=== PATIENT | male | born 1955 | race Caucasian/White ===

== ENCOUNTER 2019-11-29 12:52 | Emergency (ER) | payer OTHER ==
[2019-11-29 13:18] VITALS: TEMP 98.2
[2019-11-29] MEDS ORDERED: HYDROmorphone 0.5 MG/0.5 ML SYRINGE IVP STA (13:22)
[2019-11-29 13:58] LABS: Basophils # (A) 0.1 k/uL (0-0.2); Basophils % (A) 1 %; Eosinophils # (A) 0.1 k/uL (0-0.7); Eosinophils % (A) 1 %; HCT 52.3 % (39.0-53.0); HGB 17.3 gm/dL (13.0-17.5); Lymphocytes % (A) 9 %; MCV 99.9 fL (80.0-100.0); Mean Platelet Volume 6.5; Monocytes # (A) 0.8 k/uL (0-1.0); Monocytes % (A) 7 %; Neutrophils # (A) 9.4 k/uL (1.3-7.7); Neutrophils % (A) 82 %; Platelet Count 354 k/uL (150-450); RBC 5.23 m/uL (4.30-5.90); RDW 11.5 % (11.5-15.5); WBC 11.5 k/uL (3.8-10.6)
[2019-11-29 14:06] LABS: ALT 65 U/L (4-49); AST 103 U/L (17-59); African American GFR (CKD) >90 (>60 ml/min/1.73 sqM); Albumin 4.7 g/dL (3.5-5.0); Alkaline Phosphatase 64 U/L (38-126); Anion Gap 10 mmol/L; Blood Urea Nitrogen 16 mg/dL (9-20); Calcium 9.5 mg/dL (8.4-10.2); Carbon Dioxide 29 mmol/L (22-30); Chloride 98 mmol/L (98-107); Glucose 127 mg/dL (74-99); Non-African American GFR(CKD) 86 (>60 ml/min/1.73 sqM); Sodium 137 mmol/L (137-145); Total Bilirubin 1.7 mg/dL (0.2-1.3); Total Protein 8.1 g/dL (6.3-8.2)
[2019-11-29 14:09] LABS: Partial Thromboplastin Time 25.2 sec (22.0-30.0); Prothrombin Time 10.2 sec (9.0-12.0)
[2019-11-29 14:35] LABS: Appearance,Urine Clear (Clear); Bilirubin,Urine Negative (Negative); Blood,Urine Negative (Negative); Color,Urine Dark Yellow; Glucose,Urine (UA) Negative (Negative); Ketones,Urine Trace (Negative); Leukocyte Esterase,Urine Small (Negative); Mucus,Urine Moderate /hpf; Nitrite,Urine Negative (Negative); PH, Urine 5.5 (5.0-8.0); Protein,Urine Trace (Negative); RBC,Urine 1 /hpf (0-5); Specific Gravity,Urine 1.027 (1.001-1.035); Squamous Epithelial Cell,Urine <1 /hpf (0-4); WBC,Urine 2 /hpf (0-5)
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
[2019-11-29 15:15] VITALS: BP 165/101; PULSE 67; RESP 18
[2019-11-29] MEDS ORDERED: ACET/COD 300 MG/30 MG STARTER PACK 6 TAB BTL PO STA (15:37)
== END 2019-11-29 16:07 | disposition home or self-care (01) ==
LOC: EC 12:52
DX: S30.1XXA Contusion of abdominal wall, initial encounter (principal); H73.899 Other specified disorders of tympanic membrane, unspecified ear; D72.829 Elevated white blood cell count, unspecified; R74.8 Abnormal levels of other serum enzymes; R79.89 Other specified abnormal findings of blood chemistry; K82.8 Other specified diseases of gallbladder; I10 Essential (primary) hypertension; E78.5 Hyperlipidemia, unspecified; F41.9 Anxiety disorder, unspecified; Z79.899 Other long term (current) drug therapy; V49.50XA Passenger injured in collision with unspecified motor vehicles in traffic accident, initial encounter; Y92.410 Unspecified street and highway as the place of occurrence of the external cause
CPT/HCPCS: 36415; 80053; 84484; 85025; 85610; 85730; 81001; 71260; 74177; 99284; 96374; J1170; Q9967

== ENCOUNTER → 2019-12-16 | Outpatient (CLI) | payer BC ==
--- NOTE | 2019-12-16 12:38 | XR ---
EXAMINATION TYPE: PA chest and left rib series, 5 views DATE OF EXAM: 12/16/2019 Comparison: 11/10/2015 Clinical History: 64-year-old male r07.81 L sided rib pain Findings: Heart borderline in size. Mild elongation sectioned ectasia of the thoracic aorta. Mild hyperinflatio n. No consolidation or pleural effusion. Minimally offset and minimally angulated fractures of the left lateral fifth through 10th ribs. The e ighth and ninth rib fractures may be segmental. Impression: Minimally offset and minimally angulated fractures of the left lateral fifth through 10th ribs. The 8 th and ninth rib fractures may be segmental fractures.
== END | disposition home or self-care (01) ==
LOC: RADXRMAIN 12:01
PROVIDERS: ATTEND Family Medicine
DX: S22.42XA Multiple fractures of ribs, left side, initial encounter for closed fracture (principal)

== ENCOUNTER 2020-04-06 11:06 | Day surgery (SDC) | payer OTHER ==
[2020-04-01 14:29] VITALS: BMI 35.3
[~2020-04-06 11:06] MED LIST: LACTATED RINGERS 1,000 ML IV SCH; LIDOCAINE 1% (10MG/ML) FOR IV START INTRADERMA PRN
[2020-04-06 11:29] VITALS: TEMP 97.9
--- NOTE | 2020-04-06 12:12 | P.GSHP ---
History of Present Illness H&P Date: 04/06/20 Chief Complaint: GI bleed Patient here today for upper and lower endoscopy. Recently found to have stool with blood present. Denies active bleeding. No melena. No GERD. No dysphagia. No family history of colon cancer. No prior upper and lower endoscopy. Past Medical History Past Medical History: Hyperlipidemia, Hypertension Additional Past Medical History / Comment(s): Asthma as child, "8 years ago had episode of tachycardia." History of Any Multi-Drug Resistant Organisms: None Reported Past Surgical History: Adenoidectomy, Tonsillectomy Past Anesthesia/Blood Transfusion Reactions: No Reported Reaction Past Psychological History: Anxiety Smoking Status: Never smoker Past Alcohol Use History: Daily, Occasional Additional Past Alcohol Use History / Comment(s): has 1 cocktail per day and on weekends 2-3. Past Drug Use History: None Reported - Past Family History Father Family Medical History: No Reported History Additional Family Medical History / Comment(s): Dad is 82 and healthy. Mother Family Medical History: No Reported History Additional Family Medical History / Comment(s): Mom is 82 and healthy. Medications and Allergies Home Medications Medication Instructions Recorded Confirmed Type Pravastatin Sodium 40 mg PO DAILY 11/10/15 04/01/20 History Sertraline HCl 100 mg PO QAM 11/10/15 04/01/20 History amLODIPine BESYLATE [Amlodipine 5 mg PO QAM 11/10/15 04/01/20 History Besylate] clonazePAM [Clonazepam] 1 mg PO BID 11/10/15 04/01/20 History lisinopriL 40 mg PO QAM 11/10/15 04/01/20 History Metoprolol Tartrate [Lopressor] 50 mg PO TID #90 tab 11/11/15 04/01/20 Rx hydrALAZINE HCL [Apresoline] 1 tab PO BID 04/06/20 04/06/20 History Allergies Allergy/AdvReac Type Severity Reaction Status Date / Time No Known Allergies Allergy Verified 04/06/20 11:23 Surgical - Exam Vital Signs Temp Pulse Resp BP Pulse Ox 97.9 F 71 16 167/80 96 04/06/20 11:27 04/06/20 11:27 04/06/20 11:27 04/06/20 11:27 04/06/20 11:27 Physical exam: General: Well-developed, well-nourished HEENT: Normocephalic, sclerae nonicteric Abdomen: Nontender, nondistended Extremities: No edema Neuro: Alert and oriented Assessment and Plan (1) Blood in the stool Narrative/Plan: Will proceed with upper and lower endoscopy Current Visit: Yes Status: Acute Code(s): K92.1 - MELENA SNOMED Code(s): 081408763
--- NOTE | 2020-04-06 12:34 | P.PCN ---
Date of Procedure: 04/06/20 Procedure(s) Performed: PREOPERATIVE DIAGNOSIS: Blood in stool POSTOPERATIVE DIAGNOSIS: Gastritis, duodenitis, distal esophagitis, hiatal hernia, diverticulosis, rectal polyp PROCEDURE: 1. EGD with biopsy 2. Colonoscopy with biopsy [place] [facility] [place] [facility] [place] Carlos Walden M.D. SPECIMENS: Duodenum, antrum, distal esophagus, rectal polyp ENDOSCOPIC PROCEDURE: The patient was on the endoscopy table in the left decubitus position. The Olympus gastroscope was inserted into the oropharynx and passed under direct visualization to the region of the third portion of the duodenum. From that point the scope was slowly withdrawn inspecting all surfaces carefully. There was duodenitis present with ulcers. Biopsies of the duodenum took place. The pylorus was widely patent per the stomach was carefully inspected. The patient had evidence of diffuse gastritis with superficial erosions. Biopsies were taken. Retroflexion revealed a small to moderate sized hiatal hernia. At the distal esophagus there were noted to be 2 or 3 linear erosions present. These were non-circumferential. This measured 1.57 m in length. The remainder the esophagus appear normal. The patient was kept on the endoscopy table in the left decubitus position. The Olympus colonoscope was inserted into the anus and passed under direct visualization to the base of the cecum. The appendiceal orifice was visualized. From that point the scope was slowly withdrawn inspecting all surfaces carefully. There were no neoplastic inflammatory or polypoid lesions throughout the cecum, ascending, transverse, descending, and sigmoid colon. The rectum a small polyp was seen and removed using the biopsy forceps. The patient had mild left-sided diverticulosis. Digital rectal examination was normal. The patient was taken to the recovery room in stable condition per anesthesia guidelines. RECOMMENDATIONS: Source of bleeding likely related to EGD source. Begin antiacid therapy. Await biopsy results.
[2020-04-06 12:49] VITALS: BP 146/78
[2020-04-06 13:02] VITALS: PULSE 62; RESP 16
== END 2020-04-06 13:30 | disposition home or self-care (01) ==
LOC: ORWHC2ENDO 11:06
PROVIDERS: ATTEND Surgery
DX: K62.1 Rectal polyp (principal); K31.89 Other diseases of stomach and duodenum; K29.50 Unspecified chronic gastritis without bleeding; K31.9 Disease of stomach and duodenum, unspecified; K20.90 Esophagitis, unspecified without bleeding; K29.80 Duodenitis without bleeding; K26.9 Duodenal ulcer, unspecified as acute or chronic, without hemorrhage or perforation; K29.70 Gastritis, unspecified, without bleeding; K25.9 Gastric ulcer, unspecified as acute or chronic, without hemorrhage or perforation; K44.9 Diaphragmatic hernia without obstruction or gangrene; K57.30 Diverticulosis of large intestine without perforation or abscess without bleeding; E78.5 Hyperlipidemia, unspecified; I10 Essential (primary) hypertension; Z90.89 Acquired absence of other organs; F41.9 Anxiety disorder, unspecified; Z79.899 Other long term (current) drug therapy; I48.91 Unspecified atrial fibrillation; Z79.82 Long term (current) use of aspirin
CPT/HCPCS: 43239; 45380; 88305; 88312; 88342

== ENCOUNTER 2020-09-30 15:57 | Inpatient (IN) | payer OTHER ==
[2020-09-30] MEDS ORDERED: KETOROLAC 15 MG/ML 1 ML VIAL IM STA (18:10)
--- NOTE | 2020-09-30 18:19 | ED ---
General Adult HPI - General Chief complaint: Back Pain/Injury Stated complaint: Fall backwards, dog attack Time Seen by Provider: 09/30/20 16:25 Source: patient, RN notes reviewed, old records reviewed Mode of arrival: wheelchair Limitations: no limitations - History of Present Illness Initial comments: This is a 65-year-old male who presents to the emergency department complaining of back pain. Patient states he fell 5 days ago while mowing the lawn and he slipped. Patient states the pain is on both sides of his spine in the lower back he denies any radiation of pain he denies any numbness or weakness. Patient denies any difficulty urinating or urinary incontinence. Patient denies any other injury. Patient states his doctor gave him some Flexeril and it helped a little. Flexeril makes it feel much better and movement deftly increase the pain - Related Data Home Medications Medication Instructions Recorded Confirmed Pravastatin Sodium 40 mg PO DAILY 11/10/15 09/30/20 amLODIPine BESYLATE [Amlodipine 5 mg PO QAM 11/10/15 09/30/20 Besylate] lisinopriL 40 mg PO QAM 11/10/15 09/30/20 hydrALAZINE HCL [Apresoline] 1 tab PO DAILY 04/06/20 09/30/20 Aspirin [[place] Aspirin EC] 81 mg PO DAILY 09/30/20 09/30/20 Cyclobenzaprine [Flexeril] 10 mg PO HS PRN 09/30/20 09/30/20 DULoxetine HCL [Cymbalta] 30 mg PO HS 09/30/20 09/30/20 Metoprolol Tartrate [Lopressor] 50 mg PO DAILY 09/30/20 09/30/20 Allergies Allergy/AdvReac Type Severity Reaction Status Date / Time No Known Allergies Allergy Verified 09/30/20 20:08 Review of Systems ROS Statement: Those systems with pertinent positive or pertinent negative responses have been documented in the HPI. ROS Other: All systems not noted in ROS Statement are negative. Past Medical History Past Medical History: Hyperlipidemia, Hypertension Additional Past Medical History / Comment(s): Asthma as child, "8 years ago had episode of tachycardia." History of Any Multi-Drug Resistant Organisms: None Reported Past Surgical History: Adenoidectomy, Tonsillectomy Past Anesthesia/Blood Transfusion Reactions: No Reported Reaction Past Psychological History: Anxiety Smoking Status: Never smoker Past Alcohol Use History: Daily, Occasional Past Drug Use History: None Reported - Past Family History Father Family Medical History: No Reported History Additional Family Medical History / Comment(s): Dad is 82 and healthy. Mother Family Medical History: No Reported History Additional Family Medical History / Comment(s): Mom is 82 and healthy. General Exam - General Exam Comments Initial Comments: GENERAL Patient is well-developed and well-nourished. Patient is in mild distress. EYES Patient's pupils are equal and round. Extraocular motion is intact SKIN Unremarkable NEURO The patient is alert and oriented 3 PYSCH Patient has normal interpersonal interactions. MUSCULOSKELETAL Patient is full range of motion of all 4 extremities. Patient has tenderness in the paraspinous muscles bilaterally at about L2 3 L4 region. There is no spinous process tenderness Limitations: no limitations Course Vital Signs 09/30/20 16:23 Temperature 98.1 F Pulse Rate 63 Respiratory 18 Rate Blood Pressure 166/93 O2 Sat by Pulse 95 Oximetry Medical Decision Making - Medical Decision Making X-ray lumbosacral spine shows L1 compression fracture approximate 40%. Computed tomography scan of the lumbosacral and thoracic spine show an L1 compression fracture approximately 40% no retropulsion is noted. I spoke with Dr. Anderson he agreed to admit the patient and they will be ordering a brace to the patient tomorrow. I wrote admitting orders. Disposition Clinical Impression: Compression fracture of L1 lumbar vertebra Disposition: ADMITTED IP TO THIS HOSP Referrals: Vandana Gallardo MD [Primary Care Provider] - 1-2 days Time of Disposition: 21:05
--- NOTE | 2020-09-30 20:01 | XR ---
PROCEDURE: XR LUMBOSACRAL SPINE 5 VIEWS DATE AND TIME: 09/30/2020 6:42 PM CLINICAL INDICATION: pain, fall TECHNIQUE: Department protocol COMPARISON: None FINDINGS: There is a L1 vertebral body compression fracture, most conspicuous on the lateral view. There are multilevel degenerative facet and disc changes, [id number] degree. These degenerative changes are most advanced at the lumbosacral junction with air moderate marked in degree. IMPRESSION: L1 vertebral body compression fracture.
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
[2020-09-30] MEDS ORDERED: HYDROmorphone 0.5 MG/0.5 ML SYRINGE IVP STA (21:03)
[2020-09-30] MEDS ORDERED: SODIUM CHLORIDE 0.9% 1,000 ML IV ONE (21:05)
[2020-10-01] MEDS: KETOROLAC 15 MG/ML 1 ML VIAL IVP SCH ×3 (01:00→11:19)
[2020-10-01] MEDS: HYDROmorphone 0.5 MG/0.5 ML SYRINGE IVP PRN ×2 (01:51→07:52)
--- NOTE | 2020-10-01 08:47 | P.HPOR ---
History of Present Illness H&P Date: 10/01/20 Chief Complaint: Low back pain status post fall Patient is a very pleasant 65-year-old male who is seen and examined bedside for further evaluation of his lumbar spine. He states he sustained a fall outside his home approximate 5 days ago when the neighbor's dog jumped up on him and he fell backwards to the ground. He has been experiencing back pain since that time. He states this is pain had worsened and was not improving he came to the hospital for further evaluation. X-ray and CT imaging was performed. He was found to have an L1 compression fracture deformity. He denies any lower extremity weakness or radiculopathy bilaterally. He is voiding without difficulty. He does feel his pain has been better controlled since his admittance to the hospital. He does feel he would be ready for discharge home today. Patient's other medical diagnoses include hypertension hyperlipidemia. He denies LOC at the time of the fall. Past Medical History Past Medical History: Hyperlipidemia, Hypertension Additional Past Medical History / Comment(s): Asthma as child, "8 years ago had episode of tachycardia." History of Any Multi-Drug Resistant Organisms: None Reported Past Surgical History: Adenoidectomy, Tonsillectomy Past Anesthesia/Blood Transfusion Reactions: No Reported Reaction Past Psychological History: Anxiety Smoking Status: Never smoker Past Alcohol Use History: Daily, Occasional Past Drug Use History: None Reported - Past Family History Father Family Medical History: No Reported History Additional Family Medical History / Comment(s): Dad is 82 and healthy. Mother Family Medical History: No Reported History Additional Family Medical History / Comment(s): Mom is 82 and healthy. Medications and Allergies Home Medications Medication Instructions Recorded Confirmed Type Pravastatin Sodium 40 mg PO DAILY 11/10/15 09/30/20 History amLODIPine BESYLATE [Amlodipine 5 mg PO QAM 11/10/15 09/30/20 History Besylate] lisinopriL 40 mg PO QAM 11/10/15 09/30/20 History hydrALAZINE HCL [Apresoline] 1 tab PO DAILY 04/06/20 09/30/20 History Aspirin [[place] Aspirin EC] 81 mg PO DAILY 09/30/20 09/30/20 History Cyclobenzaprine [Flexeril] 10 mg PO HS PRN 09/30/20 09/30/20 History DULoxetine HCL [Cymbalta] 30 mg PO HS 09/30/20 09/30/20 History Metoprolol Tartrate [Lopressor] 50 mg PO DAILY 09/30/20 09/30/20 History Allergies Allergy/AdvReac Type Severity Reaction Status Date / Time No Known Allergies Allergy Verified 09/30/20 20:08 Physical Examination Physical exam: Patient is awake, alert, and oriented 3 Vital signs stable Good chest excursion with deep inspiration and expiration Abdomen soft nontender Examination of lumbar spine reveals skin is intact with no abrasions, lacerations, or bruises; no erythema, purulence or signs of infection Dorsiflexion, plantarflexion, and extensor hallucis longus positive sustained bilaterally Lower extremity strength 5/5 bilaterally Straight leg test negative bilateral lower extremities No signs or symptoms of DVT; no calf pain No pain with internal and external rotation of the hips bilaterally Neurovascularly intact Results Pertinent studies: CT of the thoracic and lumbar spines taken on 09/30/2020: Evidence of L1 burst fracture with approximately 40% height loss without evidence of retropulsion; L5-S1 degenerative disc disease X-rays of the lumbar spine taken on 09/30/2020: Evidence of L1 compression fracture deformity; L5-S1 degenerative disc disease; multilevel facet degenerative changes Assessment and Plan Assessment: Assessment: Acute traumatic L1 burst fracture Acute lumbar pain Status post fall L5-S1 degenerative disc disease Lumbar facet spondylosis Hypertension Hyperlipidemia Plan: Plan: 1. After reviewing of imaging, physical examination the patient, and further discussion with the patient, will currently planned to proceed forward with conservative treatment at this time. After reviewing of imaging, patient does have evidence of L1 burst fracture which remains in good alignment and good position without evidence of retropulsion or canal stenosis. He has good adequate range of motion of bilateral lower extremities. He denies any lower extremity weakness or radiculopathy bilaterally. He is voiding independently without difficulty. At this time we'll plan for bracing. A prescription has be en written and provided to case management for a Spinomed TLSO brace. Once this brace is delivered and fitted appropriately, patient should wear this brace while sitting upright at greater than 45, during increase activities, during ambulation. Brace does not have to or while lying in bed or while bathing. Following fitting of this brace, patient is clear for discharge from an orthopedic spine standpoint. Following discharge, patient may follow-up with Joe Wilson PA-C or Dr. Gonzalo Asencio at [facility]. Time with Patient: Greater than 30 (Including obtaining history, physical examination, reviewing of imaging, and dictation.)
--- NOTE | 2020-10-01 09:00 | P.DS ---
Providers Date of admission: 09/30/20 21:05 Expected date of discharge: 10/01/20 Attending physician: Xiang Anderson Primary care physician: Vandana Gallardo - Discharge Diagnosis(es) (1) Status post fall Current Visit: Yes Status: Acute (2) Acute low back pain Current Visit: Yes Status: Acute (3) DDD (degenerative disc disease), lumbosacral Current Visit: Yes Status: Acute (4) Lumbar facet arthropathy Current Visit: Yes Status: Acute (5) Hypertension Current Visit: Yes Status: Acute (6) Hyperlipidemia Current Visit: Yes Status: Acute (7) Burst fracture of lumbar vertebra Current Visit: Yes Status: Acute (8) Compression fracture of L1 lumbar vertebra Current Visit: Yes Status: Acute Hospital Course: This is a pleasant 65-year-old male who presented with an acute traumatic L1 compression fracture deformity status post fall. He was admitted for pain control and further evaluation. His pain has been well-controlled since his admittance to the hospital. He continues to deny any lower extremity weakness or radiculopathy bilaterally. He is voiding without difficulty. He does feel his pain is well controlled and he could be discharged home today. He states he would like to be discharged today. She is currently waiting for a brace to be delivered and fitted appropriately. A prescription has been written and provided to case management for a Spinomed TLSO brace. Once this brace is delivered and fitted appropriately, patient should wear this brace while sitting upright at greater than 45, during increase activities, during ambulation. Brace does not have to or while lying in bed or while bathing. Following fitting of this brace, patient is clear for discharge from an orthopedic spine standpoint. Following discharge, patient may follow-up with Joe Wilson PA-C or Dr. Gonzalo Asencio at [facility]. MAPS has been reviewed today, 10/01/2020, with an Overall Overdose Risk Score of 210. An "Opiod Start Talking" Form has been discussed with the patient. A prescription has been written for [place] 5 mg/325 mg 1 tab every 8 hours as needed for pain, dispensed #21. He is also given a prescription for cyclobenzaprine 10 mg 1 tablet 3 times a day as needed for muscle spasm, dispensed #60. Patient's other medical diagnoses include hyperlipidemia and hypertension Physical exam: Patient is awake, alert, and oriented 3 Vital signs stable Good chest excursion with deep inspiration and expiration Abdomen soft nontender Examination of lumbar spine reveals skin is intact with no abrasions, lacerations, or bruises; no erythema, purulence or signs of infection Dorsiflexion, plantarflexion, and extensor hallucis longus positive sustained bilaterally Lower extremity strength 5/5 bilaterally Straight leg test negative bilateral lower extremities No signs or symptoms of DVT; no calf pain No pain with internal and external rotation of the hips bilaterally Neurovascularly intact Patient Condition at Discharge: Stable Plan - Discharge Summary New Discharge Prescriptions: New HYDROcodone/APAP 5-325MG [[place] 5] 1 each PO Q8HR PRN #21 tab PRN Reason: Pain Cyclobenzaprine [Flexeril] 10 mg PO TID PRN #60 tab PRN Reason: Muscle Spasm No Action Pravastatin Sodium 40 mg PO DAILY lisinopriL 40 mg PO QAM amLODIPine BESYLATE [Amlodipine Besylate] 5 mg PO QAM hydrALAZINE HCL [Apresoline] 1 tab PO DAILY Metoprolol Tartrate [Lopressor] 50 mg PO DAILY DULoxetine HCL [Cymbalta] 30 mg PO HS Aspirin [[place] Aspirin EC] 81 mg PO DAILY Cyclobenzaprine [Flexeril] 10 mg PO HS PRN PRN Reason: Pain Discharge Medication List Pravastatin Sodium 40 mg PO DAILY 11/10/15 [History] amLODIPine BESYLATE [Amlodipine Besylate] 5 mg PO QAM 11/10/15 [History] lisinopriL 40 mg PO QAM 11/10/15 [History] hydrALAZINE HCL [Apresoline] 1 tab PO DAILY 04/06/20 [History] Aspirin [[place] Aspirin EC] 81 mg PO DAILY 09/30/20 [History] Cyclobenzaprine [Flexeril] 10 mg PO HS PRN 09/30/20 [History] DULoxetine HCL [Cymbalta] 30 mg PO HS 09/30/20 [History] Metoprolol Tartrate [Lopressor] 50 mg PO DAILY 09/30/20 [History] Cyclobenzaprine [Flexeril] 10 mg PO TID PRN #60 tab 10/01/20 [Rx] HYDROcodone/APAP 5-325MG [[place] 5] 1 each PO Q8HR PRN #21 tab 10/01/20 [Rx] Follow up Appointment(s)/Referral(s): Vandana Gallardo MD [Primary Care Provider] - 1-2 days Joe Wilson PAC [PHYSICIAN SALVATIONIST] - 2 Weeks (Patient may follow-up with Joe Wilson PA-C or Dr. Gonzalo Asencio at [facility] in 2-3 weeks following discharge. ) Activity/Diet/Wound Care/Special Instructions: 1. Patient may wear Spinomed TLSO brace for comfort and support while sitting upright at greater than 45, while working with therapy, and while ambulating; patient does not have to wear the brace while lying in bed or bathing 2. Patient should avoid excessive bending, twisting, and lifting; no lifting greater than 10 pounds 3. Take medications as prescribed Discharge Disposition: HOME SELF-CARE
[2020-10-01 10:51] VITALS: RESP 18
[2020-10-01 13:39] VITALS: BP 198/99; PULSE 99; TEMP 98
== END 2020-10-01 13:40 | disposition home or self-care (01) | DRG 552 ==
LOC: EC 15:57 → 4SSUR 21:05
PROVIDERS: ADMIT Orthopaedic Surgery; ATTEND Orthopaedic Surgery
DX: S32.011A Stable burst fracture of first lumbar vertebra, initial encounter for closed fracture (principal); W01.0XXA Fall on same level from slipping, tripping and stumbling without subsequent striking against object, initial encounter; Y93.H2 Activity, gardening and landscaping; Y92.007 Garden or yard of unspecified non-institutional (private) residence as the place of occurrence of the external cause; M51.37 Other intervertebral disc degeneration, lumbosacral region; W54.0XXA Bitten by dog, initial encounter; E78.5 Hyperlipidemia, unspecified; F41.9 Anxiety disorder, unspecified; I10 Essential (primary) hypertension; J45.909 Unspecified asthma, uncomplicated; M47.816 Spondylosis without myelopathy or radiculopathy, lumbar region; Z79.82 Long term (current) use of aspirin; Z79.899 Other long term (current) drug therapy; Z90.89 Acquired absence of other organs
CPT/HCPCS: 72110; 72128; 72131; 96372; 99285

== ENCOUNTER 2023-08-09 16:17 | Emergency (ER) | payer OTHER ==
[2023-08-09 16:33] VITALS: TEMP 98.2
[2023-08-09 17:05] LABS: Basophils % (A) 0 %; Eosinophils # (A) 0.1 k/uL (0-0.7); Eosinophils % (A) 1 %; HGB 16.7 gm/dL (13.0-17.5); Lymphocytes # (A) 1.3 k/uL (1.0-4.8); Lymphocytes % (A) 12 %; MCHC 32.2 g/dL (31.0-37.0); MCV 93.3 fL (80.0-100.0); Mean Platelet Volume 7.9; Monocytes # (A) 0.9 k/uL (0-1.0); Monocytes % (A) 8 %; Neutrophils # (A) 8.1 k/uL (1.3-7.7); Neutrophils % (A) 77 %; Platelet Count 339 k/uL (150-450); RBC 5.57 m/uL (4.30-5.90); RDW 12.8 % (11.5-15.5); WBC 10.6 k/uL (3.8-10.6)
[2023-08-09 17:21] LABS: ALT 23 U/L (4-49); AST 32 U/L (17-59); African American GFR (CKD) >90 (>60 ml/min/1.73 sqM); Albumin 4.6 g/dL (3.5-5.0); Alkaline Phosphatase 58 U/L (38-126); Anion Gap 7 mmol/L; Blood Urea Nitrogen 22 mg/dL (9-20); Calcium 9.6 mg/dL (8.4-10.2); Carbon Dioxide 29 mmol/L (22-30); Chloride 102 mmol/L (98-107); Glucose 94 mg/dL (74-99); Non-African American GFR(CKD) 87 (>60 ml/min/1.73 sqM); Potassium 4.6 mmol/L (3.5-5.1); Sodium 138 mmol/L (137-145); Total Bilirubin 1.1 mg/dL (0.2-1.3); Total Protein 7.7 g/dL (6.3-8.2)
[2023-08-09 17:23] LABS: Partial Thromboplastin Time 27.4 sec (22.0-30.0); Prothrombin Time 11.2 sec (10.0-12.5)
--- NOTE | 2023-08-09 18:16 | ED ---
General Adult HPI - General Chief complaint: Neuro Symptoms/Deficit Stated complaint: L arm weakness Time Seen by Provider: 08/09/23 17:46 Source: patient, RN notes reviewed, old records reviewed Mode of arrival: ambulatory Limitations: no limitations - History of Present Illness Initial comments: 68 yoPatient was sent in by primary care for evaluation of left arm weakness. This has been present for the past 3 weeks. Patient has previous history of atrial fibrillation and was on Eliquis but had to discontinue this medication secondary to cost. He denies any headache. Denies neck pain. Denies speech abnormalities or weakness to the left leg. Patient was sent in by primary care for CAT scan of the brain. Patient is in sinus rhythm and states that he has been in sinus rhythm as far as he knows since a single episode of atrial fibrillation years ago. - Related Data Home Medications Medication Instructions Recorded Confirmed Pravastatin Sodium 40 mg PO DAILY 11/10/15 09/30/20 amLODIPine BESYLATE [Amlodipine 5 mg PO QAM 11/10/15 09/30/20 Besylate] lisinopriL 40 mg PO QAM 11/10/15 09/30/20 hydrALAZINE HCL [Apresoline] 1 tab PO DAILY 04/06/20 09/30/20 Aspirin [[place] Aspirin EC] 81 mg PO DAILY 09/30/20 09/30/20 Cyclobenzaprine [Flexeril] 10 mg PO HS PRN 09/30/20 09/30/20 DULoxetine HCL [Cymbalta] 30 mg PO HS 09/30/20 09/30/20 Metoprolol Tartrate [Lopressor] 50 mg PO DAILY 09/30/20 09/30/20 Previous Rx's Medication Instructions Recorded Cyclobenzaprine [Flexeril] 10 mg PO TID PRN #60 tab 10/01/20 HYDROcodone/APAP 5-325MG [[place] 5] 1 each PO Q8HR PRN #21 tab 10/01/20 Allergies Allergy/AdvReac Type Severity Reaction Status Date / Time No Known Allergies Allergy Verified 09/30/20 20:08 Review of Systems ROS Statement: Those systems with pertinent positive or pertinent negative responses have been documented in the HPI. ROS Other: All systems not noted in ROS Statement are negative. Past Medical History Past Medical History: Hyperlipidemia, Hypertension Additional Past Medical History / Comment(s): Asthma as child, "8 years ago had episode of tachycardia." History of Any Multi-Drug Resistant Organisms: None Reported Past Surgical History: Adenoidectomy, Tonsillectomy Past Anesthesia/Blood Transfusion Reactions: No Reported Reaction Past Psychological History: Anxiety Smoking Status: Never smoker Past Alcohol Use History: Daily, Occasional Past Drug Use History: None Reported - Past Family History Father Family Medical History: No Reported History Additional Family Medical History / Comment(s): Dad is 82 and healthy. Mother Family Medical History: No Reported History Additional Family Medical History / Comment(s): Mom is 82 and healthy. General Exam Limitations: no limitations General appearance: alert, in no apparent distress Head exam: Present: atraumatic, normocephalic Eye exam: Present: normal appearance, PERRL ENT exam: Present: normal exam Neck exam: Present: normal inspection. Absent: tenderness, meningismus Respiratory exam: Present: normal lung sounds bilaterally. Absent: respiratory distress, wheezes Cardiovascular Exam: Present: regular rate, normal rhythm GI/Abdominal exam: Present: soft. Absent: distended, tenderness, guarding Extremities exam: Present: normal inspection, normal capillary refill. Absent: calf tenderness Neurological exam: Present: alert, oriented X3, CN II-XII intact, motor sensory deficit (NIH of 1 for limb ataxia in the left upper extremity this is very subtle) Psychiatric exam: Present: normal affect, normal mood Skin exam: Present: warm, dry, intact. Absent: cyanosis, diaphoretic Course Vital Signs 08/09/23 16:29 Temperature 98.2 F Pulse Rate 82 Respiratory 16 Rate Blood Pressure 158/88 O2 Sat by Pulse 93 L Oximetry Medical Decision Making - Medical Decision Making Was pt. sent in by a medical professional or institution (, PA, [facility], urgent care, hospital, or penitentiary...) When possible be specific @ -[No] Did you speak to anyone other than the patient for history (EMS, parent, family, police, friend...)? What history was obtained from this source @ -[No] Did you review nursing and triage notes (agree or disagree)? Why? @ -[I reviewed and agree with nursing and triage notes] Were old charts reviewed (outside hosp., previous admission, EMS record, old EKG, old radiological studies, urgent care reports/EKG's, penitentiary records)? Report findings @ -[No old charts were reviewed] Differential CVA Ischemic stroke, hemorrhagic stroke, brain tumor, atypical migraine, Wernicke's encephalopathy, seizure, multiple sclerosis, meningitis, encephalitis, hypoglycemia, Guillain-Green, electrolytes disturbance, myasthenia gravis.... This is not meant to be an all-inclusive list EKG interpreted by me (3pts min.). @ -EKG: Sinus rhythm rate of 75, OK interval 186, QRS duration 98, QTc [address] segment elevation X-rays interpreted by me (1pt min.). @ -[None done] CT interpreted by me (1pt min.). @ -[CT brain without contrast, negative for intracranial hemorrhage or mass effect. CT angiography negative for acute occlusion or stenosis. U/S interpreted by me (1pt. min.). @ -[None done] What testing was considered but not performed or refused? (CT, X-rays, U/S, labs)? Why? @ -[None] What meds were considered but not given or refused? Why? @ -[None] Did you discuss the management of the patient with other professionals (professionals i.e. , PA, [facility], lab, RT, psych nurse, rn social services, grinder outside diameter, teacher, soil science technical officer, counter caser)? Give summary @ -[No] Was smoking cessation discussed for >3mins.? @ -[No] Was critical care preformed (if so, how long)? @ -[No] Were there social determinants of health that impacted care today? How? (Homelessness, low income, unemployed, alcoholism, drug addiction, transportation, low edu. Level, literacy, decrease access to med. care, custodial, r ehab)? @ -[No] Was there de-escalation of care discussed even if they declined (Discuss DNR or withdrawal of care, Hospice)? DNR status @ -[No] What co-morbidities impacted this encounter? (DM, HTN, Smoking, COPD, CAD, Cancer, CVA, ARF, Chemo, Hep., AIDS, mental health diagnosis, sleep apnea, morb id obesity)? @ -History of atrial fibrillation Was patient admitted / discharged? Hospital course, mention meds given and route, prescriptions, significant lab abnormalities, going to OR and other pe rtinent info. @ -68-year-old male presenting from primary care office with 3 weeks of weakness in the left arm. There is no drift. There is a very mild ataxia. No other neurological complaints, no other neurological findings on exam. Patient was sent by the primary for CT imaging. Laboratory testing, EKG, CT imaging is obtained. CT brain without contrast is negative for acute findings. CT angiography is also negative. I do recommend this patient should take aspirin. I stated that he could be admitted for MRI and neurology consultation but the patient declines he prefers discharge.. He states that he will follow-up with his primary care provider. I did inform the patient that he if he should develop any new or worsening symptoms or anything suggestive of stroke he should return to the emergency department immediately. Patient was given an outpatient order for MRI by primary care provider. He will contact his primary care provider regarding results from today. Undiagnosed new problem with uncertain prognosis? @ -[No] Drug Therapy requiring intensive monitoring for toxicity (Heparin, Nitro, Insulin, Cardizem)? @ -[No] Were any procedures done? @ -[No] Diagnosis/symptom? @ -[Left arm weakness for 3 weeks. Acute, or Chronic, or Acute on Chronic? @ -Acute Uncomplicated (without systemic symptoms) or Complicated (systemic symptoms)? @ -[default] Side effects of treatment? @ -[No] Exacerbation, Progression, or Severe Exacerbation? @ -[No] Poses a threat to life or bodily function? How? (Chest pain, [place], [place], pneumonia, PE, COPD, DKA, ARF, appy, cholecystitis, CVA, Diverticulitis, Homicidal, Suicidal, threat to staff... and all critical care pts) @ -Yes, risk of progressive CVA. - Lab Data Result diagrams: 08/09/23 16:33 08/09/23 16:33 Lab Results 08/09/23 08/09/23 08/09/23 Range/Units 16:33 16:33 16:33 WBC 10.6 (3.8-10.6) k/uL RBC 5.57 (4.30-5.90) m/uL Hgb 16.7 (13.0-17.5) gm/dL Hct 52.0 (39.0-53.0) % MCV 93.3 (80.0-100.0) fL MCH 30.0 (25.0-35.0) pg MCHC 32.2 (31.0-37.0) g/dL RDW 12.8 (11.5-15.5) % Plt Count 339 (150-450) k/uL MPV 7.9 Neutrophils % 77 % Lymphocytes % 12 % Monocytes % 8 % Eosinophils % 1 % Basophils % 0 % Neutrophils # 8.1 H (1.3-7.7) k/uL Lymphocytes # 1.3 (1.0-4.8) k/uL Monocytes # 0.9 (0-1.0) k/uL Eosinophils # 0.1 (0-0.7) k/uL Basophils # 0.0 (0-0.2) k/uL PT 11.2 (10.0-12.5) sec INR 1.0 (<1.2) APTT 27.4 (22.0-30.0) sec Sodium 138 (137-145) mmol/L Potassium 4.6 (3.5-5.1) mmol/L Chloride 102 (98-107) mmol/L Carbon Dioxide 29 (22-30) mmol/L Anion Gap 7 mmol/L BUN 22 H (9-20) mg/dL Creatinine 0.92 (0.66-1.25) mg/dL Est GFR (CKD-EPI)AfAm >90 (>60 ml/min/1.73 sqM) Est GFR (CKD-EPI)NonAf 87 (>60 ml/min/1.73 sqM) Glucose 94 (74-99) mg/dL Calcium 9.6 (8.4-10.2) mg/dL Total Bilirubin 1.1 (0.2-1.3) mg/dL AST 32 (17-59) U/L ALT 23 (4-49) U/L Alkaline Phosphatase 58 (38-126) U/L Creatine Kinase (55-170) U/L Troponin I (0.000-0.034) ng/mL Total Protein 7.7 (6.3-8.2) g/dL Albumin 4.6 (3.5-5.0) g/dL 08/09/23 08/09/23 Range/Units 16:33 16:33 WBC (3.8-10.6) k/uL RBC (4.30-5.90) m/uL Hgb (13.0-17.5) gm/dL Hct (39.0-53.0) % MCV (80.0-100.0) fL MCH (25.0-35.0) pg MCHC (31.0-37.0) g/dL RDW (11.5-15.5) % Plt Count (150-450) k/uL MPV Neutrophils % % Lymphocytes % % Monocytes % % Eosinophils % % Basophils % % Neutrophils # (1.3-7.7) k/uL Lymphocytes # (1.0-4.8) k/uL Monocytes # (0-1.0) k/uL Eosinophils # (0-0.7) k/uL Basophils # (0-0.2) k/uL PT (10.0-12.5) sec INR (<1.2) APTT (22.0-30.0) sec Sodium (137-145) mmol/L Potassium (3.5-5.1) mmol/L Chloride (98-107) mmol/L Carbon Dioxide (22-30) mmol/L Anion Gap mmol/L BUN (9-20) mg/dL Creatinine (0.66-1.25) mg/dL Est GFR (CKD-EPI)AfAm (>60 ml/min/1.73 sqM) Est GFR (CKD-EPI)NonAf (>60 ml/min/1.73 sqM) Glucose (74-99) mg/dL Calcium (8.4-10.2) mg/dL Total Bilirubin (0.2-1.3) mg/dL AST (17-59) U/L ALT (4-49) U/L Alkaline Phosphatase (38-126) U/L Creatine Kinase 145 (55-170) U/L Troponin I <0.012 (0.000-0.034) ng/mL Total Protein (6.3-8.2) g/dL Albumin (3.5-5.0) g/dL Disposition Clinical Impression: Left arm weakness Disposition: HOME SELF-CARE Condition: Fair Instructions (If sedation given, give patient instructions): Weakness (ED) Additional Instructions: Please follow closely with your primary care provider for further evaluation and treatment possible CVA. Is patient prescribed a controlled substance at d/c from ED?: No Referrals: Vandana Gallardo MD [Primary Care Provider] - 1-2 days Time of Disposition: 20:20
--- NOTE | 2023-08-09 19:36 | CT ---
EXAMINATION TYPE: CT brain wo con CT DLP: 1021 combined total mGycm, Automated exposure control for dose reduction was used. DATE OF EXAM: 08/09/2023 7:07 PM COMPARISON: None.. CLINICAL INDICATION:Male, 68 years old with history of Neuro deficit, acute, stroke suspected, Weakne ss and tremors in left arm x 3 weeks TECHNIQUE: Brain: Axial CT images of the brain were obtained with coronal and sagittal reformats created and rev iewed. Contrast used: None. Oral contrast used: None. FINDINGS: Extra-axial spaces: No abnormal extra-axial fluid collections. Basilar cisterns are patent. Coarse c alcifications noted along the falx. Ventricular system: Ventricles appear dilated in proportion to the degree of cerebral atrophy. Cerebral parenchyma: No increased attenuation to suggest acute intraparenchymal hemorrhage. The gra y-white matter interface appears maintained. Moderate generalized brain atrophy. Scattered hypoatte nuating areas are seen within the cerebral white matter, nonspecific but most often seen with chronic microvascular ischemic changes; moderate in degree. Cerebellum: No acute abnormality. Mass effect: No evidence of mass effect or midline shift. Intracranial vasculature: Unremarkable Soft tissues: No acute or concerning abnormality. Visualized orbits: Orbital contents appear grossly intact. Calvarium/osseous structures: No evidence of calvarial fracture. Paranasal sinuses and mastoid air cells: Clear. MRI is more sensitive for detecting acute processes such as infarct, and may be considered if clinica lly warranted. IMPRESSION: 1. No CT evidence of an acute intracranial abnormality. 2. Atrophy and chronic microvascular ischemic white matter changes.
--- NOTE | 2023-08-09 20:33 | CT ---
EXAMINATION TYPE: CT angio head neck DATE OF EXAM: 08/09/2023 7:18 PM COMPARISON: Same day CT head. CLINICAL INDICATION:Male, 68 years old with history of Neuro deficit, acute, stroke suspected; PHH, W eakness and tremors in left arm x 3 weeks TECHNIQUE: Axially acquired helical CT angiogram of the head and neck was obtained with contrast. Axi al images are supplemented with 3D reconstructions which [facility] NASCET criteria used. Contrast used: 65 cc mL of Isovue 370 with IV Contrast, Oral contrast used: None. CT DLP: 1021 combined total mGycm, Automated exposure control for dose reduction was used. FINDINGS: CTA Neck: A 3 vessel aortic arch is shown. Mild atherosclerotic calcific plaque is present in the aortic arch and at the origin of the left common carotid and left subclavian arteries without significant stenosi s seen. Right carotid system: The common carotid is patent. There is no hemodynamically significant diameter stenosis, dissection, nor pseudoaneurysm present. Left carotid system: The common carotid is patent. Minimal plaque near the bifurcation. There is no h emodynamically significant diameter stenosis, dissection, nor pseudoaneurysm present. Common carotids are noted to be tortuous taking a retropharyngeal course with a near "kissing carotid s" appearance; this should be remembered in case pharyngeal biopsies are ever performed. Vertebral arteries: There is no significant atherosclerotic plaque at the origins of the vertebral ar teries. The vertebrals are then otherwise patent to the skull base. The vertebral arteries are codominant. Other: Visualized neck soft tissues show no concerning abnormality. Possible tiny hypodense right thy roid nodularity. Cervical spine shows mild/moderate degenerative changes with mild reversal of the no rmal cervical lordosis probably on a degenerative basis. An acute bony abnormality is not identified. Moderate left-sided neural foraminal stenoses are suggested at C3-C4, C5-C6, C6-C7. Mild spinal viktoria l stenoses. Included lung apices show no acute infiltrate or pneumothorax. CTA Head: ICAs are patent at the skull base. Supraclinoid ICAs, bifurcations, ACAs, MCAs appear normally patent. Anterior communicating artery is definitely seen and is unremarkable. The intracranial vertebral arteries enhance normally. Basilar artery is patent and unremarkable. Norm al basilar bifurcation without evidence of aneurysm. 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 A right posterior communicating artery is not definitely seen. A left posterior communicating artery is seen and appears to provide significant supply to the left P CA, with smaller contribution from the basilar. No intracranial large vessel occlusion, hemodynamically significant stenosis, aneurysm, dissection, o r arteriovenous malformation is shown. The dural venous sinuses appear grossly patent without evidence of thrombosis. Some arachnoid granula tions are shown. Other: Please refer to same-day CT head report for further description of findings. IMPRESSION: CTA neck: 1. Patent CTA neck. 2. No dissection, hemodynamically significant stenosis, or pseudoaneurysm detected in the carotid or vertebral arteries in the neck. 3. Cervical spondylosis. CTA head: 1. Patent CTA head. 2. No intracranial large vessel occlusion, significant stenosis, or sizable aneurysm detected in the limits of CTA.
[2023-08-09 20:58] VITALS: BP 165/97; PULSE 79; RESP 17
== END 2023-08-09 21:00 | disposition home or self-care (01) ==
LOC: EC 16:17
DX: R53.1 Weakness (principal); I48.91 Unspecified atrial fibrillation; Z79.899 Other long term (current) drug therapy
CPT/HCPCS: 99284 ×2; 36415; 93005; 80053; 82550; 84484; 85025; 85610; 85730; 70496; 70450; 70498; Q9967

== ENCOUNTER → 2023-08-30 | Outpatient (CLI) | payer MEDICARE ==
--- NOTE | 2023-08-30 19:07 | MR ---
EXAMINATION TYPE: MR brain/cspine wo DATE OF EXAM: 08/30/2023 COMPARISON: CT brain 08/09/2023 HISTORY: 68-year-old male Lt arm weakness, M62.838 OTHER MUSCLE SPASM R29.898 left arm weakness TECHNIQUE: Multiplanar, multisequence images of the brain and brainstem were acquired without IV con trast. Diffusion weighted imaging is performed. Multiplanar, multisequence images of the cervical spi ne also obtained. FINDINGS: BRAIN: No evidence for acute infarction, hemorrhage, mass, mass effect, midline shift, herniation, effacemen t of basal cisterns, or extra-axial fluid collection. There is moderate volume loss overlying the bilateral cerebral convexities. Ventricular caliber is no rmal. Major intracranial flow voids are intact. Persistent origin left posterior cerebral artery. T2 such FLAIR weighted sequences show mild to moderate scattered bright signal foci throughout the menard bcortical and periventricular regions of both cerebral hemispheres. Midline structures demonstrates a partially empty sella but otherwise normal morphology. The cranioce rvical junction is normal. Scattered mild to moderate mucosal thickening ethmoid air cells and floors of the maxillary sinuses. Globes are intact. CERVICAL SPINE: No craniocervical junction abnormalities, predental space widening, or prevertebral soft tissue swell ing. There is reversal of the normal cervical lordosis. Degenerative grade 1 anterolisthesis C4-C5 and gra de 1 retrolisthesis C5-C6. Remaining alignment is maintained. Mild to moderate degenerative disc disease with desiccated and bulging discs are present throughout t he mid and lower cervical spine. Scattered fatty Modic type II endplate changes present throughout. Multilevel moderate facet and uncovertebral joint arthropathy. Broad-based posterior disc osteophyte complex slightly eccentric towards the right at C4-C5 impresses on to the ventral cord causing mild spinal canal stenosis. No mariluz cord compression. No other large focal disc herniation or significant spinal canal stenosis. There is patchy artifacts projecting over the cervical spinal cord. No convincing T2 weighted cord si gnal abnormality on axial sequences. At C3-C4, uncovertebral joint and facet arthropathy contiguous to severe left and moderate right neur oforaminal stenosis. At C4-C5, hypertrophic facet and uncovertebral joint arthropathy contributes to moderate right and mi ld left neuroforaminal stenosis. At C5-C6, hypertrophic facet and uncovertebral joint arthropathy contributes to severe left and moder ate right neuroforaminal stenosis. At C6-C7, hypertrophic facet and uncovertebral joint arthropathy contributes to mild left [place] right neuroforaminal stenosis. No suspicious bone marrow replacement. COMBINED IMPRESSION: Brain: 1. Moderate generalized cerebral atrophy. Mild to moderate burden of chronic small vessel ischemic di sease. 2. No acute intracranial abnormality seen. 3. Additional mild to moderate chronic ethmoid and maxillary sinus disease. Cervical spine: 4. Mild to moderate multilevel degenerative disc disease with scattered Modic type II fatty endplate change. 5. Reversal of the normal cervical lordosis with degenerative grade 1 spondylolisthesis C4-C5 and C5- C6. 6. Disc osteophyte complex eccentric toward the right abuts the ventral cord at C5-C6 contributing to mild spinal canal stenosis. No mariluz cord compression. Patchy artifact projects over the cord limiti ng assessment for any cord signal abnormality. No convincing signal change on axial images. 7. Variable moderate and severe neuroforaminal stenoses as outlined above.
== END | disposition home or self-care (01) ==
LOC: RADMRIMAIN 07:35
PROVIDERS: ATTEND Family Medicine
DX: M62.838 Other muscle spasm (principal); R29.898 Other symptoms and signs involving the musculoskeletal system; M25.78 Osteophyte, vertebrae; J32.0 Chronic maxillary sinusitis; M43.12 Spondylolisthesis, cervical region; M47.812 Spondylosis without myelopathy or radiculopathy, cervical region; M48.02 Spinal stenosis, cervical region; M50.30 Other cervical disc degeneration, unspecified cervical region; I67.82 Cerebral ischemia
CPT/HCPCS: 70551; 72141

== ENCOUNTER → 2023-11-23 | Outpatient (CLI) | payer MEDICARE, OTHER ==
--- NOTE | 2023-11-23 16:54 | XR ---
EXAMINATION TYPE: XR chest 2V DATE OF EXAM: 11/23/2023 COMPARISON: 11/10/2015 HISTORY: Preop clearance TECHNIQUE: Frontal and lateral views of the chest are obtained. FINDINGS: There is prominence of the right hilum and the possibility of hilar adenopathy or mass cannot be excl uded. CT of the chest using the evaluation. Left lung is clear. There is no pleural effusion or pneumothorax. The heart and pulmonary vasculature are normal. The osseous structures are intact IMPRESSION: Prominent right hilum and the possibility of hilar adenopathy or mass cannot be excluded . CT of the chest is recommended for further evaluation. [facility], , 11/23/2023 4:52 PM
== END | disposition home or self-care (01) ==
LOC: LABPAT 14:47
PROVIDERS: ATTEND Orthopaedic Surgery
DX: M50.00 Cervical disc disorder with myelopathy, unspecified cervical region (principal); M47.26 Other spondylosis with radiculopathy, lumbar region; Z22.322 Carrier or suspected carrier of Methicillin resistant Staphylococcus aureus; R06.02 Shortness of breath
CPT/HCPCS: 71046; 86850; 86900; 86901; 87070

== ENCOUNTER 2023-11-27 11:05 | Inpatient (IN) | payer MEDICARE, OTHER ==
--- NOTE | 2023-11-26 21:57 | P.HPOR ---
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 Licea presents to the office today, 11/22/23, for recheck of his neck issues arm issues as well as MRI review. The patient was seen by my COSMETICS AND TOILETRIES SALESPERSON on 11/14/2023 and was prompted to follow up with me urgently due to his severe symptoms. The patient is having severe left arm pain that is getting worse over the past several weeks he has now progressed and near flaccid paralysis of the left upper extremity. He is unable to use his left arm at all secondary to this. The patient had seen previously in neurology as well as another orthopedic surgeon he was diagnosed with carpal tunnel syndrome without imaging. 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 He has been seeing multiple different physicians over the last 2 months and his symptoms are progressively getting worse to the point now where he states he has to wear a brace just to hold his wrist up slid does not fall forward. He denies any trauma to the area he denies any surgery on his neck previously. Patient denies any f/c/sob/cp, perineal numbness or tingling, bowel, or bladde r incontinence/retention. Patient is ambulatory With a cane as he is very unsteady on his feet The patients past social, medical, family, surgical history, as well as review of systems, have been reviewed. Please refer to the History and Physical form that has been scanned into our electronic medical record system. 16 points review of systems completed and as stated in HPI, all other systems reviewed are negative. PAST TREATMENTS: PAST IMAGING: YES -CT MRI and x-rays TRAUMA RELATED: NO - WORK RELATED: NO - PT IN LAST 6 MONTHS: YES -he has done therapy in the last month but this made him worse PHYSICIAN DIRECTED HOME EXERCISE PROGRAM: YES -this was given him by his PCP but also made it worse ACTIVITY MODIFICAITON: YES -he has had a modified his activity to not using his left upper extremity secondary to the essential paralysis that he is having MEDICATIONS: YES -he was placed on gabapentin prednisone Medrol Dosepak as well as Tylenol and Motrin all of which did not help his symptoms only one was gabapentin which decreases pain slightly ALTERNATIVE INTERVENTIONS (CHIROPRACTIC, ACCUPUNCTURE, MASSAGE, RICE): YES -yes he has done physical therapy chiropractics massage without any improvement BRACING: NO - INJECTIONS (DOLLY, TF, RFA): NO - MEDICAL HISTORY: Past Medical History: REVIEWED STATED IN CHART Past Surgical History: REVIEWED STATED IN CHART Social History: REVIEWED STATED IN CHART SMOKING: Never smoker ETOH: None SUBSTANCES: None Family History: REVIEWED STATED IN CHART Current Medications: Rx: aspirin 81 mg tablet,delayed release Ref: 0 Instructions: take 1 tablet (81 mg) by oral route once daily Rx: carvediloL 25 mg tablet Ref: 0 Instructions: take 1 tablet (25 mg) by oral route 2 times per day with food Rx: DULoxetine 30 mg capsule,delayed release Ref: 0 Instructions: take 1 capsule (30 mg) by oral route once daily Rx: ferrous sulfate 325 mg (65 mg iron) tablet Ref: 0 Instructions: take 1 tablet (325 mg) by oral route once daily Rx: furosemide 20 mg tablet Ref: 0 Instructions: take 1 tablet (20 mg) by oral route once daily Rx: hydrALAZINE 100 mg tablet Ref: 0 Instructions: take 1 tablet (100 mg) by oral route 2 times per day with food Rx: lisinopriL 40 mg tablet Ref: 0 Instructions: take 1 tablet (40 mg) by oral route once daily Rx: NIFEdipine ER 30 mg tablet,extended release Ref: 0 Instructions: take 1 tablet (30 mg) by oral route twice daily Rx: pravastatin 40 mg tablet Ref: 0 Instructions: take 1 tablet (40 mg) by oral route once daily Rx: predniSONE 20 mg tablet Ref: 0 Instructions: take 1 tablet (20 mg) by oral route BID Rx: rOPINIRole 0.5 mg tablet Ref: 0 Instructions: take 1 tablet (0.5 mg) by oral route once daily PHYSICAL EXAM: General: AOX3, NAD, Well hydrate, well nourished HEENT: No lumps or masses Extremities: No color changes, no pooling INTEGUMENT: Appearance: Normal color and turgor Surgical Incisions: none Hairy Patches: ABSENT Dorsal Skin Dimples: Normal [employer] spots: ABSENT PALPATION: TTP Midline: NO Paracervical: YES Parathoracic: NO Paralumbar: NO SIJ TESTING: NT POSTURAL BALANCE: Coronal: BALANCED Sagittal: BALANCED Shoulder height: LEVEL Pelvic Girdle: LEVEL ROM AND APPEARANCE: Neck: RESTRICTED Lumbar: UNRESTRICTED Shoulders: Symmetrical Hips: Symmetrical Knees: Symmetrical Hands: Symmetrical Feet: Symmetrical VASCULAR STATUS: PALPABLE PULSES B/L UE AND LE 2/4 RAD/ULNAR/DP/PT Edema: NONE NEUROLOGICAL EXAMINATION: Mental Status: Awake, alert, fully oriented with normal attention, concentration, and memory. Fluent appropriate speech. CRANIAL NERVES: I: Olfactory not assessed. II: Visual acuity normal, no visual field deficit noted with confrontation. III, IV: Normal pupillary reflexes & intact extraocular movements without nystagmus. V, : Intact symmetrical facial sensation. VII: Intact symmetrical facial motor movement: Hearing intact. IX, X: Intact gag, swallow, & normal voice. XI: Sternocleidomastoid, trapezius function intact. XII: Tongue midline with normal movements. TENSIONING: L'HERMITTE'S SIG: NEG SPURLUNG'S SIGN: POSITIVE ON THE LEFT AND RIGHT CUBITAL TUNNEL COMPRESSION: NEG TINELS AT WRIST: NEG STRAIGH LEG RAISE: NEG CONTRALATERAL STRAIGHT LEG RAISE: NEG MOTOR EXAM (0-5/5, NT) Muscle appearance: Symmetrical, without signs of atrophy or dystrophy UPPER EXTREMITY RIGHT LEFT Shoulder Abduction 4 3 Biceps 4 2 Triceps 3 2 Wrist Extension 3 3 Hand Intrinsics 4 3 Tellers Supervisor 4 3 LOWER EXTREMITY RIGHT LEFT Hip Flexion 4 4 Knee Extension 4 4 Knee Flexion 4 4 Dorsiflexion 5 5 Plantarflexion 5 5 EHL 5 5 FHL 5 5 REFLEXES (0-4/2, NT): RIGHT LEFT Bicep 3 3 Brachioradialis 3 3 Triceps 3 3 Patellar 3 3 Achilles 3 3 WIDESPREAD HYPERREFLEXIA OF UE AND LE B/L PATHOLOGICAL REFLEXES: RIGHT LEFT BOGGS'S PRESENT PRESENT CLONUS PRESENT 10 BEATS WRIST AND ANKLE PRESENT SUSTAINED ANKLE, 10 BEATS WRSIT BABINSKI ABSENT ABSENT RECTAL TONE: INTACT/NT SENSATION (0-4, NT): Sensation intact to LT and Pain C5-T1 distribution BUE L2-S2 distribution BLE *Exceptions below* DERMATOMAL DEFICIT/RADICULAR PATTERN: C3-7 LEFT; C5-7 RIGHT GAIT AND FUNCTIONAL EVALUATION: AMBULATORY AID CANE/WALKER ROMBERG'S TEST NOT INTACT HAND AND FINGER DEXTERITY INTACT NO DYSDIADOCHOKINESIA EXAM NEG B/L NO TOE/HEEL WALK INTACT WITH GOOD BALANCE NOT ABLE SQUAT AND RISE W/O ASSISTANCE TO 60 DEG KNEE FLEXION NOT ABLE SINGLE LEG STANCE NOT INTACT [place] NT IMAGING: XRAY Date: 11/14/23 Location: [facility] Region: CERVICAL Views: AP/LAT/FLEX/EXT/OB IMAGES ARE REVIEWED WITH THE PATIENT IN OFFICE AND DEMONSTRATE THE FOLLOWING: FINDINGS: These demonstrate widespread spondylotic disease from C3-7 with severe disc collapse, anterior and posterior osteophyte formation as well as finding of the normal cervical lordosis secondary to collapse. Severe disc collapse causing endplate sclerosis facet arthropathy which is severe. No overt instability on flexion-extension films. Cervical thoracic junction shows anterolisthesis of C7 on T1. Occipital cervical C1 2 joints appear stable. No fracture lesions noted. CT Date: 08/09/23 Location: [facility] Region: HEAD AND NECK Contrast: N IMAGES ARE REVIEWED WITH THE PATIENT IN OFFICE AND DEMONSTRATE THE FOLLOWING: FINDINGS: these images are reviewed and neck of the x-rays as well as MRI findings. There is posterior disc at C5 complex noted at C C3 4 C4 5 and C5 6 causing severe stenosis. Facet arthropathy which is moderate to severe noted. Anterior and posterior osteophytic changes with severe spondylotic collapse. No instability C1 to occipital cervical regions no fractures. Vasculature appears relatively normal. MRI Date: 08/30/2023 Location: [facility] Region: BRAIN AND CERVICAL SPINE Contrast: N IMAGES ARE REVIEWED WITH THE PATIENT IN OFFICE AND DEMONSTRATE THE FOLLOWING: FINDINGS: these demonstrate again widespread spondylotic disease with spondylotic myelopathy from C3 through C7. There are large degenerative disc herniations at C3 4 C4 5 C5 6 and C6 7 causing severe stenosis. Mild malacia changes noted from C3 through C6 with cord signal changes C3 through C6 which are moderate. Severe cord signal changes and impingement noted at C4-C5 and heard a large disc herniation. Reversal of the normal cervical lordosis secondary to spondylotic collapse and severe degenerative disc disease. Grade 1 anterolisthesis C7-T1 noted which is partially reduced on the supine film. No acute fractures noted.no lesions. Severe foraminal stenosis noted at C3 4 C4 5 on the left-hand side as well. IMPRESSION: It was my pleasure to have seen and examined Skinny. I reviewed the patient's clinical syndrome, physical findings, and imaging studies during the appointment today. It is my impression that the patient has a diagnosis of. 1. CERVICAL SPONDYLOTIC MYELOPATHY, SEVERE, PROGRESSIVE 2.LEFT UPPER EXTREMITY PARALYSIS, ACUTE/SUBACUTE 3. BUE WEAKNESS, LEFT WRIST DROP 4. FINE MOTOR DISRUPTION 5. GAIT DISTURBANCE 6. LUE RADICULOPATHY PLAN: DISCUSSION: - I have discussed with the patient's clinical signs and symptoms as well as imaging as well as treatment options. at this point the patient has had severe progressive changes in his left upper extremity which are threatening permanency due to the timing of his presentation as well as his previous workup and time to get to see me. His maximum function is at risk if we do not do something quickly for him and I discussed with this with him and he agrees he would like to proceed as outlined below we discussed risks and benefits at length as in the risk review. He is ready for surgical intervention. SURGICAL RECOMMENDATION - URGENT C3-C7 ANTERIOR CERVICAL DISCECTOMY AND FUSION -WE WILL HAVE HIM SEEN AND CLEARED BY HIS PCP URGENTLY ON SUNDAY OF THIS WEEK. -PRE OP LABS, EKG AND CXR ARE ORDERED STAT AND WILL BE COMPLETED THIS WEEK. SURGICAL PROCEDURE RISK REVIEW Skinny Licea is a 68 year old male presenting for evaluation of sudden onset of LUE WEAKNESS, PAIN, PROGRESSING TO PARALYSIS OF HIS LUE ALONG WITH SEVERE DECREASED FUNCTION, WEAKNESS AND NOW RUE SYMTPOMS. It was my pleasure to have seen and examined Mr. Licea. In our visit today we have had a chance to go over subjective complaints, physical examination findings and treatments, including the natural course history without intervention and various interventional options. The imaging demonstrates SEVERE STENOSIS WITH SPONDYLOSIS AND MYELOPATHY OF THE CERVICAL SPINE FROM C3-7 CAUSING SEVERE CORD COMPRESSION . On physical exam, Mr. Licea demonstrates LUE ACUTE/SUBACUTE PARALYSIS, WEAKNESS, RADICULOPATHY AND NOW RUE WEAKNESS, RADICULOPATHY AND DECREASED FUNCTION. HYPERREFLEXIA UE AND LE B/L WELL CLONUS AND +BOGGS'S B/L THAT IS BRISK. DTR ARE 3+ IN UE AND LE B/L WELL LENDING TO HIS MYELOPATHY AND SEVERE CORD COMPRESSION. I explained to the patient that as his condition progresses it could cause PERNAMENT DAMAGE, PERMANENT WEAKNESS IN HIS LUE SPECIFICALLY DUE TO THE ALREADY SEVERE PROGRESSION OF HIS SX WELL NEUROLOGICAL DECLINE OF HIS LE WELL CONTINUED PAIN, UNSTEADY GAIT AND ISSUES. . At this time, based on the patients imaging and physical exam, I recommend surgery in the form or a: URGENT C3-7 ANTERIOR CERVICAL DISCECTOMY AND FUSION. I discussed the risk and benefits of this procedure at length with Mr. Licea. The patient agreed to consider pursuing the procedure mentioned above. Plan: 1. URGENT C3-7 ANTERIOR CERVICAL DISCECTOMY AND FUSION. THE PATIENTS MAXIMUM RECOVERY POTENTIAL IS IN JEPORDY IF NOT DONE URGENTLY. 2. STAT Follow up with PCP for surgical clearance 3. Review of surgical risks and benefits as well as an educational packet on the proposed surgical procedure. 4. PRE OP LABS STAT Risks: All surgical procedures come with inherent risks, including those related to positioning, anesthesia, intraoperative findings, and postoperative complications. It is important to understand that surgery does not come with any guarantee of a successful outcome as complications and adverse events are always possible. The patient was given a handout in office today discussing the surgical procedure and risks associated with the intervention, both of which were discussed with the patient. These risks include but are not limited to the following: ? Experiencing same, different or even worse symptoms in back, neck, arms, or legs compared to before surgery. ? Requiring further surgery or other forms of treatment presently or at some time in the future at same or other levels of the intended spine surgery. ? On an extreme but fortunately relatively rare basis severe complication such as blindness, stroke, heart attack, temporary and/or permanent nerve injury, paralysis, coma, or may occur, sometimes without known explanation. ? Surgical complications may include but are not limited to risk of infection, fluid accumulation in the surgical dissection site, including a seroma or hematoma, that requires additional surgery, wound drainage, bleeding, new numbness or weakness, vision changes/loss, spinal fluid leakage, non-healing and/or infected incision, headaches, difficulty or inability to swallow, hoarseness, hemopneumothorax, pneumothorax, impotence, retrograde ejaculation, vaginal dryness; injury to nerves, spinal cord, blood vessels, lymphatics or other vital organs (i.e., bowel injury, injury to the great vessels); heterotopic bone formation; complications related to the hardware such as screws, rods, cages including misplaced hardware, device failure, instrumentation at the wrong spine level, hardware fracture/breakage, or hardware loosening; vertebral failure of the spinal column above or below the newly placed hardware; retained surgical instrumentations or devices and the need for further surgery. ? Medical risks of the planned spine surgery include but are not limited to generalized Infections to the whole body or local areas outside of the surgical site (sepsis), heart attack, bleeding, anaphylaxis, meningitis, seizure, epilepsy, hearing loss, burn leiva, laceration of the head or other areas of the body, bruising, hypersensitivity of the skin, bladder over distension; allergic reaction; shoulder injury related to positioning; fat, blood and air clots to other areas of the body like heart, lungs, brain; failure of internal organs such as lungs, kidneys, liver and excessive bleeding. If blood transfusions are necessary, note that transfusions may cause intolerance reactions such as anaphylaxis or other complex reactions. Despite best efforts, the results of spine surgery might not heal in terms of bone, soft tissues such as skin, fascia, ligaments, and joints. Additionally, in order to achieve best possible results, spine surgery may be carried out beyond the initially planned levels and involve decompression, fusion including insertion of hardware at levels other than the original intended area of surgical interest change some portions of the procedure in order to ensure the best possible outcomes. With spine surgery and spinal fusion, there are different off label uses of instrumentation (devices, implants and hardware) as well as biological substances (bone morphogenic proteins, demineralized bone matrix) as well as using extra bone from allograft sources (i.e. cadaver bone) or autograft (iliac crest bone, ribs, or the spine itself). The patient has been given information about these practices and their inherent risks and benefits. [facility] Physician Assistants are medically trained surgical providers who function in the outpatient, inpatient, and operating room setting under the direct supervision of the attending surgeon. They assist in the operating room with direct supervision of the attending surgeons. The patient has had a chance to review all the listed information, has been given print outs detailing this information, and has had all his/her questions answered to their satisfaction. It was my pleasure to have seen and examined Mr. Licea. In our visit today we have had a chance to go over my understanding of our patient's current condition, the natural course history without intervention and various interventional options. Questions were invited and answered, and the patient wishes to proceed as outlined above. I have seen and examined the patient for 25 minutes and we have spent more than 50% of the time in repeat and detailed counseling about the patient's condition, its natural course history with out and as much as can be predicted with surgery and re-review of various surgical treatment options -CONT PREDNISONE HIGH DOSE FOR NEUROPROTECTION -NO BLTPP >5 LBS -CONT WITH WRIST BRACE TO HELP WRIST DROP -PAIN CONTROL NEEDED, CONT WITH CURRENT MED REGIMENT FOLLOW UP: POST OP PLAN AT NEXT VISIT: POST OP VISIT PATIENT EDUCATION: Medications Reviewed: YES In our visit today Mr. Licea and I have had a chance to go over my understanding of the patient's current condition, the natural course history without intervention and various interventional options. Questions were invited and answered, and the patient wishes to proceed as outlined above. I will be sure to keep you updated after Mr. Licea returns here for further follow-up. Thank you again for your referral. Please do not hesitate to contact me if you have any further questions. Signed and authenticated by: Rosendo Medeiros [facility] [address] [place] [address] . This message is confidential, intended only for the named recipient(s) and may contain information that is privileged or exempt from disclosure under applicable law. If you are not the intended recipient(s), you are notified that the dissemination, distribution or copying of this information is prohibited. If you received this message in error, please notify the sender then delete this message. # SIGNED BY Rosendo Manuel (GOO) 11/22/2023 08:47AM Past Medical History Past Medical History: Atrial Fibrillation, GERD/Reflux, Hyperlipidemia, Hypertension, Sleep Apnea/CPAP/BIPAP Additional Past Medical History / Comment(s): Asthma as child, hx. of a-fib-no episodes of in last year, uses CPAP, left arm very weak due to neck, RLS, CTS lolis, lower legs swell History of Any Multi-Drug Resistant Organisms: None Reported Past Surgical History: Adenoidectomy, Tonsillectomy Additional Past Surgical History / Comment(s): colonoscopy Past Anesthesia/Blood Transfusion Reactions: No Reported Reaction Smoking Status: Never smoker - Past Family History Father Family Medical History: No Reported History Additional Family Medical History / Comment(s): Dad is 82 and healthy. Mother Family Medical History: No Reported History Additional Family Medical History / Comment(s): Mom is 82 and healthy. Medications and Allergies Home Medications Medication Instructions Recorded Confirmed Type Pravastatin Sodium 40 mg PO DAILY 11/10/15 11/22/23 History lisinopriL 40 mg PO QAM 11/10/15 11/22/23 History hydrALAZINE HCL [Apresoline] 100 mg PO BID 04/06/20 11/22/23 History Aspirin [Muscoda Aspirin EC] 81 mg PO DAILY 09/30/20 11/22/23 History DULoxetine HCL [Cymbalta] 30 mg PO DAILY 09/30/20 11/22/23 History Furosemide [Lasix] 20 mg PO DAILY 11/22/23 11/22/23 History Multivitamins, Thera [Multivitamin 1 tab PO DAILY 11/22/23 11/22/23 History (formulary)] NIFEdipine [Adalat CC] 30 mg PO BID 11/22/23 11/22/23 History Omeprazole [PriLOSEC] 20 mg PO AC-BRKFST 11/22/23 11/22/23 History carvediloL [Coreg] 25 mg PO BID 11/22/23 11/22/23 History predniSONE [Deltasone] 20 mg PO DAILY 11/22/23 11/22/23 History rOPINIRole HCL [Requip] 0.5 mg PO HS 11/22/23 11/22/23 History Allergies Allergy/AdvReac Type Severity Reaction Status Date / Time No Known Allergies Allergy Verified 11/22/23 17:15 Physical Examination Osteopathic Statement: *. No significant issues noted on an osteopathic structural exam other than those noted in the History and Physical/Consult.
[~2023-11-27 11:05] MED LIST changes: +HYDROmorphone 0.5 MG/0.5 ML SYRINGE IVP PRN; -LACTATED RINGERS 1,000 ML IV SCH; -LIDOCAINE 1% (10MG/ML) FOR IV START INTRADERMA PRN; +TRANEXAMIC 1,000 MG/100ML-NACL 1,000 MG in SALINE 1 100ML.BAG IVPB PRN
[2023-11-27] MEDS: ACETAMINOPHEN TAB 500 MG TAB PO PRN (11:45)
[2023-11-27] MEDS: GABAPENTIN 300 MG CAP PO PRN (11:45)
[2023-11-27] MEDS: ONDANSETRON 4 MG/2 ML VIAL IVP PRN (12:04)
[2023-11-27 12:19] LABS: Basophils % (A) 0 %; Eosinophils # (A) 0.1 k/uL (0-0.7); Eosinophils % (A) 1 %; HCT 53.1 % (39.0-53.0); Lymphocytes # (A) 1.1 k/uL (1.0-4.8); Lymphocytes % (A) 8 %; MCH 31.4 pg (25.0-35.0); Mean Platelet Volume 7.5; Monocytes # (A) 0.8 k/uL (0-1.0); Monocytes % (A) 6 %; Neutrophils # (A) 10.9 k/uL (1.3-7.7); Neutrophils % (A) 83 %; Platelet Count 310 k/uL (150-450); RBC 5.41 m/uL (4.30-5.90); RDW 11.6 % (11.5-15.5)
[2023-11-27 12:31] LABS: Glucose,Whole Blood 111 mg/dL (70-110)
[2023-11-27] MEDS: LACTATED RINGERS 1,000 ML IV SCH (12:31)
[2023-11-27] MEDS: IV FLUID CONTINUATION 1,000 ML IV ONE ×4 (12:32)
[2023-11-27] MEDS ORDERED: fentaNYL (PF) 50 MCG/ML 2 ML AMP ONE (13:25)
[2023-11-27] MEDS ORDERED: KETAMINE HCL IN 0.9 % NACL 50 MG/5 ML SYRINGE ONE (13:25)
[2023-11-27] MEDS ORDERED: ACETAMINOPHEN IV (For NPO) 1,000 MG/100 ML VIAL ONE (13:25)
[2023-11-27] MEDS ORDERED: LIDOCAINE 1% INJ 10MG/ML (20 ML MDV) ONE (13:25)
[2023-11-27] MEDS ORDERED: NEOSTIGMINE 1 MG/ML 10 ML VIAL ONE (13:25)
[2023-11-27] MEDS ORDERED: TRANEXAMIC 1,000 MG/100ML-NACL PREMIX BAG ONE (13:25)
[2023-11-27] MEDS ORDERED: PROPOFOL 10 MG/ML 20 ML VIAL IV ONE (13:25)
[2023-11-27] MEDS ORDERED: PHENYLEPHRINE 10 MG/ML VIAL ONE (13:25)
[2023-11-27] MEDS ORDERED: ePHEDrine 50 MG/ML 1 ML VIAL ONE (13:25)
[2023-11-27] MEDS ORDERED: MIDAZOLAM 2 MG/2 ML VIAL ONE (13:25)
[2023-11-27] MEDS ORDERED: HYDROmorphone (PF) 1 MG/ML ONE (13:25)
[2023-11-27] MEDS ORDERED: VASOPRESSIN 20 UNIT/ML 1 ML VIAL ONE (13:25)
[2023-11-27] MEDS ORDERED: WATER FOR INJECTION, STERILE 10 ML VIAL IV ONE (13:25)
[2023-11-27] MEDS ORDERED: GLYCOPYRROLATE 0.2 MG/ML 2 ML VIAL ONE (13:25)
[2023-11-27] MEDS ORDERED: SUCCINYLCHOLINE CHLORIDE 200 MG/10 ML VIAL IV ONE (13:25)
[2023-11-27] MEDS ORDERED: ROCURONIUM 10 MG/ML (5 ML VIAL) IV ONE (13:25)
[2023-11-27] MEDS: ceFAZolin 3 GM in SODIUM CHLORIDE 0.9% 100 ML IVPB PRN (13:32)
[2023-11-27] MEDS: THROMBIN (BOVINE) 5,000 UNIT VIAL TOPICAL ONE (14:30)
[2023-11-27] MEDS ORDERED: bisacodyL 10 MG SUPP RECTAL PRN (14:37)
[2023-11-27] MEDS ORDERED: NA PHOS,M-B/NA PHOS,DI-BA 133 ML ENEMA RECTAL PRN (14:37)
[2023-11-27] MEDS ORDERED: ONDANSETRON 4 MG/2 ML VIAL IVP PRN (14:37)
[2023-11-27] MEDS ORDERED: CYCLOBENZAPRINE 5 MG TAB PO PRN (14:37)
[2023-11-27] MEDS ORDERED: SENNOSIDES-DOCUSATE SODIUM 1 EACH TAB PO PRN (14:37)
[2023-11-27] MEDS ORDERED: MAGNESIUM HYDROXIDE 2,400 MG/30 ML CUP PO PRN (14:37)
[2023-11-27] MEDS: LACTATED RINGERS 1,000 ML IV ONE ×2 (15:03→16:57)
--- NOTE | 2023-11-27 17:54 | FL ---
EXAMINATION TYPE: FL guidance operating room, XR cervical spine limited DATE OF EXAM: 11/27/2023 5:50 PM COMPARISON: Pre Operative Images if available both CT/MRI or plain film CLINICAL INDICATION: Male, 68 years old with history of CERVICAL FUSION; TECHNIQUE: FL guidance operating room, XR cervical spine limited, multiple fluoroscopic images provid ed for procedure. Total fluoroscopy time: 21.7 seconds Total submitted images to PACS: 5 DAP: 1.2962 mGym2 Gycm2 uGym2 cGycm2 or equivalent. FINDINGS: Fluoroscopic images during internal fixation/arthroplasty demonstrate fixation hardware in appropriat e position. Hardware appears intact. No immediate complication identified. Endotracheal tube appears in satisfactory position. IMPRESSION: 1. No evidence for intraoperative complication. 2. Please see the operative/procedural note for further details. [facility], , 11/27/2023 5:52 PM
[2023-11-27] MEDS: KETOROLAC 15 MG/ML 1 ML VIAL IVP SCH (20:25)
[2023-11-27] MEDS: ACETAMINOPHEN TAB 325 MG TAB PO SCH (20:26)
[2023-11-27] MEDS: GABAPENTIN 100 MG CAP PO SCH (20:26)
[2023-11-27] MEDS: DEXAMETHASONE SOD PHOSPHATE 4 MG/ML 1 ML VIAL IV ONE (20:27)
--- NOTE | 2023-11-27 20:52 | P.CONS ---
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 At current, patient does not have any complaints. Pain from surgical site is tolerable with current pain medication. He has not passed flatus, no bowel movement, and has not yet ambulated after the surgery. He is currently on a Ibarra catheter. He denies headaches, lightheadedness, focal weakness, chest pain, shortness of breath, leg pain, abdominal pain, fevers, chills, or cough. Review of systems: Pertinent positives and negatives as discussed in HPI, a complete review of systems was performed and all other systems are negative. Physical examination: Vital signs reviewed General: non toxic, no distress, appears at stated age, seen on CPAP and nasal cannula Derm: no unusual rashes/lesions, warm, wound with dressing on anterior neck is dry and clean with no erythema of surrounding skin and no discharge Head: atraumatic, normocephalic, symmetric Eyes: EOMI, anicteric sclera, pupils equal round reactive to light ENT: Nose and ears atraumatic Neck: in c-collar, trachea midline, supple Mouth: no lip lesion, mucus membranes moist Cardiovascular: S1S2 reg, no murmur Lungs: CTA bilateral, no rhonchi, no rales, abdominal breathing, no accessory muscle use Abdominal: soft, nondistended, nontender to palpation, no guarding Ext: muscle strength 5 out of 5 in distal muscle group lower extremities grossly, no gross muscle atrophy, no contractures, positive dorsalis pedis pulse bilateral, no edema Neuro: CN II-XI grossly intact, no gross focal neuro deficits Psych: Alert, oriented, appropriate affect and mood Assessment/Plan: #. Obstructive sleep apnea Oxygen saturation at 92 to 95% on 6 L of nasal cannula postop -Monitor oxygenation -Continue with CPAP and supportive oxygenation -ABG -CBC in AM #. Hypertension, resume home BP meds with hold parameters on Hydralazine, and nifedipine to avoid hypotension #. Hyperlipidemia #. GERD #. Anxiety #. A-fib: patient is not on blood thinners at home , CHADS VAsc score of 2 in a male suggests he should be on blood thinner, this should be addressed as OP with his machine feeder #. Restless leg syndrome -Resume home medications once reconciled #. Status post anterior cervical discectomy and fusion from C3-C7 DVT prophylaxis and pain control be managed by primary surgical team We appreciate being part of this patient's care. Thank you for this consult. Past Medical History Past Medical History: Atrial Fibrillation, GERD/Reflux, Hyperlipidemia, Hypertension, Sleep Apnea/CPAP/BIPAP Additional Past Medical History / Comment(s): Asthma as child, hx. of a-fib-no episodes of in last year, uses CPAP, left arm very weak due to neck, RLS, CTS lolis, lower legs swell History of Any Multi-Drug Resistant Organisms: None Reported Past Surgical History: Adenoidectomy, Tonsillectomy Additional Past Surgical History / Comment(s): colonoscopy Past Anesthesia/Blood Transfusion Reactions: No Reported Reaction Smoking Status: Never smoker - Past Family History Father Family Medical History: No Reported History Additional Family Medical History / Comment(s): Dad is 82 and healthy. Mother Family Medical History: No Reported History Additional Family Medical History / Comment(s): Mom is 82 and healthy. Medications and Allergies Home Medications Medication Instructions Recorded Confirmed Type Pravastatin Sodium 40 mg PO DAILY 11/10/15 11/27/23 History lisinopriL 40 mg PO QAM 11/10/15 11/27/23 History hydrALAZINE HCL [Apresoline] 100 mg PO BID 04/06/20 11/27/23 History Aspirin [[place] Aspirin EC] 81 mg PO DAILY 09/30/20 11/27/23 History DULoxetine HCL [Cymbalta] 30 mg PO DAILY 09/30/20 11/27/23 History Furosemide [Lasix] 20 mg PO DAILY 11/22/23 11/27/23 History Multivitamins, Thera [Multivitamin 1 tab PO DAILY 11/22/23 11/27/23 History (formulary)] NIFEdipine [Adalat CC] 30 mg PO BID 11/22/23 11/27/23 History Omeprazole [PriLOSEC] 20 mg PO AC-BRKFST 11/22/23 11/27/23 History carvediloL [Coreg] 25 mg PO BID 11/22/23 11/27/23 History predniSONE [Deltasone] 20 mg PO DAILY 11/22/23 11/27/23 History rOPINIRole HCL [Requip] 0.5 mg PO HS 11/22/23 11/27/23 History Allergies Allergy/AdvReac Type Severity Reaction Status Date / Time No Known Allergies Allergy Verified 11/27/23 11:28 Physical Exam Vitals: Vital Signs Temp Pulse Pulse Resp BP BP Pulse Ox 11/27/23 20:06 98.3 F 98 20 178/89 92 L 11/27/23 19:12 88 20 177/74 94 L 11/27/23 18:57 86 20 164/74 93 L 11/27/23 18:42 86 20 162/74 95 11/27/23 18:27 79 20 162/75 95 11/27/23 18:12 97.4 F L 76 20 165/77 94 L 11/27/23 11:32 97.5 F L 76 18 127/70 93 L Intake and Output 11/27/23 11/27/23 11/27/23 06:59 14:59 22:59 Intake Total 1700 1800 Output Total 200 Balance 1700 1600 Intake: IV 1700 1800 Output: Urine 125 Estimated Blood Loss 75 Other: Weight 133.6 kg Results CBC & Chem 7: 11/27/23 12:05 Labs: Abnormal Lab Results - Last 24 Hours (Table) 11/27/23 11/27/23 Range/Units 12:05 12:30 WBC 13.0 H (3.8-10.6) k/uL Hct 53.1 H (39.0-53.0) % Neutrophils # 10.9 H (1.3-7.7) k/uL POC Glucose (mg/dL) 111 H (70-110) mg/dL Assessment and Plan Assessment: I have seen and evaluated the patient today. I Discussed the case with the resident and agree with the resident's findings I edited the assessment and plan as necessary as documented in the resident's note.
[2023-11-27] MEDS ORDERED: FUROSEMIDE 20 MG TAB PO SCH (22:30)
[2023-11-27] MEDS ORDERED: predniSONE 20 MG TAB PO SCH (22:30)
[2023-11-27] MEDS: hydrALAZINE HCL 50 MG TAB PO SCH (22:42)
[2023-11-27] MEDS: MULTIVITAMINS, THERA 1 EACH TAB PO SCH (22:42)
[2023-11-27 23:57] LABS: ABG HCO3 36 mmol/L (21-25); ABG Oxygen Saturation 97.7 % (94-97); ABG PH 7.32 (7.35-7.45); ABG PO2 110 mmHg (83-108); ABG TCO2 39 mmol/L (19-24); Allen Test Performed? Yes
[2023-11-28 00:04] LABS: ABG PCO2 71 mmHg (35-45)
[2023-11-28 08:38] LABS: Basophils # (A) 0.03 X 10*3/uL (0.00-0.10); Basophils % (A) 0.2 %; Eosinophils # (A) 0.03 X 10*3/uL (0.04-0.35); Eosinophils % (A) 0.2 %; HCT 51.7 % (39.6-50.0); HGB 16.2 g/dL (13.0-17.0); Lymphocytes # (A) 1.18 X 10*3/uL (0.90-5.00); Lymphocytes % (A) 7.1 %; MCH 31.8 pg (27.0-32.0); MCHC 31.3 g/dL (32.0-37.0); MCV 101.6 FL (80.0-97.0); Mean Platelet Volume 10.5 FL (9.5-12.2); Monocytes # (A) 1.14 X 10*3/uL (0.20-1.00); Monocytes % (A) 6.9 %; NRBC Per 100 WBC 0 X 10*3/uL (0.00-0.01); Neutrophils # (A) 14.13 X 10*3/uL (1.80-7.70); Neutrophils % (A) 85.1 %; Platelet Count 256 X 10*3/uL (140-440); RBC 5.09 X 10*6/uL (4.40-5.60); RDW 11.6 % (11.5-14.5)
[2023-11-28] MEDS: PANTOPRAZOLE 40 MG TABLET PO SCH (08:55)
[2023-11-28] MEDS: DULoxetine HCL 30 MG CAPSULE.DR PO SCH (08:55)
[2023-11-28] MEDS: PRAVASTATIN SODIUM 40 MG TAB PO SCH (08:55)
[2023-11-28] MEDS: carvediloL 12.5 MG TAB PO SCH (08:55)
[2023-11-28 08:56] LABS: BUN/Creat Ratio 17.18 Ratio (12.00-20.00); Blood Urea Nitrogen 18.9 mg/dL (9.0-27.0); Calcium 8.8 mg/dL (8.7-10.3); Carbon Dioxide 33.5 mmol/L (21.6-31.8); Chloride 98 mmol/L (96-109); Glucose 113 mg/dL (70-110); Potassium 4.6 mmol/L (3.5-5.5); Sodium 139 mmol/L (135-145)
[2023-11-28] MEDS: NIFEdipine XL 30 MG TAB.ER.24 PO SCH (08:56)
[2023-11-28] MEDS ORDERED: ASPIRIN 81 MG PO SCH (09:00)
[2023-11-28] MEDS: HYDROcodone/APAP 7.5-325MG 1 EACH TAB PO PRN (09:09)
--- NOTE | 2023-11-28 09:09 | P.PN ---
Subjective Progress Note Date: 11/28/23 Principal diagnosis: 1. Severe and progressive cervical spondylitic myelopathy 2. Acute/subacute left upper extremity paralysis 3. Bilateral upper extremity weakness with left wrist drop 4. Fine motor disruption 5. Gait disturbance 6. Left upper extremity radiculopathy Patient seen and examined this morning. Patient is resting in bed with BiPAP present. RN informs signwriter that patient's O2 saturation dropped to 80% last night and BiPAP was applied with FiO2 at 50. Hard cervical collar is present. Surgical incision to the anterior cervical spine, dressing is clean dry and intact with ALEXUS drain present. There is no active drainage at this time within the drain, we will leave this for today as the patient has not been up and about. Informed patient that physical therapy will be in to work with him today. Patient does report that he is looking forward towards his recovery although he is worried about his ability and becoming short of breath. Patient states that he is very tired this morning and is not able to tell if he has had improvement in his left upper extremity since the procedure. Continue to encourage patient to use incentive spirometer 10 times per hour while awake When he is off his BiPAP. Objective - Vital Signs Vital signs: Vital Signs Temp 98.3 F 11/27/23 20:06 Pulse 89 11/27/23 21:19 Resp 20 11/27/23 20:06 BP 153/80 11/27/23 23:46 Pulse Ox 80 L 11/27/23 21:19 FiO2 50 11/28/23 07:30 Intake & Output 11/27/23 11/28/23 11/28/23 18:59 06:59 18:59 Intake Total 3500 Output Total 200 475 Balance 3300 -475 Weight 133.6 kg 133.6 kg Intake: IV 3500 Output: Urine 125 475 Estimated Blood Loss 75 Other: Voiding Method Indwelling Catheter - Exam Physical Examination General: The patient is awake and alert, in no acute distress Skin: Skin is warm and dry with no obvious rashes or lesions. Eye: Pupils are equal, round and reactive to light, extra-ocular movements are intact; there is normal conjunctiva bilaterally. Neck: The neck is supple, there is no tenderness and ROM intact. Cardiovascular: There is a regular rate and rhythm. No murmur, rub or gallop is appreciated. Respiratory: Respirations are non-labored, breath sounds are equal. Gastrointestinal: Soft, non-distended, non-tender abdomen. Back: There is no tenderness to palpation in the midline, paralumbar, parathoracic or buttocks region. There is no obvious deformity . Musculoskeletal: ROM limited secondary to pain and stiffness from surgical procedure. Right: Shoulder abduction 4/5, elbow flexors 4/5, w rist dorsiflexors 4/5. finger abductor 4/5, substation maintenance technician 4/5, hip flexor 4/5, knee flexor 4/5, ankle dorsiflexor 4/5, ankle plantarflexion 4/5 and extensor hallucis 4/5. Left: Shoulder abduction 3/5, elbow flexors 3/5, wrist dorsiflexors 2/5. finger abductor 2/5, substation maintenance technician 5/5, hip flexor 4/5, knee flexor 4/5, ankle dorsiflexor 5/5, ankle plantarflexion 5/5 and extensor hallucis 5/5. Neurological: CN 2-12 intact. There are no obvious motor or sensory deficits. Movement and coordination equal and intact. Sensory exam to light touch intact C5-T1 and intact from L2-S1. Reflexes 2/4 in bilateral upper and lower extremities. Negative Hoffmans, babinski, and clonus signs. Psychiatric: Cooperative, appropriate mood & affect, normal judgment. - Labs CBC & Chem 7: 11/28/23 03:16 11/28/23 03:16 Labs: Abnormal Lab Results - Last 24 Hours (Table) 11/27/23 11/27/23 11/27/23 Range/Units 12:05 12:30 23:50 WBC 13.0 H (3.8-10.6) k/uL Hct 53.1 H (39.0-53.0) % Neutrophils # 10.9 H (1.3-7.7) k/uL ABG pH 7.32 L (7.35-7.45) ABG pCO2 71 H* (35-45) mmHg ABG pO2 110 H (83-108) mmHg ABG HCO3 36 H (21-25) mmol/L ABG Total CO2 39 H (19-24) mmol/L ABG O2 Saturation 97.7 H (94-97) % POC Glucose (mg/dL) 111 H (70-110) mg/dL Assessment and Plan Assessment: Postop day 1: C3-C7 ACDF Plan: -Appreciate construction consultant and team management. -Activity: Ambulate QID, OOB all meals, up and about, limit lifting bending twisting to less than 5 lbs. Use walker or cane if needed for stability. -Daily PT/OT, increase ambulation strength and balance. -Hard cervical collar at all times, may remove for showers. -Pain control: Adequate at this time -Meds: reviewed -GI ppx: senna, Miralax -DC tello when up and about, bedside commode if needed -DVT PPX: OK to restart Heparin tonight -Hygiene: Maintain dressing clean and dry. Meticulous cleaning after BMs away from the incision site -Drains: Maintain for now. Continue to monitor and record output q shift. -Encourage IS 10x/hr -Dispo: Clinically pending *I reviewed and discussed this case with my attending Dr. Manuel, whom has reviewed this chart and films and is in agreement with assessment and plan of care as outlined above. I have personally seen and examined the patient, performed the documentation and the assessment and plan as written. Number of minutes spent on the visit: 20m.
[2023-11-28] MEDS: lisinopriL 20 MG TAB PO SCH (09:13)
--- NOTE | 2023-11-28 10:38 | XR ---
EXAMINATION TYPE: XR chest 1V portable DATE OF EXAM: 11/28/2023 COMPARISON: 11/23/2023 HISTORY: Apraxia TECHNIQUE: Single frontal view of the chest is obtained. FINDINGS: Bilateral consolidation and small left effusion. Heart size enlarged. Postsurgical changes overlying cervical spine. Biapical pleural thickening. Prominent pulmonary arteries may reflect pulm onary arterial hypertension. IMPRESSION: Left basilar consolidation and small pleural effusion. [facility], , 11/28/2023 10:35 AM
--- NOTE | 2023-11-28 11:10 | CT ---
EXAMINATION TYPE: CT cervical spine wo con CT DLP: 830.3 mGycm, Automated exposure control for dose reduction was used. DATE OF EXAM: 11/28/2023 11:01 AM COMPARISON: Cervical spine radiograph 11/27/2023, MRI brain C-spine 08/30/2023. CLINICAL INDICATION:Male, 68 years old with history of s/p cervical fusion; PHH, Cervical fusion TECHNIQUE: Axial CT images from the skull base to the inferior aspect of T2 we obtained without intra venous contrast. Coronal and sagittal reformatted images were also reviewed. FINDINGS: Postsurgical changes from anterior cervical fusion with disc spacers involving C3-T7. Hardware appear s intact and appropriately aligned. There is surrounding soft tissue gas and edema extending into the anterior neck. No acute fracture. Appropriate alignment of the cervical spine. Surgical drain identi fied along the anterior aspect of the C4-C5 disc space. No sizable organized fluid collection identif ied. Multilevel mild central canal stenosis suggested. Evaluation is limited due to streak artifact f rom hardware. Varying degrees of moderate to severe neuroforaminal stenosis is redemonstrated. IMPRESSION: Postsurgical changes from ACDF C3-C7. Hardware appears intact. No CT evidence for significant complic ation. [facility], , 11/28/2023 11:08 AM
--- NOTE | 2023-11-28 11:31 | P.PN ---
Subjective Progress Note Date: 11/28/23 Patient seen this morning. He was sitting up in the chair. He states that he is having some neck pain related to the surgery. He denies any shortness of breath. Patient is not 6. Nasal cannula. He was on BiPAP last night. Patient states that he does have a CPAP at home however does not use any oxygen. Physical exam General examination - Alert and Oriented 3 in NAD HEENT: Neck collar Heart - + S1S2 no murmurs Lungs -diminished breath sounds bilaterally Abdomen soft NT ND +ve BS Extremities - No edema RESIN MIXER - Moving all 4 extremities spontaneously Psych - Calm and cooperative Assessment and plan Postop hypoxia Mild volume overload likely from surgery I ordered and I independently interpreted the chest x-ray that shows bibasilar consolidation and small left-sided pleural effusion. I suspect the bibasal consolidation from atelectasis Encourage incentive spirometer use Will give one-time dose of IV Lasix 20 mg. Will restart his home dose of Lasix 20 mg daily tomorrow Check BMP and magnesium tomorrow Creatinine this morning 1.1. Patient currently on 6 L nasal cannula. I discussed with the nurse to wean him off the oxygen if possible. Obstructive sleep apnea I reviewed patient's ABG that shows pH 7.32 and CO2 71 and bicarb 36. Patient uses CPAP at home Continue with CPAP Hypertension Continue with Coreg 25 mg p.o. twice daily Hydralazine 100 mg p.o. twice daily Lisinopril 40 mg p.o. daily Nifedipine 30 mg p.o. twice daily Monitor blood pressure. This morning blood pressure 165/85 Atrial fibrillation Patient is not on blood thinners at home Will defer to his primary brass sorter Continue with beta-charito Heart rate control Anxiety Continue with duloxetine 30 mg p.o. daily Restless leg syndrome Continue with Requip 0.5 mg p.o. at bedtime Hyperlipidemia Continue pravastatin 40 mg p.o. daily GERD Continue Protonix 40 mg p.o. daily Cervical spine surgery As per your orthopedic surgery management Hemoglobin this morning is 16.2 which is stable Leukocytosis WBC is 16.6 which is likely reactive to surgery Trend CBC DVT prophylaxis as per primary team Objective - Vital Signs Vital signs: Vital Signs Temp 97.4 F L 11/28/23 08:27 Pulse 63 11/28/23 08:27 Resp 17 11/28/23 08:27 BP 165/85 11/28/23 08:27 Pulse Ox 96 11/28/23 08:27 FiO2 50 11/28/23 07:30 Intake & Output 11/27/23 11/28/23 11/28/23 18:59 06:59 18:59 Intake Total 3500 Output Total 200 475 Balance 3300 -475 Weight 133.6 kg 133.6 kg Intake: IV 3500 Output: Urine 125 475 Estimated Blood Loss 75 Other: Voiding Method Indwelling Catheter - Labs CBC & Chem 7: 11/28/23 03:16 11/28/23 03:16 Labs: Abnormal Lab Results - Last 24 Hours (Table) 11/27/23 11/27/23 11/27/23 Range/Units 12:05 12:30 23:50 WBC 13.0 H (3.8-10.6) k/uL Hct 53.1 H (39.0-53.0) % MCV (80.0-97.0) FL MCHC (32.0-37.0) g/dL Immature Gran # (0.00-0.04) X 10*3/uL Neutrophils # 10.9 H (1.3-7.7) k/uL Monocytes # (0.20-1.00) X 10*3/uL Eosinophils # (0.04-0.35) X 10*3/uL ABG pH 7.32 L (7.35-7.45) ABG pCO2 71 H* (35-45) mmHg ABG pO2 110 H (83-108) mmHg ABG HCO3 36 H (21-25) mmol/L ABG Total CO2 39 H (19-24) mmol/L ABG O2 Saturation 97.7 H (94-97) % Carbon Dioxide (21.6-31.8) mmol/L Glucose (70-110) mg/dL POC Glucose (mg/dL) 111 H (70-110) mg/dL 11/28/23 11/28/23 Range/Units 03:16 03:16 WBC 16.60 H (3.8-10.6) k/uL Hct 51.7 H (39.0-53.0) % MCV 101.6 H (80.0-97.0) FL MCHC 31.3 L (32.0-37.0) g/dL Immature Gran # 0.09 H (0.00-0.04) X 10*3/uL Neutrophils # 14.13 H (1.3-7.7) k/uL Monocytes # 1.14 H (0.20-1.00) X 10*3/uL Eosinophils # 0.03 L (0.04-0.35) X 10*3/uL ABG pH (7.35-7.45) ABG pCO2 (35-45) mmHg ABG pO2 (83-108) mmHg ABG HCO3 (21-25) mmol/L ABG Total CO2 (19-24) mmol/L ABG O2 Saturation (94-97) % Carbon Dioxide 33.5 H (21.6-31.8) mmol/L Glucose 113 H (70-110) mg/dL POC Glucose (mg/dL) (70-110) mg/dL
[2023-11-28] MEDS: FUROSEMIDE 10 MG/ML 2 ML VIAL IV ONE (12:08)
--- NOTE | 2023-11-28 18:12 | P.OP ---
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 Implants: LILA SECURE C 9MMX4 14MM SCREWS OZARK PLATE 36MM [employer] Anesthesia: GETA Surgeon: Rosendo Manuel Lens Blank Gauger #1: Traci Ku (WAS PRESENT FROM POSITIONING TO INITIAL CAGE PLACEMENT) Lens Blank Gauger #2: Andrew Cruz (WAS PRESENT FROM SECOND CAGE PLACEMENT TO DRESSING PLACEMENT) Estimated Blood Loss (ml): 75 IV fluids (ml): 2,300 Urine output (ml): 350 Pathology: none sent Condition: stable Disposition: PACU Indications for Procedure: Skinny Licea is a 68 year old male presenting for evaluation of sudden onset of LUE WEAKNESS, PAIN, PROGRESSING TO PARALYSIS OF HIS LUE ALONG WITH SEVERE DECREASED FUNCTION, WEAKNESS AND NOW RUE SYMTPOMS. It was my pleasure to have seen and examined Mr. Licea. In our visit today we have had a chance to go over subjective complaints, physical examination findings and treatments, including the natural course history without intervention and various interventional options. The imaging demonstrates SEVERE STENOSIS WITH SPONDYLOSIS AND MYELOPATHY OF THE CERVICAL SPINE FROM C3-7 CAUSING SEVERE CORD COMPRESSION . On physical exam, Mr. Licea demonstrates LUE ACUTE/SUBACUTE PARALYSIS, WEAKNESS, RADICULOPATHY AND NOW RUE WEAKNESS, RADICULOPATHY AND DECREASED FUNCTION. HYPERREFLEXIA UE AND LE B/L WELL CLONUS AND +BOGGS'S B/L THAT IS BRISK. DTR ARE 3+ IN UE AND LE B/L WELL LENDING TO HIS MYELOPATHY AND SEVERE CORD COMPRESSION. I explained to the patient that as his condition progresses it could cause PERNAMENT DAMAGE, PERMANENT WEAKNESS IN HIS LUE SPECIFICALLY DUE TO THE ALREADY SEVERE PROGRESSION OF HIS SX WELL NEUROLOGICAL DECLINE OF HIS LE WELL CONTINUED PAIN, UNSTEADY GAIT AND ISSUES. . At this time, based on the patients imaging and physical exam, I recommend surgery in the form or a: URGENT C3-7 ANTERIOR CERVICAL DISCECTOMY AND FUSION. I discussed the risk and benefits of this procedure at length with Mr. Licea. The patient agreed to consider pursuing the procedure mentioned above. Plan: 1. URGENT C3-7 ANTERIOR CERVICAL DISCECTOMY AND FUSION. THE PATIENTS MAXIMUM RECOVERY POTENTIAL IS IN JEPORDY IF NOT DONE URGENTLY. Description of Procedure: C3-7 ACDF The patient was seen and examined in the preoperative area. All preoperative protocols were followed. Informed consent was obtained, risks and benefits of the procedure were discussed at length. Risks including bleeding infection damage to the surrounding tissue and risk of reoperation were discussed with the patient. Risk of anesthesia up to and including was discussed with the patient. These are outlined in the risk review. They were willing to accept these risks and all the risks of surgery. The patient was given a weight-based dose of antibiotics in the form of 2 g Ancef. The patient was seen and evaluated by the anesthesia team who deemed them fit for surgery. The site was marked, the patient was willing to proceed with the procedure. The patient was transferred to the operative suite by the Department of anesthesia. They were then drifted off to sleep by the department anesthesia and GETA was performed. The patient tolerated this well. Ibarra catheter was placed by nursing staff, a-traumatically. Once confirmation of lines and ventilation the patient was transferred to a Supine Jonny table very carefully. All bony prominences including wrists, elbows, axilla, chest, hips, and thighs, and feet were padded very well. Special attention was paid to the genitalia, and these were padded accordingly. SCDs were placed on bilateral lower extremities and were connected. Arms were well padded and placed at their side thumbs up. Once in position, again we confirmed good ventilation capabilities and that lines were running appropriately. The patients Cervical spine was then exposed. 1010s were placed outlining the incision site. Standard alcohol was used to clean the incision site and allowed to dry. C-arm was used to bio-haley the patient and confirm level for incision which was marked with a skin marker. Operative briefing was performed with all teams and everyone in agreement to proceed. The patient was then prepped and draped in a normal sterile fashion. Timeout was then performed, and all parties agreed with the procedure to be performed. Transverse skin incision was then made on the RIGHT side of the patient's neck 3 cm and dissection taken down to the platysma which was split transversely. Sub platysma flap was made, and interval identified between SCM and medial structures. Omohyoid was visualized and protected. Blunt dissection taken down to the anterior cervical fascia which was identified. Blunt probe was then placed and lateral image taken which confirmed levels for operation. These levels were then marked with a bovi. Subperiosteal dissection of the longissimus muscles were then done over these levels identifying uncovertebral j oints bilaterally. Retractor was then placed deep to these muscles and held in place with a bed arm. Starting at C6-7, [employer] pins were placed into C6 and C7 and gentle distraction taken out over the levels. Sindhu rongeur used to remove disc material. Operating microscope brought in for visualization. Complete discectomy performed at this level with curette, rongure and pituitary. High speed ramu used to remove osteophytes anteriorly and posteriorly until PLL was identified. 6-0 up curette then used to identify the canal and resect the PLL. 2-0 and 3-0 Kerrison used then to remove PLL and disc herniation and performed b/l foraminotomies. Once good decompression was accomplished, meticulous hemostasis was performed. Sizers were then placed under lateral fluoroscopy until the d esired height and lordosis. Cage was then selected, packed with autograft and allograft and placed under lateral imaging. Once in good position it was tested and stable. Motors run before and after cage placement were stable. The wound was irrigated, and autograft placed lateral to the cage anteriorly for fusion. Plate was selected and sized on lateral imaging and then after caspar pin removal from C7, was placed. Holes were drilled and filled with 14mm screws 4.0mm. These had good purchase and locking mechanisms were set. We then proceeded to C5-6. [employer] pin was then removed from C7 and placed into C5. Gentle distraction taken out over C5-6 now. Complete discectomy done at C5-6 as described including decompression, b/l foraminotomies and PLL resection. Burring of endplates was minimal, osteophytes removed as described. Spacers were then sized and placed under lateral imaging. Cage selected, packed with graft and placed under lateral images. Once in position, meticulous hemostasis performed, and motors remained stable before and after cage placement. AP image confirmed good placement of cages. Wound was irrigated. [employer] pin was then removed from C6 and placed into C4. Gentle distraction taken out over C4-5 now. Complete discectomy done at C4-5 as described including decompression, b/l foraminotomies and PLL resection. Burring of endplates was minimal, osteophytes removed as described. Spacers were then sized and placed under lateral imaging. Cage selected, packed with graft and placed under lateral images. Once in position, meticulous hemostasis performed, and motors remained stable before and after cage placement. AP image confirmed good placement of cages. Wound was irrigated. [employer] pin was removed from C5 and placed in C3. Gentle distraction taken out over C3-4 now. Complete discectomy done at C3-4 as described including decompression, b/l foraminotomies and PLL resection. Burring of endplates was minimal, osteophytes removed as described. Spacers were then sized and placed under lateral imaging. Cage selected, packed with graft and placed under lateral images. Once in position, meticulous hemostasis performed, and motors remained stable before and after cage placement. AP image confirmed good placement of cages. Wound was irrigated. Anterior instrumentation was then completed from C3-7 with 14 mm screws which which where all placed and had good purchase. Locking mechanisms set at each level as well. All locking mechanisms were set, and all screws had good purchase. Final AP and lateral images taken confirmed good placement of hardware and good reduction and yazidi of height. The wound was then irrigated copiously with NSS. Surgicel placed deep in the wound. A deep drain placed out a separate incision and sewed into place. Layered closure then performed with 3-0 Vicryl in the platysma and subQ tissue. 4-0 Strata fix in the subcuticular tissue. The wound was then cleaned, and dried and skin glue placed. Once glue dried on Opifoam was placed. The patient was then transferred back to their hospital bed a-traumatically. The drain continued to hold suction. They were placed in a soft collar. They were then awakened by the department of anesthesia having tolerated the procedure well without complications.
[2023-11-28] MEDS: HYDROcodone/APAP 10-325MG 1 EACH TAB PO PRN (20:28)
[2023-11-29] MEDS: SENNOSIDES-DOCUSATE SODIUM 1 EACH TAB PO SCH (07:09)
[2023-11-29] MEDS: FUROSEMIDE 20 MG TAB PO SCH (07:25)
--- NOTE | 2023-11-29 08:00 | P.PN ---
Subjective Progress Note Date: 11/29/23 Principal diagnosis: 1. Severe and progressive cervical spondylitic myelopathy 2. Acute/subacute left upper extremity paralysis 3. Bilateral upper extremity weakness with left wrist drop 4. Fine motor disruption 5. Gait disturbance 6. Left upper extremity radiculopathy Patient seen and examined this morning. Patient is sitting up in chair. He slept there last night due to it being more comfortable. Hard cervical collar is present. Surgical incision to the anterior cervical spine, edges are approximated with glue intact, mild edema around incision. ALEXUS drain removed and new dressing applied. Discontinue tello cath. Informed patient that Home O2 assessment has been ordered. Patient states that he feels comfortable going home. Patient is cleared from an Orthopedic standpoint for discharge when medically stable. Objective - Vital Signs Vital signs: Vital Signs Temp 97.4 F L 11/29/23 00:40 Pulse 80 11/29/23 00:40 Resp 15 11/29/23 00:40 BP 146/76 11/29/23 00:40 Pulse Ox 93 L 11/29/23 00:40 FiO2 50 11/28/23 07:30 Intake & Output 11/28/23 11/28/23 11/29/23 06:59 18:59 06:59 Output Total 475 1200 Balance -475 -1200 Weight 133.6 kg Output: Drainage 0 Anterior Neck 0 Urine 475 1200 Other: Voiding Method Indwelling Catheter Indwelling Catheter Indwelling Catheter - Exam Physical Examination General: The patient is awake and alert, in no acute distress Skin: Skin is warm and dry with no obvious rashes or lesions. Surgical incision to the anterior cervical spine, edges are well approximated with glue intact. Mild edema around incision. ALEXUS drain has been discontinued and new dressing applied. Eye: Pupils are equal, round and reactive to light, extra-ocular movements are intact; there is normal conjunctiva bilaterally. Neck: The neck is supple, there is mild edema noted around incision, ROM is limited due to surgical procedure and Hard collar intact. Cardiovascular: There is a regular rate and rhythm. No murmur, rub or gallop is appreciated. Respiratory: Respirations are non-labored, breath sounds are equal. Gastrointestinal: Soft, non-distended, non-tender abdomen. Back: There is no tenderness to palpation in the midline, paralumbar, parathoracic or buttocks region. There is no obvious deformity . Musculoskeletal: ROM limited secondary to pain and stiffness from surgical procedure. Right: Shoulder abduction 4/5, elbow flexors 4/5, wrist dorsiflexors 4/5. finger abductor 4/5, hand bunch maker 4/5, hip flexor 4/5, knee flexor 4/5, ankle dorsiflexor 4/5, ankle plantarflexion 4/5 and extensor hallucis 4/5. Left: Shoulder abduction 3/5, elbow flexors 3/5, wrist dorsiflexors 2/5. finger abductor 2/5, hand bunch maker 5/5, hip flexor 4/5, knee flexor 4/5, ankle dorsiflexor 5/5, ankle plantarflexion 5/5 and extensor hallucis 5/5. Neurological: CN 2-12 intact. There are no obvious motor or sensory deficits. Movement and coordination equal and intact. Sensory exam to light touch intact C5-T1 and intact from L2-S1. Reflexes 2/4 in bilateral upper and lower extremities. Negative Hoffmans, babinski, and clonus signs. Psychiatric: Cooperative, appropriate mood & affect, normal judgment. - Labs CBC & Chem 7: 11/28/23 03:16 11/28/23 03:16 Labs: Abnormal Lab Results - Last 24 Hours (Table) 11/28/23 11/28/23 Range/Units 03:16 03:16 WBC 16.60 H (4.50-10.00) X 10*3/uL Hct 51.7 H (39.6-50.0) % MCV 101.6 H (80.0-97.0) FL MCHC 31.3 L (32.0-37.0) g/dL Immature Gran # 0.09 H (0.00-0.04) X 10*3/uL Neutrophils # 14.13 H (1.80-7.70) X 10*3/uL Monocytes # 1.14 H (0.20-1.00) X 10*3/uL Eosinophils # 0.03 L (0.04-0.35) X 10*3/uL Carbon Dioxide 33.5 H (21.6-31.8) mmol/L Glucose 113 H (70-110) mg/dL Assessment and Plan Assessment: Postop day 2: C3-C7 ACDF Plan: -Appreciate operations consultant and team management. -Activity: Ambulate QID, OOB all meals, up and about, limit lifting bending twisting to less than 5 lbs. Use walker or cane if needed for stability. -Daily PT/OT, increase ambulation strength and balance. -Hard cervical collar at all times, may remove for showers. -Home O2 assessment has been ordered. -Pain control: Adequate at this time -Meds: reviewed -GI ppx: senna, Miralax -DC tello this morning -DVT PPX: Heparin -Hygiene: Maintain dressing clean and dry. -Encourage IS 10x/hr -Dispo: Patient is cleared from an Orthopedic standpoint for discharge when medically stable. *I reviewed and discussed this case with my attending Dr. Manuel, whom has reviewed this chart and films and is in agreement with assessment and plan of care as outlined above. I have personally seen and examined the patient, performed the documentation and the assessment and plan as written. Number of minutes spent on the visit: 20m.
[2023-11-29 08:36] LABS: HCT 50.7 % (39.6-50.0); HGB 15.7 g/dL (13.0-17.0); MCH 31.5 pg (27.0-32.0); MCV 101.8 FL (80.0-97.0); Mean Platelet Volume 10.3 FL (9.5-12.2); NRBC Per 100 WBC 0 X 10*3/uL (0.00-0.01); Platelet Count 216 X 10*3/uL (140-440); RBC 4.98 X 10*6/uL (4.40-5.60); RDW 11.5 % (11.5-14.5); WBC 16.57 X 10*3/uL (4.50-10.00)
[2023-11-29 08:41] LABS: Magnesium 1.9 mg/dL (1.5-2.4)
[2023-11-29 08:54] LABS: BUN/Creat Ratio 21.44 Ratio (12.00-20.00); Blood Urea Nitrogen 19.3 mg/dL (9.0-27.0); Calcium 8.9 mg/dL (8.7-10.3); Carbon Dioxide 32.2 mmol/L (21.6-31.8); Chloride 96 mmol/L (96-109); Glucose 168 mg/dL (70-110); Sodium 137 mmol/L (135-145)
--- NOTE | 2023-11-29 13:45 | P.PN ---
Subjective Progress Note Date: 11/29/23 This is a pleasant 70-year-old male with medical history significant for atrial fibrillation, hypertension, sleep apnea uses a CPAP. Patient comes in with severe neck pain and has underwent ACDF of C3-7 and is now postoperative day #2. Yesterday patient was requiring 6 L of nasal cannula is not currently on any oxygen on an outpatient basis. His chest x-ray did reveal a left-sided pleural effusion with concern for atelectasis. He received a one-time dose of IV Lasix at 20 mg and was placed on a 20 mg dose of oral Lasix to start this morning. He is still requiring dose of nasal cannula with saturations of 92 to 93%. He is not giving any IV fluids at this time. We will check a proBNP and he may require additional IV diuresis. Review of Systems Constitutional: Denied any fatigue denied any fever. Cardio vascular: denied any chest pain, palpitations Gastrointestinal: denied any nausea, vomiting, diarrhea Pulmonary: Denied any shortness of breath cough Neurologic denied any new focal deficits All inpatient medications were reviewed and appropriate changes in these medications as dictated in the interval history and assessment and plan. PHYSICAL EXAMINATION: GENERAL: The patient is alert and oriented x3, not in any acute distress. Well developed, well nourished. HEENT: Pupils are round and equally reacting to light. EOMI. No scleral icterus. No conjunctival pallor. Normocephalic, atraumatic. No pharyngeal erythema. No thyromegaly. CARDIOVASCULAR: S1 and S2 present. No murmurs, rubs, or gallops. PULMONARY: Chest is clear to auscultation, no wheezing or crackles. ABDOMEN: Soft, nontender, nondistended, normoactive bowel sounds. No palpable organomegaly. MUSCULOSKELETAL: No joint swelling or deformity. EXTREMITIES: No cyanosis, clubbing, or pedal edema. NEUROLOGICAL: Gross neurological examination did not reveal any focal deficits. SKIN: No rashes. Assessment and Plan Mild volume overload Acute hypoxemic respiratory failure secondary to volume overload Postoperative C3-7 ACDF leukocytosis this is reactive to surgery Obstructive sleep apnea uses a CPAP on an outpatient basis Hypertension Paroxysmal atrial fibrillation, on aspirin 81 mg daily, as well as metoprolol Anxiety Restless leg syndrome Hyperlipidemia Gastroesophageal reflux disease GI prophylaxis DVT prophylaxis Full code Plan Continue to encourage incentive spirometer Stop the oral lasix and start IV lasix 20 mg IV Q12 Strict intake and output monitoring Recommend to check a BMP in the AM The impression and plan of care has been dictated by Delilah Vargas, Nurse Practitioner as directed. Dr. Raiza MD I have performed a history and physical examination and medical decision making of this patient, discussed the same with the dictator, and agree with the dictators assessment and plan as written, documented as a scribe. Based on total visit time, I have performed more than 50% of this visit. Objective - Vital Signs Vital signs: Vital Signs Temp 97.6 F 11/29/23 07:15 Pulse 85 11/29/23 07:15 Resp 17 11/29/23 07:15 BP 172/76 11/29/23 07:15 Pulse Ox 92 L 11/29/23 07:15 FiO2 50 11/28/23 07:30 Intake & Output 11/28/23 11/29/23 11/29/23 18:59 06:59 18:59 Intake Total 540 Output Total 1200 575 300 Balance -1200 -35 -300 Intake: Oral 540 Output: Drainage 0 Anterior Neck 0 Urine 1200 575 300 Uretheral (Ibarra) 150 Other: Voiding Method Indwelling Catheter Indwelling Catheter Urinal - Labs CBC & Chem 7: 11/29/23 04:23 11/29/23 04:23 Labs: Abnormal Lab Results - Last 24 Hours (Table) 11/29/23 11/29/23 Range/Units 04:23 04:23 WBC 16.57 H (4.50-10.00) X 10*3/uL Hct 50.7 H (39.6-50.0) % MCV 101.8 H (80.0-97.0) FL MCHC 31.0 L (32.0-37.0) g/dL Carbon Dioxide 32.2 H (21.6-31.8) mmol/L BUN/Creatinine Ratio 21.44 H (12.00-20.00) Ratio Glucose 168 H (70-110) mg/dL Assessment and Plan Time with Patient: Less than 30
[2023-11-29] MEDS: FUROSEMIDE 10 MG/ML 2 ML VIAL IV SCH (15:18)
[2023-11-29] MEDS: HYDROmorphone 0.5 MG/0.5 ML SYRINGE IVP PRN (21:38)
[2023-11-29] MEDS: DILTIAZEM 125 MG in SODIUM CHLORIDE 0.9% 100 ML IV SCH (23:46)
[2023-11-30 01:44] LABS: ABG Base Excess 6.2 mmol/L; ABG HCO3 38 mmol/L (21-25); ABG Oxygen Saturation 97.3 % (94-97); ABG PH 7.24 (7.35-7.45); ABG PO2 99 mmHg (83-108); ABG TCO2 40 mmol/L (19-24); Allen Test Performed? Yes
[2023-11-30 02:08] LABS: ABG PCO2 88 mmHg (35-45)
[2023-11-30] MEDS ORDERED: IPRATROPIUM-ALBUTEROL 3 ML NEB INHALATION PRN (02:30)
[2023-11-30] MEDS: methylPREDNISolone SOD SUCCI 40 MG/ML 1 ML VIAL IV SCH (03:10)
--- NOTE | 2023-11-30 03:23 | XR ---
EXAM: XR Chest, 1 View CLINICAL HISTORY: ITS.REASON XR Reason: Shortness of Breath TECHNIQUE: Frontal view of the chest. COMPARISON: No relevant prior studies available. IMPRESSION: Cardiomegaly. Left basilar opacity. Mild vascular congestion
--- NOTE | 2023-11-30 04:51 | P.CNPUL ---
History of Present Illness Consult date: 11/30/23 Requesting physician: Ad Benitez Reason for consult: dyspnea Chief complaint: Lethargy History of present illness: Patient is a 68-year-old male with past medical history significant for hypertension, hyperlipidemia, atrial fibrillation, morbid obesity, obstructive sleep apnea. On 11/27/2023 patient was brought in for an elective anterior C3- C7 cervical discectomy and fusion. Routine postoperative CT of the C-spine showing postsurgical changes of C3-C7. No CT evidence of surgical complication. Postoperatively, patient requiring increased oxygen demands. Has not been wear ing his CPAP device, as he reportedly did not have an adapter to bleed in oxygen. Late last night, I was called patient was more lethargic. ABG was ordered by the admitting provider consistent with hypercapnic respiratory failure. This was done on 6 L nasal cannula. PaO2 99, pCO2 88, pH of 7.24. I did order to place the patient on BiPAP with initial settings 12/5 with an FiO2 of 50%. I am now evaluating this patient on the cardiac stepdown unit. He states that he is tired, and does not offer much information. He has no specific complaints at the moment. Patient has history of A-fib, and was in A-fib RVR last night, currently on Cardizem infusion at 5 mg/h. Rate is better controlled. He is alert and oriented and no signs of CO2 narcosis. His c-collar is on. Remains on BiPAP with above-mentioned settings. Generating tidal volumes of around 500, respiratory rate in the mid teens. SpO2 reading 95%. Chest x-ray showing cardiomegaly, mild vascular congestion, and a left basilar o pacity versus atelectasis. He is currently receiving Lasix 20 mg twice daily. Most recent CBC from yesterday: WBC count 16.5, hemoglobin 15.7, hematocrit 50.7, platelets 216. BMP from yesterday: Sodium 137, potassium 5, chloride 96, BUN 19, creatinine 0.9, glucose 168. Negative for influenza, RSV, COVID. Afebrile. He seems to be doing well on BiPAP with current settings, he will remain so overnight. Review of Systems Constitutional: Denies chills, Denies fever Ears, nose, mouth and throat: Denies nasal congestion, Denies nasal discharge, Denies post-nasal drip, Denies sinus pain, Denies sinus pressure, Denies sore throat Cardiovascular: Denies chest pain, Denies leg edema, Denies orthopnea, Denies palpitations, Denies paroxysmal nocturnal dyspnea, Denies syncope Respiratory: Denies congestion, Denies cough, Denies dyspnea, Denies home oxygen, Denies wheezing Gastrointestinal: Denies abdominal pain, Denies change in bowel habits, Denies nausea, Denies vomiting Genitourinary: Denies dysuria Musculoskeletal: Denies limitation of motion Integumentary: Denies rash Neurological: Denies confusion, Denies headaches, Denies memory loss, Denies seizures, Denies syncope, Denies visual changes Psychiatric: Denies anxiety, Denies depression Past Medical History Past Medical History: Atrial Fibrillation, GERD/Reflux, Hyperlipidemia, Hypertension, Sleep Apnea/CPAP/BIPAP Additional Past Medical History / Comment(s): Asthma as child, hx. of a-fib-no episodes of in last year, uses CPAP, left arm very weak due to neck, RLS, CTS lolis, lower legs swell History of Any Multi-Drug Resistant Organisms: None Reported Past Surgical History: Adenoidectomy, Tonsillectomy Additional Past Surgical History / Comment(s): colonoscopy Past Anesthesia/Blood Transfusion Reactions: No Reported Reaction Smoking Status: Never smoker - Past Family History Father Family Medical History: No Reported History Additional Family Medical History / Comment(s): Dad is 82 and healthy. Mother Family Medical History: No Reported History Additional Family Medical History / Comment(s): Mom is 82 and healthy. Medications and Allergies Home Medications Medication Instructions Recorded Confirmed Type Pravastatin Sodium 40 mg PO DAILY 11/10/15 11/27/23 History lisinopriL 40 mg PO QAM 11/10/15 11/27/23 History hydrALAZINE HCL [Apresoline] 100 mg PO BID 04/06/20 11/27/23 History Aspirin [[place] Aspirin EC] 81 mg PO DAILY 09/30/20 11/27/23 History DULoxetine HCL [Cymbalta] 30 mg PO DAILY 09/30/20 11/27/23 History Furosemide [Lasix] 20 mg PO DAILY 11/22/23 11/27/23 History Multivitamins, Thera [Multivitamin 1 tab PO DAILY 11/22/23 11/27/23 History (formulary)] NIFEdipine [Adalat CC] 30 mg PO BID 11/22/23 11/27/23 History Omeprazole [PriLOSEC] 20 mg PO AC-BRKFST 11/22/23 11/27/23 History carvediloL [Coreg] 25 mg PO BID 11/22/23 11/27/23 History predniSONE [Deltasone] 20 mg PO DAILY 11/22/23 11/27/23 History rOPINIRole HCL [Requip] 0.5 mg PO HS 11/22/23 11/27/23 History Apixaban [Eliquis] 5 mg PO BID #60 tab 11/30/23 Rx Allergies Allergy/AdvReac Type Severity Reaction Status Date / Time No Known Allergies Allergy Verified 11/27/23 11:28 Physical Exam Vitals: Vital Signs Temp Pulse Pulse Pulse Resp BP Pulse Ox 11/30/23 02:16 11/30/23 01:53 11/30/23 01:45 98.1 F 94 17 117/64 95 11/29/23 19:39 98.4 F 81 17 152/79 94 L 11/29/23 13:00 97.5 F L 60 17 144/69 95 11/29/23 12:34 75 81 11/29/23 07:15 97.6 F 85 17 172/76 92 L Pulse Ox Pulse Ox FiO2 11/30/23 02:16 50 11/30/23 01:53 50 11/30/23 01:45 11/29/23 19:39 11/29/23 13:00 11/29/23 12:34 93 L 79 L 11/29/23 07:15 Intake and Output 11/29/23 11/29/23 11/30/23 14:59 22:59 06:59 Output Total 300 Balance -300 Output: Urine 300 Uretheral (Ibarra) 150 Other: Voiding Method Urinal Urinal # Voids 2 1 GENERAL EXAM: Alert, 68-year-old morbidly obese male, on BiPAP 12/5 and FiO2 of 50%, no signs of CO2 narcosis. HEAD: Normocephalic and atraumatic EYES: Normal reaction of pupils, equal size. NOSE: Clear with pink turbinates. THROAT: No erythema or exudates. NECK: No masses, no JVD. C-collar in place CHEST: No chest wall deformity. LUNGS: Equal air entry with diminished lung sounds at the bases. No adventitious sounds. On BiPAP 12/5 and FiO2 50%. Generating tidal volumes around 500 and a respiratory rate in the mid teens. No conversational dyspnea or accessory muscle use.. CVS: S1 and S2 normal with no audible murmur, irregular rhythm. No extra heart sounds ABDOMEN: No hepatosplenomegaly, active bowel sounds, no guarding or rigidity. SPINE: No scoliosis or deformity SKIN: No rashes CENTRAL NERVOUS SYSTEM: No focal deficits, tone is normal in all 4 extremities. EXTREMITIES: There is no peripheral edema, clubbing, or cyanosis. Peripheral pulses are intact. Results - Laboratory Findings CBC and BMP: 11/30/23 11:17 11/30/23 06:32 ABG ABG pH 7.24 (7.35-7.45) L 11/30/23 01:40 ABG pCO2 88 mmHg (35-45) H* 11/30/23 01:40 ABG pO2 99 mmHg (83-108) 11/30/23 01:40 ABG O2 Saturation 97.3 % (94-97) H 11/30/23 01:40 Abnormal lab findings: Abnormal Labs 11/27/23 11/27/23 11/27/23 12:05 12:30 23:50 WBC 13.0 H Hct 53.1 H MCV MCHC Immature Gran # Neutrophils # 10.9 H Monocytes # Eosinophils # ABG pH 7.32 L ABG pCO2 71 H* ABG pO2 110 H ABG HCO3 36 H ABG Total CO2 39 H ABG O2 Saturation 97.7 H Carbon Dioxide BUN/Creatinine Ratio Glucose POC Glucose (mg/dL) 111 H 11/28/23 11/28/23 11/29/23 03:16 03:16 04:23 WBC 16.60 H 16.57 H Hct 51.7 H 50.7 H MCV 101.6 H 101.8 H MCHC 31.3 L 31.0 L Immature Gran # 0.09 H Neutrophils # 14.13 H Monocytes # 1.14 H Eosinophils # 0.03 L ABG pH ABG pCO2 ABG pO2 ABG HCO3 ABG Total CO2 ABG O2 Saturation Carbon Dioxide 33.5 H BUN/Creatinine Ratio Glucose 113 H POC Glucose (mg/dL) 11/29/23 11/30/23 04:23 01:40 WBC Hct MCV MCHC Immature Gran # Neutrophils # Monocytes # Eosinophils # ABG pH 7.24 L ABG pCO2 88 H* ABG pO2 ABG HCO3 38 H ABG Total CO2 40 H ABG O2 Saturation 97.3 H Carbon Dioxide 32.2 H BUN/Creatinine Ratio 21.44 H Glucose 168 H POC Glucose (mg/dL) - Diagnostic Findings Chest x-ray: image reviewed Assessment and Plan Assessment: Acute hypoxemic and hypercapnic respiratory failure, currently requiring BiPAP; chest x-ray showing a component of enlarged cardiac silhouette, pulmonary vascular congestion, and left basilar opacity versus atelectasis. Atrial fibrillation with rapid ventricular response, currently on Cardizem at 5 mg/h, rate is better controlled Status postoperative day #3 following a ACDF of C3-C7 Cervical spondylosis and radiculopathy symptoms Acute leukocytosis, likely reactive to surgery Obstructive sleep apnea, with home CPAP device Obesity, with a BMI of 37.8 kg/m Hypertension History of hyperlipidemia History of gastroesophageal reflux disease Plan: Patient's medications, labs, chest x-ray reviewed Patient will continue on BiPAP, at least overnight, with current settings No signs of CO2 narcosis at the moment Chest x-ray showing cardiomegaly, pulmonary vascular congestion, and a left basilar opacity versus atelectasis NT proBNP was low Continues to be in atrial fibrillation, currently with better ventricular response on Cardizem infusion at 5 mg/h. Cardiology following We will also continue to follow I have personally seen and examined the patient, performed the documentation and the assessment and plan as written. Number of minutes spent on the visit:20 On 11/30/2023, the patient is being seen in joint evaluation along with respective center. This is a 68-year-old male patient, is known to have obstructive sleep apnea maintained on APAP pressures of 5/20 cm of water along with O2 therapy in combination with CPAP overnight. He is also known to have hypertension hyperlipidemia and paroxysmal atrial fibrillation. The patient und erwent a cervical discectomy. Overnight, the patient became more hypoxic and his oxygen demands was higher than the usual. Blood gas was done and the patient was found to have an acute on top of chronic hypercapnic respiratory failure. Based on that, the patient was placed on a BiPAP which is currently running at a pressure of 12 over 5 cm of water. He is using the BiPAP intermittently for now. He was given a brief break this morning and subsequently was placed back on the BiPAP. His chest x-ray showed pulm vascular congestion/interstitial edema the patient is currently on Lasix 20 mg IV every 12 hours. He is on bridging therapy regarding his anticoagulation. He is on IV heparin in addition to warfarin that was started today and the patient's PT/INR is subtherapeutic for now. Will continue the same. He seems to be much more awake and alert and communicating. No signs of any CO2 narcosis for now. Viral screen has been negative. Thyroid function test to be within normal limits. proBNP level is low and is less than 36. His surgical wound is dry clean and intact. The patient is being seen by spine surgery. He will have a repeat echocardiogram. The Cardizem drip to be discontinued and the patient will be started also on Coreg 25 mg p.o. twice daily and his atrial fibrillation will monitored very closely. Time with Patient: Greater than 30
[2023-11-30] MEDS: hydrALAZINE HCL 50 MG TAB PO SCH ×2 (09:28→21:48)
[2023-11-30] MEDS: HYDROcodone/APAP 5-325MG 1 EACH TAB PO PRN (09:34)
--- NOTE | 2023-11-30 09:58 | P.CRDCN ---
History of Present Illness History of present illness: HISTORY OF PRESENT ILLNESS: This is a 68-year-old male with a past medical history significant for paroxysmal atrial fibrillation, hypertension, hyperlipidemia and obesity. Patient used to follow in the office with Dr. Park but has not been seen since 2019. We have been asked to see the patient in consultation for atrial fibrillation. Patient examined at the bedside. Patient is status post cervical surgery with Dr. Manuel on 11/27/2023. Patient went into atrial fibrillation overnight. He was started on IV Cardizem. Patient reports a history of atrial fibrillation but states he rarely has episodes of A-fib. He states he does not take anticoagulation on an outpatient basis he just takes a baby aspirin daily. He states previously Eliquis was too expensive for him. At the time of examination, patient remains in atrial fibrillation with controlled ventricular rate. He remains on IV Cardizem at 5 mg an hour. The patient currently denies any chest pain or pressure. He denies shortness of breath. DIAGNOSTICS: - EKG reveals atrial fibrillation with controlled ventricular rate - Chest xray left basilar opacity. Mild vascular congestion. - Laboratory data: WBC 16.5. Hemoglobin 15.7. Platelet count 216. Sodium 137. Potassium 5.0. BUN 19. Creatinine 0.9. proBNP 36. - Current home cardiac medications include aspirin 81 mg daily, Lasix 20 mg daily, carvedilol 25 mg twice a day, hydralazine 100 mg twice a day, lisinopril 40 mg daily - Most recent echocardiogram obtained in 2016 revealed normal EF - Cardiac catheterization history: Patient denies REVIEW OF SYSTEMS: At the time of my exam: CONSTITUTIONAL: Denies fever or chills. HEENT: Denies blurred vision, vision changes, or eye pain. Denies hemoptysis CARDIOVASCULAR: Denies chest pain. Denies orthopnea. Denies PND. Denies palpitations RESPIRATORY: Denies shortness of breath. GASTROINTESTINAL: Denies abdominal pain. Denies nausea or vomiting. HEMATOLOGIC: Denies bleeding disorders. GENITOURINARY: Denies any blood in urine. SKIN: Denies pruitis. Denies rash. PHYSICAL EXAM: VITAL SIGNS: Reviewed. GENERAL: Well-developed in no acute distress. HEENT: Head is normocephalic. Pupils are equal, round. Sclerae anicteric. Mucous membranes of the mouth are moist. Neck supple. No JVD or thyromegaly LUNGS: Respirations even and unlabored. Lungs essentially clear to auscultation bilaterally. HEART: Irregular rate and rhythm. S1 and S2 heard. ABDOMEN: Soft. Nondistended. Nontender. EXTREMITIES: Normal range of motion. No clubbing or cyanosis. Peripheral pulses intact. Trace bilateral lower extremity edema NEUROLOGIC: Awake and alert. Oriented x 3. ASSESSMENT: Status post cervical discectomy and fusion Paroxysmal atrial fibrillation with controlled ventricular rate, not anticoagul ated on an outpatient basis Acute hypoxic and hypercapnic respiratory failure, requiring BiPAP Mild acute on chronic congestive heart failure with preserved EF (in 2016, repeat echo pending) Hypertension Hyperlipidemia Obstructive sleep apnea with home CPAP PLAN: Obtain 2D echo to assess cardiac structure and function Check TSH Discontinue IV Cardizem Continue carvedilol 25 mg twice a day Patient states he was previously on Eliquis in the past but it was not covered by his insurance. We will have case management check patient's co-pay for Eliquis. If it is not covered, will recommend anticoagulation with Coumadin. Case discussed with orthopedic nurse practitioner, Traci Ku, who states patient is cleared to begin anticoagulation from their standpoint Continue telemetry monitoring Further recommendations pending patient course Patient has not been seen in the office since 2019. Patient to follow-up postdischarge in the office with Dr. Meléndez Nurse practitioner note has been reviewed by physician. Signing provider agrees with the documented findings, assessment, and plan of care documented by SYSTEM CONTROLLER as a scribe. Past Medical History Past Medical History: Atrial Fibrillation, GERD/Reflux, Hyperlipidemia, Hypertension, Sleep Apnea/CPAP/BIPAP Additional Past Medical History / Comment(s): Asthma as child, hx. of a-fib-no episodes of in last year, uses CPAP, left arm very weak due to neck, RLS, CTS lolis, lower legs swell History of Any Multi-Drug Resistant Organisms: None Reported Past Surgical History: Adenoidectomy, Tonsillectomy Additional Past Surgical History / Comment(s): colonoscopy Past Anesthesia/Blood Transfusion Reactions: No Reported Reaction Smoking Status: Never smoker - Past Family History Father Family Medical History: No Reported History Additional Family Medical History / Comment(s): Dad is 82 and healthy. Mother Family Medical History: No Reported History Additional Family Medical History / Comment(s): Mom is 82 and healthy. Medications and Allergies Home Medications Medication Instructions Recorded Confirmed Type Pravastatin Sodium 40 mg PO DAILY 11/10/15 11/27/23 History lisinopriL 40 mg PO QAM 11/10/15 11/27/23 History hydrALAZINE HCL [Apresoline] 100 mg PO BID 04/06/20 11/27/23 History Aspirin [[place] Aspirin EC] 81 mg PO DAILY 09/30/20 11/27/23 History DULoxetine HCL [Cymbalta] 30 mg PO DAILY 09/30/20 11/27/23 History Furosemide [Lasix] 20 mg PO DAILY 11/22/23 11/27/23 History Multivitamins, Thera [Multivitamin 1 tab PO DAILY 11/22/23 11/27/23 History (formulary)] NIFEdipine [Adalat CC] 30 mg PO BID 11/22/23 11/27/23 History Omeprazole [PriLOSEC] 20 mg PO AC-BRKFST 11/22/23 11/27/23 History carvediloL [Coreg] 25 mg PO BID 11/22/23 11/27/23 History predniSONE [Deltasone] 20 mg PO DAILY 11/22/23 11/27/23 History rOPINIRole HCL [Requip] 0.5 mg PO HS 11/22/23 11/27/23 History Allergies Allergy/AdvReac Type Severity Reaction Status Date / Time No Known Allergies Allergy Verified 11/27/23 11:28 Physical Exam Vitals: Vital Signs Temp Pulse Pulse Pulse Resp BP Pulse Ox 11/30/23 09:21 100/55 11/30/23 09:17 92 L 11/30/23 06:54 98 F 93 19 94/56 11/30/23 04:00 98.3 F 98 19 122/69 95 11/30/23 02:16 11/30/23 02:00 20 11/30/23 01:53 11/30/23 01:45 98.1 F 94 17 117/64 95 11/29/23 19:39 98.4 F 81 17 152/79 94 L 11/29/23 13:00 97.5 F L 60 17 144/69 95 11/29/23 12:34 75 81 Pulse Ox Pulse Ox FiO2 11/30/23 09:21 11/30/23 09:17 11/30/23 06:54 50 11/30/23 04:00 50 11/30/23 02:16 50 11/30/23 02:00 11/30/23 01:53 50 11/30/23 01:45 11/29/23 19:39 11/29/23 13:00 11/29/23 12:34 93 L 79 L Intake and Output 11/29/23 11/30/23 11/30/23 22:59 06:59 14:59 Output Total 0 Balance 0 Output: Urine 0 Other: Voiding Method Urinal Urinal # Voids 2 1 Results 11/29/23 04:23 11/29/23 04:23 Current Medications Generic Name Dose Route Start Last Admin Trade Name Freq PRN Reason Stop Dose Admin Acetaminophen 650 mg 11/27/23 18:00 11/30/23 06:04 Acetaminophen Tab 325 Mg Tab PO 12/27/23 17:59 650 mg Q6HR RUSTY Administration Hydrocodone Bitart/Acetaminophen 1 each 11/27/23 14:37 11/30/23 09:34 Hydrocodone/Apap 5-325mg 1 Each Tab PO 12/27/23 14:36 1 each Q6HR PRN Administration Pain Scale 4 - 6 Hydrocodone Bitart/Acetaminophen 1 each 11/27/23 14:37 11/28/23 20:28 Hydrocodone/Apap 10-325mg 1 Each Tab PO 12/27/23 14:36 1 each Q6H PRN Administration Pain Scale 9 To 10 Hydrocodone Bitart/Acetaminophen 1 each 11/27/23 14:41 11/29/23 17:54 Hydrocodone/Apap 7.5-325mg 1 Each Tab PO 12/27/23 14:40 1 each Q6HR PRN Administration Pain Scale 6 To 8 Albuterol/Ipratropium 3 ml 11/30/23 02:30 Ipratropium-Albuterol 3 Ml Neb INHALATION RT-QID PRN Shortness Of Breath Or Wheezing Bisacodyl 10 mg 11/27/23 14:37 Bisacodyl 10 Mg Supp RECTAL 12/27/23 14:36 DAILY PRN Constipation Carvedilol 25 mg 11/28/23 07:30 11/30/23 06:05 Carvedilol 12.5 Mg Tab PO 25 mg BID-W/MEALS RUSTY Administration Cyclobenzaprine HCl 5 mg 11/27/23 14:37 Cyclobenzaprine 5 Mg Tab PO 12/27/23 14:36 TID PRN Muscle Spasm Duloxetine HCl 30 mg 11/28/23 09:00 11/30/23 09:29 Duloxetine Hcl 30 Mg Capsule.Dr PO 30 mg DAILY RUSTY Administration Furosemide 20 mg 11/29/23 13:45 11/30/23 09:21 Furosemide 10 Mg/Ml 2 Ml Vial IV 20 mg Q12HR RUSTY Administration Gabapentin 200 mg 11/27/23 16:00 11/30/23 09:28 Gabapentin 100 Mg Cap PO 12/27/23 15:59 200 mg TID RUSTY Administration Hydralazine HCl 100 mg 11/30/23 09:00 11/30/23 09:28 Hydralazine Hcl 50 Mg Tab PO 100 mg TID RUSTY Administration Hydromorphone HCl 0.5 mg 11/27/23 14:37 11/29/23 21:38 Hydromorphone 0.5 Mg/0.5 Ml Syringe IVP 12/27/23 14:36 0.5 mg Q3HR PRN Administration Pain Scale 6 To 8 Hydromorphone HCl 1 mg 11/27/23 14:37 Hydromorphone 1 Mg/Ml 1 Ml Syringe IVP 12/27/23 14:36 Q3HR PRN Pain Scale 9 To 10 Lisinopril 40 mg 11/28/23 09:00 11/29/23 07:25 Lisinopril 20 Mg Tab PO 40 mg QAM RUSTY Administration Magnesium Hydroxide 2,400 mg 11/27/23 14:37 Magnesium Hydroxide 2,400 Mg/30 Ml Cup PO 12/27/23 14:36 DAILY PRN Constipation Methylprednisolone Sodium Succinate 40 mg 11/30/23 02:30 11/30/23 09:18 Methylprednisolone Sod Succi 40 Mg/Ml 1 Ml Vial IV 40 mg Q8HR RUSTY Administration Multivitamins 1 each 11/27/23 22:30 11/30/23 09:29 Multivitamins, Thera 1 Each Tab PO 1 each DAILY RUSTY Administration Nifedipine 30 mg 11/28/23 09:00 11/29/23 21:28 Nifedipine Xl 30 Mg Tab.Er.24 PO 30 mg BID RUSTY Administration Ondansetron HCl 4 mg 11/27/23 14:37 Ondansetron 4 Mg/2 Ml Vial IVP 12/27/23 14:36 Q8HR PRN Nausea And Vomiting Pantoprazole Sodium 40 mg 11/28/23 07:30 11/30/23 06:05 Pantoprazole 40 Mg Tablet PO 40 mg AC-BRKFST RUSTY Administration Pravastatin Sodium 40 mg 11/28/23 09:00 11/30/23 09:28 Pravastatin Sodium 40 Mg Tab PO 40 mg DAILY RUSTY Administration Ropinirole HCl 0.5 mg 11/28/23 21:00 11/29/23 21:28 Ropinirole Hcl 0.25 Mg Tab PO 0.5 mg HS RUSTY Administration Senna/Docusate Sodium 2 each 11/29/23 09:00 11/30/23 09:29 Sennosides-Docusate Sodium 1 Each Tab PO 12/27/23 14:36 2 each DAILY RUSTY Administration Sodium Biphosphate/Sodium Phosphate 133 ml 11/27/23 14:37 Na Phos,M-B/Na Phos,Di-Ba 133 Ml Enema RECTAL 12/27/23 14:36 DAILY PRN Constipation Intake and Output 11/29/23 11/30/23 11/30/23 22:59 06:59 14:59 Output Total 0 Balance 0 Output: Urine 0 Other: Voiding Method Urinal Urinal # Voids 2 1 11/29/23 04:23 11/29/23 04:23
[2023-11-30 10:51] LABS: BUN/Creat Ratio 18.62 Ratio (12.00-20.00); Blood Urea Nitrogen 24.2 mg/dL (9.0-27.0); Calcium 8.8 mg/dL (8.7-10.3); Chloride 95 mmol/L (96-109); Glucose 115 mg/dL (70-110); Potassium 5.1 mmol/L (3.5-5.5); Sodium 138 mmol/L (135-145)
--- NOTE | 2023-11-30 11:23 | P.PN ---
Subjective Progress Note Date: 11/30/23 Principal diagnosis: 1. Severe and progressive cervical spondylitic myelopathy 2. Acute/subacute left upper extremity paralysis 3. Bilateral upper extremity weakness with left wrist drop 4. Fine motor disruption 5. Gait disturbance 6. Left upper extremity radiculopathy Patient was seen at bedside this morning feet up in chair with BiPAP currently on. Dressing in place over anterior cervical spine. Cardiology, pulmonology and medicine have been following. Patient mentions his still having some hoarseness. Patient mentions he has been trying to get up with therapy and walk around the room a little bit. C-collar is currently in place. Patient says he does have some generalized swelling and pain to the front of the neck at this time. Seems to note some improvement since the first day after surgery. Patient denies any other orthopedic issues at this time Objective - Vital Signs Vital signs: Vital Signs Temp 98 F 11/30/23 06:54 Pulse 93 11/30/23 06:54 Resp 19 11/30/23 06:54 BP 97/60 11/30/23 10:18 Pulse Ox 92 L 11/30/23 09:17 FiO2 50 11/30/23 06:54 Intake & Output 11/29/23 11/30/23 11/30/23 18:59 06:59 18:59 Output Total 300 0 Balance -300 0 Output: Urine 300 0 Uretheral (Ibarra) 150 Other: Voiding Method Urinal Urinal # Voids 2 1 - Exam General: The patient is awake and alert, in no acute distress Skin: Skin is warm and dry with no obvious rashes or lesions. Surgical incision to the anterior cervical spine, edges are well approximated with glue intact. Mild edema around incision. nursing to change dressing once off Bipap Eye: Pupils are equal, round and reactive to light, extra-ocular movements are intact; there is normal conjunctiva bilaterally. Neck: The neck is supple, there is mild edema noted around incision, ROM is limited due to surgical procedure and Hard collar intact. Cardiovascular: There is a regular rate and rhythm. No murmur, rub or gallop is appreciated. Respiratory: Respirations are non-labored, breath sounds are equal. Gastrointestinal: Soft, non-distended, non-tender abdomen. Back: There is no tenderness to palpation in the midline, paralumbar, parathoracic or buttocks region. There is no obvious deformity . Musculoskeletal: ROM limited secondary to pain and stiffness from surgical procedure. Right: Shoulder abduction 4/5, elbow flexors 4/5, wrist dorsiflexors 4/5. finger abductor 4/5, clay carman 4/5, hip flexor 4/5, knee flexor 4/5, ankle dorsiflexor 4/5, ankle plantarflexion 4/5 and extensor hallucis 4/5. Left: Shoulder abduction 3/5, elbow flexors 3/5, wrist dorsiflexors 2/5. finger abductor 2/5, clay carman 5/5, hip flexor 4/5, knee flexor 4/5, ankle dorsiflexor 5/5, ankle plantarflexion 5/5 and extensor hallucis 5/5. Neurological: CN 2-12 intact. There are no obvious motor or sensory deficits. Movement and coordination equal and intact. Sensory exam to light touch intact C5-T1 and intact from L2-S1. Reflexes 2/4 in bilateral upper and lower extremities. Negative Hoffmans, babinski, and clonus signs. Psychiatric: Cooperative, appropriate mood & affect, normal judgment. - Labs CBC & Chem 7: 11/29/23 04:23 11/30/23 06:32 Labs: Abnormal Lab Results - Last 24 Hours (Table) 11/30/23 11/30/23 Range/Units 01:40 06:32 ABG pH 7.24 L (7.35-7.45) ABG pCO2 88 H* (35-45) mmHg ABG HCO3 38 H (21-25) mmol/L ABG Total CO2 40 H (19-24) mmol/L ABG O2 Saturation 97.3 H (94-97) % Chloride 95 L (96-109) mmol/L Carbon Dioxide 35.0 H (21.6-31.8) mmol/L Glucose 115 H (70-110) mg/dL TSH 0.345 L (0.350-5.500) UIU/ML Assessment and Plan Assessment: 1. Severe and progressive cervical spondylitic myelopathy; Acute/subacute left upper extremity paralysis; Bilateral upper extremity weakness with left wrist drop; Fine motor disruption; Gait disturbance; Left upper extremity radiculopathy -Postop day #3 status post C3-C7 ACDF Plan: 1. Severe and progressive cervical spondylitic myelopathy; Acute/subacute left upper extremity paralysis; Bilateral upper extremity weakness with left wrist drop; Fine motor disruption; Gait disturbance; Left upper extremity radicu lopathy -surgery form Sunday, 4C3-C7 ACDF. Patient at bedside this morning on 3s with BiPAP on currently. Dressing is in place over anterior cervical spine. Nursing to change dressing later today. Maintain dressings clean, dry, intact. Assess dressing daily. Patient may weight-bear as tolerated with walker and assistance. Maintain c-collar in place at all times. Pulmonology, medicine and cardiology following. Patient is stable from orthopedic standpoint for discharge. We will defer rest of the management to the primary care team. Orthopedics will be as available as needed to see patient during stay in hospital. 2. Appreciate medical, cardio, pulmonology management 3. Pain management -[place]; Flexeril; gabapentin 4. DVT prophylaxis -heparin 5. GI prophylaxis -Dulcolax; Protonix; senna; milk of magnesia 6. PT/OT -c-collar on at all times. Weightbearing as tolerated with walker 7. Encourage incentive spirometer use Time with Patient: Less than 30
[2023-11-30 11:34] LABS: Basophils % (A) 0 %; Eosinophils % (A) 0 %; HCT 48.8 % (39.0-53.0); HGB 14.7 gm/dL (13.0-17.5); Hypochromasia Marked; Lymphocytes # (A) 0.5 k/uL (1.0-4.8); Lymphocytes % (A) 3 %; MCH 30.6 pg (25.0-35.0); MCHC 30.1 g/dL (31.0-37.0); MCV 101.9 fL (80.0-100.0); Mean Platelet Volume 7.8; Monocytes # (A) 0.6 k/uL (0-1.0); Monocytes % (A) 4 %; Neutrophils # (A) 14.3 k/uL (1.3-7.7); Neutrophils % (A) 92 %; Platelet Count 230 k/uL (150-450); RBC 4.78 m/uL (4.30-5.90); RDW 11.5 % (11.5-15.5); WBC 15.5 k/uL (3.8-10.6)
[2023-11-30 11:56] LABS: INR 0.9 (<1.2); Partial Thromboplastin Time 29.2 sec (22.0-30.0); Prothrombin Time 10.4 sec (10.0-12.5)
[2023-11-30] MEDS: HEPARIN SOD,PORK IN 0.45% NACL 25,000 UNIT in 0.45% NACL 1 250ML.BAG IV SCH (12:34)
[2023-11-30] MEDS: HEPARIN SODIUM 1,000 UN/ML (10ML VL) IV ONE (12:36)
--- NOTE | 2023-11-30 14:29 | P.PN ---
Subjective Progress Note Date: 11/30/23 This is a pleasant 70-year-old male with medical history significant for atrial fibrillation, hypertension, sleep apnea uses a CPAP. Patient comes in with severe neck pain and has underwent ACDF of C3-7 and is now postoperative day #2. Yesterday patient was requiring 6 L of nasal cannula is not currently on any oxygen on an outpatient basis. His chest x-ray did reveal a left-sided pleural effusion with concern for atelectasis. He received a one-time dose of IV Lasix at 20 mg and was placed on a 20 mg dose of oral Lasix to start this morning. He is still requiring dose of nasal cannula with saturations of 92 to 93%. He is not giving any IV fluids at this time. We will check a proBNP and he may require additional IV diuresis. 11/30/2023 Patient is evaluated today in follow-up on the medical floor, patient has had worsening respiratory failure overnight requiring left basilar opacity with mild vascular congestion on chest x-ray. He does continue IV Lasix 20 mg every 12. His CO2 was quite elevated in the ABGs and he is continued on BiPAP at this time 12/5, 50%. White blood cell count today 15.5. Additionally he had an episode of atrial fibrillation with RVR overnight requiring IV cardizem. Heart rate is better controlled today. He is postoperative day #3 ACDF C3-C7. Review of Systems Constitutional: Denied any fatigu ABGs and repeat chest x-ray. There is evidence yudith denied any fever. Cardio vascular: denied any chest pain, palpitations Gastrointestinal: denied any nausea, vomiting, diarrhea Pulmonary: Denied any shortness of breath cough Neurologic denied any new focal deficits All inpatient medications were reviewed and appropriate changes in these medications as dictated in the interval history and assessment and plan. PHYSICAL EXAMINATION: GENERAL: The patient is alert and oriented x3, not in any acute distress. Well developed, well nourished. HEENT: Pupils are round and equally reacting to light. EOMI. No scleral icterus. No conjunctival pallor. Normocephalic, atraumatic. No pharyngeal erythema. No thyromegaly. CARDIOVASCULAR: S1 and S2 present. No murmurs, rubs, or gallops. PULMONARY: Chest is clear to auscultation, no wheezing or crackles. ABDOMEN: Soft, nontender, nondistended, normoactive bowel sounds. No palpable organomegaly. MUSCULOSKELETAL: No joint swelling or deformity. EXTREMITIES: No cyanosis, clubbing, or pedal edema. NEUROLOGICAL: Gross neurological examination did not reveal any focal deficits. SKIN: No rashes. Assessment and Plan Mild volume overload Acute hypoxemic respiratory failure secondary to volume overload Postoperative C3-7 ACDF Leukocytosis this is reactive to surgery Obstructive sleep apnea uses a CPAP on an outpatient basis Hypertension Paroxysmal atrial fibrillation, on aspirin 81 mg daily, as well as metoprolol Atrial fibrillation with RVR requiring IV Cardizem Anxiety Restless leg syndrome Hyperlipidemia Gastroesophageal reflux disease GI prophylaxis DVT prophylaxis Full code Plan Continue to encourage incentive spirometer Stop the oral lasix and start IV lasix 20 mg IV Q12 Strict intake and output monitoring IV Cardizem has been discontinued currently rate is controlled at this time. Echocardiogram has been ordered and pending at this time. Patient be started on warfarin for anticoagulation as he is unable to afford Eliquis at this time. He has been started on IV heparin bridge Continue BiPAP per pulmonary Repeat blood work in the AM The impression and plan of care has been dictated by Delilah Vargas, Nurse Practitioner as directed. Dr. Raiza MD I have performed a history and physical examination and medical decision making of this patient, discussed the same with the dictator, and agree with the dictators assessment and plan as written, documented as a scribe. Based on total visit time, I have performed more than 50% of this visit. Objective - Vital Signs Vital signs: Vital Signs Temp 98 F 11/30/23 06:54 Pulse 93 11/30/23 06:54 Resp 19 11/30/23 06:54 BP 100/55 11/30/23 09:21 Pulse Ox 92 L 11/30/23 09:17 FiO2 50 11/30/23 06:54 Intake & Output 11/29/23 11/30/23 11/30/23 18:59 06:59 18:59 Output Total 300 0 Balance -300 0 Output: Urine 300 0 Uretheral (Ibarra) 150 Other: Voiding Method Urinal Urinal # Voids 2 1 - Labs CBC & Chem 7: 11/30/23 11:17 11/30/23 06:32 Labs: Abnormal Lab Results - Last 24 Hours (Table) 11/30/23 Range/Units 01:40 ABG pH 7.24 L (7.35-7.45) ABG pCO2 88 H* (35-45) mmHg ABG HCO3 38 H (21-25) mmol/L ABG Total CO2 40 H (19-24) mmol/L ABG O2 Saturation 97.3 H (94-97) % Assessment and Plan Time with Patient: Less than 30
[2023-11-30] MEDS: WARFARIN 5 MG TAB PO ONE (16:46)
--- NOTE | 2023-11-30 17:35 | CA ---
Transthoracic Echo Report Name: Skinny Licea Age: 68 Gender: M : 1955 Exam Date: 11/30/2023 15:42 Exam Location: [facility] Ht (in): 74 Wt (lb): 294 Ordering Physician: Libra Burgos Attending/Referring Phys: [id number], Loretta Worsted Winder Dia Knapp RDCS Procedure CPT: Indications: LV function, shortness of breath, atrial fibrillat Cardiac Hx: Technical Quality: Technically difficult study Contrast 1: Definity Total Dose (mL): 2 Contrast 2: Total Dose (mL): MEASUREMENTS (Male / Female) Normal Values 2D ECHO LV Diastolic Diameter PLAX 3.2 cm 4.2 - 5.9 / 3.9 - 5.3 cm LV Systolic Diameter PLAX 2.2 cm IVS Diastolic Thickness 2.5 cm 0.6 - 1.0 / 0.6 - 0.9 cm LVPW Diastolic Thickness 2.1 cm 0.6 - 1.0 / 0.6 - 0.9 cm LV Relative Wall Thickness 1.4 RV Internal Dim ED PLAX 3.2 cm M-MODE Aortic Root Diameter MM 2.9 cm LA Systolic Diameter MM 5.4 cm LA Ao Ratio MM 1.9 AV Cusp Separation MM 1.8 cm DOPPLER AV Peak Velocity 126.1 cm/s AV Peak Gradient 6.4 mmHg AV Mean Velocity 91.1 cm/s AV Mean Gradient 3.8 mmHg AV Velocity Time Integral 19.1 cm LVOT Peak Velocity 129.8 cm/s LVOT Peak Gradient 6.7 mmHg LVOT Velocity Time Integral 26.0 cm MV Area PHT 2.8 cm??? Mitral E Point Velocity 87.8 cm/s Mitral A Point Velocity 0.4 cm/s Mitral E to A Ratio 241.5 MV Deceleration Time 271.3 ms FINDINGS Left Ventricle Severely increased left ventricular wall thickness. Left ventricle not well visualized. Left ventricular ejection fraction is estimated at 50-55 %. Right Ventricle Right ventricle not well visualized. Normal right ventricular size. Right Atrium Right atrium not well visualized. Left Atrium Left atrium not well visualized. Mitral Valve Mild mitral annular calcification. Aortic Valve No aortic stenosis. No aortic regurgitation. Tricuspid Valve Tricuspid valve not well visualized. Pulmonic Valve Structurally normal pulmonic valve. Pericardium No pericardial effusion. Aorta Normal size aortic root and proximal ascending aorta. CONCLUSIONS Severely increased left ventricular wall thickness Left ventricular ejection fraction 50-55% Mild mitral calcification Previewed by: Dr. Fredy Jean DO (Electronically Signed) Final Date: 30 November 2023 17:34
[2023-11-30] MEDS: HEPARIN SODIUM 1,000 UN/ML (10ML VL) IV PRN (18:37)
[2023-12-01 02:13] VITALS: RESP 18
[2023-12-01] MEDS: HYDROmorphone 1 MG/ML 1 ML SYRINGE IVP PRN (04:26)
[2023-12-01 07:12] LABS: Basophils % (A) 0 %; Eosinophils % (A) 0 %; HCT 46.2 % (39.0-53.0); HGB 15.2 gm/dL (13.0-17.5); Lymphocytes # (A) 0.7 k/uL (1.0-4.8); Lymphocytes % (A) 5 %; MCH 32.1 pg (25.0-35.0); MCHC 32.9 g/dL (31.0-37.0); MCV 97.6 fL (80.0-100.0); Mean Platelet Volume 8.3; Monocytes # (A) 0.7 k/uL (0-1.0); Monocytes % (A) 5 %; Neutrophils # (A) 12.2 k/uL (1.3-7.7); Neutrophils % (A) 89 %; Platelet Count 236 k/uL (150-450); RBC 4.73 m/uL (4.30-5.90); RDW 11.8 % (11.5-15.5); WBC 13.8 k/uL (3.8-10.6)
[2023-12-01 07:14] LABS: Prothrombin Time 11.4 sec (10.0-12.5)
[2023-12-01 07:27] LABS: African American GFR (CKD) >90 (>60 ml/min/1.73 sqM); Anion Gap 4 mmol/L; Blood Urea Nitrogen 38 mg/dL (9-20); Carbon Dioxide 39 mmol/L (22-30); Chloride 95 mmol/L (98-107); Glucose 135 mg/dL (74-99); Non-African American GFR(CKD) 79 (>60 ml/min/1.73 sqM); Potassium 4.6 mmol/L (3.5-5.1); Sodium 138 mmol/L (137-145)
[2023-12-01] MEDS: predniSONE 20 MG TAB PO SCH (09:23)
[2023-12-01] MEDS: APIXABAN 5 MG TAB PO SCH (11:03)
[2023-12-01 15:21] VITALS: BP 133/87; PULSE 99; TEMP 97.6
--- NOTE | 2023-12-01 15:56 | P.PN ---
Subjective Progress Note Date: 12/01/23 Patient is a 68-year-old male with past medical history significant for hypertension, hyperlipidemia, atrial fibrillation, morbid obesity, obstructive sleep apnea. On 11/27/2023 patient was brought in for an elective anterior C3- C7 cervical discectomy and fusion. Routine postoperative CT of the C-spine showing postsurgical changes of C3-C7. No CT evidence of surgical complication. Postoperatively, patient requiring increased oxygen demands. Has not been wearing his CPAP device, as he reportedly did not have an adapter to bleed in oxygen. Late last night, I was called patient was more lethargic. ABG was ordered by the admitting provider consistent with hypercapnic respiratory failure. This was done on 6 L nasal cannula. PaO2 99, pCO2 88, pH of 7.24. I did order to place the patient on BiPAP with initial settings 12/5 with an FiO2 of 50%. I am now evaluating this patient on the cardiac stepdown unit. He states that he is tired, and does not offer much information. He has no specific complaints at the moment. Patient has history of A-fib, and was in A-fib RVR last night, currently on Cardizem infusion at 5 mg/h. Rate is better controlled. He is alert and oriented and no signs of CO2 narcosis. His c-collar is on. Remains on BiPAP with above-mentioned settings. Generating tidal volumes of around 500, respiratory rate in the mid teens. SpO2 reading 95%. Chest x-ray showing cardiomegaly, mild vascular congestion, and a left basilar opacity versus atelectasis. He is currently receiving Lasix 20 mg twice daily. Most recent CBC from yesterday: WBC count 16.5, hemoglobin 15.7, hematocrit 50.7, platelets 216. BMP from yesterday: Sodium 137, potassium 5, chloride 96, BUN 19, creatinine 0.9, glucose 168. Negative for influenza, RSV, COVID. Afebrile. He seems to be doing well on BiPAP with current settings, he will remain so overnight. 12/01/2023, the patient is being seen for a follow-up. The patient is doing ext remely well and the patient remains on IV heparin. The patient accordingly was transitioned to warfarin for long-term anticoagulation. He is off the Cardizem drip for now. No significant tachycardia. He was taken off the BiPAP and the patient is currently on 3 Suboxone by nasal cannula with pulse ox of 94%. Diuresing well and the patient has been negative fluid balance over the past 24 hours. The patient remains on Lasix 20 mg IV every 12 hours. The patient remains on Coreg. He is also completing a prednisone burst taper. He has a BiPAP at the bedside and the patient has also is on CPAP unit which is an APAP mode pressures of 5/20 cm of water. Awake and alert and communicating.Echo cardiogram was also completed and the patient has a preserved LV function with an ejection fraction of 50 to 55% Objective - Vital Signs Vital signs: Vital Signs Temp 97.7 F 12/01/23 09:32 Pulse 86 12/01/23 09:32 Resp 18 12/01/23 09:32 BP 128/73 12/01/23 09:32 Pulse Ox 95 12/01/23 09:32 FiO2 40 12/01/23 00:41 Intake & Output 11/30/23 12/01/23 12/01/23 18:59 06:59 18:59 Intake Total 969.542 161.540 Output Total 700 Balance 969.542 -538.460 Intake: IV 10 0.9 10 Intake, IV Titration 189.542 151.540 Amount Diltiazem 125 mg In 60 Sodium Chloride 0.9% 100 ml @ 5 MG/HR 5 mls/hr IV .Q24H RUSTY Rx#:[id number] Heparin Sod,Pork in 0.45% 129.542 151.540 NaCl 25,000 unit In 0.45 % NaCl 1 250ml.bag @ 7.49 UNITS/KG/HR 10.007 mls/ hr IV .Q24H RUSTY Rx#: [id number] Oral 780 Output: Urine 700 Other: Voiding Method Urinal Bedside Commode Bedside Commode # Voids 1 - Exam GENERAL EXAM: Alert, 68-year-old morbidly obese male, on 3 L of oxygen by nasal cannula HEAD: Normocephalic and atraumatic EYES: Normal reaction of pupils, equal size. NOSE: Clear with pink turbinates. THROAT: No erythema or exudates. NECK: No masses, no JVD. C-collar in place CHEST: No chest wall deformity. LUNGS: Equal air entry with diminished lung sounds at the bases. No adventitious sounds. No conversational dyspnea or accessory muscle use.. CVS: S1 and S2 normal with no audible murmur, irregular rhythm. No extra heart sounds ABDOMEN: No hepatosplenomegaly, active bowel sounds, no guarding or rigidity. SPINE: No scoliosis or deformity SKIN: No rashes CENTRAL NERVOUS SYSTEM: No focal deficits, tone is normal in all 4 extremities. EXTREMITIES: There is no peripheral edema, clubbing, or cyanosis. Peripheral pulses are intact. - Labs CBC & Chem 7: 12/01/23 06:23 12/01/23 06:23 Labs: Abnormal Lab Results - Last 24 Hours (Table) 11/30/23 11/30/23 12/01/23 Range/Units 06:32 11:17 06:23 WBC 15.5 H (3.8-10.6) k/uL MCV 101.9 H (80.0-100.0) fL MCHC 30.1 L (31.0-37.0) g/dL Neutrophils # 14.3 H (1.3-7.7) k/uL Lymphocytes # 0.5 L (1.0-4.8) k/uL Chloride 95 L 95 L (96-109) mmol/L Carbon Dioxide 35.0 H 39 H (21.6-31.8) mmol/L BUN 38 H (9-20) mg/dL Glucose 115 H 135 H (70-110) mg/dL TSH 0.345 L (0.350-5.500) UIU/ML 12/01/23 Range/Units 06:23 WBC 13.8 H (3.8-10.6) k/uL MCV (80.0-100.0) fL MCHC (31.0-37.0) g/dL Neutrophils # 12.2 H (1.3-7.7) k/uL Lymphocytes # 0.7 L (1.0-4.8) k/uL Chloride (96-109) mmol/L Carbon Dioxide (21.6-31.8) mmol/L BUN (9-20) mg/dL Glucose (70-110) mg/dL TSH (0.350-5.500) UIU/ML Assessment and Plan Assessment: Acute hypoxemic and hypercapnic respiratory failure, currently requiring BiPAP; chest x-ray showing a component of enlarged cardiac silhouette, pulmonary vascular congestion, and left basilar opacity versus atelectasis. The patient is currently off the BiPAP and the patient is currently on 3 Suboxone by nasal cannula Atrial fibrillation with rapid ventricular response, rate controlled and the patient is currently off the Cardizem drip and the patient is being transitioned to warfarin for long-term anticoagulation. Status postoperative day # 4 following a ACDF of C3-C7 Cervical spondylosis and radiculopathy symptoms Acute leukocytosis, likely reactive to surgery Obstructive sleep apnea, with home CPAP device Obesity, with a BMI of 37.8 kg/m Hypertension History of hyperlipidemia History of gastroesophageal reflux disease Plan: Patient is currently on 3 Suboxone by nasal cannula Chest x-ray showing cardiomegaly, pulmonary vascular congestion, and a left basilar opacity versus atelectasis, will repeat chest x-ray in the morning Continue IV Lasix. Cardiology following Coreg 25 mg p.o. twice daily and his atrial fibrillation will monitored very closely. Echo was noted Utilize either the CPAP from home which is an APAP machine pressures of 5/20 cm of water. Alternatively, the patient can utilize her BiPAP machine from the hospital which is set at a pressure of 12 over 5 cm of water. Increase mobility Surgical follow-up Will continue to follow
[2023-12-01] MEDS: WARFARIN 5 MG TAB PO ONE (16:52)
--- NOTE | 2023-12-04 08:46 | P.DS ---
Providers Date of admission: 11/27/23 11:07 Attending physician: Surinder Eastman Consults: 11/27/23 14:37 Consult Physician Routine Consulting Provider: Daniele Goodman Consult Reason/Comments: medical management Do you want consulting provider notified?: Yes 11/29/23 14:02 Consult Physician Routine Consulting Provider: Surinder Eastman Consult Reason/Comments: medical management Do you want consulting provider notified?: Already Contacted 11/29/23 23:28 Consult Physician Routine Consulting Provider: Fredy Jean Consult Reason/Comments: afib Do you want consulting provider notified?: Yes 11/30/23 01:12 Consult Physician Routine Consulting Provider: Napoleon Terry Consult Reason/Comments: Shortness of Breath Do you want consulting provider notified?: Yes, Notify in am Primary care physician: [facility] Course: Final Diagnosis Mild volume overload Acute hypoxemic respiratory failure secondary to volume overload Postoperative C3-7 ACDF Leukocytosis this is reactive to surgery Obstructive sleep apnea uses a CPAP on an outpatient basis Hypertension Paroxysmal atrial fibrillation, on aspirin 81 mg daily, as well as metoprolol Atrial fibrillation with RVR requiring IV Cardizem Anxiety Restless leg syndrome Hyperlipidemia Gastroesophageal reflux disease Discharge Disposition Patient stable for discharge home with overall guarded prognosis. Patient is postoperative day #3 ACDF of C3-7 and will follow-up closely with Dr. Cottrell's and in the office. Patient with known atrial fibrillation had episode of rapid ventricular rate was evaluated cardiology this admission and heart rate is now controlled. Patient will discharge on warfarin as he is not able to afford Eliquis on an outpatient basis. He is given prescription to repeat his INR in 2 days, follow-up with machine room operator Dr. Meléndez on discharge. Patient was unable to be weaned off of oxygen therapy he does have a known history of sleep apnea and was maintained on a BiPAP. He will discharge on nasal cannula with 2 to 3 L of oxygen and follow-up closely with pulmonary services in the office. Lasix has been increased up to 20 mg twice a day on discharge. Hospital Course This is a pleasant 70-year-old male with medical history significant for atrial fibrillation, hypertension, sleep apnea uses a CPAP. Patient comes in with severe neck pain and has underwent ACDF of C3-7 and is now postoperative day #3. Patient is doing well postoperatively his drain has not been active he continues on a brace. He was cleared by orthopedic surgery for discharge. Patient's hospital stay was complicated by hypoxic respiratory failure requiring nasal cannula. He still has oxygen test twice and will need to be discharged on oxygen therapy. He was found to have mild volume overload and his oxygen saturations did improve with IV Lasix. He had an echocardiogram done which reveals an EF of 50 to 55% with severely increased left ventricular wall thickness and mild mitral calcification. He was evaluated by cardiology and pulmonary services. He also had an episode of atrial fibrillation with rapid ventricular rate. He did receive IV Cardizem for this and is now rate controlled. He has been unable to afford his Eliquis on an outpatient basis and for this reason he will be discharged on warfarin for anticoagulation. He is not having any chest pain or shortness of breath. His pain is controlled with oral pain medications. His most recent blood work reveals a white blood cell count of 13.8, BUN of 4, creatinine of 38. Potassium of 4.6 and a sodium of 138. He is afebrile heart rate of 99 blood pressure 133/87. His lungs are clear S1-S2 auscultated irregular rate and rhythm. No focal logical deficits. He will be discharged home. Please see medication reconciliation for a list of current medications. Thank you for allowing us to participate in the care of this patient. The impression and plan of care has been dictated by Delilah Vargas, Nurse Practitioner as directed. Dr. Raiza MD I have performed a history and physical examination and medical decision making of this patient, discussed the same with the dictator, and agree with the dictators assessment and plan as written, documented as a scribe. Based on total visit time, I have performed more than 50% of this visit. Patient Condition at Discharge: Stable Plan - Discharge Summary Discharge Rx Participant: Yes New Discharge Prescriptions: New HYDROcodone/APAP 7.5-325MG [Garrett 7.5] 1 each PO Q6HR PRN #28 tab PRN Reason: Pain Sennosides/Docusate Sodium [Senna-S 8.6-50 mg Tablet] 2 each PO DAILY PRN #30 tablet PRN Reason: Constipation Furosemide [Lasix] 20 mg PO BID #60 tab cefaDROXiL [Duricef] 500 mg PO Q12HR 5 Days #10 cap Gabapentin [Neurontin] 200 mg PO BID 10 Days #40 cap Warfarin [Coumadin] 5 mg PO 1800 #30 tab Continue Pravastatin Sodium 40 mg PO DAILY lisinopriL 40 mg PO QAM hydrALAZINE HCL [Apresoline] 100 mg PO BID DULoxetine HCL [Cymbalta] 30 mg PO DAILY Aspirin [[place] Aspirin EC] 81 mg PO DAILY Omeprazole [PriLOSEC] 20 mg PO AC-BRKFST NIFEdipine [Adalat CC] 30 mg PO BID Multivitamins, Thera [Multivitamin (formulary)] 1 tab PO DAILY rOPINIRole HCL [Requip] 0.5 mg PO HS predniSONE [Deltasone] 20 mg PO DAILY carvediloL [Coreg] 25 mg PO BID Discharge Medication List Pravastatin Sodium 40 mg PO DAILY 11/10/15 [History] lisinopriL 40 mg PO QAM 11/10/15 [History] hydrALAZINE HCL [Apresoline] 100 mg PO BID 04/06/20 [History] Aspirin [[place] Aspirin EC] 81 mg PO DAILY 09/30/20 [History] DULoxetine HCL [Cymbalta] 30 mg PO DAILY 09/30/20 [History] Multivitamins, Thera [Multivitamin (formulary)] 1 tab PO DAILY 11/22/23 [History] NIFEdipine [Adalat CC] 30 mg PO BID 11/22/23 [History] Omeprazole [PriLOSEC] 20 mg PO AC-BRKFST 11/22/23 [History] carvediloL [Coreg] 25 mg PO BID 11/22/23 [History] predniSONE [Deltasone] 20 mg PO DAILY 11/22/23 [History] rOPINIRole HCL [Requip] 0.5 mg PO HS 11/22/23 [History] Furosemide [Lasix] 20 mg PO BID #60 tab 12/01/23 [Rx] Gabapentin [Neurontin] 200 mg PO BID 10 Days #40 cap 12/01/23 [Rx] HYDROcodone/APAP 7.5-325MG [Garrett 7.5] 1 each PO Q6HR PRN #28 tab 12/01/23 [Rx] Sennosides/Docusate Sodium [Senna-S 8.6-50 mg Tablet] 2 each PO DAILY PRN #30 tablet 12/01/23 [Rx] Warfarin [Coumadin] 5 mg PO 1800 #30 tab 12/01/23 [Rx] cefaDROXiL [Duricef] 500 mg PO Q12HR 5 Days #10 cap 12/01/23 [Rx] Follow up Appointment(s)/Referral(s): [facility] [NON-STAFF] - As Needed (Oxygen supplier) Vandana Gallardo MD [Primary Care Provider] - 1-2 Days Rosendo Manuel DO [Doctor of Osteopathic Medicine] - 10 Days Efrain Meléndez MD [STAFF PHYSICIAN] - 1 Week Napoleon Terry MD [STAFF PHYSICIAN] - 1 Week Ambulatory/Diagnostic Orders: Basic Metabolic Panel [LAB.AMB] Location: None Selected Complete Blood Count w/diff [LAB.AMB] Location: None Selected Prothrombin Time INR [LAB.AMB] Time Frame: 2 Days, Location: None Selected Activity/Diet/Wound Care/Special Instructions: Continue on warfarin 5 mg daily at dinner time. Need to check your INR level on Sunday, Sunday and Sunday. If your doctors office does labs you can get it done there. [facility] also has an INR clinic you can call Dr. Meléndez office on Sunday and they can give you further instructions about getting the INR checked. INR is a specific lab value checked with blood draws to dose your coumadin and monitor its effectiveness. This will need to be routinely checked and will be further discussed on follow up with your machine room operator Dr Meléndez in the office. spine Discharge and Recovery Instructions Dressing: Leave your dressing in place for a total of 5 days post operatively. Then you may remove your dressing and leave open to air. Keep the area clean and if not able to keep area clean, then cover with sterile gauze and tape. Showering: You may shower 3 days after your procedure allowing soap and water to run over incision. Do not scrub. Do not soak. Blot dry. Follow up: Please confirm a follow up appointment with your surgeon 3 weeks post operatively. Please make an appointment to follow up with your PCP in 1-2 weeks after surgery for evaluation '3 phase, 3-week plan' POST OP WEEKS 1-3 1. Lifting/carrying/pushing/pulling limited to less than 5 pounds. 2. Do not sit for longer than 15 minutes at one time. Get up and walk around. Prolonged sitting is NOT advised. If you lay down, see if you can tolerate laying down on you front (belly side) 3. Walk for periods of 15 minutes = 1 mile but no longer; do it multiple times times each day. 4. Ice your low back after activity. POST OP WEEKS 3-6 1. Lifting limited to less than 20 pounds. 2. Do not sit for longer than 30 minutes at a time. Frequently change positions. Use a sit-to stand workstation or take frequent breaks from sitting if you have returned to work. 3. Walk for 30 minutes each day. If possible, do these three or more times a day POST OP WEEKS 6+ At your 6-week appointment we will give you a physical therapy referral to focus on a core stabilization and strengthening program. You should also work on leg & buttock strengthening, hamstring & quadriceps stretching, and continue a low impact aerobic activity program such as swimming, walking, or riding a stationary bicycle. During the initial 6 weeks after your surgery, you are at the highest risk of re-injuring your spine. You should generally avoid BLT's (bending, lifting and twisting combination motions) and follow the above guidelines to reduce the chance of reinjury. You can anticipate post op appointments in our office at approximately 3 weeks and 6 weeks after your surgery. INCISION CARE: If your incision is not draining you do NOT need to cover it with a dressing. Keep your incision clean, dry and intact. In most cases, we apply skin glue, mitra or sutures to the incision at the time of surgery. This will be like a crust or have the appearance of a scab and will fall off in time on its own. The stitches or mitra need to be removed at 3 weeks post op appointment. You may begin to shower 3 days after surgery (this allows the glue to bradshaw well). However, please avoid scrubbing the incision site or peeling off any of the skin glue. This will ensure optimal healing of your incision. Also, during this time avoid soaking the incision area in water - this includes swimming pools, hot tubs or baths. No ointments, lotions or oils on the incision until your surgeon allows. Leave mitra, sutures or glue in place. Neurological dysfunction that comes on suddenly can also be a sign of a stroke. Below some common symptoms of a stroke are listed: B - balance difficulty such as sudden onset walking or leaning to one side - NEW E - eye problem such as sudden double vision or trouble seeing on one side - NEW F - Facial weakness or numbness on one side - NEW A - Arm or leg weakness or numbness on one side - NEW S - Slurred speech or difficulty with word finding - NEW T - Time is BRAIN! Call 911 as soon as you recognize these symptoms Diet: Consume a regular diet rich in vegetables and lean protein such as chicken or fish. You should consume in a ratio of approximately 20% fats|40% carbohydrates|40%protein. Vegetables, sweet potatoes, brown rice or quinoa are examples of good carbohydrates. Chips, white bread, cookies and sweets/sugar are examples of bad carbohydrates. Limit your bad carbs, go wild with good carbs. "Life's Simple 7" Guidelines as per [place] [employer] These will help you reclaim your life after surgery and coppersmith helper in your recov oscar, keeping in mind your restrictions. (1) Get Active. Physical activity can help people lose weight, control high blood pressure and cholesterol, feel emotionally better, and sleep better. (2) Control Cholesterol. Avoid a diet high in saturated fat, trans fat, & cholesterol. Limit whole milk & cream, ice cream, butter, egg yolks, processed meats (like sausage and hot dogs), and fatty meats. Choose healthy foods that are low in saturated fat, trans fat and cholesterol which include: Fruits and vegetables, fiber rich grain products (like whole grain pasta and brown rice), lean meat such as chicken, fish, nuts, seeds, and legumes. (3) Eat Better. Eat small portions. Shop at the grocery with a list and do not stray from it. Tips for a healthy diet include: Limit sodium intake to less than 1500mg daily, avoid prepackaged, processed, and fast foods, choose a diet rich in fruits, vegetables, and whole grain, high fiber foods, and limit saturated & cholesterol in your diet. (4) Manage Blood Pressure. If you have high blood pressure, you should have a cuff at home so that you can check your blood pressure regularly. Be sure you have a good cuff. An arm one is generally better than a wrist one. Bring the cuff to a doctor's appointment to validate that the measurements that your cuff are taking are accurate. Take your blood pressure twice daily when you are sitting down and relaxing. Record the numbers in a log and bring this log with you to your doctors' appointments. (5) Lose Weight if your BMI is above 25. A healthy BMI is between 19-25. To calculate Your BMI, you may use a Standard BMI Calculator on the NIH BMI website: <www.nhlbi.nih.gov/guidelines/obesity/BMI/bmicalc.htm>. Weigh oneself daily. If you are overweight, set a goal to lose weight. A pound a week loss if needed is a good target. (6) Reduce Blood Sugar. Limit foods and liquids with "added sugars." (Added sugars include sucrose, fructose, glucose, maltose, dextrose, high fructose corn syrup, corn syrup, concentrated fruit juice and honey). (7) Stop Smoking. If you smoke, quitting smoking is one of the best things that you can do for your health. Smoking increases your risk of heart attack, stroke, and peripheral vascular disease, which is a build-up of plaque in your arteries. Please discard all the cigarettes and lighters in your house. Have a plan for what you will do when you have the urge to smoke. Direct and second- hand smoke shortens your life as well as the lives of your family, friends and others around you. For your health and the health of those around you, please consider quitting! Proper Bending Body Mechanics: Maintain a wide stance with one foot slightly in front of the other. Keep your back straight. Bend utilizing the strength in your hips and knees. Do not bend at the waist. Maintain the lifted object at your waist-level close to your body. Avoid lifting weight that causes immediately pain or pain anywhere in the body afterwards. Smoking/Nicotine If there was ever one thing that you could do to increase your overall health, decrease your risk of cardiovascular problems by about 39% the second you make the choice, it is to STOP SMOKING. Your body's most instant gratification is the second you stop smoking. We have all heard the studies, read the articles but it is true, smoking is extremely bad for your overall health, and moreover it is detrimental to your bone health. Nicotine, IN ANY FORM, kills bone cells, prevents your body from healing fractures, and significantly prolongs healing after surgery. In spine surgery specifically, it increases your risk of not healing your bones to create a fusion and increases your risk of having a revision surgery due to this up to 60%. I know it is hard. I know it feels impossible. But there are ways. Take control of your life. We are here to help you through it. And when you are ready, ask us and we can direct you to help if you desire. Use the START Plan to Quit Smoking (please visit the [employer] website listed below for more information): S = Set a quit date. Choose a date within the next 2 weeks, so you have enough time to prepare without losing your motivation to quit. If you mainly smoke at work, quit on the weekend, so you have a few days to adjust to the change. T = Tell family, friends, and co-workers that you plan to quit. Let your friends and family in on your plan to quit smoking and tell them you need their support and encouragement to stop. Look for a quit lj who wants to stop smoking as well. You can help each other get through the rough times. A = Anticipate and plan for the challenges you'll face while quitting. Most people who begin smoking again do so within the first 3 months. You can help yourself make it through by preparing ahead for common challenges, such as nicotine withdrawal and cigarette cravings. R = Remove cigarettes and other tobacco products from your home, car, and work. Throw away all your cigarettes (no emergency pack!), lighters, ashtrays, and matches. Wash your clothes and freshen up anything that smells like smoke. Shampoo your car, clean your drapes and carpet, and steam your furniture. T = Talk to your doctor about getting help to quit. Your doctor can prescribe medication to help with withdrawal and suggest other alternatives. If you can't see a doctor, you can get many products over the counter at your local pharmacy or grocery store, including the nicotine patch, nicotine lozenges, and nicotine gum. Resources for Quitting Smoking: <https://www.[place].gov/documents/[facility]/Quit_Tobacco_Resources_for_patients_313 480_7.pdf> Supplementation: Take recommended dosages of Vitamin D and Calcium to help fortify your bones and help them to heal. See your health maintenance packet for dosages and recommended levels. DVT/VTE prophylaxis: You will be given compression stockings from the hospital. Wear these daily for the first two weeks after surgery. You may take them off at night. You may be prescribed a medication to help thin your blood. Take this as directed. If you are not prescribed this medication, early and frequent ambulation has been shown to be the best prophylaxis to deep vein thrombosis and sequelae related to this event. Discharge Disposition: HOME WITH HOME HEALTH SERVICES
== END 2023-12-01 18:09 | disposition home health service (06) | DRG 471 ==
LOC: OR 11:05 → 4SSUR 11:06 → OBSVTOIN 11:07 → 4SSUR 18:05 → 3SCARD 11-30 00:17 → 3NCARDOBS 11-30 20:51
PROVIDERS: ADMIT Internal Medicine; ATTEND Internal Medicine
PROC: 0RG20A0 Fusion of 2 or more Cervical Vertebral Joints with Interbody Fusion Device, Anterior Approach, Anterior Column, Open Approach (ICD-10-PCS; principal; 2023-11-28)
PROC: 0RT30ZZ Resection of Cervical Vertebral Disc, Open Approach (ICD-10-PCS; 2023-11-28)
DX: M47.12 Other spondylosis with myelopathy, cervical region (principal); J96.01 Acute respiratory failure with hypoxia; J96.02 Acute respiratory failure with hypercapnia; E66.01 Morbid (severe) obesity due to excess calories; G83.24 Monoplegia of upper limb affecting left nondominant side; I48.0 Paroxysmal atrial fibrillation; G25.81 Restless legs syndrome; I11.9 Hypertensive heart disease without heart failure; D72.828 Other elevated white blood cell count; M47.22 Other spondylosis with radiculopathy, cervical region; R26.81 Unsteadiness on feet; M25.78 Osteophyte, vertebrae; E78.5 Hyperlipidemia, unspecified; G47.33 Obstructive sleep apnea (adult) (pediatric); E87.70 Fluid overload, unspecified; F41.9 Anxiety disorder, unspecified; K21.9 Gastro-esophageal reflux disease without esophagitis; M21.332 Wrist drop, left wrist; Z68.37 Body mass index [BMI] 37.0-37.9, adult; Z79.82 Long term (current) use of aspirin; Z79.899 Other long term (current) drug therapy
CPT/HCPCS: 36600; 71045; 72040; 72125; 80048; 82533; 82805; 83735; 83880; 84439; 84443; 85025; 85027; 85610; 85730; 87636; 93306; 94660; 94760

== ENCOUNTER 2023-12-07 11:18 | Inpatient (IN) | payer MEDICARE, OTHER ==
--- NOTE | 2023-12-07 11:35 | ED ---
General Adult HPI - General Chief complaint: Shortness of Breath Stated complaint: ZEINA Time Seen by Provider: 12/07/23 11:25 Source: patient, RN notes reviewed Mode of arrival: wheelchair Limitations: no limitations - History of Present Illness Initial comments: Patient is a 68-year-old male presenting to the emergency department with concerns for difficulty breathing. Patient has postop cervical surgery 1 week ago. Patient states he has no problems with his neck. Patient states there is no discomfort or difficulty breathing through his neck. Patient feels he has difficulty breathing in his lungs. Patient does have some increased swelling of his legs and arms. No chest pain. Dyspnea does worsen with exertion. No fever, cough, or upper respiratory symptoms. - Related Data Home Medications Medication Instructions Recorded Confirmed Pravastatin Sodium 40 mg PO DAILY 11/10/15 11/27/23 lisinopriL 40 mg PO QAM 11/10/15 11/27/23 hydrALAZINE HCL [Apresoline] 100 mg PO BID 04/06/20 11/27/23 Aspirin [[place] Aspirin EC] 81 mg PO DAILY 09/30/20 11/27/23 DULoxetine HCL [Cymbalta] 30 mg PO DAILY 09/30/20 11/27/23 Multivitamins, Thera [Multivitamin 1 tab PO DAILY 11/22/23 11/27/23 (formulary)] NIFEdipine [Adalat CC] 30 mg PO BID 11/22/23 11/27/23 Omeprazole [PriLOSEC] 20 mg PO AC-BRKFST 11/22/23 11/27/23 carvediloL [Coreg] 25 mg PO BID 11/22/23 11/27/23 predniSONE [Deltasone] 20 mg PO DAILY 11/22/23 11/27/23 rOPINIRole HCL [Requip] 0.5 mg PO HS 11/22/23 11/27/23 Previous Rx's Medication Instructions Recorded Furosemide [Lasix] 20 mg PO BID #60 tab 12/01/23 Gabapentin [Neurontin] 200 mg PO BID 10 Days #40 cap 12/01/23 HYDROcodone/APAP 7.5-325MG [[place] 1 each PO Q6HR PRN #28 tab 12/01/23 7.5] Sennosides/Docusate Sodium 2 each PO DAILY PRN #30 tablet 12/01/23 [Senna-S 8.6-50 mg Tablet] Warfarin [Coumadin] 5 mg PO 1800 #30 tab 12/01/23 cefaDROXiL [Duricef] 500 mg PO Q12HR 5 Days #10 cap 12/01/23 Allergies Allergy/AdvReac Type Severity Reaction Status Date / Time No Known Allergies Allergy Verified 12/07/23 11:23 Review of Systems ROS Statement: Those systems with pertinent positive or pertinent negative responses have been documented in the HPI. ROS Other: All systems not noted in ROS Statement are negative. Constitutional: Denies: fever Eyes: Denies: eye pain ENT: Denies: ear pain, throat pain Respiratory: Reports: as per HPI, dyspnea. Denies: cough Cardiovascular: Reports: edema. Denies: chest pain Endocrine: Reports: fatigue Gastrointestinal: Denies: abdominal pain Musculoskeletal: Denies: back pain Past Medical History Past Medical History: Atrial Fibrillation, COPD, GERD/Reflux, Hyperlipidemia, Hypertension, Sleep Apnea/CPAP/BIPAP Additional Past Medical History / Comment(s): Asthma as child, hx. of a-fib-no episodes of in last year, uses CPAP, left arm very weak due to neck, RLS, CTS lolis, lower legs swell History of Any Multi-Drug Resistant Organisms: None Reported Past Surgical History: Adenoidectomy, Tonsillectomy Additional Past Surgical History / Comment(s): colonoscopy Past Anesthesia/Blood Transfusion Reactions: No Reported Reaction Past Psychological History: Anxiety Smoking Status: Never smoker Past Alcohol Use History: None Reported Past Drug Use History: None Reported - Past Family History Father Family Medical History: No Reported History Additional Family Medical History / Comment(s): Dad is 82 and healthy. Mother Family Medical History: No Reported History Additional Family Medical History / Comment(s): Mom is 82 and healthy. General Exam Limitations: no limitations General appearance: alert, in no apparent distress Head exam: Present: normocephalic Eye exam: Present: normal appearance ENT exam: Present: normal oropharynx Neck exam: Present: other (Anterior right sided incision clean dry and intact with minimal swelling). Absent: tenderness, meningismus Respiratory exam: Present: decreased breath sounds Cardiovascular Exam: Present: irregular rhythm GI/Abdominal exam: Present: soft. Absent: tenderness Extremities exam: Present: pedal edema. Absent: calf tenderness Neurological exam: Present: alert Psychiatric exam: Present: normal affect, normal mood Skin exam: Present: normal color Course Vital Signs 12/07/23 12/07/23 11:20 13:23 Temperature 98.9 F 98.8 F Pulse Rate 81 104 H Respiratory 22 24 Rate Blood Pressure 137/76 135/85 O2 Sat by Pulse 87 L 97 Oximetry EKG Findings - EKG Results: EKG: interpreted by ERMD (LVH criteria.), normal axis, normal ST/T EKG shows: tachycardia, atrial fibrillation Medical Decision Making - Medical Decision Making Was pt. sent in by a medical professional or institution (, PA, EXTRACTOR AND WRINGER OPERATOR, urgent care, hospital, or [place] health care facility...) When possible be specific @ -Patient was sent in by his primary care physician Did you speak to anyone other than the patient for history (EMS, parent, family, police, friend...)? What history was obtained from this source @ -I did speak with patient's primary care physician Dr. FLORES-tumor Did you review nursing and triage notes (agree or disagree)? Why? @ -I reviewed and agree with nursing and triage notes Were old charts reviewed (outside hosp., previous admission, EMS record, old EKG, old radiological studies, urgent care reports/EKG's, [place] health care facility records)? Report findings @ -Previous x-ray reviewed Differential Diagnosis (chest pain, altered mental status, abdominal pain women, abdominal pain men, vaginal bleeding, weakness, fever, dyspnea, syncope, headache, dizziness, GI bleed, back pain, seizure, CVA, palpatations, mental health, musculoskeletal)? @ -Differential Dyspnea: Coronary syndrome, arrhythmia, tamponade, asthma, COPD, pulmonary embolism, pneumonia, pneumothorax, pulmonary effusion, anaphylaxis, diabetic ketoacidosis, flailed chest, pulmonary contusion, diaphragmatic rupture, anemia, neuromuscular, this is not meant to be an all-inclusive list. EKG interpreted by me (3pts min.). @ -As above X-rays interpreted by me (1pt min.). @ -Chest x-ray cardiomegaly and mild increased interstitial prominence CT interpreted by me (1pt min.). @ -None done U/S interpreted by me (1pt. min.). @ -None done What testing was considered but not performed or refused? (CT, X-rays, U/S, l abs)? Why? @ -D-dimer will be What meds were considered but not given or refused? Why? @ -None Did you discuss the management of the patient with other professionals (professionals i.e. , PA, EXTRACTOR AND WRINGER OPERATOR, lab, RT, psych nurse, social studies teacher, oven technician, teacher, weapons officer, heel caser)? Give summary @ -Case discussed with Dr. Schaffer who will admit covering Dr. Chu. Was smoking cessation discussed for >3mins.? @ -No Was critical care preformed (if so, how long)? @ -No Were there social determinants of health that impacted care today? How? (Homelessness, low income, unemployed, alcoholism, drug addiction, transportation, low edu. Level, literacy, decrease access to med. care, halfway, rehab)? @ -No Was there de-escalation of care discussed even if they declined (Discuss DNR or withdrawal of care, Hospice)? DNR status @ -No What co-morbidities impacted this encounter? (DM, HTN, Smoking, COPD, CAD, Cancer, CVA, ARF, Chemo, Hep., AIDS, mental health diagnosis, sleep apnea, morbid obesity)? @ -Recent postop Was patient admitted / discharged? Hospital course, mention meds given and ro daryl, prescriptions, significant lab abnormalities, going to OR and other pertinent info. @ -Patient presents with dyspnea progressed over the past 4 days, 1 week postop. Clinical concern and x-ray concerning for CHF. Patient will be admitted and treated for this with further investigation, D-dimer added. Consults will be placed with cardiac and pulmonary. Admission orders written. Undiagnosed new problem with uncertain prognosis? @ -No Drug Therapy requiring intensive monitoring for toxicity (Heparin, Nitro, Insulin, Cardizem)? @ -No Were any procedures done? @ -No Diagnosis/symptom? @ -CHF Acute, or Chronic, or Acute on Chronic? @ -Acute Uncomplicated (without systemic symptoms) or Complicated (systemic symptoms)? @ -Default Side effects of treatment? @ -No Exacerbation, Progression, or Severe Exacerbation? @ -No Poses a threat to life or bodily function? How? (Chest pain, USA, ID, pneumonia, PE, COPD, DKA, ARF, appy, cholecystitis, CVA, Diverticulitis, Homicidal, Suicidal, threat to staff... and all critical care pts) @ -Threat to cardiac and pulmonary function - Lab Data Result diagrams: 12/07/23 11:45 12/07/23 11:45 Lab Results 12/07/23 12/07/23 12/07/23 Range/Units 11:45 11:45 11:45 WBC 9.3 (3.8-10.6) k/uL RBC 4.79 (4.30-5.90) m/uL Hgb 14.7 (13.0-17.5) gm/dL Hct 47.7 (39.0-53.0) % MCV 99.7 (80.0-100.0) fL MCH 30.8 (25.0-35.0) pg MCHC 30.9 L (31.0-37.0) g/dL RDW 11.6 (11.5-15.5) % Plt Count 261 (150-450) k/uL MPV 7.2 Neutrophils % 82 % Lymphocytes % 10 % Monocytes % 5 % Eosinophils % 1 % Basophils % 0 % Neutrophils # 7.6 (1.3-7.7) k/uL Lymphocytes # 0.9 L (1.0-4.8) k/uL Monocytes # 0.5 (0-1.0) k/uL Eosinophils # 0.1 (0-0.7) k/uL Basophils # 0.0 (0-0.2) k/uL Hypochromasia Moderate PT 47.5 H (10.0-12.5) sec INR 4.9 H (<1.2) APTT 46.6 H (22.0-30.0) sec Sodium 141 (137-145) mmol/L Potassium 3.9 (3.5-5.1) mmol/L Chloride 96 L (98-107) mmol/L Carbon Dioxide 38 H (22-30) mmol/L Anion Gap 7 mmol/L BUN 17 (9-20) mg/dL Creatinine 0.71 (0.66-1.25) mg/dL Est GFR (CKD-EPI)AfAm >90 (>60 ml/min/1.73 sqM) Est GFR (CKD-EPI)NonAf >90 (>60 ml/min/1.73 sqM) Glucose 125 H (74-99) mg/dL Plasma Lactic Acid Man (0.7-2.0) mmol/L Calcium 8.6 (8.4-10.2) mg/dL Magnesium 1.5 L (1.6-2.3) mg/dL Total Bilirubin 0.4 (0.2-1.3) mg/dL AST 23 (17-59) U/L ALT 21 (4-49) U/L Alkaline Phosphatase 67 (38-126) U/L Troponin I (0.000-0.034) ng/mL NT-Pro-B Natriuret Pep 986 pg/mL Total Protein 6.3 (6.3-8.2) g/dL Albumin 3.7 (3.5-5.0) g/dL 12/07/23 12/07/23 Range/Units 11:45 11:45 WBC (3.8-10.6) k/uL RBC (4.30-5.90) m/uL Hgb (13.0-17.5) gm/dL Hct (39.0-53.0) % MCV (80.0-100.0) fL MCH (25.0-35.0) pg MCHC (31.0-37.0) g/dL RDW (11.5-15.5) % Plt Count (150-450) k/uL MPV Neutrophils % % Lymphocytes % % Monocytes % % Eosinophils % % Basophils % % Neutrophils # (1.3-7.7) k/uL Lymphocytes # (1.0-4.8) k/uL Monocytes # (0-1.0) k/uL Eosinophils # (0-0.7) k/uL Basophils # (0-0.2) k/uL Hypochromasia PT (10.0-12.5) sec INR (<1.2) APTT (22.0-30.0) sec Sodium (137-145) mmol/L Potassium (3.5-5.1) mmol/L Chloride (98-107) mmol/L Carbon Dioxide (22-30) mmol/L Anion Gap mmol/L BUN (9-20) mg/dL Creatinine (0.66-1.25) mg/dL Est GFR (CKD-EPI)AfAm (>60 ml/min/1.73 sqM) Est GFR (CKD-EPI)NonAf (>60 ml/min/1.73 sqM) Glucose (74-99) mg/dL Plasma Lactic Acid Man 1.3 (0.7-2.0) mmol/L Calcium (8.4-10.2) mg/dL Magnesium (1.6-2.3) mg/dL Total Bilirubin (0.2-1.3) mg/dL AST (17-59) U/L ALT (4-49) U/L Alkaline Phosphatase (38-126) U/L Troponin I <0.012 (0.000-0.034) ng/mL NT-Pro-B Natriuret Pep pg/mL Total Protein (6.3-8.2) g/dL Albumin (3.5-5.0) g/dL Disposition Clinical Impression: Congestive heart failure Disposition: ADMITTED IP TO THIS HOSP Is patient prescribed a controlled substance at d/c from ED?: No Referrals: Vandana Gallardo MD [Primary Care Provider] - 1-2 days Time of Disposition: 13:57
[2023-12-07 12:03] LABS: Basophils % (A) 0 %; Eosinophils # (A) 0.1 k/uL (0-0.7); Eosinophils % (A) 1 %; HCT 47.7 % (39.0-53.0); HGB 14.7 gm/dL (13.0-17.5); Hypochromasia Moderate; Lymphocytes # (A) 0.9 k/uL (1.0-4.8); Lymphocytes % (A) 10 %; MCH 30.8 pg (25.0-35.0); MCHC 30.9 g/dL (31.0-37.0); MCV 99.7 fL (80.0-100.0); Mean Platelet Volume 7.2; Monocytes # (A) 0.5 k/uL (0-1.0); Monocytes % (A) 5 %; Neutrophils # (A) 7.6 k/uL (1.3-7.7); Neutrophils % (A) 82 %; Platelet Count 261 k/uL (150-450); RBC 4.79 m/uL (4.30-5.90); RDW 11.6 % (11.5-15.5); WBC 9.3 k/uL (3.8-10.6)
[2023-12-07 12:20] LABS: INR 4.9 (<1.2); Partial Thromboplastin Time 46.6 sec (22.0-30.0); Prothrombin Time 47.5 sec (10.0-12.5)
[2023-12-07 12:21] LABS: ALT 21 U/L (4-49); AST 23 U/L (17-59); African American GFR (CKD) >90 (>60 ml/min/1.73 sqM); Albumin 3.7 g/dL (3.5-5.0); Alkaline Phosphatase 67 U/L (38-126); Blood Urea Nitrogen 17 mg/dL (9-20); Calcium 8.6 mg/dL (8.4-10.2); Chloride 96 mmol/L (98-107); Glucose 125 mg/dL (74-99); Magnesium 1.5 mg/dL (1.6-2.3); Non-African American GFR(CKD) >90 (>60 ml/min/1.73 sqM); Potassium 3.9 mmol/L (3.5-5.1); Sodium 141 mmol/L (137-145); Total Bilirubin 0.4 mg/dL (0.2-1.3); Total Protein 6.3 g/dL (6.3-8.2)
--- NOTE | 2023-12-07 12:25 | XR ---
EXAMINATION TYPE: XR chest 2V DATE OF EXAM: 12/07/2023 COMPARISON: 11/30/2023 HISTORY: 68-year-old male with shortness of breath, increased difficulty in breathing TECHNIQUE: AP and lateral views FINDINGS: Heart remains mild to moderately enlarged. Interstitial prominence persists but shows some improvemen t from prior. No sizable pleural effusion. Extensive dish mid and lower thoracic spine. ACDF hardware . IMPRESSION: Similar mild to moderate cardiomegaly. There is mild interstitial prominence that could reflect mild pulmonary vascular congestion. Overall appearance is improved from 11/30/2023. [facility], , 12/07/2023 12:23 PM
[2023-12-07 12:27] LABS: Anion Gap 7 mmol/L
[2023-12-07 12:29] LABS: NT-Pro-B-Type Natriuretic Pept 986 pg/mL
[2023-12-07 12:40] LABS: Carbon Dioxide 38 mmol/L (22-30)
[2023-12-07] MEDS: FUROSEMIDE 10 MG/ML 4 ML VIAL IV SCH (14:16)
[2023-12-07] MEDS: NITROGLYCERIN OINT 1 INCH/GM PACKET TOPICAL SCH (14:16)
--- NOTE | 2023-12-07 15:27 | CT ---
EXAMINATION TYPE: CT angio chest DATE OF EXAM: 12/07/2023 COMPARISON: CT chest abdomen and pelvis dated 11/29/2019 CLINICAL INDICATION: Male, 68 years old with history of dyspnea; PHH, dyspnea and elevated d-dimer TECHNIQUE: CTA scan of the thorax is performed with IV Contrast, patient injected with 100ml mL of Isovue 370, p ulmonary embolism protocol. CT DLP: 1070.4 mGycm Automated exposure control for dose reduction was used. FINDINGS: Breathing motion limits the exam. There is mild atelectasis or interstitial scarring in the left lung base. There is no airspace consol idation. There is no pleural effusion or pneumothorax. There is no suspicious lung mass or nodule. There are no filling defects within the pulmonary arterial circulation to suggest pulmonary embolism. Limited scanning through the upper abdomen reveals no gross abnormality. No focal osseous lesions are seen. IMPRESSION: 1. Limited study due to breathing motion. 2. No evidence of pulmonary and was in. 3. Mild atelectasis in the left lung base. [facility], , 12/07/2023 3:25 PM
--- NOTE | 2023-12-07 16:09 | P.CNPUL ---
History of Present Illness Consult date: 12/07/23 Requesting physician: Seth Allison Reason for consult: dyspnea, abnormal CXR/CT Chief complaint: Shortness of breath, weakness History of present illness: This is a pleasant 68-year-old male patient with a known history of hypertension, hyperlipidemia, morbid obesity, obstructive sleep apnea with home APAP, gastroesophageal reflux disease, atrial fibrillation anticoagulated with warfarin, lifelong non-smoker. He was recently here earlier this month for an elective anterior C3-C7 cervical discectomy and fusion. That was performed on 11/28/2023. He had developed atrial fibrillation with a rapid ventricular response and was followed on the selective care unit. He had then developed hy percapnic respiratory failure requiring BiPAP support. He was discharged to home with oxygen on 12/01/2023. He came back to the emergency room this morning with complaints of increasing shortness of breath, generalized weakness and significant dyspnea on exertion. Chest x-ray reveals mild to moderate cardiomegaly. Mild interstitial pulmonary vascular congestion and elevated left hemidiaphragm. CT angiogram ruled out pulmonary embolism. There is mild atelectasis in the left lung base. EKG reveals atrial fibrillation with a rapid ventricular response. White count 9.3. Hemoglobin 14.7. Platelets 261. INR 4.9. D-dimer 1.24. Sodium 141. Potassium 3.9. Bicarb 38. BUN 17. Creatinin e 0.71. Glucose 125. Troponin negative x 1. proBNP 986. Viral screen negative. He is seen today in consultation in the emergency department. He is currently sitting up on the stretcher. Awake and alert in no acute distress. He does have dyspnea with conversation, dyspnea with minimal exertion. Remains in atrial fibrillation with a varying ventricular response. He is maintaining good O2 saturation in the upper 90s on 4 L/min per nasal cannula. He is afebrile. Hemodynamically stable. He has been initiated on Lasix 40 mg IV every 8 hours. Review of Systems REVIEW OF SYSTEMS: CONSTITUTIONAL: Positive for generalized weakness. Denies any recent significan t weight loss or weight gain. EYES: Denies change in vision. EARS, NOSE, MOUTH, THROAT: Denies headaches, denies sore throat. CARDIOVASCULAR: Denies chest pain, palpitations or syncopal episodes. RESPIRATORY: Positive for shortness of breath, no cough, congestion or hemoptysis. GASTROINTESTINAL: Denies change in appetite, denies abdominal pain GENITOURINARY: Denies hematuria, denies infections. MUSKULOSKELETAL: Denies pain, denies swelling. INTEGUMENTARY: Denies rash, denies eczema. NEUROLOGICAL: Denies recent memory loss, no recent seizure activity. PSYCHIATRIC: Denies anxiety, denies depression. HEMATOLOGIC/LYMPHATIC: Denies anemia, denies enlarged lymph nodes. Past Medical History Past Medical History: Atrial Fibrillation, COPD, GERD/Reflux, Hyperlipidemia, Hypertension, Sleep Apnea/CPAP/BIPAP Additional Past Medical History / Comment(s): Asthma as child, hx. of a-fib-no episodes of in last year, uses CPAP, left arm very weak due to neck, RLS, CTS lolis, lower legs swell History of Any Multi-Drug Resistant Organisms: None Reported Past Surgical History: Adenoidectomy, Tonsillectomy Additional Past Surgical History / Comment(s): colonoscopy Past Anesthesia/Blood Transfusion Reactions: No Reported Reaction Past Psychological History: Anxiety Smoking Status: Never smoker Past Alcohol Use History: None Reported Past Drug Use History: None Reported - Past Family History Father Family Medical History: No Reported History Additional Family Medical History / Comment(s): Dad is 82 and healthy. Mother Family Medical History: No Reported History Additional Family Medical History / Comment(s): Mom is 82 and healthy. Medications and Allergies Home Medications Medication Instructions Recorded Confirmed Type Pravastatin Sodium 40 mg PO DAILY 11/10/15 12/07/23 History lisinopriL 40 mg PO QAM 11/10/15 12/07/23 History hydrALAZINE HCL [Apresoline] 100 mg PO BID 04/06/20 12/07/23 History Aspirin [[place] Aspirin EC] 81 mg PO DAILY 09/30/20 12/07/23 History DULoxetine HCL [Cymbalta] 30 mg PO DAILY 09/30/20 12/07/23 History Multivitamins, Thera [Multivitamin 1 tab PO DAILY 11/22/23 12/07/23 History (formulary)] NIFEdipine [Adalat CC] 30 mg PO BID 11/22/23 12/07/23 History Omeprazole [PriLOSEC] 20 mg PO AC-BRKFST 11/22/23 12/07/23 History carvediloL [Coreg] 25 mg PO BID 11/22/23 12/07/23 History rOPINIRole HCL [Requip] 0.5 mg PO HS 11/22/23 12/07/23 History Furosemide [Lasix] 20 mg PO BID #60 tab 12/01/23 12/07/23 Rx Gabapentin [Neurontin] 200 mg PO BID 10 Days #40 cap 12/01/23 12/07/23 Rx cefaDROXiL [Duricef] 500 mg PO Q12HR 5 Days #10 cap 12/01/23 12/07/23 Rx HYDROcodone/APAP 7.5-325MG [[place] 1 tab PO Q6HR PRN 12/07/23 12/07/23 History 7.5] Warfarin [Coumadin] 5 mg PO W/SUPPER 12/07/23 12/07/23 History Allergies Allergy/AdvReac Type Severity Reaction Status Date / Time No Known Allergies Allergy Verified 12/07/23 14:05 Physical Exam Vitals: Vital Signs Temp Pulse Resp BP Pulse Ox 12/07/23 14:16 100 24 144/91 97 12/07/23 13:23 98.8 F 104 H 24 135/85 97 12/07/23 11:20 98.9 F 81 22 137/76 87 L Intake and Output 12/07/23 12/07/23 12/07/23 06:59 14:59 22:59 Other: Weight 131.542 kg GENERAL EXAM: Alert, obese, pleasant 68-year-old male patient, on 4 L nasal cannula, fairly comfortable in no apparent distress. HEAD: Normocephalic. EYES: Normal reaction of pupils, equal size. NOSE: Clear with pink turbinates. THROAT: No erythema or exudates. NECK: No masses, no JVD. CHEST: No chest wall deformity. LUNGS: Equal air entry with basilar. CVS: S1 and S2 normal with no audible murmur, irregular rhythm. ABDOMEN: No hepatosplenomegaly, normal bowel sounds, no guarding or rigidity. SPINE: No scoliosis or deformity SKIN: No rashes CENTRAL NERVOUS SYSTEM: No focal deficits, tone is normal in all 4 extremities. EXTREMITIES: There is 1+ peripheral edema. No clubbing, no cyanosis. Peripheral pulses are intact. Results - Laboratory Findings CBC and BMP: 12/07/23 11:45 12/07/23 11:45 PT/INR, D-dimer PT 47.5 sec (10.0-12.5) H 12/07/23 11:45 INR 4.9 (<1.2) H 12/07/23 11:45 D-Dimer 1.24 mg/L FEU (<0.60) H 12/07/23 11:45 Abnormal lab findings: Abnormal Labs 12/07/23 12/07/23 12/07/23 11:45 11:45 11:45 MCHC 30.9 L Lymphocytes # 0.9 L PT 47.5 H INR 4.9 H APTT 46.6 H D-Dimer Chloride 96 L Carbon Dioxide 38 H Glucose 125 H Magnesium 1.5 L 12/07/23 11:45 MCHC Lymphocytes # PT INR APTT D-Dimer 1.24 H Chloride Carbon Dioxide Glucose Magnesium - Diagnostic Findings Chest x-ray: image reviewed CT scan - chest: image reviewed Assessment and Plan Assessment: Acute on chronic hypoxic respiratory failure secondary to an acute exacerbation of diastolic congestive heart failure, atrial fibrillation with rapid ventricular response, elevated left hemidiaphragm Recent admission for an elective anterior cervical discectomy and fusion of C3- C7 on 11/27/2023 with postoperative complications of atrial fibrillation with rapid ventricular response, hypercapnic respiratory failure Atrial fibrillation, anticoagulated with warfarin, supra therapeutic with an INR of 4.9 Hypercapnic respiratory failure secondary to morbid obesity Obstructive sleep apnea, maintained on auto CPAP Lifelong non-smoker Hypertension Hyperlipidemia Gastroesophageal reflux disease History of anxiety Plan: The patient was seen and evaluated Imaging, labs and medications reviewed Suspect elevated left hemidiaphragm Sniff test is ordered Continue IV diuretics Anticoagulated with warfarin, pharmacy to dose Titrate down the FiO2 as tolerated Utilize home auto CPAP device We will continue to follow and make further recommendations based on his clinical status I have personally seen and examined the patient, performed the documentation and the assessment and plan as written. Number of minutes spent on the visit: 20 Dictation was produced using [employer] software. Please excuse any grammatical, word or spelling errors.
[2023-12-07] MEDS: carvediloL 12.5 MG TAB PO SCH (17:05)
[2023-12-07] MEDS: WARFARIN 0.5 MG TAB PO ONE (17:20)
[2023-12-07] MEDS ORDERED: WARFARIN 5 MG TAB PO SCH (17:30)
[2023-12-07] MEDS ORDERED: NON FORMULARY DRUG (Cefadroxil [Duricef] 500 MG Capsule) PO SCH (21:00)
[2023-12-07] MEDS: hydrALAZINE HCL 50 MG TAB PO SCH (21:58)
[2023-12-07] MEDS: GABAPENTIN 100 MG CAP PO SCH (21:58)
[2023-12-07] MEDS: NIFEdipine XL 30 MG TAB.ER.24 PO SCH (21:58)
[2023-12-07] MEDS: HYDROcodone/APAP 7.5-325MG 1 EACH TAB PO PRN (22:03)
--- NOTE | 2023-12-07 22:32 | P.HPIM ---
History of Present Illness H&P Date: 12/07/23 Chief Complaint: Shortness of breath 68-year-old male history of hypertension, hyperlipidemia, morbid obesity, obstructive sleep apnea with home APAP, gastroesophageal reflux disease, atrial fibrillation anticoagulated with warfarinpresenting to the emergency department with concerns for difficulty breathing. Patient has postop cervical surgery 1 week ago. Patient states he has no problems with his neck. Patient states there is no discomfort or difficulty breathing through his neck. Patient feels he has difficulty breathing in his lungs. Patient does have some increased swelling of his legs and arms. No chest pain. Dyspnea does worsen with exertion. No fever, cough, or upper respiratory symptoms. Chest x-ray reveals mild to moderate cardiomegaly. Mild interstitial pulmonary vascular congestion and elevated left hemidiaphragm. CT angiogram ruled out pulmonary embolism. There is mild atelectasis in the left lung base. EKG reveals atrial fibrillation with a rapid ventricular response. White count 9.3. Hemoglobin 14.7. Platelets 261. INR 4.9. D-dimer 1.24. Sodium 141. Potassium 3.9. Bicarb 38. BUN 17. Creatinine 0.71. Glucose 125. Troponin negative x 1. proBNP 986. Viral screen negative. He is seen today in consultation in the emergency department. He is currently sitting up on the stretcher. Awake and alert in no acute distress. He does have dyspnea with conversation, dyspnea with minimal exertion. Remains in atrial fibrillation with a varying ventricular response. He is maintaining good O2 saturation in the upper 90s on 4 L/min per nasal cannula. He has been initiated on Lasix 40 mg IV every 8 hours. Review of Systems REVIEW OF SYSTEMS: CONSTITUTIONAL: No fever, no malaise, no fatigue. HEENT: No recent visual problems or hearing problems. Denied any sore throat. CARDIOVASCULAR: No chest pain, orthopnea, PND, no palpitations, no syncope. PULMONARY: No shortness of breath, no cough, no hemoptysis. GASTROINTESTINAL: No diarrhea, no nausea, no vomiting, no abdominal pain. NEUROLOGICAL: No headaches, no weakness, no numbness. HEMATOLOGICAL: Denies any bleeding or petechiae. GENITOURINARY: Denies any burning micturition, frequency, or urgency. MUSCULOSKELETAL/RHEUMATOLOGICAL: Denies any joint pain, swelling, or any muscle pain. ENDOCRINE: Denies any polyuria or polydipsia. The rest of the 14-point review of systems is negative. Past Medical History Past Medical History: Atrial Fibrillation, COPD, GERD/Reflux, Hyperlipidemia, Hypertension, Sleep Apnea/CPAP/BIPAP Additional Past Medical History / Comment(s): Asthma as child, hx. of a-fib-no episodes of in last year, uses CPAP, left arm very weak due to neck, RLS, CTS lolis, lower legs swell History of Any Multi-Drug Resistant Organisms: None Reported Past Surgical History: Adenoidectomy, Tonsillectomy Additional Past Surgical History / Comment(s): colonoscopy Past Anesthesia/Blood Transfusion Reactions: No Reported Reaction Past Psychological History: Anxiety Smoking Status: Never smoker Past Alcohol Use History: None Reported Past Drug Use History: None Reported - Past Family History Father Family Medical History: No Reported History Additional Family Medical History / Comment(s): Dad is 82 and healthy. Mother Family Medical History: No Reported History Additional Family Medical History / Comment(s): Mom is 82 and healthy. Medications and Allergies Home Medications Medication Instructions Recorded Confirmed Type Pravastatin Sodium 40 mg PO DAILY 11/10/15 12/07/23 History lisinopriL 40 mg PO QAM 11/10/15 12/07/23 History hydrALAZINE HCL [Apresoline] 100 mg PO BID 04/06/20 12/07/23 History Aspirin [[place] Aspirin EC] 81 mg PO DAILY 09/30/20 12/07/23 History DULoxetine HCL [Cymbalta] 30 mg PO DAILY 09/30/20 12/07/23 History Multivitamins, Thera [Multivitamin 1 tab PO DAILY 11/22/23 12/07/23 History (formulary)] NIFEdipine [Adalat CC] 30 mg PO BID 11/22/23 12/07/23 History Omeprazole [PriLOSEC] 20 mg PO AC-BRKFST 11/22/23 12/07/23 History carvediloL [Coreg] 25 mg PO BID 11/22/23 12/07/23 History rOPINIRole HCL [Requip] 0.5 mg PO HS 11/22/23 12/07/23 History Furosemide [Lasix] 20 mg PO BID #60 tab 12/01/23 12/07/23 Rx Gabapentin [Neurontin] 200 mg PO BID 10 Days #40 cap 12/01/23 12/07/23 Rx cefaDROXiL [Duricef] 500 mg PO Q12HR 5 Days #10 cap 12/01/23 12/07/23 Rx HYDROcodone/APAP 7.5-325MG [[place] 1 tab PO Q6HR PRN 12/07/23 12/07/23 History 7.5] Warfarin [Coumadin] 5 mg PO W/SUPPER 12/07/23 12/07/23 History Allergies Allergy/AdvReac Type Severity Reaction Status Date / Time No Known Allergies Allergy Verified 12/07/23 14:05 Physical Exam Vitals: Vital Signs Temp Pulse Resp BP Pulse Ox 12/07/23 14:16 100 24 144/91 97 12/07/23 13:23 98.8 F 104 H 24 135/85 97 12/07/23 11:20 98.9 F 81 22 137/76 87 L Intake and Output 12/07/23 12/07/23 12/07/23 06:59 14:59 22:59 Other: Weight 131.542 kg General appearance: alert, in no apparent distress Head exam: Present: normocephalic Eye exam: Present: normal appearance ENT exam: Present: normal oropharynx Neck exam: Present: other (Anterior right sided incision clean dry and intact with minimal swelling). Absent: tenderness, meningismus Respiratory exam: Present: decreased breath sounds Cardiovascular Exam: Present: irregular rhythm GI/Abdominal exam: Present: soft. Absent: tenderness Extremities exam: Present: pedal edema. Absent: calf tenderness Neurological exam: Present: alert Psychiatric exam: Present: normal affect, normal mood Skin exam: Present: normal color Results CBC & Chem 7: 12/07/23 11:45 12/07/23 11:45 Labs: Abnormal Lab Results - Last 24 Hours (Table) 12/07/23 12/07/23 12/07/23 Range/Units 11:45 11:45 11:45 MCHC 30.9 L (31.0-37.0) g/dL Lymphocytes # 0.9 L (1.0-4.8) k/uL PT 47.5 H (10.0-12.5) sec INR 4.9 H (<1.2) APTT 46.6 H (22.0-30.0) sec D-Dimer (<0.60) mg/L FEU Chloride 96 L (98-107) mmol/L Carbon Dioxide 38 H (22-30) mmol/L Glucose 125 H (74-99) mg/dL Magnesium 1.5 L (1.6-2.3) mg/dL 12/07/23 Range/Units 11:45 MCHC (31.0-37.0) g/dL Lymphocytes # (1.0-4.8) k/uL PT (10.0-12.5) sec INR (<1.2) APTT (22.0-30.0) sec D-Dimer 1.24 H (<0.60) mg/L FEU Chloride (98-107) mmol/L Carbon Dioxide (22-30) mmol/L Glucose (74-99) mg/dL Magnesium (1.6-2.3) mg/dL Assessment and Plan Assessment: 1. Acute on chronic hypoxic respiratory failure secondary to an acute exacerbation of diastolic congestive heart failure, atrial fibrillation with rapid ventricular response, elevated left hemidiaphragm -Patient has been evaluated by pulmonary service; has been initiated on IV Lasix which is going to be continued-40 mg IV every 8 hours 2. Atrial fibrillation, anticoagulated with warfarin, supra therapeutic with an INR of 4.9 3. Hypercapnic respiratory failure/obstructive sleep apnea secondary to morbid obesity; it is maintained on CPAP 4. Hypertension; Coreg 25 mg twice daily; lisinopril 40 mg daily; hydralazine 100 mg twice daily; cardio 30 mg p.o. twice daily 5. Hyperlipidemia; pravastatin 40 mg daily 6. Gastroesophageal reflux disease; tonics 40 mg daily 7. History of anxiety DVT prophylaxis; SCDs/Coumadin CODE STATUS; full code
[2023-12-08] MEDS: PANTOPRAZOLE 40 MG TABLET PO SCH (06:25)
[2023-12-08 06:38] LABS: INR 4.1 (<1.2); Prothrombin Time 39.8 sec (10.0-12.5)
[2023-12-08 09:21] LABS: Basophils # (A) 0.01 X 10*3/uL (0.00-0.10); Basophils % (A) 0.1 %; Eosinophils # (A) 0.11 X 10*3/uL (0.04-0.35); HCT 46.3 % (39.6-50.0); HGB 14.2 g/dL (13.0-17.0); Lymphocytes # (A) 0.96 X 10*3/uL (0.90-5.00); Lymphocytes % (A) 8.9 %; MCH 30.3 pg (27.0-32.0); MCHC 30.7 g/dL (32.0-37.0); MCV 98.9 FL (80.0-97.0); Mean Platelet Volume 9.6 FL (9.5-12.2); Monocytes # (A) 0.73 X 10*3/uL (0.20-1.00); Monocytes % (A) 6.7 %; NRBC Per 100 WBC 0 X 10*3/uL (0.00-0.01); Neutrophils # (A) 8.96 X 10*3/uL (1.80-7.70); Neutrophils % (A) 82.8 %; Platelet Count 281 X 10*3/uL (140-440); RBC 4.68 X 10*6/uL (4.40-5.60); RDW 11.4 % (11.5-14.5); WBC 10.82 X 10*3/uL (4.50-10.00)
[2023-12-08 10:03] LABS: BUN/Creat Ratio 17.88 Ratio (12.00-20.00); Blood Urea Nitrogen 14.3 mg/dL (9.0-27.0); Carbon Dioxide 35.3 mmol/L (21.6-31.8); Chloride 95 mmol/L (96-109); Glucose 128 mg/dL (70-110); Potassium 4.2 mmol/L (3.5-5.5); Sodium 142 mmol/L (135-145)
[2023-12-08 10:04] LABS: Calcium 8.8 mg/dL (8.7-10.3)
[2023-12-08] MEDS: DULoxetine HCL 30 MG CAPSULE.DR PO SCH (10:37)
[2023-12-08] MEDS: FUROSEMIDE 10 MG/ML 4 ML VIAL IV SCH (10:37)
[2023-12-08] MEDS: ASPIRIN 81 MG PO SCH (10:37)
[2023-12-08] MEDS: MULTIVITAMINS, THERA 1 EACH TAB PO SCH (10:38)
[2023-12-08] MEDS: lisinopriL 20 MG TAB PO SCH (10:38)
[2023-12-08] MEDS: PRAVASTATIN SODIUM 40 MG TAB PO SCH (10:39)
--- NOTE | 2023-12-08 12:03 | P.PN ---
Subjective Progress Note Date: 12/08/23 This is a pleasant 68-year-old male patient with a known history of hypertension, hyperlipidemia, morbid obesity, obstructive sleep apnea with home APAP, gastroesophageal reflux disease, atrial fibrillation anticoagulated with warfarin, lifelong non-smoker. He was recently here earlier this month for an elective anterior C3-C7 cervical discectomy and fusion. That was performed on 11/28/2023. He had developed atrial fibrillation with a rapid ventricular response and was followed on the selective care unit. He had then developed hypercapnic respiratory failure requiring BiPAP support. He was discharged to home with oxygen on 12/01/2023. He came back to the emergency room this morning with complaints of increasing shortness of breath, generalized weakness and significant dyspnea on exertion. Chest x-ray reveals mild to moderate cardiomegaly. Mild interstitial pulmonary vascular congestion and elevated left hemidiaphragm. CT angiogram ruled out pulmonary embolism. There is mild atelectasis in the left lung base. EKG reveals atrial fibrillation with a rapid ventricular response. White count 9.3. Hemoglobin 14.7. Platelets 261. INR 4.9. D-dimer 1.24. Sodium 141. Potassium 3.9. Bicarb 38. BUN 17. Creatinine 0.71. Glucose 125. Troponin negative x 1. proBNP 986. Viral s creen negative. He is seen today in consultation in the emergency department. He is currently sitting up on the stretcher. Awake and alert in no acute distress. He does have dyspnea with conversation, dyspnea with minimal exertion. Remains in atrial fibrillation with a varying ventricular response. He is maintaining good O2 saturation in the upper 90s on 4 L/min per nasal cannula. He is afebrile. Hemodynamically stable. He has been initiated on Lasix 40 mg IV every 8 hours. The patient is seen today December 08, 2023 in follow-up on the regular medical floor. He is currently sitting up at the bedside. Awake and alert in no acute distress. Maintaining O2 saturations in the 90s on 4 L/min per nasal cannula. He remains in atrial fibrillation with a controlled ventricular response. White count 10.8. Hemoglobin 14.2. Platelets 281. INR 4.1. Sodium 142. Potassium 4.2. Bicarb 35. BUN 14. Creatinine 0.8. Glucose 128. He remains on IV diuretics. Warfarin to be adjusted by pharmacy. Objective - Vital Signs Vital signs: Vital Signs Temp 97.6 F 12/08/23 07:00 Pulse 66 12/08/23 07:00 Resp 16 12/08/23 07:00 BP 120/78 12/08/23 07:00 Pulse Ox 92 L 12/08/23 07:00 FiO2 Intake & Output 12/07/23 12/08/23 12/08/23 18:59 06:59 18:59 Intake Total 118 Output Total 600 Balance -600 118 Weight 131.542 kg 131.542 kg Intake: Oral 118 Output: Urine 600 Other: Voiding Method Urinal # Voids 1 - Exam GENERAL EXAM: Alert, obese, 68-year-old male patient, sitting up in bed, on 4 L nasal cannula, comfortable in no apparent distress. HEAD: Normocephalic. EYES: Normal reaction of pupils, equal size. NOSE: Clear with pink turbinates. THROAT: No erythema or exudates. NECK: No masses, no JVD. CHEST: No chest wall deformity. LUNGS: Equal air entry with basilar crackles. CVS: S1 and S2 normal with no audible murmur, irregular rhythm. ABDOMEN: No hepatosplenomegaly, normal bowel sounds, no guarding or rigidity. SPINE: No scoliosis or deformity SKIN: No rashes CENTRAL NERVOUS SYSTEM: No focal deficits, tone is normal in all 4 extremities. EXTREMITIES: There is 1+ peripheral edema. No clubbing, no cyanosis. Peripheral pulses are intact. - Labs CBC & Chem 7: 12/08/23 05:50 12/08/23 05:57 Labs: Abnormal Lab Results - Last 24 Hours (Table) 12/07/23 12/07/23 12/07/23 Range/Units 11:45 11:45 11:45 WBC (4.50-10.00) X 10*3/uL MCV (80.0-97.0) FL MCHC 30.9 L (31.0-37.0) g/dL RDW (11.5-14.5) % Immature Gran # (0.00-0.04) X 10*3/uL Neutrophils # (1.80-7.70) X 10*3/uL Lymphocytes # 0.9 L (1.0-4.8) k/uL PT 47.5 H (10.0-12.5) sec INR 4.9 H (<1.2) APTT 46.6 H (22.0-30.0) sec D-Dimer (<0.60) mg/L FEU Chloride 96 L (98-107) mmol/L Carbon Dioxide 38 H (22-30) mmol/L Glucose 125 H (74-99) mg/dL Magnesium 1.5 L (1.6-2.3) mg/dL 12/07/23 12/08/23 12/08/23 Range/Units 11:45 05:50 05:57 WBC 10.82 H (4.50-10.00) X 10*3/uL MCV 98.9 H (80.0-97.0) FL MCHC 30.7 L (31.0-37.0) g/dL RDW 11.4 L (11.5-14.5) % Immature Gran # 0.05 H (0.00-0.04) X 10*3/uL Neutrophils # 8.96 H (1.80-7.70) X 10*3/uL Lymphocytes # (1.0-4.8) k/uL PT 39.8 H (10.0-12.5) sec INR 4.1 H (<1.2) APTT (22.0-30.0) sec D-Dimer 1.24 H (<0.60) mg/L FEU Chloride (98-107) mmol/L Carbon Dioxide (22-30) mmol/L Glucose (74-99) mg/dL Magnesium (1.6-2.3) mg/dL 12/08/23 Range/Units 05:57 WBC (4.50-10.00) X 10*3/uL MCV (80.0-97.0) FL MCHC (31.0-37.0) g/dL RDW (11.5-14.5) % Immature Gran # (0.00-0.04) X 10*3/uL Neutrophils # (1.80-7.70) X 10*3/uL Lymphocytes # (1.0-4.8) k/uL PT (10.0-12.5) sec INR (<1.2) APTT (22.0-30.0) sec D-Dimer (<0.60) mg/L FEU Chloride 95 L (98-107) mmol/L Carbon Dioxide 35.3 H (22-30) mmol/L Glucose 128 H (74-99) mg/dL Magnesium (1.6-2.3) mg/dL Assessment and Plan Assessment: Acute on chronic hypoxic respiratory failure secondary to an acute exacerbation of diastolic congestive heart failure, atrial fibrillation with rapid ventricular response, elevated left hemidiaphragm Recent admission for an elective anterior cervical discectomy and fusion of C3- C7 on 11/27/2023 with postoperative complications of atrial fibrillation with rapid ventricular response, hypercapnic respiratory failure Atrial fibrillation, anticoagulated with warfarin, supra therapeutic with an INR of 4.1 Hypercapnic respiratory failure secondary to morbid obesity Obstructive sleep apnea, maintained on auto CPAP Lifelong non-smoker Hypertension Hyperlipidemia Gastroesophageal reflux disease History of anxiety Plan: The patient was seen and evaluated Labs and medications reviewed Suspect elevated left hemidiaphragm Sniff test pending Continue IV diuretics Titrate down the FiO2 as tolerated We will continue to follow I have personally seen and examined the patient, performed the documentation and the assessment and plan as written. Number of minutes spent on the visit: 10 Dictation was produced using [employer] dictation software. Please excuse any grammatical, word or spelling errors.
[2023-12-08 12:59] VITALS: BMI 37.2
--- NOTE | 2023-12-08 13:14 | P.CRDCN ---
History of Present Illness Consult date: 12/08/23 Consult reason: congestive heart failure History of present illness: This is Lewis Trammell NP, I'm dictating on behalf of Dr. Rodriguez's H&P and A&P The patient was interviewed and examined. HPI: Patient is a pleasant 68-year-old male with a past medical history that includes atrial fibrillation, COPD, GERD, hyperlipidemia, hypertension, sleep apnea, asthma, and neck problems who presented to the hospital with complaints of shortness of breath. Patient reports that he had a recent cervical fusion approximately 1 week ago. He reports that the night after surgery he started having shortness of breath, and presented to the hospital. He was given IV diuresis in the emergency department and discharged home, but states that his shortness of breath did not improve. He continued to have shortness of breath at home. Patient reports he began to develop swelling in his bilateral hands and lower extremities. Due to this the patient presented to the hospital again for further evaluation. Patient had a chest x-ray that was concerning for possible pulmonary vascular congestion consistent with heart failure. proBNP was not significantly elevated. Troponins were negative. EKG showed atrial fibrillation with rapid ventricular response. This morning the patient reports that he is feeling somewhat better today. He reports that his breathing is a little bit better. He is continue to appreciate some swelling in his hands and lower extremities. He is otherwise denying chest pain, heart palpitations, dizziness, and near syncope. ROS: [No fever, chills, or rigors] [no cough, phlegm, or expectoration] [no nausea, vomiting, or diarrhea] [no hematuria, dysuria] [no musculoskelatal complaints] [no strokes or seizures] [no skin lesions] EXAMINATION: GENERAL: Well-appearing, well-nourished and in no acute distress. NECK: Supple without JVD or thyromegaly. LUNGS: Breath sounds clear to auscultation bilaterally. Respiration equal and unlabored. No wheezes, rales or rhonchi. HEART: Regular rate and rhythm without murmurs, rubs or gallops. S1 and S2 heard. EXTREMITIES: Normal range of motion, no edema. No clubbing or cyanosis. Peripheral pulses intact and strong. REVIEW OF LABS, ECG & MEDICAL DATA: LABS: White count 10.8, hemoglobin 14.2, platelets 281, D-dimer 1.24, sodium 142, potassium 4.2, BUN 14, creatinine 0.8, magnesium 1.5, troponin less than 0.012, proBNP 986, INR 4.1 EKG: Atrial fibrillation with rapid ventricular response IMAGING: Chest x-ray dated 12/07/2023 demonstrates similar mild to moderate ca rdiomegaly, there is mild interstitial prominence that could reflect mild pulmonary vascular congestion, overall appearance is improved from 11/30/2023. CT angiogram of the chest dated 12/07/2023 demonstrates limited study due to breathing motion, no evidence of pulmonary embolism, mild atelectasis in the left lung base. VITALS: Temp 98.0, pulse 64, respirations 16, blood pressure 120/78, O2 satu ration 92% on 4 L IMPRESSION: 1. Acute exacerbation of congestive heart failure 2. Recent cervical fusion, 1 week postop 3. Hypertension 4. Atrial fibrillation, currently controlled 6. Elevated INR PLAN: Change IV Lasix to 40 mg IV push every 12 hours. Continue carvedilol 25 mg twice daily. Continue to monitor on telemetry, continue rate control. Continue to monitor INR, warfarin dosing per pharmacy. Further recommendations based on patient's clinical course. Thank you for the consult and allowing us to participate in the care of this patient. Past Medical History Past Medical History: Atrial Fibrillation, COPD, GERD/Reflux, Hyperlipidemia, Hypertension, Sleep Apnea/CPAP/BIPAP Additional Past Medical History / Comment(s): Asthma as child, hx. of a-fib-no episodes of in last year, uses CPAP, left arm very weak due to neck, RLS, CTS lolis, lower legs swell History of Any Multi-Drug Resistant Organisms: None Reported Past Surgical History: Adenoidectomy, Orthopedic Surgery, Tonsillectomy Additional Past Surgical History / Comment(s): colonoscopy, c3-c7 fusion Past Anesthesia/Blood Transfusion Reactions: No Reported Reaction Past Psychological History: Anxiety Smoking Status: Never smoker Past Alcohol Use History: None Reported Additional Past Alcohol Use History / Comment(s): used to have 1 cocktail per day and on weekends 2-3 but hasn't drank in 3 months Past Drug Use History: None Reported - Past Family History Father Family Medical History: No Reported History Additional Family Medical History / Comment(s): Dad is 82 and healthy. Mother Family Medical History: No Reported History Additional Family Medical History / Comment(s): Mom is 82 and healthy. Medications and Allergies Home Medications Medication Instructions Recorded Confirmed Type Pravastatin Sodium 40 mg PO DAILY 11/10/15 12/07/23 History lisinopriL 40 mg PO QAM 11/10/15 12/07/23 History hydrALAZINE HCL [Apresoline] 100 mg PO BID 04/06/20 12/07/23 History Aspirin [[place] Aspirin EC] 81 mg PO DAILY 09/30/20 12/07/23 History DULoxetine HCL [Cymbalta] 30 mg PO DAILY 09/30/20 12/07/23 History Multivitamins, Thera [Multivitamin 1 tab PO DAILY 11/22/23 12/07/23 History (formulary)] NIFEdipine [Adalat CC] 30 mg PO BID 11/22/23 12/07/23 History Omeprazole [PriLOSEC] 20 mg PO AC-BRKFST 11/22/23 12/07/23 History carvediloL [Coreg] 25 mg PO BID 11/22/23 12/07/23 History rOPINIRole HCL [Requip] 0.5 mg PO HS 11/22/23 12/07/23 History Furosemide [Lasix] 20 mg PO BID #60 tab 12/01/23 12/07/23 Rx Gabapentin [Neurontin] 200 mg PO BID 10 Days #40 cap 12/01/23 12/07/23 Rx cefaDROXiL [Duricef] 500 mg PO Q12HR 5 Days #10 cap 12/01/23 12/07/23 Rx HYDROcodone/APAP 7.5-325MG [[place] 1 tab PO Q6HR PRN 12/07/23 12/07/23 History 7.5] Warfarin [Coumadin] 5 mg PO W/SUPPER 12/07/23 12/07/23 History Allergies Allergy/AdvReac Type Severity Reaction Status Date / Time No Known Allergies Allergy Verified 12/07/23 14:05 Physical Exam Vitals: Vital Signs Temp Pulse Pulse Resp BP BP BP 12/08/23 12:35 98.0 F 64 16 153/90 12/08/23 07:00 97.6 F 66 16 120/78 12/08/23 06:25 131/78 12/08/23 04:22 97.7 F 71 18 128/70 12/07/23 22:43 97.6 F 64 19 149/82 12/07/23 20:19 103 H 18 150/83 12/07/23 16:36 98.1 F 112 H 20 121/89 12/07/23 15:58 12/07/23 14:16 100 24 144/91 12/07/23 13:23 98.8 F 104 H 24 135/85 Pulse Ox 12/08/23 12:35 97 12/08/23 07:00 92 L 12/08/23 06:25 12/08/23 04:22 97 12/07/23 22:43 97 12/07/23 20:19 94 L 12/07/23 16:36 96 12/07/23 15:58 97 12/07/23 14:16 97 12/07/23 13:23 97 Intake and Output 12/07/23 12/08/23 12/08/23 22:59 06:59 14:59 Intake Total 118 Output Total 600 Balance -600 118 Intake: Oral 118 Output: Urine 600 Other: Voiding Method Urinal # Voids 1 Weight 131.542 kg 131.542 kg Results 12/08/23 05:50 12/08/23 05:57 Cardiac Enzymes 12/07/23 12/07/23 Range/Units 15:10 17:37 Troponin I <0.012 <0.012 (0.000-0.034) ng/mL Coagulation 12/08/23 Range/Units 05:57 PT 39.8 H (10.0-12.5) sec CBC 12/08/23 Range/Units 05:50 WBC 10.82 H (4.50-10.00) X 10*3/uL RBC 4.68 (4.40-5.60) X 10*6/uL Hgb 14.2 (13.0-17.0) g/dL Hct 46.3 (39.6-50.0) % Plt Count 281 (140-440) X 10*3/uL Comprehensive Metabolic Panel 12/08/23 Range/Units 05:57 Sodium 142 (135-145) mmol/L Potassium 4.2 (3.5-5.5) mmol/L Chloride 95 L (96-109) mmol/L Carbon Dioxide 35.3 H (21.6-31.8) mmol/L BUN 14.3 (9.0-27.0) mg/dL Creatinine 0.8 (0.6-1.5) mg/dL Glucose 128 H (70-110) mg/dL Calcium 8.8 (8.7-10.3) mg/dL Current Medications Generic Name Dose Route Start Last Admin Trade Name Freq PRN Reason Stop Dose Admin Hydrocodone Bitart/Acetaminophen 1 each 12/07/23 14:40 12/08/23 04:57 Hydrocodone/Apap 7.5-325mg 1 Each Tab PO 1 each Q6HR PRN Administration Pain Aspirin 81 mg 12/08/23 09:00 12/08/23 10:37 Aspirin 81 Mg PO 81 mg DAILY RUSTY Administration Carvedilol 25 mg 12/07/23 17:30 12/08/23 06:25 Carvedilol 12.5 Mg Tab PO 25 mg BID-W/MEALS RUSTY Administration Duloxetine HCl 30 mg 12/08/23 09:00 12/08/23 10:37 Duloxetine Hcl 30 Mg Capsule.Dr PO 30 mg DAILY RUSTY Administration Furosemide 40 mg 12/08/23 09:00 12/08/23 10:37 Furosemide 10 Mg/Ml 4 Ml Vial IV 40 mg Q12HR RUSTY Administration Gabapentin 200 mg 12/07/23 21:00 12/08/23 10:37 Gabapentin 100 Mg Cap PO 200 mg BID RUSTY Administration Hydralazine HCl 100 mg 12/07/23 21:00 12/07/23 21:58 Hydralazine Hcl 50 Mg Tab PO 100 mg BID RUSTY Administration Lisinopril 40 mg 12/08/23 09:00 12/08/23 10:38 Lisinopril 20 Mg Tab PO 40 mg QAM RUSTY Administration Miscellaneous Information 0 each 12/07/23 14:53 Warfarin Per Pharmacy MISCELLANE DIRECTED PRN PER PROTOCOL Multivitamins 1 each 12/08/23 09:00 12/08/23 10:38 Multivitamins, Thera 1 Each Tab PO 1 each DAILY RUSTY Administration Nifedipine 30 mg 12/07/23 21:00 12/08/23 10:39 Nifedipine Xl 30 Mg Tab.Er.24 PO 30 mg BID RUSTY Administration Nitroglycerin 1 inch 12/07/23 14:00 12/08/23 05:00 Nitroglycerin Oint 1 Inch/Gm Packet TOPICAL 12/08/23 13:59 1 inch Q6HR RUSTY Administration Pantoprazole Sodium 40 mg 12/08/23 07:30 12/08/23 06:25 Pantoprazole 40 Mg Tablet PO 40 mg AC-BRKFST RUSTY Administration Pravastatin Sodium 40 mg 12/08/23 09:00 12/08/23 10:39 Pravastatin Sodium 40 Mg Tab PO 40 mg DAILY RUSTY Administration Ropinirole HCl 0.5 mg 12/07/23 21:00 12/07/23 21:58 Ropinirole Hcl 0.25 Mg Tab PO 0.5 mg HS RUSTY Administration Warfarin Sodium 0 mg 12/08/23 18:00 Warfarin 0.5 Mg Tab PO 12/08/23 18:01 ONCE@1800 ONE Intake and Output 12/07/23 12/08/23 12/08/23 22:59 06:59 14:59 Intake Total 118 Output Total 600 Balance -600 118 Intake: Oral 118 Output: Urine 600 Other: Voiding Method Urinal # Voids 1 Weight 131.542 kg 131.542 kg Patient Weight 12/09/23 06:59 Weight 131.542 kg 12/08/23 05:50 12/08/23 05:57
[2023-12-08] MEDS: WARFARIN 0.5 MG TAB PO ONE (18:46)
--- NOTE | 2023-12-08 18:55 | US ---
EXAMINATION TYPE: US venous doppler duplex UE BI DATE OF EXAM: 12/08/2023 COMPARISON: NONE CLINICAL INDICATION: Male, 68 years old with history of bilateral UE weakness/swelling; Recent cervic al fusion with incision at right neck TECHNIQUE: Grayscale, color Doppler and spectral Doppler imaging of the upper extremity. SIDE PERFORMED: Bilateral FINDINGS: Limited subclavian and IJV due to patient unable to lay flat Right Arm: Negative for DVT at time of scan Left Arm: Negative for DVT at time of scan Grayscale, color doppler, spectral doppler imaging performed of the deep veins of the upper extremiti es. IMPRESSION: 1. Note is limited assessment of the IJV and subclavian veins due to patient's inability to position. Otherwise, no upper extremity DVT identified on either side. 2. Complex cystic collection underlying the right side area of incision measuring 6.2 x 4.1 cm indica bozena by the defensive secondary coach. Further clinical correlation recommended. [facility], , 12/08/2023 6:52 PM
[2023-12-08] MEDS: DILTIAZEM 125 MG in SODIUM CHLORIDE 0.9% 100 ML IV SCH (21:10)
[2023-12-08] MEDS: ALPRAZolam 0.5 MG TAB PO PRN (23:22)
[2023-12-09 09:09] LABS: Basophils % (A) 0 %; Eosinophils # (A) 0.1 k/uL (0-0.7); Eosinophils % (A) 1 %; HCT 45.1 % (39.0-53.0); HGB 13.9 gm/dL (13.0-17.5); Hypochromasia Slight; Lymphocytes % (A) 11 %; MCH 30.6 pg (25.0-35.0); MCHC 30.9 g/dL (31.0-37.0); MCV 99.2 fL (80.0-100.0); Mean Platelet Volume 7.2; Monocytes # (A) 0.3 k/uL (0-1.0); Monocytes % (A) 4 %; Neutrophils # (A) 7.6 k/uL (1.3-7.7); Neutrophils % (A) 83 %; Platelet Count 277 k/uL (150-450); RBC 4.55 m/uL (4.30-5.90); RDW 11.6 % (11.5-15.5); WBC 9.1 k/uL (3.8-10.6)
[2023-12-09 09:12] LABS: INR 2.2 (<1.2); Prothrombin Time 22.4 sec (10.0-12.5)
[2023-12-09 09:17] LABS: African American GFR (CKD) 76 (>60 ml/min/1.73 sqM); Blood Urea Nitrogen 26 mg/dL (9-20); Calcium 8.3 mg/dL (8.4-10.2); Chloride 88 mmol/L (98-107); Glucose 188 mg/dL (74-99); Non-African American GFR(CKD) 66 (>60 ml/min/1.73 sqM); Sodium 136 mmol/L (137-145)
[2023-12-09 09:23] LABS: Anion Gap 7 mmol/L
[2023-12-09 09:26] LABS: Carbon Dioxide 41 mmol/L (22-30)
[2023-12-09 10:51] LABS: ABG Base Excess 19.3 mmol/L; ABG Oxygen Saturation 96.1 % (94-97); ABG PH 7.41 (7.35-7.45); ABG PO2 79 mmHg (83-108); ABG TCO2 51 mmol/L (19-24); Allen Test Performed? Yes
[2023-12-09 10:59] LABS: ABG HCO3 49 mmol/L (21-25); ABG PCO2 78 mmHg (35-45)
--- NOTE | 2023-12-09 11:43 | P.PN ---
Subjective Progress Note Date: 12/09/23 This is Lewis Trammell NP, I'm dictating on behalf of Dr. Rodriguez's H&P and A&P. Patient was interviewed and examined. Patient is a pleasant 68-year-old male who presented to the hospital with complaints of shortness of breath and acute exacerbation of congestive heart failure. Patient's atrial fibrillation accelerated into rapid ventricular response last night. Patient was started on IV diltiazem, which does appear to be adequately controlling his rate. Patient continues to remain somewhat swollen, and he reports that he still does not feel good today. He is complaining of continued shortness of breath, and overall feels tired. Patient's blood pressure is soft today, likely secondary to the IV diltiazem. He is otherwise denying chest pain, heart palpitations, dizziness, and syncope. GENERAL: Ill appearing, well-nourished and in no acute distress. NECK: Supple without JVD or thyromegaly. LUNGS: Breath sounds diminished but clear to auscultation bilaterally. Respiration equal and unlabored. No wheezes, rales or rhonchi. HEART: Regular rate and irregular rhythm without murmurs, rubs or gallops. S1 and S2 heard. EXTREMITIES: Normal range of motion, positive for edema, generalized in the upper and lower extremities. No clubbing or cyanosis. Peripheral pulses intact and strong. VITALS: Temp 97.4, pulse 79, respirations 17, blood pressure 99/65, O2 saturation 93% on 4 L TELEMETRY: Atrial fibrillation with controlled ventricular response LABS: White count 9.1, hemoglobin 13.9, platelets 277, sodium 136, potassium 4, BUN 26, creatinine 1.16, calcium 8.3 IMPRESSION: 1. Acute exacerbation of congestive heart failure 2. Recent cervical fusion, 1 week postop 3. Hypertension, patient currently demonstrating low blood pressures despite not receiving antihypertensives 4. Atrial fibrillation, currently on IV diltiazem 6. Elevated INR PLAN: Hold antihypertensive medications at this time. Discontinue IV Lasix, start Lasix 40 mg oral twice daily. Continue IV diltiazem. Consider cardioversion if patient does not convert or blood pressures do not improve. Further recommendations based on patient's clinical course. Objective - Vital Signs Vital signs: Vital Signs Temp 97.4 F L 12/09/23 08:14 Pulse 79 12/09/23 09:46 Resp 17 12/09/23 09:46 BP 99/65 12/09/23 09:26 Pulse Ox 93 L 12/09/23 08:14 FiO2 30 12/09/23 11:08 Intake & Output 12/08/23 12/09/23 12/09/23 18:59 06:59 18:59 Intake Total 236 503.167 22.833 Balance 236 503.167 22.833 Weight 131.542 kg 135.2 kg Intake: Intake, IV Titration 23.167 22.833 Amount Diltiazem 125 mg In 23.167 22.833 Sodium Chloride 0.9% 100 ml @ 10 MG/HR 10 mls/hr IV .[id number] [facility] Rx#: [id number] Oral 236 480 Other: Voiding Method Toilet Toilet Urinal Urinal # Voids 2 3 - Labs CBC & Chem 7: 12/09/23 08:33 12/09/23 08:33 Labs: Abnormal Lab Results - Last 24 Hours (Table) 12/09/23 12/09/23 12/09/23 Range/Units 08:33 08:33 08:33 MCHC 30.9 L (31.0-37.0) g/dL PT 22.4 H (10.0-12.5) sec INR 2.2 H (<1.2) ABG pCO2 (35-45) mmHg ABG pO2 (83-108) mmHg ABG HCO3 (21-25) mmol/L ABG Total CO2 (19-24) mmol/L Sodium 136 L (137-145) mmol/L Chloride 88 L (98-107) mmol/L Carbon Dioxide 41 H* (22-30) mmol/L BUN 26 H (9-20) mg/dL Glucose 188 H (74-99) mg/dL Calcium 8.3 L (8.4-10.2) mg/dL 12/09/23 Range/Units 10:47 MCHC (31.0-37.0) g/dL PT (10.0-12.5) sec INR (<1.2) ABG pCO2 78 H* (35-45) mmHg ABG pO2 79 L (83-108) mmHg ABG HCO3 49 H* (21-25) mmol/L ABG Total CO2 51 H (19-24) mmol/L Sodium (137-145) mmol/L Chloride (98-107) mmol/L Carbon Dioxide (22-30) mmol/L BUN (9-20) mg/dL Glucose (74-99) mg/dL Calcium (8.4-10.2) mg/dL
--- NOTE | 2023-12-09 11:52 | P.CNOR ---
History of Present Illness - HPI Consult date: 12/09/23 Requesting physician: John Cox Consult reason: other (Recent cervical surgery, bilateral upper extremity weakne ss) History of present illness: History of Presenting Illness Patient is a Pleasant 68-year-old male who presented to the ER due to shortness of breath. Our services were consulted due patient having recent cervical surgery, C3-C7 ACDF performed by Dr. Manuel on 11/27/2023. Postsurgery patient developed A-fib and was placed on Coumadin, also congestive heart failure during his stay. Patient was discharged on 12/01/2023 with home O2. patient did contact our office in regards to shortness of breath and he was encouraged to present to the ER, patient declined at that time. Patient does have a severe history of obstructive sleep apnea and utilizes a CPAP at night. patient also has a past medical history of hypertension, hyperlipidemia, morbid obesity, and gastroesophageal reflux disease. Patient seen and examined this morning. Patient denies any cervical pain. He does continue to report bilateral upper extremity weakness. Left upper extremity presents with increased edema. Patient denies any difficulty with swallowing, speech, or oral intake of fluids or food. Patient states that his biggest complaint is shortness of breath and his lack of memory of his stay after his surgery. Patient verbalizes that he is only aware that he had the surgery due to the incision on his neck. Patient states that he does not really remember his previous admission. Patient does state that he has had difficulty with sleeping and feels that he has not slept in a few days. He states that he feels exhausted. Surgical incision to the anterior cervical spine is well- approximated with glue intact. There is some scant amount of serous drainage from the end of the incision. Informed RN to leave open to air and to utilize the chlorhexidine swabs to the incision 3 times daily. No acute concerns from an orthopedic standpoint. Review of Systems Pertinent positives and negatives as discussed in HPI, a complete review of systems was performed and all other systems are negative. Physical Examination Inspection: Surgical incision to the anterior cervical spine, edges are well- approximated with glue intact. There is a scant amount of serous drainage from the end of the incision. Sensation: Sensation is equal, symmetric, bilaterally intact throughout the uppe r and lower extremities Palpation: Nontender to palpation throughout bilateral upper and lower extr emities and throughout spine exam Range of motion: Patient does have limited range of motion of the left upper extremity due to weakness. Musculoskeletal: Right: Shoulder abduction 4/5, elbow flexors 4/5, wrist dorsiflexors 4/5. finger abductor 4/5, airways control specialist 3+/5, hip flexor 5/5, knee flexor 5/5, ankle dorsiflexor 5/5, ankle plantarflexion 5/5 and extensor hallucis 5/5. Left: Shoulder abduction 3/5, elbow flexors 3/5, wrist dorsiflexors 3/5. finger abductor 3-/5, airways control specialist 3-/5, hip flexor 5/5, knee flexor 5/5, ankle dorsiflexor 5/5, ankle plantarflexion 5/5 and extensor hallucis 5/5. Special tests: Negative Homans bilaterally. Negative Luly bilaterally. Negative clonus bilaterally. Neurovascular: Radial pulse intact, 2+ bilaterally. Cap refill under 3 seconds in digits upper extremities. Assessment and Plan - 2-week postop C3-C7 ACDF - Bilateral upper extremity weakness, baseline compared with previous surgical intervention - Multiple complex medical comorbidities At this time we do not recommend any emergent/urgent orthopedic surgical intervention. Continue with post operative care as directed. No further recommendations from an Orthopedic standpoint. We will continue to follow patient during his stay. 2. Appreciate medical management 3. Pain management - continue with current regimen 4. Hygiene - Continue to keep incision clean and dry. Utilize chlorhexidine swabs 3 times daily to assist with drying out incision. 4. GI prophylaxis - senna 5. DVT prophylaxis - Coumadin 6. PT/OT - weightbearing as tolerated with a walker as needed. 7. Appreciate consult I reviewed and discussed this case with my attending Dr. Manuel, whom has reviewed this chart and films and is in agreement with assessment and plan of care as outlined above. I have personally seen and examined the patient, performed the documentation and the assessment and plan as written. Number of minutes spent on the visit: 30m. Past Medical History Past Medical History: Atrial Fibrillation, COPD, GERD/Reflux, Hyperlipidemia, Hypertension, Sleep Apnea/CPAP/BIPAP Additional Past Medical History / Comment(s): Asthma as child, hx. of a-fib-no episodes of in last year, uses CPAP, left arm very weak due to neck, RLS, CTS lolis, lower legs swell History of Any Multi-Drug Resistant Organisms: None Reported Past Surgical History: Adenoidectomy, Orthopedic Surgery, Tonsillectomy Additional Past Surgical History / Comment(s): colonoscopy, c3-c7 fusion Past Anesthesia/Blood Transfusion Reactions: No Reported Reaction Past Psychological History: Anxiety Smoking Status: Never smoker Past Alcohol Use History: None Reported Additional Past Alcohol Use History / Comment(s): used to have 1 cocktail per day and on weekends 2-3 but hasn't drank in 3 months Past Drug Use History: None Reported - Past Family History Father Family Medical History: No Reported History Additional Family Medical History / Comment(s): Dad is 82 and healthy. Mother Family Medical History: No Reported History Additional Family Medical History / Comment(s): Mom is 82 and healthy. Medications and Allergies Home Medications Medication Instructions Recorded Confirmed Type Pravastatin Sodium 40 mg PO DAILY 11/10/15 12/07/23 History lisinopriL 40 mg PO QAM 11/10/15 12/07/23 History hydrALAZINE HCL [Apresoline] 100 mg PO BID 04/06/20 12/07/23 History Aspirin [Vance Aspirin EC] 81 mg PO DAILY 09/30/20 12/07/23 History DULoxetine HCL [Cymbalta] 30 mg PO DAILY 09/30/20 12/07/23 History Multivitamins, Thera [Multivitamin 1 tab PO DAILY 11/22/23 12/07/23 History (formulary)] NIFEdipine [Adalat CC] 30 mg PO BID 11/22/23 12/07/23 History Omeprazole [PriLOSEC] 20 mg PO AC-BRKFST 11/22/23 12/07/23 History carvediloL [Coreg] 25 mg PO BID 11/22/23 12/07/23 History rOPINIRole HCL [Requip] 0.5 mg PO HS 11/22/23 12/07/23 History Furosemide [Lasix] 20 mg PO BID #60 tab 12/01/23 12/07/23 Rx Gabapentin [Neurontin] 200 mg PO BID 10 Days #40 cap 12/01/23 12/07/23 Rx cefaDROXiL [Duricef] 500 mg PO Q12HR 5 Days #10 cap 12/01/23 12/07/23 Rx HYDROcodone/APAP 7.5-325MG [[place] 1 tab PO Q6HR PRN 12/07/23 12/07/23 History 7.5] Warfarin [Coumadin] 5 mg PO W/SUPPER 12/07/23 12/07/23 History Allergies Allergy/AdvReac Type Severity Reaction Status Date / Time No Known Allergies Allergy Verified 12/07/23 14:05 Results - Labs Labs: Abnormal Lab Results - Last 24 Hours (Table) 12/08/23 12/08/23 Range/Units 05:50 05:57 WBC 10.82 H (4.50-10.00) X 10*3/uL MCV 98.9 H (80.0-97.0) FL MCHC 30.7 L (32.0-37.0) g/dL RDW 11.4 L (11.5-14.5) % Immature Gran # 0.05 H (0.00-0.04) X 10*3/uL Neutrophils # 8.96 H (1.80-7.70) X 10*3/uL Chloride 95 L (96-109) mmol/L Carbon Dioxide 35.3 H (21.6-31.8) mmol/L Glucose 128 H (70-110) mg/dL H & H 12/07/23 12/08/23 Range/Units 11:45 05:50 Hgb 14.7 14.2 (13.0-17.5) gm/dL Hct 47.7 46.3 (39.0-53.0) % Coagulation 12/07/23 12/08/23 Range/Units 11:45 05:57 INR 4.9 H 4.1 H (<1.2) Result Diagrams: 12/09/23 08:33 12/09/23 08:33
--- NOTE | 2023-12-09 13:56 | P.PN ---
Subjective Progress Note Date: 12/09/23 Principal diagnosis: Acute on chronic hypoxic respiratory failure, multifactorial mostly related to acute diastolic congestive heart failure, atrial fibrillation with RVR, and susp ect left hemidiaphragm paralysis. This is a pleasant 68-year-old male patient with a known history of hypertension, hyperlipidemia, morbid obesity, obstructive sleep apnea with home APAP, gastroesophageal reflux disease, atrial fibrillation anticoagulated with warfarin, lifelong non-smoker. He was recently here earlier this month for an elective anterior C3-C7 cervical discectomy and fusion. That was performed on 11/28/2023. He had developed atrial fibrillation with a rapid ventricular resp onse and was followed on the selective care unit. He had then developed hypercapnic respiratory failure requiring BiPAP support. He was discharged to home with oxygen on 12/01/2023. He came back to the emergency room this morning with complaints of increasing shortness of breath, generalized weakness and significant dyspnea on exertion. Chest x-ray reveals mild to moderate cardiomegaly. Mild interstitial pulmonary vascular congestion and elevated left hemidiaphragm. CT angiogram ruled out pulmonary embolism. There is mild atelectasis in the left lung base. EKG reveals atrial fibrillation with a rapid ventricular response. White count 9.3. Hemoglobin 14.7. Platelets 261. INR 4.9. D-dimer 1.24. Sodium 141. Potassium 3.9. Bicarb 38. BUN 17. Creatinine 0.71. Glucose 125. Troponin negative x 1. proBNP 986. Viral screen negative. He is seen today in consultation in the emergency department. He is currently sitting up on the stretcher. Awake and alert in no acute dist ress. He does have dyspnea with conversation, dyspnea with minimal exertion. Remains in atrial fibrillation with a varying ventricular response. He is maintaining good O2 saturation in the upper 90s on 4 L/min per nasal cannula. He is afebrile. Hemodynamically stable. He has been initiated on Lasix 40 mg IV every 8 hours. The patient is seen today December 08, 2023 in follow-up on the regular medical floor. He is currently sitting up at the bedside. Awake and alert in no acute distress. Maintaining O2 saturations in the 90s on 4 L/min per nasal cannula. He remains in atrial fibrillation with a controlled ventricular response. White count 10.8. Hemoglobin 14.2. Platelets 281. INR 4.1. Sodium 142. Potassium 4.2. Bicarb 35. BUN 14. Creatinine 0.8. Glucose 128. He remains on IV diuretics. Warfarin to be adjusted by pharmacy. Patient was seen today on 12/09/2023, patient is about the same today, he is now on Cardizem drip for atrial fibrillation with RVR. Rate seems to be adequately controlled this morning, nonetheless the patient is complaining of weakness, shortness of breath, fatigue, sniff test has not been performed, I am interested to know whether the patient has a left hemidiaphragm paralysis in addition to his other issues. His left hemidiaphragm seems to be fairly elevated compared to previous x-rays prior to his cervical spine surgery. In the meantime the patient is receiving diuretics, he is on 40 mg of Lasix twice daily and he is now on Cardizem at 2.5 mg/h. Cardioversion is being considered by cardiology ABG today showed a pO2 of 79 pCO2 of 78 pH of 7.41, this implies that the patient has chronic hypercapnia with adequate metabolic compensation and obviously his baseline pCO2 is in the 70s, and obviously the patient has chronic hypercapnic respiratory failure, he is also known to have history of obstructive sleep apnea, not compliant with his CPAP mostly because of his weakness in his arms and he cannot use it Objective - Vital Signs Vital signs: Vital Signs Temp 97.4 F L 12/09/23 08:14 Pulse 77 12/09/23 13:44 Resp 17 12/09/23 13:44 BP 119/75 12/09/23 12:07 Pulse Ox 89 L 12/09/23 12:07 FiO2 30 12/09/23 12:49 Intake & Output 12/08/23 12/09/23 12/09/23 18:59 06:59 18:59 Intake Total 236 503.167 22.833 Balance 236 503.167 22.833 Weight 131.542 kg 135.2 kg Intake: Intake, IV Titration 23.167 22.833 Amount Diltiazem 125 mg In .167 22.833 Sodium Chloride 0.9% 100 ml @ 10 MG/HR 10 mls/hr IV .[id number] [facility] Rx#: [id number] Oral 236 480 Other: Voiding Method Toilet Toilet Urinal Urinal # Voids 2 3 - Exam GENERAL EXAM: Alert, obese, 68-year-old male patient, sitting up in bed, on 4 L nasal cannula, recommended BiPAP 12/6/30%. HEAD: Normocephalic. EYES: Normal reaction of pupils, equal size. NOSE: Clear with pink turbinates. THROAT: No erythema or exudates. NECK: No masses, no JVD. CHEST: No chest wall deformity. LUNGS: Equal air entry with basilar crackles. CVS: S1 and S2 normal with no audible murmur, irregular rhythm. ABDOMEN: No hepatosplenomegaly, normal bowel sounds, no guarding or rigidity. SPINE: No scoliosis or deformity SKIN: No rashes CENTRAL NERVOUS SYSTEM: No focal deficits, tone is normal in all 4 extremities. EXTREMITIES: There is 1+ peripheral edema. No clubbing, no cyanosis. Pe ripheral pulses are intact. - Labs CBC & Chem 7: 12/09/23 08:33 12/09/23 08:33 Labs: Abnormal Lab Results - Last 24 Hours (Table) 12/09/23 12/09/23 12/09/23 Range/Units 08:33 08:33 08:33 MCHC 30.9 L (31.0-37.0) g/dL PT 22.4 H (10.0-12.5) sec INR 2.2 H (<1.2) ABG pCO2 (35-45) mmHg ABG pO2 (83-108) mmHg ABG HCO3 (21-25) mmol/L ABG Total CO2 (19-24) mmol/L Sodium 136 L (137-145) mmol/L Chloride 88 L (98-107) mmol/L Carbon Dioxide 41 H* (22-30) mmol/L BUN 26 H (9-20) mg/dL Glucose 188 H (74-99) mg/dL Calcium 8.3 L (8.4-10.2) mg/dL 12/09/23 Range/Units 10:47 MCHC (31.0-37.0) g/dL PT (10.0-12.5) sec INR (<1.2) ABG pCO2 78 H* (35-45) mmHg ABG pO2 79 L (83-108) mmHg ABG HCO3 49 H* (21-25) mmol/L ABG Total CO2 51 H (19-24) mmol/L Sodium (137-145) mmol/L Chloride (98-107) mmol/L Carbon Dioxide (22-30) mmol/L BUN (9-20) mg/dL Glucose (74-99) mg/dL Calcium (8.4-10.2) mg/dL Assessment and Plan Assessment: Impression: Acute on chronic hypoxic, and hypercapnic respiratory failure secondary to an acute exacerbation of diastolic congestive heart failure, atrial fibrillation with rapid ventricular response, elevated left hemidiaphragm, possible left hemidiaphragm paralysis and underlying obstructive sleep apnea syndrome Recent admission for an elective anterior cervical discectomy and fusion of C3- C7 on 11/27/2023 with postoperative complications of atrial fibrillation with rapid ventricular response, hypercapnic respiratory failure Atrial fibrillation, anticoagulated with warfarin, supra therapeutic with an INR of 4.1 Hypercapnic respiratory failure secondary to morbid obesity Obstructive sleep apnea, maintained on auto CPAP Lifelong non-smoker Hypertension Hyperlipidemia Gastroesophageal reflux disease History of anxiety Recommendation: Continue diuretics Placed on BiPAP intermittently as needed Continue Cardizem and titrate accordingly Awaiting sniff test to evaluate for left diaphragm paralysis Continue present supportive care measures and resume home meds Again I strongly doubt underlying COPD. Will continue to follow Time with Patient: Less than 30
--- NOTE | 2023-12-09 15:16 | P.PN ---
Subjective Progress Note Date: 12/08/23 68-year-old male history of hypertension, hyperlipidemia, morbid obesity, obstructive sleep apnea with home APAP, gastroesophageal reflux disease, atrial fibrillation anticoagulated with warfarinpresenting to the emergency department with concerns for difficulty breathing. Patient has postop cervical surgery 1 week ago. Patient states he has no problems with his neck. Patient states there is no discomfort or difficulty breathing through his neck. Patient feels he has difficulty breathing in his lungs. Patient does have some increased swelling of his legs and arms. No chest pain. Dyspnea does worsen with exertion. No fever, cough, or upper respiratory symptoms. Chest x-ray reveals mild to moderate cardiomegaly. Mild interstitial pulmonary vascular congestion and elevated left hemidiaphragm. CT angiogram ruled out pulmonary embolism. There is mild atelectasis in the left lung base. EKG reveals atrial fibrillation with a rapid ventricular response. White count 9.3. Hemoglobin 14.7. Platelets 261. INR 4.9. D-dimer 1.24. Sodium 141. Potassium 3.9. Bicarb 38. BUN 17. Creatinine 0.71. Glucose 125. Troponin negative x 1. proBNP 986. Viral screen negative. He is seen today in consultation in the emergency department. He is currently sitting up on the stretcher. Awake and alert in no acute distress. He does have dyspnea with conversation, dyspnea with minimal exertion. Remains in atrial fibrillation with a varying ventricular response. He is maintaining good O2 saturation in the upper 90s on 4 L/min per nasal cannula. He has been initiated on Lasix 40 mg IV every 8 hours. Objective - Vital Signs Vital signs: Vital Signs Temp 97.6 F 12/08/23 07:00 Pulse 66 12/08/23 07:00 Resp 16 12/08/23 07:00 BP 120/78 12/08/23 07:00 Pulse Ox 92 L 12/08/23 07:00 FiO2 Intake & Output 12/07/23 12/08/23 12/08/23 18:59 06:59 18:59 Intake Total 118 Output Total 600 Balance -600 118 Weight 131.542 kg 131.542 kg Intake: Oral 118 Output: Urine 600 Other: Voiding Method Urinal # Voids 1 - Exam General appearance: alert, in no apparent distress Head exam: Present: normocephalic Eye exam: Present: normal appearance ENT exam: Present: normal oropharynx Neck exam: Present: other (Anterior right sided incision clean dry and intact with minimal swelling). Absent: tenderness, meningismus Respiratory exam: Present: decreased breath sounds Cardiovascular Exam: Present: irregular rhythm GI/Abdominal exam: Present: soft. Absent: tenderness Extremities exam: Present: pedal edema. Absent: calf tenderness Neurological exam: Present: alert Psychiatric exam: Present: normal affect, normal mood Skin exam: Present: normal color - Labs CBC & Chem 7: 12/09/23 08:33 12/09/23 08:33 Labs: Abnormal Lab Results - Last 24 Hours (Table) 12/07/23 12/07/23 12/07/23 Range/Units 11:45 11:45 11:45 WBC (4.50-10.00) X 10*3/uL MCV (80.0-97.0) FL MCHC 30.9 L (31.0-37.0) g/dL RDW (11.5-14.5) % Immature Gran # (0.00-0.04) X 10*3/uL Neutrophils # (1.80-7.70) X 10*3/uL Lymphocytes # 0.9 L (1.0-4.8) k/uL PT 47.5 H (10.0-12.5) sec INR 4.9 H (<1.2) APTT 46.6 H (22.0-30.0) sec D-Dimer (<0.60) mg/L FEU Chloride 96 L (98-107) mmol/L Carbon Dioxide 38 H (22-30) mmol/L Glucose 125 H (74-99) mg/dL Magnesium 1.5 L (1.6-2.3) mg/dL 12/07/23 12/08/23 12/08/23 Range/Units 11:45 05:50 05:57 WBC 10.82 H (4.50-10.00) X 10*3/uL MCV 98.9 H (80.0-97.0) FL MCHC 30.7 L (31.0-37.0) g/dL RDW 11.4 L (11.5-14.5) % Immature Gran # 0.05 H (0.00-0.04) X 10*3/uL Neutrophils # 8.96 H (1.80-7.70) X 10*3/uL Lymphocytes # (1.0-4.8) k/uL PT 39.8 H (10.0-12.5) sec INR 4.1 H (<1.2) APTT (22.0-30.0) sec D-Dimer 1.24 H (<0.60) mg/L FEU Chloride (98-107) mmol/L Carbon Dioxide (22-30) mmol/L Glucose (74-99) mg/dL Magnesium (1.6-2.3) mg/dL 12/08/23 Range/Units 05:57 WBC (4.50-10.00) X 10*3/uL MCV (80.0-97.0) FL MCHC (31.0-37.0) g/dL RDW (11.5-14.5) % Immature Gran # (0.00-0.04) X 10*3/uL Neutrophils # (1.80-7.70) X 10*3/uL Lymphocytes # (1.0-4.8) k/uL PT (10.0-12.5) sec INR (<1.2) APTT (22.0-30.0) sec D-Dimer (<0.60) mg/L FEU Chloride 95 L (98-107) mmol/L Carbon Dioxide 35.3 H (22-30) mmol/L Glucose 128 H (74-99) mg/dL Magnesium (1.6-2.3) mg/dL Assessment and Plan Assessment: 1. Acute on chronic hypoxic respiratory failure secondary to an acute exacerbation of diastolic congestive heart failure, atrial fibrillation with rapid ventricular response, elevated left hemidiaphragm -Patient has been evaluated by pulmonary service; has been initiated on IV Lasix which is going to be continued-40 mg IV every 8 hours 2. Atrial fibrillation, anticoagulated with warfarin, supra therapeutic with an INR of 4.9 3. Hypercapnic respiratory failure/obstructive sleep apnea secondary to morbid obesity; it is maintained on CPAP 4. Hypertension; Coreg 25 mg twice daily; lisinopril 40 mg daily; hydralazine 100 mg twice daily; cardio 30 mg p.o. twice daily 5. Hyperlipidemia; pravastatin 40 mg daily 6. Gastroesophageal reflux disease; tonics 40 mg daily 7. History of anxiety DVT prophylaxis; SCDs/Coumadin CODE STATUS; full code
--- NOTE | 2023-12-09 15:20 | P.PN ---
Subjective Progress Note Date: 12/09/23 68-year-old male history of hypertension, hyperlipidemia, morbid obesity, obstructive sleep apnea with home APAP, gastroesophageal reflux disease, atrial fibrillation anticoagulated with warfarinpresenting to the emergency department with concerns for difficulty breathing. Patient has postop cervical surgery 1 week ago. Patient states he has no problems with his neck. Patient states there is no discomfort or difficulty breathing through his neck. Patient feels he has difficulty breathing in his lungs. Patient does have some increased swelling of his legs and arms. No chest pain. Dyspnea does worsen with exertion. No fever, cough, or upper respiratory symptoms. Chest x-ray reveals mild to moderate cardiomegaly. Mild interstitial pulmonary vascular congestion and elevated left hemidiaphragm. CT angiogram ruled out pulmonary embolism. There is mild atelectasis in the left lung base. EKG reveals atrial fibrillation with a rapid ventricular response. White count 9.3. Hemoglobin 14.7. Platelets 261. INR 4.9. D-dimer 1.24. Sodium 141. Potassium 3.9. Bicarb 38. BUN 17. Creatinine 0.71. Glucose 125. Troponin negative x 1. proBNP 986. Viral screen negative. He is seen today in consultation in the emergency department. He is currently sitting up on the stretcher. Awake and alert in no acute distress. He does have dyspnea with conversation, dyspnea with minimal exertion. Remains in atrial fibrillation with a varying ventricular response. He is maintaining good O2 saturation in the upper 90s on 4 L/min per nasal cannula. He has been initiated on Lasix 40 mg IV every 8 hours. 12/09/2023 -- patient is seen and evaluated in room at bedside; has been transferred to selective care unit for atrial fibrillation with RVR, currently on Cardizem drip for atrial fibrillation with RVR. Rate seems to be adequately controlled this morning -- Continues to complain of shortness of breath. Patient has been evaluated by pulmonary and his left hemidiaphragm seems to be fairly elevated compared to previous x-rays prior to his cervical spine surgery; sniff test is ordered and pending. - patient is receiving diuretics, he is on 40 mg of Lasix twice daily and he is now on Cardizem at 2.5 mg/h. - Cardioversion is being considered by cardiology - ABG today showed a pO2 of 79 pCO2 of 78 pH of 7.41, patient has chronic hypercapnia with adequate metabolic compensation and obviously his baseline pCO2 is in the 70s, patient has known to have history of obstructive sleep apnea, not compliant with his CPAP mostly because of his weakness in his arms and he cannot use it Objective - Vital Signs Vital signs: Vital Signs Temp 97.4 F L 12/09/23 08:14 Pulse 79 12/09/23 09:46 Resp 17 12/09/23 09:46 BP 99/65 12/09/23 09:26 Pulse Ox 93 L 12/09/23 08:14 FiO2 30 12/09/23 10:30 Intake & Output 12/08/23 12/09/23 12/09/23 18:59 06:59 18:59 Intake Total 236 503.167 22.833 Balance 236 503.167 22.833 Weight 131.542 kg 135.2 kg Intake: Intake, IV Titration 23.167 22.833 Amount Diltiazem 125 mg In 23.167 22.833 Sodium Chloride 0.9% 100 ml @ 10 MG/HR 10 mls/hr IV .[id number] REPLACED BY [facility] Rx#: [id number] Oral 236 480 Other: Voiding Method Toilet Toilet Urinal Urinal # Voids 2 3 - Exam General appearance: alert, in no apparent distress Head exam: Present: normocephalic Eye exam: Present: normal appearance ENT exam: Present: normal oropharynx Neck exam: Present: other (Anterior right sided incision clean dry and intact with minimal swelling). Absent: tenderness, meningismus Respiratory exam: Present: decreased breath sounds Cardiovascular Exam: Present: irregular rhythm GI/Abdominal exam: Present: soft. Absent: tenderness Extremities exam: Present: pedal edema. Absent: calf tenderness Neurological exam: Present: alert Psychiatric exam: Present: normal affect, normal mood Skin exam: Present: normal color - Labs CBC & Chem 7: 12/09/23 08:33 12/09/23 08:33 Labs: Abnormal Lab Results - Last 24 Hours (Table) 12/09/23 12/09/23 12/09/23 Range/Units 08:33 08:33 08:33 MCHC 30.9 L (31.0-37.0) g/dL PT 22.4 H (10.0-12.5) sec INR 2.2 H (<1.2) Sodium 136 L (137-145) mmol/L Chloride 88 L (98-107) mmol/L Carbon Dioxide 41 H* (22-30) mmol/L BUN 26 H (9-20) mg/dL Glucose 188 H (74-99) mg/dL Calcium 8.3 L (8.4-10.2) mg/dL Assessment and Plan Assessment: 1. Acute on chronic hypoxic respiratory failure secondary to an acute exacerbation of diastolic congestive heart failure, atrial fibrillation with rapid ventricular response, elevated left hemidiaphragm -Patient has been evaluated by pulmonary service; has been initiated on IV Lasix which is going to be continued-40 mg IV every 8 hours 2. Atrial fibrillation, anticoagulated with warfarin, supra therapeutic with an INR of 4.9 3. Hypercapnic respiratory failure/obstructive sleep apnea secondary to morbid obesity; it is maintained on CPAP 4. Hypertension; Coreg 25 mg twice daily; lisinopril 40 mg daily; hydralazine 100 mg twice daily; cardio 30 mg p.o. twice daily 5. Hyperlipidemia; pravastatin 40 mg daily 6. Gastroesophageal reflux disease; tonics 40 mg daily 7. History of anxiety DVT prophylaxis; SCDs/Coumadin CODE STATUS; full code
[2023-12-09] MEDS: FUROSEMIDE 40 MG TAB PO SCH (17:15)
[2023-12-09] MEDS: WARFARIN 2 MG TAB PO ONE (17:15)
[2023-12-10 08:39] LABS: African American GFR (CKD) 88 (>60 ml/min/1.73 sqM); Blood Urea Nitrogen 31 mg/dL (9-20); Calcium 8.6 mg/dL (8.4-10.2); Chloride 91 mmol/L (98-107); Glucose 134 mg/dL (74-99); Magnesium 1.3 mg/dL (1.6-2.3); Non-African American GFR(CKD) 77 (>60 ml/min/1.73 sqM); Potassium 3.7 mmol/L (3.5-5.1); Sodium 136 mmol/L (137-145)
[2023-12-10 08:41] LABS: INR 1.7 (<1.2); Prothrombin Time 16.9 sec (10.0-12.5)
[2023-12-10 08:46] LABS: Anion Gap 4 mmol/L
[2023-12-10 08:47] LABS: Carbon Dioxide 41 mmol/L (22-30)
--- NOTE | 2023-12-10 08:56 | P.PN ---
Subjective Progress Note Date: 12/10/23 Principal diagnosis: Recent cervical surgery, bilateral upper extremity weakness Patient seen and examined this morning. Patient is sitting up in chair at bedside. Patient continues to deny any cervical pain. He does continue to report bilateral upper extremity weakness with the left being greater than the right. Patient states his symptoms seem to be the same since admission. Patient is scheduled for a sniff test today. Continue to encourage patient to perform range of motion exercises of his upper extremities. Patient would benefit from a stress ball to increase strength and mobility of his hands. Surgical incision to the anterior cervical spine is well-approximated with glue intact. There is scant amount of serous drainage. Continue to keep incision clean and dry change, dressing as needed. No acute concerns at this time from an orthopedic standpoint. Objective - Vital Signs Vital signs: Vital Signs Temp 97.2 F L 12/10/23 03:35 Pulse 83 12/10/23 03:35 Resp 17 12/10/23 03:35 BP 117/76 12/10/23 03:35 Pulse Ox 93 L 12/10/23 03:35 FiO2 30 12/10/23 03:59 Intake & Output 12/09/23 12/10/23 12/10/23 18:59 06:59 18:59 Intake Total 142.833 38.583 Output Total 500 Balance 142.833 -461.417 Weight 136.1 kg Intake: Intake, IV Titration 22.833 38.583 Amount Diltiazem 125 mg In 22.833 38.583 Sodium Chloride 0.9% 100 ml @ 10 MG/HR 10 mls/hr IV .[id number] COUNT INCLUDES THE [facility] Rx#: [id number] Oral 120 Output: Urine 500 Other: Voiding Method Toilet Toilet Urinal Urinal # Voids 1 - Exam Inspection: Surgical incision to the anterior cervical spine, edges are well- approximated with glue intact. There is a scant amount of serous drainage from the end of the incision. Sensation: Sensation is equal, symmetric, bilaterally intact throughout the upper and lower extremities Palpation: Nontender to palpation throughout bilateral upper and lower extremities and throughout spine exam Range of motion: Patient does have limited range of motion of the left upper extremity due to weakness. Musculoskeletal: Right: Shoulder abduction 4/5, elbow flexors 4/5, wrist dorsiflexors 4/5. finger abductor 4/5, web marketing coordinator 3+/5, hip flexor 5/5, knee flexor 5/5, ankle dorsiflexor 5/5, ankle plantarflexion 5/5 and extensor hallucis 5/5. Left: Shoulder abduction 3/5, elbow flexors 3/5, wrist dorsiflexors 3/5. finger abductor 3-/5, web marketing coordinator 3-/5, hip flexor 5/5, knee flexor 5/5, ankle dorsiflexor 5/5, ankle plantarflexion 5/5 and extensor hallucis 5/5. Special tests: Negative Homans bilaterally. Negative Luly bilaterally. Negative clonus bilaterally. Neurovascular: Radial pulse intact, 2+ bilaterally. Cap refill under 3 seconds in digits upper extremities. - Labs CBC & Chem 7: 12/09/23 08:33 12/10/23 07:47 Labs: Abnormal Lab Results - Last 24 Hours (Table) 12/09/23 12/09/23 12/09/23 Range/Units 08:33 08:33 08:33 MCHC 30.9 L (31.0-37.0) g/dL PT 22.4 H (10.0-12.5) sec INR 2.2 H (<1.2) ABG pCO2 (35-45) mmHg ABG pO2 (83-108) mmHg ABG HCO3 (21-25) mmol/L ABG Total CO2 (19-24) mmol/L Sodium 136 L (137-145) mmol/L Chloride 88 L (98-107) mmol/L Carbon Dioxide 41 H* (22-30) mmol/L BUN 26 H (9-20) mg/dL Glucose 188 H (74-99) mg/dL Calcium 8.3 L (8.4-10.2) mg/dL 12/09/23 Range/Units 10:47 MCHC (31.0-37.0) g/dL PT (10.0-12.5) sec INR (<1.2) ABG pCO2 78 H* (35-45) mmHg ABG pO2 79 L (83-108) mmHg ABG HCO3 49 H* (21-25) mmol/L ABG Total CO2 51 H (19-24) mmol/L Sodium (137-145) mmol/L Chloride (98-107) mmol/L Carbon Dioxide (22-30) mmol/L BUN (9-20) mg/dL Glucose (74-99) mg/dL Calcium (8.4-10.2) mg/dL Assessment and Plan Assessment: - 2-week postop C3-C7 ACDF - Bilateral upper extremity weakness, baseline compared with previous surgical intervention - Multiple complex medical comorbidities Plan: At this time we do not recommend any emergent/urgent orthopedic surgical intervention. Continue with post operative care as directed. No further recommendations from an Orthopedic standpoint. We will continue to follow patient during his stay. 2. Appreciate medical management 3. Pain management - continue with current regimen 4. Hygiene - Continue to keep incision clean and dry. Change dressing as needed. 4. GI prophylaxis - senna 5. DVT prophylaxis - Coumadin 6. PT/OT - weightbearing as tolerated with a walker as needed. 7. Appreciate consult I reviewed and discussed this case with my attending Dr. Manuel, whom has reviewed this chart and films and is in agreement with assessment and plan of care as outlined above. I have personally seen and examined the patient, performed the documentation and the assessment and plan as written. Number of minutes spent on the visit: 30m.
[2023-12-10] MEDS: DAPAGLIFLOZIN PROPANEDIOL 10 MG TABLET PO SCH (10:59)
--- NOTE | 2023-12-10 12:27 | P.PN ---
Subjective HISTORY OF PRESENT ILLNESS: This is a 68-year-old male who follows with a industrial maintenance tech out of town. Patient presented to the hospital with a chief complaint of shortness of breath. Was initially placed on IV diuretics and then transition to oral diuretics. Patient examined this morning at the bedside. Patient continues to report shortness of breath. He also continues to report edema of his left hand and bilateral lower extremities. He denies any chest pain or pressure. He remains in atrial fibrillation with controlled ventricular rate. Echocardiogram completed on 11/30/2023 revealed ejection fraction 50 to 55% with no significant valvular abnormalities noted. PHYSICAL EXAM: VITAL SIGNS: Reviewed. GENERAL: Well-developed in no acute distress. NECK: Supple. No JVD or thyromegaly LUNGS: Respirations even and unlabored. Lungs essentially clear to auscultation bilaterally. HEART: Irregular rate and rhythm. S1 and S2 heard. EXTREMITIES: Normal range of motion. No clubbing or cyanosis. Peripheral pulses intact. Left upper extremity edema noted. Bilateral lower extremity edema noted. ASSESSMENT: Shortness of breath Acute on chronic congestive heart failure with preserved EF, 50 to 55% Acute hypoxic respiratory failure requiring supplemental oxygen Paroxysmal atrial fibrillation with controlled ventricular rate Status post cervical discectomy and fusion Hypertension Hyperlipidemia Obstructive sleep apnea with home CPAP PLAN: Discontinue oral Lasix. Begin IV Lasix 40 mg every 12 hours Daily weights, accurate intake and output, and monitoring of kidney function Discontinue IV Cardizem Continue anticoagulation with warfarin. Monitor INR. Patient was recently hospitalized and co-pay for Eliquis was checked which was too expensive for patient. Continue telemetry monitoring Further recommendations pending patient course Nurse practitioner note has been reviewed by physician. Signing provider agrees with the documented findings, assessment, and plan of care documented by SALES PROCESS MANAGER as a scribe. Objective - Vital Signs Vital signs: Vital Signs Temp 98.4 F 12/10/23 12:05 Pulse 63 12/10/23 12:05 Resp 24 12/10/23 12:05 BP 115/75 12/10/23 12:05 Pulse Ox 95 12/10/23 12:05 FiO2 30 12/10/23 03:59 Intake & Output 12/09/23 12/10/23 12/10/23 18:59 06:59 18:59 Intake Total 142.833 38.583 315.25 Output Total 500 Balance 142.833 -461.417 315.25 Weight 136.1 kg Intake: Intake, IV Titration 833 38.583 25.25 Amount Diltiazem 125 mg In 38.583 25.25 Sodium Chloride 0.9% 100 ml @ 10 MG/HR 10 mls/hr IV .[id number] [facility] Rx#: [id number] Oral 120 290 Output: Urine 500 Other: Voiding Method Toilet Toilet Toilet Urinal Urinal Urinal # Voids 1 - Labs CBC & Chem 7: 12/09/23 08:33 12/10/23 07:47 Labs: Abnormal Lab Results - Last 24 Hours (Table) 12/10/23 12/10/23 Range/Units 07:47 07:47 PT 16.9 H (10.0-12.5) sec INR 1.7 H (<1.2) Sodium 136 L (137-145) mmol/L Chloride 91 L (98-107) mmol/L Carbon Dioxide 41 H* (22-30) mmol/L BUN 31 H (9-20) mg/dL Glucose 134 H (74-99) mg/dL Magnesium 1.3 L (1.6-2.3) mg/dL
--- NOTE | 2023-12-10 12:28 | FL ---
EXAMINATION TYPE: FL sniff test without CXR DATE OF EXAM: 12/10/2023 Comparison: CT 12/07/2023 Clinical History: 68-year-old male new atrial fibrillation and CHF following neck surgery. Shortness of breath. Left hemidiaphragm elevation Total fluoroscopy time: 43 seconds. Total images: 13. Total dose: 316.6 mGycm2. Technique: Real-time fluoroscopy during normal breathing, deep inspiration expiration, and sniffing m aneuver. Findings: There is slight asymmetric elevation of the left hemidiaphragm. During all 3 breathing techniques, there is sluggish movement of the left hemidiaphragm and overall d ecreased excursion but no mariluz paradoxical movement seen. Impression: Some weakening/partial paresis versus eventration left hemidiaphragm. No paradoxical movement to malia criselda mariluz hemidiaphragmatic paralysis on the left. [facility], , 12/10/2023 12:25 PM
--- NOTE | 2023-12-10 13:34 | P.PN ---
Subjective Progress Note Date: 12/10/23 Principal diagnosis: Congestive heart failure. This is a pleasant 68-year-old male patient with a known history of hypertension, hyperlipidemia, morbid obesity, obstructive sleep apnea with home APAP, gastroesophageal reflux disease, atrial fibrillation anticoagulated with warfarin, lifelong non-smoker. He was recently here earlier this month for an elective anterior C3-C7 cervical discectomy and fusion. That was performed on 11/28/2023. He had developed atrial fibrillation with a rapid ventricular response and was followed on the selective care unit. He had then developed hypercapnic respiratory failure requiring BiPAP support. He was discharged to home with oxygen on 12/01/2023. He came back to the emergency room this morning with complaints of increasing shortness of breath, generalized weakness and significant dyspnea on exertion. Chest x-ray reveals mild to moderate cardiomegaly. Mild interstitial pulmonary vascular congestion and elevated left hemidiaphragm. CT angiogram ruled out pulmonary embolism. There is mild atelectasis in the left lung base. EKG reveals atrial fibrillation with a rapid ventricular response. White count 9.3. Hemoglobin 14.7. Platelets 261. INR 4.9. D-dimer 1.24. Sodium 141. Potassium 3.9. Bicarb 38. BUN 17. Cr eatinine 0.71. Glucose 125. Troponin negative x 1. proBNP 986. Viral screen negative. He is seen today in consultation in the emergency department. He is currently sitting up on the stretcher. Awake and alert in no acute distress. He does have dyspnea with conversation, dyspnea with minimal exertion. Remains in atrial fibrillation with a varying ventricular response. He is maintaining good O2 saturation in the upper 90s on 4 L/min per nasal cannula. He is afebrile. Hemodynamically stable. He has been initiated on Lasix 40 mg IV every 8 hours. The patient is seen today December 08, 2023 in follow-up on the regular medical floor. He is currently sitting up at the bedside. Awake and alert in no acute distress. Maintaining O2 saturations in the 90s on 4 L/min per nasal cannula. He remains in atrial fibrillation with a controlled ventricular response. White count 10.8. Hemoglobin 14.2. Platelets 281. INR 4.1. Sodium 142. Potassium 4.2. Bicarb 35. BUN 14. Creatinine 0.8. Glucose 128. He remains on IV diuretics. Warfarin to be adjusted by pharmacy. Patient was seen today on 12/09/2023, patient is about the same today, he is now on Cardizem drip for atrial fibrillation with RVR. Rate seems to be adequately controlled this morning, nonetheless the patient is complaining of weakness, shortness of breath, fatigue, sniff test has not been performed, I am interested to know whether the patient has a left hemidiaphragm paralysis in addition to his other issues. His left hemidiaphragm seems to be fairly elevated compared to previous x-rays prior to his cervical spine surgery. In the meantime the patient is receiving diuretics, he is on 40 mg of Lasix twice daily and he is now on Cardizem at 2.5 mg/h. Cardioversion is being considered by cardiology ABG today showed a pO2 of 79 pCO2 of 78 pH of 7.41, this implies that the patient has chronic hypercapnia with adequate metabolic compensation and obviously his baseline pCO2 is in the 70s, and obviously the patient has chronic hypercapnic respiratory failure, he is also known to have history of obstructive sleep apnea, not compliant with his CPAP mostly because of his weakness in his arms and he cannot use it Progress note dated December 10, 2023. 68-year-old male seen today in room 373. He is currently on 2 L of oxygen. He is not receiving any IV fluids. The patient was admitted with a diagnosis of congestive heart failure. He does have the BiPAP device in his room with settings of 12/6, 30%. He did not use the BiPAP, for the too much time, last night, because he prefers his home CPAP device. Apparently somebody is bringing that into the hospital. Current labs include a PT of 16.9 and an INR 1.7. Sodium 136, potassium 3.7, chloride 91, CO2 41, BUN 31, and creatinine 1.02. Magnesium was 1.3. Yesterday's blood gases on 36% show pO2 of 79, pCO2 of 78, but a normal pH. Objective - Vital Signs Vital signs: Vital Signs Temp 98.4 F 12/10/23 12:05 Pulse 63 12/10/23 12:05 Resp 24 12/10/23 12:05 BP 115/75 12/10/23 12:05 Pulse Ox 95 12/10/23 12:05 FiO2 30 12/10/23 03:59 Intake & Output 12/09/23 12/10/23 12/10/23 18:59 06:59 18:59 Intake Total 142.833 38.583 315.25 Output Total 500 Balance 142.833 -461.417 315.25 Weight 136.1 kg Intake: Intake, IV Titration 22.833 38.583 25.25 Amount Diltiazem 125 mg In 22.833 38.583 25.25 Sodium Chloride 0.9% 100 ml @ 10 MG/HR 10 mls/hr IV .[id number] [facility] Rx#: [id number] Oral 120 290 Output: Urine 500 Other: Voiding Method Toilet Toilet Toilet Urinal Urinal Urinal # Voids 1 - Exam No acute distress, oriented 3. Currently he is on 2 L. HEENT examination is grossly unremarkable. Mucous membranes are moist. No oral lesions. Neck supple. Full range of motion. No adenopathy thyromegaly or neck vein distention. Cardiovascular examination reveals an irregular rhythm and rate. S1-S2 normal. No S3 or S4. No discernible murmur noted. Lungs reveal bibasilar crackles. No wheezes or rhonchi. Breath sounds equal. Abdomen soft bowel sounds are heard. No masses or tenderness. Extremities are intact. No cyanosis or clubbing. 1+ edema. Skin is without rash or lesion. Neurologic examination is brief but nonfocal. - Labs CBC & Chem 7: 12/09/23 08:33 12/10/23 07:47 Labs: Abnormal Lab Results - Last 24 Hours (Table) 12/10/23 12/10/23 Range/Units 07:47 07:47 PT 16.9 H (10.0-12.5) sec INR 1.7 H (<1.2) Sodium 136 L (137-145) mmol/L Chloride 91 L (98-107) mmol/L Carbon Dioxide 41 H* (22-30) mmol/L BUN 31 H (9-20) mg/dL Glucose 134 H (74-99) mg/dL Magnesium 1.3 L (1.6-2.3) mg/dL Assessment and Plan Assessment: Acute on chronic hypoxemic and hypercapnic respiratory failure, secondary to acute exacerbation of diastolic CHF, atrial fibrillation/RVR, and possible left diaphragm paralysis. History of obstructive sleep apnea syndrome, maintained on home CPAP. Recent admissions for an elective anterior cervical discectomy and fusion, C3- C7, November 27, 2023. Atrial fibrillation. Hypercapnic respiratory failure. Morbid obesity. Obstructive sleep apnea syndrome. Lifelong non-smoker. Hypertension. Hyperlipidemia. Gastroesophageal reflux disease. History of anxiety. Plan: Plan dated December 10, 2023. The patient is seen today in room 373. The patient continues on diuretics, and BiPAP intermittently, although he does not care for the our BiPAP device. He did state that somebody was going to bring his home CPAP device in. The patient is currently awaiting a sniff test to evaluate the left diaphragm paralysis. Will continue with supportive care. Labs, x-rays, medications are reviewed. The patient's overall prognosis remains guarded. The sniff test reveals slight asymmetric elevation of the left diaphragm, with possible partial paresis versus eventration. No paradoxical movement noted. Dictation was produced using [employer] dictation software. Please excuse any grammatical, word or spelling errors. Time with Patient: Less than 30
[2023-12-10] MEDS: MAGNESIUM SULFATE-D5W PMX 1 GM in DEXTROSE/WATER 1 100ML.BAG IVPB SCH (14:58)
[2023-12-10] MEDS: WARFARIN 5 MG TAB PO ONE (17:29)
[2023-12-10] MEDS: FUROSEMIDE 10 MG/ML 4 ML VIAL IV SCH (21:19)
--- NOTE | 2023-12-11 03:38 | P.PN ---
Subjective Progress Note Date: 12/10/23 68-year-old male history of hypertension, hyperlipidemia, morbid obesity, obstructive sleep apnea with home APAP, gastroesophageal reflux disease, atrial fibrillation anticoagulated with warfarinpresenting to the emergency department with concerns for difficulty breathing. Patient has postop cervical surgery 1 week ago. Patient states he has no problems with his neck. Patient states there is no discomfort or difficulty breathing through his neck. Patient feels he has difficulty breathing in his lungs. Patient does have some increased swelling of his legs and arms. No chest pain. Dyspnea does worsen with exertion. No fever, cough, or upper respiratory symptoms. Chest x-ray reveals mild to moderate cardiomegaly. Mild interstitial pulmonary vascular congestion and elevated left hemidiaphragm. CT angiogram ruled out pulmonary embolism. There is mild atelectasis in the left lung base. EKG reveals atrial fibrillation with a rapid ventricular response. White count 9.3. Hemoglobin 14.7. Platelets 261. INR 4.9. D-dimer 1.24. Sodium 141. Potassium 3.9. Bicarb 38. BUN 17. Creatinine 0.71. Glucose 125. Troponin negative x 1. proBNP 986. Viral screen negative. He is seen today in consultation in the emergency department. He is currently sitting up on the stretcher. Awake and alert in no acute distress. He does have dyspnea with conversation, dyspnea with minimal exertion. Remains in atrial fibrillation with a varying ventricular response. He is maintaining good O2 saturation in the upper 90s on 4 L/min per nasal cannula. He has been initiated on Lasix 40 mg IV every 8 hours. 12/09/2023 -- patient is seen and evaluated in room at bedside; has been transferred to selective care unit for atrial fibrillation with RVR, currently on Cardizem drip for atrial fibrillation with RVR. Rate seems to be adequately controlled this morning -- Continues to complain of shortness of breath. Patient has been evaluated by pulmonary and his left hemidiaphragm seems to be fairly elevated compared to previous x-rays prior to his cervical spine surgery; sniff test is ordered and pending. - patient is receiving diuretics, he is on 40 mg of Lasix twice daily and he is now on Cardizem at 2.5 mg/h. - Cardioversion is being considered by cardiology - ABG today showed a pO2 of 79 pCO2 of 78 pH of 7.41, patient has chronic hypercapnia with adequate metabolic compensation and obviously his baseline pCO2 is in the 70s, patient has known to have history of obstructive sleep apnea, not compliant with his CPAP mostly because of his weakness in his arms and he cannot use it 12/10/2023 Patient is seen and evaluated in follow-up today with cardiology, pulmonary, orthopedics following. Patient is maintained on IV Lasix as patient continues to have significant volume overload. Patient is maintained on oxygen which he chronically wears although reports to using a CPAP and family has brought it in. Resume CPAP with respiratory assistance. Encouraged the patient to elevate lower extremities while at rest and also may use Lawrence wrap to the left arm as patient has significant swelling. Recommend propping up on pillows while in bed. Monitor fluid intake. Review of systems: Constitutional: No reports of fatigue, fever, or chills Cardiovascular: No reports of chest pain or palpitations Respiratory: reports of continued shortness of breath GI: No reports of nausea, vomiting, or diarrhea : No reports of dysuria or retention Neurovascular: reports of generalized weakness and difficulty ambulating All medications have been reviewed Physical exam: Gen: This is a 68-year-old male who is awake, alert and oriented x 3, well- developed, elderly appearing, obese HEENT: Head is atraumatic, normocephalic. Pupils equal, round. Sclerae is anicteric. NECK: Supple. No JVD. No lymphadenopathy. No thyromegaly. LUNGS: Breath sounds diminished bilaterally with a few scattered rhonchi and some crackles noted at the bases. No intercostal retractions. HEART: S1, S2 are muffled ABDOMEN: Soft. Obese bowel sounds are present. No masses. No tenderness. EXTREMITIES: Significant lower extremity edema noted bilaterally 1-2+ pitting. No calf tenderness. Left upper extremity 2+ pitting noted NEUROLOGICAL: Patient is awake, alert and oriented x3. Cranial nerves 2 through 12 are grossly intact. Diffusely weak Assessment: 1. Acute on chronic hypoxic respiratory failure secondary to an acute exacerbation of diastolic congestive heart failure, atrial fibrillation with rapid ventricular response, elevated left hemidiaphragm 2. Atrial fibrillation, anticoagulated with warfarin, supra therapeutic with an INR of 4.9 3. Hypercapnic respiratory failure/obstructive sleep apnea secondary to morbid obesity; maintained on CPAP, family brought CPAP in and will transition to this as patient does not care for BiPAP here 4. Hypertension 5. Hyperlipidemia 6. Gastroesophageal reflux disease 7. History of anxiety 8. Obesity with a BMI 38.5 9. Recent C3-C7 ACDF in the beginning of this month November 2023 DVT prophylaxis; SCDs/Coumadin Full code Plan: Patient being followed by cardiology along with pulmonary and is being transition to IV Lasix per cardiology with adjustments to medications. Patient continues to be significantly overloaded and noted in the lower extremities as well as left upper extremity. Encouraged the patient to elevate lower extremities and use Lawrence wraps or compression stockings from the toes up to the knees as well as on the left upper extremity Pulmonary following continued on treatments and was using BiPAP although family brought CPAP in and will transition to this. Continue supplemental oxygen and wean FiO2 as tolerated Orthopedics has evaluated the patient as patient is a recent discectomy earlier this month. No plans for surgical intervention continuing current regimen PT/OT therapy evaluation as patient may need rehab on discharge. Will discuss with case management regarding discharge planning Follow-up on repeat labs and continue to monitor INR levels closely. The impression and plan of care has been dictated by Tamie Babin, Nurse Practitioner as directed. Dr. Raiza MD I have performed a history and examination and MDM of this patient, discussed the same with the dictator, and agree with the dictator's assessment and plan as written ,documented as a scribe. Based on total visit time, I have performed more than 50% of the visit. Objective - Vital Signs Vital signs: Vital Signs Temp 98.4 F 12/10/23 12:05 Pulse 63 12/10/23 12:05 Resp 24 12/10/23 12:05 BP 115/75 12/10/23 12:05 Pulse Ox 95 12/10/23 12:05 FiO2 30 12/10/23 03:59 Intake & Output 12/09/23 12/10/23 12/10/23 18:59 06:59 18:59 Intake Total 142.833 38.583 315.25 Output Total 500 Balance 142.833 -461.417 315.25 Weight 136.1 kg Intake: Intake, IV Titration .833 38.583 25.25 Amount Diltiazem 125 mg In 38.583 25.25 Sodium Chloride 0.9% 100 ml @ 10 MG/HR 10 mls/hr IV .[id number] [facility] Rx#: [id number] Oral 120 290 Output: Urine 500 Other: Voiding Method Toilet Toilet Toilet Urinal Urinal Urinal # Voids 1 - Labs CBC & Chem 7: 12/09/23 08:33 12/10/23 07:47 Labs: Abnormal Lab Results - Last 24 Hours (Table) 12/10/23 12/10/23 Range/Units 07:47 07:47 PT 16.9 H (10.0-12.5) sec INR 1.7 H (<1.2) Sodium 136 L (137-145) mmol/L Chloride 91 L (98-107) mmol/L Carbon Dioxide 41 H* (22-30) mmol/L BUN 31 H (9-20) mg/dL Glucose 134 H (74-99) mg/dL Magnesium 1.3 L (1.6-2.3) mg/dL
[2023-12-11] MEDS: FUROSEMIDE 10 MG/ML 4 ML VIAL IV SCH (06:12)
[2023-12-11 07:13] LABS: INR 1.5 (<1.2); Prothrombin Time 15.6 sec (10.0-12.5)
--- NOTE | 2023-12-11 07:34 | P.PN ---
Subjective Progress Note Date: 12/11/23 Principal diagnosis: Recent cervical surgery, bilateral upper extremity weakness Patient seen and examined this morning. Patient is resting in bed. He does have his home Cpap on. He continues to deny pain to the cervical spine. Continue to encourage patient to perform range of motion exercises of his upper extremities. Patient would benefit from a stress ball to increase strength and mobility of his hands. Surgical incision to the anterior cervical spine is well-approxim ated with glue intact. Incision is dry at this time, no active drainage noted. Continue to keep incision clean and dry change, dressing as needed. No acute concerns at this time from an orthopedic standpoint. Pateint is cleared from an Orthopedic standpoint for discharge when medically stable. Objective - Vital Signs Vital signs: Vital Signs Temp 98.4 F 12/10/23 20:00 Pulse 88 12/10/23 20:00 Resp 18 12/11/23 07:05 BP 118/78 12/11/23 07:05 Pulse Ox 88 L 12/11/23 07:05 FiO2 30 12/10/23 03:59 Intake & Output 12/10/23 12/11/23 12/11/23 18:59 06:59 18:59 Intake Total 335.25 Output Total 250 Balance 335.25 -250 Weight 135.7 kg Intake: Intake, IV Titration 25.25 Amount Diltiazem 125 mg In 25.25 Sodium Chloride 0.9% 100 ml @ 10 MG/HR 10 mls/hr IV .[id number] [facility] Rx#: [id number] Oral 310 Output: Urine 250 Other: Voiding Method Toilet Urinal Urinal Incontinent - Exam Inspection: Surgical incision to the anterior cervical spine, edges are well- approximated with glue intact. No active drainage. Sensation: Sensation is equal, symmetric, bilaterally intact throughout the upper and lower extremities Palpation: Nontender to palpation throughout bilateral upper and lower extremities and throughout spine exam Range of motion: Patient does have limited range of motion of the left upper extremity due to weakness. Musculoskeletal: Right: Shoulder abduction 4/5, elbow flexors 4/5, wrist dorsiflexors 4/5. finger abductor 4/5, pharmacy sales representative 4/5, hip flexor 5/5, knee flexor 5/5, ankle dorsiflexor 5/5, ankle plantarflexion 5/5 and extensor hallucis 5/5. Left: Shoulder abduction 3/5, elbow flexors 3/5, wrist dorsiflexors 3/5. finger abductor 3-/5, pharmacy sales representative 3-/5, hip flexor 5/5, knee flexor 5/5, ankle dorsiflexor 5/5, ankle plantarflexion 5/5 and extensor hallucis 5/5. Special tests: Negative Homans bilaterally. Negative Luly bilaterally. Negative clonus bilaterally. Neurovascular: Radial pulse intact, 2+ bilaterally. Cap refill under 3 seconds in digits upper extremities. - Labs CBC & Chem 7: 12/09/23 08:33 12/10/23 07:47 Labs: Abnormal Lab Results - Last 24 Hours (Table) 12/10/23 12/10/23 12/11/23 Range/Units 07:47 07:47 06:57 PT 16.9 H 15.6 H (10.0-12.5) sec INR 1.7 H 1.5 H (<1.2) Sodium 136 L (137-145) mmol/L Chloride 91 L (98-107) mmol/L Carbon Dioxide 41 H* (22-30) mmol/L BUN 31 H (9-20) mg/dL Glucose 134 H (74-99) mg/dL Magnesium 1.3 L (1.6-2.3) mg/dL Assessment and Plan Assessment: - 2-week postop C3-C7 ACDF - Bilateral upper extremity weakness, baseline compared with previous surgical intervention - Multiple complex medical comorbidities Plan: At this time we do not recommend any emergent/urgent orthopedic surgical intervention. Continue with post operative care as directed. No further neda mmendations from an Orthopedic standpoint. Patient is cleared from a orthopedic standpoint for discharge when medically stable. 2. Appreciate medical management 3. Pain management - continue with current regimen 4. Hygiene - Continue to keep incision clean and dry. Change dressing as needed. 4. GI prophylaxis - senna 5. DVT prophylaxis - Coumadin 6. PT/OT - weightbearing as tolerated with a walker as needed. 7. Appreciate consult I reviewed and discussed this case with my attending Dr. Manuel, whom has reviewed this chart and films and is in agreement with assessment and plan of care as outlined above. I have personally seen and examined the patient, performed the documentation and the assessment and plan as written. Number of minutes spent on the visit: 30m.
[2023-12-11 07:37] LABS: African American GFR (CKD) >90 (>60 ml/min/1.73 sqM); Blood Urea Nitrogen 22 mg/dL (9-20); Calcium 8.5 mg/dL (8.4-10.2); Chloride 92 mmol/L (98-107); Glucose 106 mg/dL (74-99); Magnesium 1.7 mg/dL (1.6-2.3); Non-African American GFR(CKD) 90 (>60 ml/min/1.73 sqM); Potassium 3.6 mmol/L (3.5-5.1); Sodium 139 mmol/L (137-145)
[2023-12-11 07:43] LABS: Anion Gap 5 mmol/L
[2023-12-11 07:46] LABS: Carbon Dioxide 42 mmol/L (22-30)
[2023-12-11] MEDS ORDERED: Phosphorus Replacement Protoco 1 EACH MISC MISCELLANE PRN (09:29)
[2023-12-11] MEDS ORDERED: Magnesium Replacement Protocol 1 EACH MISC MISCELLANE PRN (09:29)
[2023-12-11] MEDS ORDERED: Potassium Replacement Protocol 1 EACH MISC MISCELLANE PRN (09:30)
[2023-12-11] MEDS: MAGNESIUM SULFATE-D5W PMX 1 GM in DEXTROSE/WATER 1 100ML.BAG IVPB ONE (10:19)
[2023-12-11] MEDS: POTASSIUM CHLORIDE ER 20 MEQ TAB.ER PO SCH (10:26)
[2023-12-11] MEDS: FUROSEMIDE 10 MG/ML 10 ML VIAL IV SCH ×2 (10:27→17:45)
[2023-12-11] MEDS: FUROSEMIDE 10 MG/ML 2 ML VIAL IV ONE (10:42)
--- NOTE | 2023-12-11 12:11 | P.PN ---
Subjective Progress Note Date: 12/11/23 Principal diagnosis: Congestive heart failure. This is a pleasant 68-year-old male patient with a known history of hypertension, hyperlipidemia, morbid obesity, obstructive sleep apnea with home APAP, gastroesophageal reflux disease, atrial fibrillation anticoagulated with warfarin, lifelong non-smoker. He was recently here earlier this month for an elective anterior C3-C7 cervical discectomy and fusion. That was performed on 11/28/2023. He had developed atrial fibrillation with a rapid ventricular response and was followed on the selective care unit. He had then developed hypercapnic respiratory failure requiring BiPAP support. He was discharged to home with oxygen on 12/01/2023. He came back to the emergency room this morning with complaints of increasing shortness of breath, generalized weakness and significant dyspnea on exertion. Chest x-ray reveals mild to moderate cardiomegaly. Mild interstitial pulmonary vascular congestion and elevated left hemidiaphragm. CT angiogram ruled out pulmonary embolism. There is mild atelectasis in the left lung base. EKG reveals atrial fibrillation with a rapid ventricular response. White count 9.3. Hemoglobin 14.7. Platelets 261. INR 4.9. D-dimer 1.24. Sodium 141. Potassium 3.9. Bicarb 38. BUN 17. Cr eatinine 0.71. Glucose 125. Troponin negative x 1. proBNP 986. Viral screen negative. He is seen today in consultation in the emergency department. He is currently sitting up on the stretcher. Awake and alert in no acute distress. He does have dyspnea with conversation, dyspnea with minimal exertion. Remains in atrial fibrillation with a varying ventricular response. He is maintaining good O2 saturation in the upper 90s on 4 L/min per nasal cannula. He is afebrile. Hemodynamically stable. He has been initiated on Lasix 40 mg IV every 8 hours. The patient is seen today December 08, 2023 in follow-up on the regular medical floor. He is currently sitting up at the bedside. Awake and alert in no acute distress. Maintaining O2 saturations in the 90s on 4 L/min per nasal cannula. He remains in atrial fibrillation with a controlled ventricular response. White count 10.8. Hemoglobin 14.2. Platelets 281. INR 4.1. Sodium 142. Potassium 4.2. Bicarb 35. BUN 14. Creatinine 0.8. Glucose 128. He remains on IV diuretics. Warfarin to be adjusted by pharmacy. Patient was seen today on 12/09/2023, patient is about the same today, he is now on Cardizem drip for atrial fibrillation with RVR. Rate seems to be adequately controlled this morning, nonetheless the patient is complaining of weakness, shortness of breath, fatigue, sniff test has not been performed, I am interested to know whether the patient has a left hemidiaphragm paralysis in addition to his other issues. His left hemidiaphragm seems to be fairly elevated compared to previous x-rays prior to his cervical spine surgery. In the meantime the patient is receiving diuretics, he is on 40 mg of Lasix twice daily and he is now on Cardizem at 2.5 mg/h. Cardioversion is being considered by cardiology ABG today showed a pO2 of 79 pCO2 of 78 pH of 7.41, this implies that the patient has chronic hypercapnia with adequate metabolic compensation and obviously his baseline pCO2 is in the 70s, and obviously the patient has chronic hypercapnic respiratory failure, he is also known to have history of obstructive sleep apnea, not compliant with his CPAP mostly because of his weakness in his arms and he cannot use it Progress note dated December 10, 2023. 68-year-old male seen today in room 373. He is currently on 2 L of oxygen. He is not receiving any IV fluids. The patient was admitted with a diagnosis of congestive heart failure. He does have the BiPAP device in his room with settings of 12/6, 30%. He did not use the BiPAP, for the too much time, last night, because he prefers his home CPAP device. Apparently somebody is bringing that into the hospital. Current labs include a PT of 16.9 and an INR 1.7. Sodium 136, potassium 3.7, chloride 91, CO2 41, BUN 31, and creatinine 1.02. Magnesium was 1.3. Yesterday's blood gases on 36% show pO2 of 79, pCO2 of 78, but a normal pH. Progress note dated December 11, 2023. 68-year-old male seen today in room 373. The patient continues on nasal O2 at 4 L. The patient is using his home CPAP device. He is not receiving any IV fluids. He has no specific complaints today. He is laying nearly flat in bed. No new labs today, other than a PT of 15.6, INR 1.5, sodium 139, potassium 3.6, chlorides 92, CO2 42, BUN 22, creatinine 0.88. Anion gap is 5. Glucose is 106. Magnesium is 1.7. Calcium is 8.5. Objective - Vital Signs Vital signs: Vital Signs Temp 97.9 F 12/11/23 10:45 Pulse 95 12/11/23 12:07 Resp 16 12/11/23 12:07 BP 113/66 12/11/23 12:07 Pulse Ox 90 L 12/11/23 12:07 FiO2 30 12/10/23 03:59 Intake & Output 12/10/23 12/11/23 12/11/23 18:59 06:59 18:59 Intake Total 335.25 Output Total 250 Balance 335.25 -250 Weight 135.7 kg Intake: Intake, IV Titration 25.25 Amount Diltiazem 125 mg In 25.25 Sodium Chloride 0.9% 100 ml @ 10 MG/HR 10 mls/hr IV .[id number] [facility] Rx#: [id number] Oral 310 Output: Urine 250 Other: Voiding Method Toilet Urinal Urinal Urinal Incontinent Incontinent - Exam No acute distress, oriented 3. Currently he is on 4 L. HEENT examination is grossly unremarkable. Mucous membranes are moist. No oral lesions. Neck supple. Full range of motion. No adenopathy thyromegaly or neck vein distention. Cardiovascular examination reveals an irregular rhythm and rate. S1-S2 normal. No S3 or S4. No discernible murmur noted. Lungs reveal bibasilar crackles. No wheezes or rhonchi. Breath sounds equal. Abdomen soft bowel sounds are heard. No masses or tenderness. Extremities are intact. No cyanosis or clubbing. 1+ edema. Skin is without rash or lesion. Neurologic examination is brief but nonfocal. - Labs CBC & Chem 7: 12/09/23 08:33 12/11/23 06:57 Labs: Abnormal Lab Results - Last 24 Hours (Table) 12/11/23 12/11/23 Range/Units 06:57 06:57 PT 15.6 H (10.0-12.5) sec INR 1.5 H (<1.2) Chloride 92 L (98-107) mmol/L Carbon Dioxide 42 H* (22-30) mmol/L BUN 22 H (9-20) mg/dL Glucose 106 H (74-99) mg/dL Assessment and Plan Assessment: Acute on chronic hypoxemic and hypercapnic respiratory failure, secondary to acute exacerbation of diastolic CHF, atrial fibrillation/RVR, and possible left diaphragm paralysis. History of obstructive sleep apnea syndrome, maintained on home CPAP. Recent admissions for an elective anterior cervical discectomy and fusion, C3- C7, November 27, 2023. Atrial fibrillation. Hypercapnic respiratory failure. Morbid obesity. Obstructive sleep apnea syndrome. Lifelong non-smoker. Hypertension. Hyperlipidemia. Gastroesophageal reflux disease. History of anxiety. Plan: Plan dated December 10, 2023. The patient is seen today in room 373. The patient continues on diuretics, and BiPAP intermittently, although he does not care for the our BiPAP device. He did state that somebody was going to bring his home CPAP device in. The patient is currently awaiting a sniff test to evaluate the left diaphragm paralysis. Will continue with supportive care. Labs, x-rays, medications are reviewed. The patient's overall prognosis remains guarded. The sniff test reveals slight asymmetric elevation of the left diaphragm, with possible partial paresis versus eventration. No paradoxical movement noted. Dictation was produced using [employer] dictation software. Please excuse any grammatical, word or spelling errors. Plan dated December 11, 2023. The patient is seen today in room 373. The patient continues to do about the same. He is using his home CPAP device. He is currently on 4 L. Labs, x-rays, and medications are reviewed. We will continue to follow the patient, make re commendations along the way. The results of the sniff test, were reviewed. Prognosis is guarded. No additional recommendations at this time. Time with Patient: Less than 30
--- NOTE | 2023-12-11 12:18 | P.PN ---
Subjective HISTORY OF PRESENT ILLNESS: This is a 68-year-old male who follows with a roll form operator out of town. Patient presented to the hospital with a chief complaint of shortness of breath. Was initially placed on IV diuretics and then transition to oral diuretics. Patient examined this morning at the bedside. Patient continues to report shortness of breath. He also continues to report edema of his left hand and bilateral lower extremities. He denies any chest pain or pressure. He remains in atrial fibrillation with controlled ventricular rate. Echocardiogram completed on 11/30/2023 revealed ejection fraction 50 to 55% with no significant valvular abnormalities noted. 12/11/2023 Patient examined this morning the bedside. Patient currently denies chest pain or pressure. He continues to report shortness of breath this morning. He con tinues to have lower extremity edema. He remains on IV Lasix. Creatinine today 0.88. BUN 22. Patient remains in atrial fibrillation with controlled ventricular rate. PHYSICAL EXAM: VITAL SIGNS: Reviewed. GENERAL: Well-developed in no acute distress. NECK: Supple. No JVD or thyromegaly LUNGS: Respirations even and unlabored. Lungs essentially clear to auscultation bilaterally. HEART: Irregular rate and rhythm. S1 and S2 heard. EXTREMITIES: Normal range of motion. No clubbing or cyanosis. Peripheral pulses intact. Left upper extremity edema noted. Bilateral lower extremity edema noted. ASSESSMENT: Shortness of breath Acute on chronic congestive heart failure with preserved EF, 50 to 55% Acute hypoxic respiratory failure requiring supplemental oxygen Paroxysmal atrial fibrillation with controlled ventricular rate Status post cervical discectomy and fusion Hypertension Hyperlipidemia Obstructive sleep apnea with home CPAP PLAN: Continue IV Lasix. Increase dosage to 60 mg every 12 hours Daily weights, accurate intake and output, and monitoring of kidney function Continue anticoagulation with warfarin. Monitor INR. Patient was recently hospitalized and co-pay for Eliquis was checked which was too expensive for patient. Continue telemetry monitoring Further recommendations pending patient course Nurse practitioner note has been reviewed by physician. Signing provider agrees with the documented findings, assessment, and plan of care documented by QUAL[employer] ASSURANCE MANAGER as a scribe. Objective - Vital Signs Vital signs: Vital Signs Temp 97.9 F 12/11/23 10:45 Pulse 95 12/11/23 12:07 Resp 16 12/11/23 12:07 BP 113/66 12/11/23 12:07 Pulse Ox 90 L 10/29/24 12:07 FiO2 30 12/10/23 03:59 Intake & Output 12/10/23 12/11/23 12/11/23 18:59 06:59 18:59 Intake Total 335.25 Output Total 250 Balance 335.25 -250 Weight 135.7 kg Intake: Intake, IV Titration 25.25 Amount Diltiazem 125 mg In 25.25 Sodium Chloride 0.9% 100 ml @ 10 MG/HR 10 mls/hr IV .[id number] [facility] Rx#: [id number] Oral 310 Output: Urine 250 Other: Voiding Method Toilet Urinal Urinal Urinal Incontinent Incontinent - Labs CBC & Chem 7: 12/09/23 08:33 12/11/23 06:57 Labs: Abnormal Lab Results - Last 24 Hours (Table) 12/11/23 12/11/23 Range/Units 06:57 06:57 PT 15.6 H (10.0-12.5) sec INR 1.5 H (<1.2) Chloride 92 L (98-107) mmol/L Carbon Dioxide 42 H* (22-30) mmol/L BUN 22 H (9-20) mg/dL Glucose 106 H (74-99) mg/dL
[2023-12-11] MEDS: WARFARIN 2 MG TAB PO ONE (17:45)
--- NOTE | 2023-12-12 06:23 | P.PN ---
Subjective Progress Note Date: 12/11/23 68-year-old male history of hypertension, hyperlipidemia, morbid obesity, obstructive sleep apnea with home APAP, gastroesophageal reflux disease, atrial fibrillation anticoagulated with warfarinpresenting to the emergency department with concerns for difficulty breathing. Patient has postop cervical surgery 1 week ago. Patient states he has no problems with his neck. Patient states there is no discomfort or difficulty breathing through his neck. Patient feels he has difficulty breathing in his lungs. Patient does have some increased swelling of his legs and arms. No chest pain. Dyspnea does worsen with exertion. No fever, cough, or upper respiratory symptoms. Chest x-ray reveals mild to moderate cardiomegaly. Mild interstitial pulmonary vascular congestion and elevated left hemidiaphragm. CT angiogram ruled out pulmonary embolism. There is mild atelectasis in the left lung base. EKG reveals atrial fibrillation with a rapid ventricular response. White count 9.3. Hemoglobin 14.7. Platelets 261. INR 4.9. D-dimer 1.24. Sodium 141. Potassium 3.9. Bicarb 38. BUN 17. Creatinine 0.71. Glucose 125. Troponin negative x 1. proBNP 986. Viral screen negative. He is seen today in consultation in the emergency department. He is currently sitting up on the stretcher. Awake and alert in no acute distress. He does have dyspnea with conversation, dyspnea with minimal exertion. Remains in atrial fibrillation with a varying ventricular response. He is maintaining good O2 saturation in the upper 90s on 4 L/min per nasal cannula. He has been initiated on Lasix 40 mg IV every 8 hours. 12/09/2023 -- patient is seen and evaluated in room at bedside; has been transferred to selective care unit for atrial fibrillation with RVR, currently on Cardizem drip for atrial fibrillation with RVR. Rate seems to be adequately controlled this morning -- Continues to complain of shortness of breath. Patient has been evaluated by pulmonary and his left hemidiaphragm seems to be fairly elevated compared to previous x-rays prior to his cervical spine surgery; sniff test is ordered and pending. - patient is receiving diuretics, he is on 40 mg of Lasix twice daily and he is now on Cardizem at 2.5 mg/h. - Cardioversion is being considered by cardiology - ABG today showed a pO2 of 79 pCO2 of 78 pH of 7.41, patient has chronic hypercapnia with adequate metabolic compensation and obviously his baseline pCO2 is in the 70s, patient has known to have history of obstructive sleep apnea, not compliant with his CPAP mostly because of his weakness in his arms and he cannot use it 12/10/2023 Patient is seen and evaluated in follow-up today with cardiology, pulmonary, orthopedics following. Patient is maintained on IV Lasix as patient continues to have significant volume overload. Patient is maintained on oxygen which he chronically wears although reports to using a CPAP and family has brought it in. Resume CPAP with respiratory assistance. Encouraged the patient to elevate lower extremities while at rest and also may use Lawrence wrap to the left arm as patient has significant swelling. Recommend propping up on pillows while in bed. Monitor fluid intake. 12/11/2023 Patient is following up today continues on IV Lasix and will for another 24 hours. Monitor kidney functions closely. Patient is weaning off O2 and does not normally wear it outpatient. Recommend Lawrence wrap from lower extremities bilaterally to aid in swelling. There is some minimal improvement in swelling noted. Patient also encouraged to elevate lower extremities while at rest. Patient is afebrile with no reports of chest pain or shortness of breath. Patient tolerating diet denies any nausea or vomiting. Recommend PT/OT therapy evaluation although patient reports will be going home on discharge. Review of systems: Constitutional: No reports of fatigue, fever, or chills Cardiovascular: No reports of chest pain or palpitations Respiratory: reports of continued shortness of breath GI: No reports of nausea, vomiting, or diarrhea : No reports of dysuria or retention Neurovascular: reports of generalized weakness and difficulty ambulating All medications have been reviewed Physical exam: Gen: This is a 68-year-old male who is awake, alert and oriented x 3, well- developed, elderly appearing, obese HEENT: Head is atraumatic, normocephalic. Pupils equal, round. Sclerae is anicteric. NECK: Supple. No JVD. No lymphadenopathy. No thyromegaly. LUNGS: Breath sounds diminished bilaterally with a few scattered rhonchi and some crackles noted at the bases. No intercostal retractions. HEART: S1, S2 are muffled ABDOMEN: Soft. Obese bowel sounds are present. No masses. No tenderness. EXTREMITIES: Significant lower extremity edema noted bilaterally 1-2+ pitting. No calf tenderness. Left upper extremity 2+ pitting noted NEUROLOGICAL: Patient is awake, alert and oriented x3. Cranial nerves 2 through 12 are grossly intact. Diffusely weak Assessment: 1. Acute on chronic hypoxic respiratory failure secondary to an acute exacerbation of diastolic congestive heart failure, atrial fibrillation with rapid ventricular response, elevated left hemidiaphragm 2. Atrial fibrillation, anticoagulated with warfarin, supra therapeutic with an INR of 4.9 3. Hypercapnic respiratory failure/obstructive sleep apnea secondary to morbid obesity; maintained on CPAP, family brought CPAP in and will transition to this as patient does not care for BiPAP here 4. Hypertension 5. Hyperlipidemia 6. Gastroesophageal reflux disease 7. History of anxiety 8. Obesity with a BMI 38.5 9. Recent C3-C7 ACDF in the beginning of this month November 2023 DVT prophylaxis; SCDs/Coumadin Full code Plan: Patient being followed by cardiology along with pulmonary and is being transition to IV Lasix per cardiology with adjustments to medications. Patient continues to be significantly overloaded and noted in the lower extremities as well as left upper extremity. Minimal improvement noted in the lower extremities. Encouraged the patient to elevate lower extremities and use Lawrence wraps or compression stockings from the toes up to the knees as well as on the left upper extremity Pulmonary following continued on treatments and was using BiPAP although family brought CPAP in and will transition to this. Continue supplemental oxygen and wean FiO2 as tolerated. Patient was room air on exam Orthopedics has evaluated the patient as patient is a recent discectomy earlier this month. No plans for surgical intervention continuing current regimen PT/OT therapy evaluation as patient may need rehab on discharge. Will discuss with case management regarding discharge planning Follow-up on repeat labs and continue to monitor INR levels closely. Continue to dose Coumadin per pharmacy The impression and plan of care has been dictated by Tamie Babin, Nurse Practitioner as directed. Dr. Raiza MD I have performed a history and examination and MDM of this patient, discussed the same with the dictator, and agree with the dictator's assessment and plan as written ,documented as a scribe. Based on total visit time, I have performed more than 50% of the visit. Objective - Vital Signs Vital signs: Vital Signs Temp 98.4 F 12/10/23 20:00 Pulse 88 12/10/23 20:00 Resp 18 12/11/23 07:05 BP 118/78 12/11/23 07:05 Pulse Ox 88 L 12/11/23 07:05 FiO2 30 12/10/23 03:59 Intake & Output 12/10/23 12/11/23 12/11/23 18:59 06:59 18:59 Intake Total 335.25 Output Total 250 Balance 335.25 -250 Weight 135.7 kg Intake: Intake, IV Titration 25.25 Amount Diltiazem 125 mg In 25.25 Sodium Chloride 0.9% 100 ml @ 10 MG/HR 10 mls/hr IV .[id number] [facility] Rx#: [id number] Oral 310 Output: Urine 250 Other: Voiding Method Toilet Urinal Urinal Incontinent - Labs CBC & Chem 7: 12/09/23 08:33 12/11/23 06:57 Labs: Abnormal Lab Results - Last 24 Hours (Table) 12/11/23 12/11/23 Range/Units 06:57 06:57 PT 15.6 H (10.0-12.5) sec INR 1.5 H (<1.2) Chloride 92 L (98-107) mmol/L Carbon Dioxide 42 H* (22-30) mmol/L BUN 22 H (9-20) mg/dL Glucose 106 H (74-99) mg/dL
[2023-12-12 07:22] VITALS: RESP 20
[2023-12-12 07:56] LABS: INR 1.3 (<1.2)
[2023-12-12 07:57] LABS: Prothrombin Time 13.5 sec (10.0-12.5)
[2023-12-12 08:05] LABS: African American GFR (CKD) >90 (>60 ml/min/1.73 sqM); Blood Urea Nitrogen 18 mg/dL (9-20); Calcium 8.9 mg/dL (8.4-10.2); Chloride 90 mmol/L (98-107); Glucose 108 mg/dL (74-99); Magnesium 1.8 mg/dL (1.6-2.3); Non-African American GFR(CKD) 81 (>60 ml/min/1.73 sqM); Potassium 3.9 mmol/L (3.5-5.1); Sodium 140 mmol/L (137-145)
[2023-12-12 08:11] LABS: Anion Gap 6 mmol/L
[2023-12-12 08:17] LABS: Carbon Dioxide 44 mmol/L (22-30)
[2023-12-12 10:29] VITALS: BP 177/89; PULSE 76; TEMP 98.1
--- NOTE | 2023-12-12 11:54 | P.PN ---
Subjective Progress Note Date: 12/12/23 Principal diagnosis: Congestive heart failure. This is a pleasant 68-year-old male patient with a known history of hypertension, hyperlipidemia, morbid obesity, obstructive sleep apnea with home APAP, gastroesophageal reflux disease, atrial fibrillation anticoagulated with warfarin, lifelong non-smoker. He was recently here earlier this month for an elective anterior C3-C7 cervical discectomy and fusion. That was performed on 11/28/2023. He had developed atrial fibrillation with a rapid ventricular response and was followed on the selective care unit. He had then developed hypercapnic respiratory failure requiring BiPAP support. He was discharged to home with oxygen on 12/01/2023. He came back to the emergency room this morning with complaints of increasing shortness of breath, generalized weakness and significant dyspnea on exertion. Chest x-ray reveals mild to moderate cardiomegaly. Mild interstitial pulmonary vascular congestion and elevated left hemidiaphragm. CT angiogram ruled out pulmonary embolism. There is mild atelectasis in the left lung base. EKG reveals atrial fibrillation with a rapid ventricular response. White count 9.3. Hemoglobin 14.7. Platelets 261. INR 4.9. D-dimer 1.24. Sodium 141. Potassium 3.9. Bicarb 38. BUN 17. Cr eatinine 0.71. Glucose 125. Troponin negative x 1. proBNP 986. Viral screen negative. He is seen today in consultation in the emergency department. He is currently sitting up on the stretcher. Awake and alert in no acute distress. He does have dyspnea with conversation, dyspnea with minimal exertion. Remains in atrial fibrillation with a varying ventricular response. He is maintaining good O2 saturation in the upper 90s on 4 L/min per nasal cannula. He is afebrile. Hemodynamically stable. He has been initiated on Lasix 40 mg IV every 8 hours. The patient is seen today December 08, 2023 in follow-up on the regular medical floor. He is currently sitting up at the bedside. Awake and alert in no acute distress. Maintaining O2 saturations in the 90s on 4 L/min per nasal cannula. He remains in atrial fibrillation with a controlled ventricular response. White count 10.8. Hemoglobin 14.2. Platelets 281. INR 4.1. Sodium 142. Potassium 4.2. Bicarb 35. BUN 14. Creatinine 0.8. Glucose 128. He remains on IV diuretics. Warfarin to be adjusted by pharmacy. Patient was seen today on 12/09/2023, patient is about the same today, he is now on Cardizem drip for atrial fibrillation with RVR. Rate seems to be adequately controlled this morning, nonetheless the patient is complaining of weakness, shortness of breath, fatigue, sniff test has not been performed, I am interested to know whether the patient has a left hemidiaphragm paralysis in addition to his other issues. His left hemidiaphragm seems to be fairly elevated compared to previous x-rays prior to his cervical spine surgery. In the meantime the patient is receiving diuretics, he is on 40 mg of Lasix twice daily and he is now on Cardizem at 2.5 mg/h. Cardioversion is being considered by cardiology ABG today showed a pO2 of 79 pCO2 of 78 pH of 7.41, this implies that the patient has chronic hypercapnia with adequate metabolic compensation and obviously his baseline pCO2 is in the 70s, and obviously the patient has chronic hypercapnic respiratory failure, he is also known to have history of obstructive sleep apnea, not compliant with his CPAP mostly because of his weakness in his arms and he cannot use it Progress note dated December 10, 2023. 68-year-old male seen today in room 373. He is currently on 2 L of oxygen. He is not receiving any IV fluids. The patient was admitted with a diagnosis of congestive heart failure. He does have the BiPAP device in his room with settings of 12/6, 30%. He did not use the BiPAP, for the too much time, last night, because he prefers his home CPAP device. Apparently somebody is bringing that into the hospital. Current labs include a PT of 16.9 and an INR 1.7. Sodium 136, potassium 3.7, chloride 91, CO2 41, BUN 31, and creatinine 1.02. Magnesium was 1.3. Yesterday's blood gases on 36% show pO2 of 79, pCO2 of 78, but a normal pH. Progress note dated December 11, 2023. 68-year-old male seen today in room 373. The patient continues on nasal O2 at 4 L. The patient is using his home CPAP device. He is not receiving any IV fluids. He has no specific complaints today. He is laying nearly flat in bed. No new labs today, other than a PT of 15.6, INR 1.5, sodium 139, potassium 3.6, chlorides 92, CO2 42, BUN 22, creatinine 0.88. Anion gap is 5. Glucose is 106. Magnesium is 1.7. Calcium is 8.5. Progress note dated December 12, 2023. 68-year-old male seen today in room 373. The patient continues on oxygen, by nasal cannula at 4 L. The patient has no specific complaints today. He is resting comfortably in bed. The patient did bring in his home CPAP device, which he uses, intermittently, and also at nighttime. Current labs include a PT of 13.5 with an INR of 1.3. Sodium 140, potassium 3.9, chloride 90, CO2 44, BUN 18, creatinine 0.98. Glucose is 108. Magnesium is 1.8. Objective - Vital Signs Vital signs: Vital Signs Temp 98.1 F 12/12/23 10:20 Pulse 76 12/12/23 10:20 Resp 20 12/12/23 10:20 BP 177/89 12/12/23 10:20 Pulse Ox 96 12/12/23 10:20 FiO2 30 12/10/23 03:59 Intake & Output 12/11/23 12/12/23 12/12/23 18:59 06:59 18:59 Intake Total 1738 370 Output Total 2700 500 Balance -962 -500 370 Weight 132.9 kg Intake: IV 10 Invasive Line 2 10 Oral 1738 360 Output: Urine 2700 500 Other: Voiding Method Urinal Urinal Urinal Incontinent - Exam No acute distress, oriented 3. Currently he is on 4 L. HEENT examination is grossly unremarkable. Mucous membranes are moist. No oral lesions. Neck supple. Full range of motion. No adenopathy thyromegaly or neck vein distention. Cardiovascular examination reveals an irregular rhythm and rate. S1-S2 normal. No S3 or S4. No discernible murmur noted. Lungs reveal bibasilar crackles. No wheezes or rhonchi. Breath sounds equal. Abdomen soft bowel sounds are heard. No masses or tenderness. Extremities are intact. No cyanosis or clubbing. 1+ edema. Skin is without rash or lesion. Neurologic examination is brief but nonfocal. - Labs CBC & Chem 7: 12/09/23 08:33 12/12/23 07:04 Labs: Abnormal Lab Results - Last 24 Hours (Table) 12/12/23 12/12/23 Range/Units 07:04 07:04 PT 13.5 H (10.0-12.5) sec INR 1.3 H (<1.2) Chloride 90 L (98-107) mmol/L Carbon Dioxide 44 H* (22-30) mmol/L Glucose 108 H (74-99) mg/dL Assessment and Plan Assessment: Acute on chronic hypoxemic and hypercapnic respiratory failure, secondary to acute exacerbation of diastolic CHF, atrial fibrillation/RVR, and possible left diaphragm paralysis. History of obstructive sleep apnea syndrome, maintained on home CPAP. Recent admissions for an elective anterior cervical discectomy and fusion, C3- C7, November 27, 2023. Atrial fibrillation. Hypercapnic respiratory failure. Morbid obesity. Obstructive sleep apnea syndrome. Lifelong non-smoker. Hypertension. Hyperlipidemia. Gastroesophageal reflux disease. History of anxiety. Plan: Plan dated December 10, 2023. The patient is seen today in room 373. The patient continues on diuretics, and BiPAP intermittently, although he does not care for the our BiPAP device. He did state that somebody was going to bring his home CPAP device in. The patient is currently awaiting a sniff test to evaluate the left diaphragm paralysis. Will continue with supportive care. Labs, x-rays, medications are reviewed. The patient's overall prognosis remains guarded. The sniff test reveals slight asymmetric elevation of the left diaphragm, with possible partial paresis versus eventration. No paradoxical movement noted. Dictation was produced using [employer] dictation software. Please excuse any grammatical, word or spelling errors. Plan dated December 11, 2023. The patient is seen today in room 373. The patient continues to do about the same. He is using his home CPAP device. He is currently on 4 L. Labs, x-rays, and medications are reviewed. We will continue to follow the patient, make recommendations along the way. The results of the sniff test, were reviewed. Prognosis is guarded. No additional recommendations at this time. Plan dated December 12, 2023. The patient is seen today in room 373. The patient appears to be doing relatively well. He continues on nasal O2 at 4 L. But not on nasal O2, he does use his home CPAP device. Labs, x-rays, and all medications are reviewed. Clinically, the patient appears to be relatively stable. We will continue to follow make recommendations along the way. Prognosis is guarded. Discharge planning underway. Time with Patient: Less than 30
--- NOTE | 2023-12-12 12:00 | P.PN ---
Subjective HISTORY OF PRESENT ILLNESS: This is a 68-year-old male who follows with a coiled coil inspector out of town. Patient presented to the hospital with a chief complaint of shortness of breath. Was initially placed on IV diuretics and then transition to oral diuretics. Patient examined this morning at the bedside. Patient continues to report shortness of breath. He also continues to report edema of his left hand and bilateral lower extremities. He denies any chest pain or pressure. He remains in atrial fibrillation with controlled ventricular rate. Echocardiogram completed on 11/30/2023 revealed ejection fraction 50 to 55% with no significant valvular abnormalities noted. 12/11/2023 Patient examined this morning the bedside. Patient currently denies chest pain or pressure. He continues to report shortness of breath this morning. He con tinues to have lower extremity edema. He remains on IV Lasix. Creatinine today 0.88. BUN 22. Patient remains in atrial fibrillation with controlled ventricular rate. 12/12/2023 Patient examined this morning the bedside. Patient currently denies chest pain or pressure. He reports improvement in his shortness of breath. Patient is refusing morning dose of IV Lasix as he states that he had severe leg cramps yesterday. He remains in atrial fibrillation with controlled ventricular rate. INR today 1.3. Pharmacy is managing Coumadin. PHYSICAL EXAM: VITAL SIGNS: Reviewed. GENERAL: Well-developed in no acute distress. NECK: Supple. No JVD or thyromegaly LUNGS: Respirations even and unlabored. Lungs essentially clear to auscultation bilaterally. HEART: Irregular rate and rhythm. S1 and S2 heard. EXTREMITIES: Normal range of motion. No clubbing or cyanosis. Peripheral pulses intact. Left upper extremity edema noted. Bilateral lower extremity edema noted. ASSESSMENT: Shortness of breath Acute on chronic congestive heart failure with preserved EF, 50 to 55% Acute hypoxic respiratory failure requiring supplemental oxygen Paroxysmal atrial fibrillation with controlled ventricular rate Status post cervical discectomy and fusion Hypertension Hyperlipidemia Obstructive sleep apnea with home CPAP PLAN: Patient refusing IV Lasix. Discontinue IV Lasix. Begin oral Lasix 40 mg twice a day Continue additional cardiac medications Continue anticoagulation with warfarin. Monitor INR. Patient was recently hospitalized and co-pay for Eliquis was checked which was too expensive for patient. No further inpatient recommendations from a cardiac standpoint We will sign off. Please reconsult if needed. Nurse practitioner note has been reviewed by physician. Signing provider agrees with the documented findings, assessment, and plan of care documented by FINANCIAL SERVICE REPRESENTATIVE as a scribe. Objective - Vital Signs Vital signs: Vital Signs Temp 98.1 F 12/12/23 10:20 Pulse 76 12/12/23 10:20 Resp 20 12/12/23 10:20 BP 177/89 12/12/23 10:20 Pulse Ox 96 12/12/23 10:20 FiO2 30 12/10/23 03:59 Intake & Output 12/11/23 12/12/23 12/12/23 18:59 06:59 18:59 Intake Total 1738 370 Output Total 2700 500 Balance -962 -500 370 Weight 132.9 kg Intake: IV 10 Invasive Line 2 10 Oral 1738 360 Output: Urine 2700 500 Other: Voiding Method Urinal Urinal Urinal Incontinent - Labs CBC & Chem 7: 12/09/23 08:33 12/12/23 07:04 Labs: Abnormal Lab Results - Last 24 Hours (Table) 12/12/23 12/12/23 Range/Units 07:04 07:04 PT 13.5 H (10.0-12.5) sec INR 1.3 H (<1.2) Chloride 90 L (98-107) mmol/L Carbon Dioxide 44 H* (22-30) mmol/L Glucose 108 H (74-99) mg/dL
[2023-12-12] MEDS ORDERED: FUROSEMIDE 40 MG TAB PO SCH (16:00)
[2023-12-12] MEDS ORDERED: WARFARIN 3 MG TAB PO ONE (18:00)
--- NOTE | 2023-12-15 07:50 | P.DS ---
Providers Date of admission: 12/07/23 14:16 Expected date of discharge: 12/12/23 Attending physician: Seth Allison MD Consults: 12/07/23 13:58 Consult Physician Routine Consulting Provider: Nicolás Petty Consult Reason/Comments: dyspnea Do you want consulting provider notified?: Yes 12/08/23 17:17 Consult Physician Urgent Consulting Provider: Rosendo Manuel Consult Reason/Comments: weakness bilateral arms/swelling post c3-7 fusion Do you want consulting provider notified?: Yes Primary care physician: Vandana [facility] [[email or web address] [facility] Course: Final diagnosis 1. Acute on chronic hypoxic respiratory failure secondary to an acute exacerbation of diastolic congestive heart failure, atrial fibrillation with rapid ventricular response, elevated left hemidiaphragm 2. Atrial fibrillation, anticoagulated with warfarin, supra therapeutic with an INR of 4.9 3. Hypercapnic respiratory failure/obstructive sleep apnea secondary to morbid obesity; maintained on CPAP, family brought CPAP in and will transition to this as patient does not care for BiPAP here 4. Hypertension 5. Hyperlipidemia 6. Gastroesophageal reflux disease 7. History of anxiety 8. Obesity with a BMI 38.5 9. Recent C3-C7 ACDF in the beginning of this month November 2023 DVT prophylaxis; SCDs/Coumadin Full code Discharge disposition Patient is being discharged in a stable condition with guarded prognosis to home. Patient will follow-up with Dr. Evin Alvarez in the outpatient setting upon discharge. Patient is to continue with current medications and outpatient follow-up with orthopedics as scheduled as well as cardiology as scheduled. Total time taken is greater than 35 minutes. Hospital course This is a 68-year-old male who was recently admitted with acute on chronic hypoxic respiratory failure secondary to CHF exacerbation. Patient also with a known history of atrial fibrillation maintained on Coumadin with a supratherapeutic INR, most likely not taking medications as directed. Patient recently underwent C3-C7 ACDF with orthopedics and has a follow-up appointment. Patient maintained on diuretics showing some improvements and will transition to oral diuretics recommend to continue with Lawrence wraps to the lower extremities and elevating while at rest along with fluid restrictions. Patient does use a CPAP at night and case management making arrangements for improvements in oxygenation and also recommend outpatient follow-up with pulmonary in the outpatient setting. Patient is extremely noncompliant to his care and is an extremely high risk for readmissions. currently no reports of chest pain, shortness of breath, or palpitations. Patient is afebrile. No reports of nausea or vomiting and patient is tolerating diet. Patient will be discharged home. Again guarded prognosis and high risk for readmissions given patient's continued noncompliance. Physical exam: Gen: This is a 68-year-old male who is awake, alert and oriented x 3, well- developed, well-nourished, elderly appearing, obese HEENT: Head is atraumatic, normocephalic. Pupils equal, round. Sclerae is anicteric. NECK: Supple. No JVD. No lymphadenopathy. No thyromegaly. LUNGS: Diminished breath sounds bilaterally otherwise clear to auscultation. No wheezes or rhonchi. No intercostal retractions. HEART: S1, S2 are muffled ABDOMEN: Soft. Obese bowel sounds are present. No masses. No tenderness. EXTREMITIES: Bilateral pedal edema 1+ pitting. No calf tenderness. Generalized edema noted of bilateral lower extremities with some improvements NEUROLOGICAL: Patient is awake, alert and oriented x3. Cranial nerves 2 through 12 are grossly intact. Diffusely weak Please refer to medication reconciliation sheet for a list of medications. The impression and plan of care has been dictated by Tamie Babin, Nurse Practitioner as directed. Dr. Raiza MD I have performed a history and examination and MDM of this patient, discussed the same with the dictator, and agree with the dictator's assessment and plan as written ,documented as a scribe. Based on total visit time, I have performed more than 50% of the visit. Patient Condition at Discharge: Fair Plan - Discharge Summary Discharge Rx Participant: No New Discharge Prescriptions: New Dapagliflozin Propanediol [Farxiga] 10 mg PO DAILY #30 tab Furosemide [Lasix] 40 mg PO BID@0900,1600 #60 tab Continue Pravastatin Sodium 40 mg PO DAILY lisinopriL 40 mg PO QAM hydrALAZINE HCL [Apresoline] 100 mg PO BID DULoxetine HCL [Cymbalta] 30 mg PO DAILY Aspirin [Green Aspirin EC] 81 mg PO DAILY Omeprazole [PriLOSEC] 20 mg PO AC-BRKFST NIFEdipine [Adalat CC] 30 mg PO BID Multivitamins, Thera [Multivitamin (formulary)] 1 tab PO DAILY rOPINIRole HCL [Requip] 0.5 mg PO HS Warfarin [Coumadin] 5 mg PO W/SUPPER HYDROcodone/APAP 7.5-325MG [[place] 7.5-325] 1 tab PO Q6HR PRN PRN Reason: Pain carvediloL [Coreg] 25 mg PO BID Gabapentin [Neurontin] 200 mg PO BID 10 Days #40 cap Discontinued Furosemide [Lasix] 20 mg PO BID #60 tab cefaDROXiL [Duricef] 500 mg PO Q12HR 5 Days #10 cap Discharge Medication List Pravastatin Sodium 40 mg PO DAILY 11/10/15 [History] lisinopriL 40 mg PO QAM 11/10/15 [History] hydrALAZINE HCL [Apresoline] 100 mg PO BID 04/06/20 [History] Aspirin [Green Aspirin EC] 81 mg PO DAILY 09/30/20 [History] DULoxetine HCL [Cymbalta] 30 mg PO DAILY 09/30/20 [History] Multivitamins, Thera [Multivitamin (formulary)] 1 tab PO DAILY 11/22/23 [History] NIFEdipine [Adalat CC] 30 mg PO BID 11/22/23 [History] Omeprazole [PriLOSEC] 20 mg PO AC-BRKFST 11/22/23 [History] carvediloL [Coreg] 25 mg PO BID 11/22/23 [History] rOPINIRole HCL [Requip] 0.5 mg PO HS 11/22/23 [History] Gabapentin [Neurontin] 200 mg PO BID 10 Days #40 cap 12/01/23 [Rx] HYDROcodone/APAP 7.5-325MG [[place] 7.5-325] 1 tab PO Q6HR PRN 12/07/23 [History] Warfarin [Coumadin] 5 mg PO W/SUPPER 12/07/23 [History] Dapagliflozin Propanediol [Farxiga] 10 mg PO DAILY #30 tab 12/12/23 [Rx] Furosemide [Lasix] 40 mg PO BID@0900,1600 #60 tab 12/12/23 [Rx] Follow up Appointment(s)/Referral(s): Vandana Gallardo MD [Primary Care Provider] - 1-2 days (Please call to schedule follow up appoitment) Rosendo Manuel DO [Doctor of Osteopathic Medicine] - 12/26/23 2:30 pm () Buck Oropeza [NON-STAFF] - (Call to help educate on your CPAP and make sure it is set up correctly.) Efrain Meléndez MD [STAFF PHYSICIAN] - 1 Week (Office will call you to schedule follow up appoitment) Patient Instructions/Handouts: Heart Failure (GEN), Heart Healthy Diet (ED) Activity/Diet/Wound Care/Special Instructions: Activity limited until follow-up Follow-up with primary care provider Follow-up with cardiology in 1 week Follow-up with orthopedics as you have your previous scheduled appointment Continue taking medications as prescribed Call [employer] to arrange a meeting for further education and management of CPAP machine Discharge Disposition: HOME SELF-CARE
== END 2023-12-12 14:41 | disposition home or self-care (01) | DRG 291 ==
LOC: EC 11:18 → 6NMEDSUR 14:15 → OBSVTOIN 14:16 → 6NMEDSUR 14:36 → 3SCARD 12-08 20:03
PROVIDERS: ADMIT Internal Medicine; ATTEND Internal Medicine
PROC: 5A09357 Assistance with Respiratory Ventilation, Less than 24 Consecutive Hours, Continuous Positive Airway Pressure (ICD-10-PCS; principal; 2023-12-09)
DX: I11.0 Hypertensive heart disease with heart failure (principal); I50.33 Acute on chronic diastolic (congestive) heart failure; J96.21 Acute and chronic respiratory failure with hypoxia; J96.22 Acute and chronic respiratory failure with hypercapnia; J98.11 Atelectasis; J98.6 Disorders of diaphragm; Z79.01 Long term (current) use of anticoagulants; E66.01 Morbid (severe) obesity due to excess calories; K21.9 Gastro-esophageal reflux disease without esophagitis; E78.5 Hyperlipidemia, unspecified; F41.9 Anxiety disorder, unspecified; G47.33 Obstructive sleep apnea (adult) (pediatric); I48.0 Paroxysmal atrial fibrillation; J44.89 Other specified chronic obstructive pulmonary disease; R79.1 Abnormal coagulation profile; Z68.38 Body mass index [BMI] 38.0-38.9, adult; Z91.199 Patient's noncompliance with other medical treatment and regimen due to unspecified reason; Z79.82 Long term (current) use of aspirin; Z79.899 Other long term (current) drug therapy
CPT/HCPCS: 36415; 36600; 71046; 71275; 76000; 80048; 80053; 82805; 83605; 83735; 83880; 84484; 85025; 85379; 85610; 85730; 87636; 93005; 93970; 94660; 96374; 99285

== ENCOUNTER 2024-01-15 01:36 | Inpatient (IN) | payer MEDICARE, OTHER ==
--- NOTE | 2024-01-15 02:19 | ED ---
SOB HPI - General Chief Complaint: Shortness of Breath Stated Complaint: ZEINA Time Seen by Provider: 01/15/24 02:04 Source: patient, RN notes reviewed Mode of arrival: ambulatory - History of Present Illness Initial Comments: This is a 68-year-old male with A-fib on Eliquis and COPD oxygen dependent presenting to the emergency department for complaint of shortness of breath that has been worsening over the past month significantly over the past week. Patient has chronic respiratory failure and requires oxygen at home that is at his baseline. States that he has not been wearing his CPAP at night as directed over the past 2 weeks due to difficulty with weakness of his bilateral upper extremities that is currently being evaluated by neurology., Patient admits to worsening edema of bilateral lower extremities and of his hands. He is endorsing orthopnea and dyspnea on exertion. States he takes diuretic at home. He is denying chest pain, dizziness, lightheadedness, abdominal pain, urinary or bowel habit changes. - Related Data Home Medications Medication Instructions Recorded Confirmed Pravastatin Sodium 40 mg PO DAILY 11/10/15 01/15/24 lisinopriL 40 mg PO QAM 11/10/15 01/15/24 hydrALAZINE HCL [Apresoline] 100 mg PO BID 04/06/20 01/15/24 Aspirin [Yates Aspirin EC] 81 mg PO DAILY 09/30/20 01/15/24 DULoxetine HCL [Cymbalta] 30 mg PO DAILY 09/30/20 01/15/24 Multivitamins, Thera [Multivitamin 1 tab PO DAILY 11/22/23 01/15/24 (formulary)] Omeprazole [PriLOSEC] 20 mg PO AC-BRKFST 11/22/23 01/15/24 carvediloL [Coreg] 25 mg PO BID 11/22/23 01/15/24 rOPINIRole HCL [Requip] 0.5 mg PO HS 11/22/23 01/15/24 Apixaban [Eliquis] 5 mg PO BID 01/15/24 01/15/24 Bumetanide [BUMEX] 0.5 mg PO DAILY 01/15/24 01/15/24 Gabapentin [Neurontin] 300 mg PO TID 01/15/24 01/15/24 NIFEdipine XL [Procardia Xl] 30 mg PO DAILY 01/15/24 01/15/24 Previous Rx's Medication Instructions Recorded Dapagliflozin Propanediol [Farxiga] 10 mg PO DAILY #30 tab 12/12/23 Allergies Allergy/AdvReac Type Severity Reaction Status Date / Time No Known Allergies Allergy Verified 01/15/24 07:24 Review of Systems ROS Statement: Those systems with pertinent positive or pertinent negative responses have been documented in the HPI. ROS Other: All systems not noted in ROS Statement are negative. Past Medical History Past Medical History: Atrial Fibrillation, COPD, GERD/Reflux, Hyperlipidemia, Hypertension, Sleep Apnea/CPAP/BIPAP Additional Past Medical History / Comment(s): Asthma as child, hx. of a-fib-no episodes of in last year, uses CPAP, left arm very weak due to neck, RLS, CTS lolis, lower legs swell History of Any Multi-Drug Resistant Organisms: None Reported Past Surgical History: Adenoidectomy, Orthopedic Surgery, Tonsillectomy Additional Past Surgical History / Comment(s): colonoscopy, c3-c7 fusion Past Anesthesia/Blood Transfusion Reactions: No Reported Reaction Past Psychological History: Anxiety Smoking Status: Never smoker Past Alcohol Use History: None Reported Past Drug Use History: None Reported - Past Family History Father Family Medical History: No Reported History Additional Family Medical History / Comment(s): Dad is 82 and healthy. Mother Family Medical History: No Reported History Additional Family Medical History / Comment(s): Mom is 82 and healthy. General Exam General appearance: alert, in no apparent distress Head exam: Present: atraumatic, normocephalic, normal inspection Eye exam: Present: normal appearance, PERRL, EOMI. Absent: scleral icterus, conjunctival injection, periorbital swelling ENT exam: Present: normal exam, mucous membranes moist Neck exam: Present: normal inspection. Absent: tenderness, meningismus, lymphadenopathy Respiratory exam: Present: respiratory distress, decreased breath sounds. Absent: normal lung sounds bilaterally, wheezes, rales, rhonchi, stridor Cardiovascular Exam: Present: regular rate, normal rhythm, normal heart sounds. Absent: systolic murmur, diastolic murmur, rubs, gallop, clicks GI/Abdominal exam: Present: soft, normal bowel sounds. Absent: distended, tenderness, guarding, rebound, rigid Extremities exam: Present: normal inspection, full ROM, normal capillary refill, pedal edema, other (bilateral LE 3+ pitting edema). Absent: tenderness, joint swelling, calf tenderness Back exam: Present: normal inspection Skin exam: Present: warm, dry, intact, normal color. Absent: rash Course Vital Signs 01/15/24 01/15/24 01/15/24 01:49 03:00 03:27 Temperature 97.8 F Pulse Rate 74 85 93 Pulse Rate [ Pulse Oximetery ] Respiratory 18 15 Rate Blood Pressure 105/68 127/83 Blood Pressure [Right Arm] O2 Sat by Pulse 95 98 Oximetry 01/15/24 01/15/24 01/15/24 03:36 04:00 05:48 Temperature Pulse Rate 96 89 89 Pulse Rate [ Pulse Oximetery ] Respiratory 18 16 Rate Blood Pressure 117/88 129/77 Blood Pressure [Right Arm] O2 Sat by Pulse 97 97 Oximetry 01/15/24 01/15/24 07:24 07:45 Temperature 98 F 97.9 F Pulse Rate 100 Pulse Rate [ 92 Pulse Oximetery ] Respiratory 20 18 Rate Blood Pressure 127/84 Blood Pressure 135/81 [Right Arm] O2 Sat by Pulse 95 94 L Oximetry Medical Decision Making - Medical Decision Making Was pt. sent in by a medical professional or institution (, PA, INSTRUMENT SPECIALIST, urgent care, hospital, or half-way...) When possible be specific @ -No Did you speak to anyone other than the patient for history (EMS, parent, family, police, friend...)? What history was obtained from this source @ -No Did you review nursing and triage notes (agree or disagree)? Why? @ -I reviewed and agree with nursing and triage notes Were old charts reviewed (outside hosp., previous admission, EMS record, old EKG, old radiological studies, urgent care reports/EKG's, half-way records)? Report findings @ -I reviewed patient's discharge summary from 12/12/2023 where he was diagnosed with acute on chronic hypoxic respiratory failure secondary to an acute exacerbation of diastolic congestive heart failure and atrial patient. Is reported that patient is noncompliant with follow-up in the outpatient setting and is at high risk for this. Patient was instructed to continue oral Lasix outpatient and was started on Farxiga and instructed to use CPAP at night. Differential Diagnosis (chest pain, altered mental status, abdominal pain women, abdominal pain men, vaginal bleeding, weakness, fever, dyspnea, syncope, headache, dizziness, GI bleed, back pain, seizure, CVA, palpatations, mental health, musculoskeletal)? @ -Differential Dyspnea: Coronary syndrome, arrhythmia, tamponade, asthma, COPD, pulmonary embolism, pneumonia, pneumothorax, pulmonary effusion, anaphylaxis, diabetic ketoacidosis, flailed chest, pulmonary contusion, diaphragmatic rupture, anemia, neuromuscular, this is not meant to be an all-inclusive list. EKG interpreted by me (3pts min.). @ -completed @0205 atrial fibrillation with a ventricular rate of 93, QRS 88, QTc 390. X-rays interpreted by me (1pt min.). @ -Chest x-ray no acute findings CT interpreted by me (1pt min.). @ -None done U/S interpreted by me (1pt. min.). @ -None done What testing was considered but not performed or refused? (CT, X-rays, U/S, labs)? Why? @ -None What meds were considered but not given or refused? Why? @ -None Did you discuss the management of the patient with other professionals (professionals i.e. , PA, INSTRUMENT SPECIALIST, lab, RT, psych nurse, psychiatric social worker supervisor, physiognomist, teacher, civil preparedness officer, manager case management)? Give summary @ -No Was smoking cessation discussed for >3mins.? @ -No Was critical care preformed (if so, how long)? @ -No Were there social determinants of health that impacted care today? How? (Homelessness, low income, unemployed, alcoholism, drug addiction, transportation, low edu. Level, literacy, decrease access to med. care, skilled nursing, rehab)? @ -No Was there de-escalation of care discussed even if they declined (Discuss DNR or withdrawal of care, Hospice)? DNR status @ -No What co-morbidities impacted this encounter? (DM, HTN, Smoking, COPD, CAD, Cancer, CVA, ARF, Chemo, Hep., AIDS, mental health diagnosis, sleep apnea, morbid obesity)? @ -Congestive heart failure, COPD, obesity Was patient admitted / discharged? Hospital course, mention meds given and route, prescriptions, significant lab abnormalities, going to OR and other pertinent info. @ -Admitted. 68-year-old male with shortness of breath. Evaluation patient noted to be hunching forward showing mild signs of acute distress. His oxygen saturation is in the high 90s on 5 L. Patient is in atrial fibrillation, rate controlled. He is noted to have 3+ bilateral pitting edema of his lower extremities. Patient is noted to be acidotic with a CO2 of 42 and chloride of 93 which appears at his baseline, troponin not elevated less than 0.012, BNP 623. He is provided with DuoNeb, Solu-Medrol, IV Lasix. Patient will be admitted with cardiology and pulmonology on consult for further evaluation of dyspnea and acute on chronic hypoxic respiratory failure and respiratory acidosis. he will be continued on Lasix and breathing treatments. Discussed with Dr. Tejeda Undiagnosed new problem with uncertain prognosis? @ -No Drug Therapy requiring intensive monitoring for toxicity (Heparin, Nitro, Insulin, Cardizem)? @ -No Were any procedures done? @ -No Diagnosis/symptom? @ -respiratory acidosis, acute on chronic hypoxic respiratory failure Acute, or Chronic, or Acute on Chronic? @ -acute, acute on chronic Uncomplicated (without systemic symptoms) or Complicated (systemic symptoms)? @ -complicated Side effects of treatment? @ -No Exacerbation, Progression, or Severe Exacerbation? @ -No Poses a threat to life or bodily function? How? (Chest pain, USA, CO, pneumonia, PE, COPD, DKA, ARF, appy, cholecystitis, CVA, Diverticulitis, Homicidal, Suicidal, threat to staff... and all critical care pts) @ -No - Lab Data Result diagrams: 01/17/24 06:58 01/17/24 06:58 Lab Results 01/15/24 01/15/24 01/15/24 Range/Units 02:05 02:05 02:05 WBC 12.7 H (3.8-10.6) k/uL RBC 4.74 (4.30-5.90) m/uL Hgb 14.4 (13.0-17.5) gm/dL Hct 46.1 (39.0-53.0) % MCV 97.3 (80.0-100.0) fL MCH 30.4 (25.0-35.0) pg MCHC 31.3 (31.0-37.0) g/dL RDW 12.2 (11.5-15.5) % Plt Count 222 (150-450) k/uL MPV 7.8 Neutrophils % 82 % Lymphocytes % 11 % Monocytes % 6 % Eosinophils % 1 % Basophils % 0 % Neutrophils # 10.4 H (1.3-7.7) k/uL Lymphocytes # 1.4 (1.0-4.8) k/uL Monocytes # 0.7 (0-1.0) k/uL Eosinophils # 0.1 (0-0.7) k/uL Basophils # 0.0 (0-0.2) k/uL PT 11.3 (10.0-12.5) sec INR 1.0 (<1.2) APTT 25.6 (22.0-30.0) sec VBG pH (7.31-7.41) VBG pCO2 (37-51) mmHg VBG HCO3 (24-28) mmol/L Sodium 138 (137-145) mmol/L Potassium 3.9 (3.5-5.1) mmol/L Chloride 93 L (98-107) mmol/L Carbon Dioxide 42 H* (22-30) mmol/L Anion Gap 3 mmol/L BUN 27 H (9-20) mg/dL Creatinine 0.88 (0.66-1.25) mg/dL Est GFR (CKD-EPI)AfAm >90 (>60 ml/min/1.73 sqM) Est GFR (CKD-EPI)NonAf 90 (>60 ml/min/1.73 sqM) Glucose 125 H (74-99) mg/dL Plasma Lactic Acid Man (0.7-2.0) mmol/L Calcium 8.8 (8.4-10.2) mg/dL Magnesium 2.1 (1.6-2.3) mg/dL Total Bilirubin 0.9 (0.2-1.3) mg/dL AST 38 (17-59) U/L ALT 42 (4-49) U/L Alkaline Phosphatase 62 (38-126) U/L Troponin I (0.000-0.034) ng/mL NT-Pro-B Natriuret Pep 623 pg/mL Total Protein 6.1 L (6.3-8.2) g/dL Total Protein (PEP) (5.7-8.2) g/dL Albumin 3.8 (3.5-5.0) g/dL Free [place] LC, Quant (0.33-1.94) mg/dL Free Lambda LC, Quant (0.57-2.63) mg/dL 01/15/24 01/15/24 01/15/24 Range/Units 02:05 02:05 02:05 WBC (3.8-10.6) k/uL RBC (4.30-5.90) m/uL Hgb (13.0-17.5) gm/dL Hct (39.0-53.0) % MCV (80.0-100.0) fL MCH (25.0-35.0) pg MCHC (31.0-37.0) g/dL RDW (11.5-15.5) % Plt Count (150-450) k/uL MPV Neutrophils % % Lymphocytes % % Monocytes % % Eosinophils % % Basophils % % Neutrophils # (1.3-7.7) k/uL Lymphocytes # (1.0-4.8) k/uL Monocytes # (0-1.0) k/uL Eosinophils # (0-0.7) k/uL Basophils # (0-0.2) k/uL PT (10.0-12.5) sec INR (<1.2) APTT (22.0-30.0) sec VBG pH (7.31-7.41) VBG pCO2 (37-51) mmHg VBG HCO3 (24-28) mmol/L Sodium (137-145) mmol/L Potassium (3.5-5.1) mmol/L Chloride (98-107) mmol/L Carbon Dioxide (22-30) mmol/L Anion Gap mmol/L BUN (9-20) mg/dL Creatinine (0.66-1.25) mg/dL Est GFR (CKD-EPI)AfAm (>60 ml/min/1.73 sqM) Est GFR (CKD-EPI)NonAf (>60 ml/min/1.73 sqM) Glucose (74-99) mg/dL Plasma Lactic Acid Man 1.6 (0.7-2.0) mmol/L Calcium (8.4-10.2) mg/dL Magnesium (1.6-2.3) mg/dL Total Bilirubin (0.2-1.3) mg/dL AST (17-59) U/L ALT (4-49) U/L Alkaline Phosphatase (38-126) U/L Troponin I <0.012 (0.000-0.034) ng/mL NT-Pro-B Natriuret Pep pg/mL Total Protein (6.3-8.2) g/dL Total Protein (PEP) (5.7-8.2) g/dL Albumin (3.5-5.0) g/dL Free [place] LC, Quant (0.33-1.94) mg/dL Free [place]ambda LC, Quant 1.10 (0.57-2.63) mg/dL 01/15/24 01/15/24 Range/Units 02:05 02:15 WBC (3.8-10.6) k/uL RBC (4.30-5.90) m/uL Hgb (13.0-17.5) gm/dL Hct (39.0-53.0) % MCV (80.0-100.0) fL MCH (25.0-35.0) pg MCHC (31.0-37.0) g/dL RDW (11.5-15.5) % Plt Count (150-450) k/uL MPV Neutrophils % % Lymphocytes % % Monocytes % % Eosinophils % % Basophils % % Neutrophils # (1.3-7.7) k/uL Lymphocytes # (1.0-4.8) k/uL Monocytes # (0-1.0) k/uL Eosinophils # (0-0.7) k/uL Basophils # (0-0.2) k/uL PT (10.0-12.5) sec INR (<1.2) APTT (22.0-30.0) sec VBG pH 7.47 H (7.31-7.41) VBG pCO2 58 H (37-51) mmHg VBG HCO3 42 H (24-28) mmol/L Sodium (137-145) mmol/L Potassium (3.5-5.1) mmol/L Chloride (98-107) mmol/L Carbon Dioxide (22-30) mmol/L Anion Gap mmol/L BUN (9-20) mg/dL Creatinine (0.66-1.25) mg/dL Est GFR (CKD-EPI)AfAm (>60 ml/min/1.73 sqM) Est GFR (CKD-EPI)NonAf (>60 ml/min/1.73 sqM) Glucose (74-99) mg/dL Plasma Lactic Acid Man (0.7-2.0) mmol/L Calcium (8.4-10.2) mg/dL Magnesium (1.6-2.3) mg/dL Total Bilirubin (0.2-1.3) mg/dL AST (17-59) U/L ALT (4-49) U/L Alkaline Phosphatase (38-126) U/L Troponin I (0.000-0.034) ng/mL NT-Pro-B Natriuret Pep pg/mL Total Protein (6.3-8.2) g/dL Total Protein (PEP) 5.6 L (5.7-8.2) g/dL Albumin (3.5-5.0) g/dL Free [place] LC, Quant 1.32 (0.33-1.94) mg/dL Free [place]ambda LC, Quant (0.57-2.63) mg/dL Disposition Clinical Impression: Shortness of breath, Acute on chronic respiratory acidosis Disposition: ADMITTED IP TO THIS [facility] Condition: Stable Decision to Admit Reason: Admit from EC Decision Date: 01/15/24 Decision Time: 03:41
[2024-01-15 02:54] LABS: Basophils % (A) 0 %; Eosinophils # (A) 0.1 k/uL (0-0.7); Eosinophils % (A) 1 %; HCT 46.1 % (39.0-53.0); HGB 14.4 gm/dL (13.0-17.5); Lymphocytes # (A) 1.4 k/uL (1.0-4.8); Lymphocytes % (A) 11 %; MCH 30.4 pg (25.0-35.0); MCHC 31.3 g/dL (31.0-37.0); MCV 97.3 fL (80.0-100.0); Mean Platelet Volume 7.8; Monocytes # (A) 0.7 k/uL (0-1.0); Monocytes % (A) 6 %; Neutrophils # (A) 10.4 k/uL (1.3-7.7); Neutrophils % (A) 82 %; Platelet Count 222 k/uL (150-450); RBC 4.74 m/uL (4.30-5.90); RDW 12.2 % (11.5-15.5); WBC 12.7 k/uL (3.8-10.6)
[2024-01-15 03:06] LABS: ALT 42 U/L (4-49); AST 38 U/L (17-59); African American GFR (CKD) >90 (>60 ml/min/1.73 sqM); Albumin 3.8 g/dL (3.5-5.0); Alkaline Phosphatase 62 U/L (38-126); Blood Urea Nitrogen 27 mg/dL (9-20); Calcium 8.8 mg/dL (8.4-10.2); Chloride 93 mmol/L (98-107); Glucose 125 mg/dL (74-99); Magnesium 2.1 mg/dL (1.6-2.3); Non-African American GFR(CKD) 90 (>60 ml/min/1.73 sqM); Potassium 3.9 mmol/L (3.5-5.1); Sodium 138 mmol/L (137-145); Total Bilirubin 0.9 mg/dL (0.2-1.3); Total Protein 6.1 g/dL (6.3-8.2)
[2024-01-15 03:09] LABS: VBG PH 7.47 (7.31-7.41)
[2024-01-15 03:10] LABS: Partial Thromboplastin Time 25.6 sec (22.0-30.0); Prothrombin Time 11.3 sec (10.0-12.5)
[2024-01-15 03:12] LABS: Anion Gap 3 mmol/L
[2024-01-15 03:14] LABS: NT-Pro-B-Type Natriuretic Pept 623 pg/mL
[2024-01-15] MEDS: IPRATROPIUM-ALBUTEROL 3 ML NEB INHALATION STA (03:27)
[2024-01-15] MEDS: FUROSEMIDE 10 MG/ML 4 ML VIAL IV STA (03:27)
[2024-01-15] MEDS: methylPREDNISolone SOD SUCCI 125 MG/2 ML VIAL IV STA (03:27)
[2024-01-15 03:37] LABS: Carbon Dioxide 42 mmol/L (22-30)
[2024-01-15] MEDS ORDERED: NALOXONE 0.4 MG/ML 1 ML VIAL IV PRN (03:41)
[2024-01-15] MEDS ORDERED: MORPHINE SULFATE 4 MG/ML SYRINGE IV PRN (03:41)
--- NOTE | 2024-01-15 04:41 | XR ---
EXAM: XR Chest, 2 Views CLINICAL HISTORY: Pt to ED for SOB, pt does have pmhx with CHF, COPD. Pt reports increase work of breathing [id number], pt had 3+ pitting edema on bilateral lower extremities. TECHNIQUE: Frontal and lateral views of the chest. COMPARISON: 12/07/2023 FINDINGS: Lungs: Unremarkable. No consolidation. Pleural space: Unremarkable. Heart: cardiomegaly. Mediastinum: Unremarkable. Normal mediastinal contour. Bones/joints: No acute findings. ACDF IMPRESSION: No acute findings
--- NOTE | 2024-01-15 07:20 | P.CNPUL ---
History of Present Illness Consult date: 01/15/24 Requesting physician: Krystina Rachel Reason for consult: hypoxemia Chief complaint: Worsening shortness of breath over the last 2 weeks History of present illness: Patient is a 68-year-old male with past medical history significant for hypertension, hyperlipidemia, obstructive sleep apnea with home APAP, GERD, atrial fibrillation currently anticoagulated on Eliquis, and lifelong non- smoker. Recently, patient has developed bilateral upper extremity weakness, worse on the left. He has been evaluated by the orthopedic surgeon and did undergo C3-C7 cervical discectomy and fusion back on 11/28/2023. Unfortunately, the function of his left upper extremity has not returned to baseline following the procedure. States he has had follow-up MRI spine at outside facility and follows up with neurologist. Of note, following his procedure he was found to be in A-fib RVR and exacerbation of diastolic heart failure. Transthoracic echocardiogram done during this admission showing a preserved left ventricular ejection fraction of 50 to 55% with severe LVH. Patient was ultimately dis charged home on December 11. More recently, patient had a hospitalization at [facility], he underwent a cardioversion, which was reportedly successful. Patient returns to the ED department last night complaining of 2 weeks of worsening acute on chronic shortness of breath.He reports associated increased swelling especially in his left upper extremity and bilateral lower extremities. Endorses orthopnea. He does take Bumex on outpatient basis. He does have a APAP machine at home, but he does not wear it due to weakness in his upper extremities. He states that he cannot put the device on. He denies history of COPD or asthma. He is a lifelong non-smoker. 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 He is scheduled to follow-up in the pulmonary office this January.. Chest x-ray demonstrates cardiomegaly and possible pulmonary vascular congestion. There is left hemidiaphragm elevation. Patient states that he did follow-up outpatient for his sniff test which was unremarkable. NT proBNP only mildly elevated at 623. Troponin less than 0.012. EKG consistent with atrial fibrillation with controlled ventricular response, rate 93 bpm, no acute ischemic changes noted. CBC: WBC count 12.7, hemoglobin 14.4, hematocrit 46.1, platelets 222. CMP: Sodium 138, potassium 3.9, chloride 93, serum bicarb 42, BUN 27, creatinine 0.88, glucose 125. Lactic 1.6. LFTs unremarkable. Patient appears to have a positive fluid balance and has been started on Lasix 40 mg twice daily. He is currently alert and oriented, sitting up in the bedside recliner on 4 L/min nasal cannula, in no acute distress. He states he is tired and has not slept in about 2 weeks due to his difficulty in breathing. Current vitals: Heart rate 88 bpm, blood pressure 129/77 mmHg, respi ratory rate mid teens, SpO2 97% on 4 L/min nasal cannula. Review of Systems Constitutional: Reports lethargy, Reports weakness, Reports weight gain, Denies chills, Denies fever, Denies poor appetite, Denies weight loss Ears, nose, mouth and throat: Reports headache, Denies nasal congestion, Denies nasal discharge, Denies post-nasal drip, Denies sinus pain, Denies sinus pressure Cardiovascular: Reports decreased exercise tolerance, Reports dyspnea on exertion, Reports irregular heart beat, Reports leg edema, Reports orthopnea, Denies chest pain, Denies lightheadedness, Denies palpitations, Denies paroxysmal nocturnal dyspnea, Denies syncope Respiratory: Reports dyspnea, Reports sleep apnea, Denies congestion, Denies cough, Denies cough with sputum, Denies hemoptysis, Denies respiratory infections, Denies wheezing Gastrointestinal: Denies abdominal pain, Denies change in bowel habits, Denies constipation, Denies diarrhea, Denies nausea, Denies vomiting Genitourinary: Denies dysuria Musculoskeletal: Reports arm numbness/tingling, Reports limitation of motion, Reports neck pain Integumentary: Denies rash, Denies sores Neurological: Reports headaches, Reports motor disturbance, Reports numbness, Reports paresthesias, Reports weakness, Denies ataxia, Denies balance difficulties, Denies paralysis, Denies seizures, Denies syncope, Denies visual changes Psychiatric: Denies anxiety, Denies depression Past Medical History Past Medical History: Atrial Fibrillation, COPD, GERD/Reflux, Hyperlipidemia, Hypertension, Sleep Apnea/CPAP/BIPAP Additional Past Medical History / Comment(s): Asthma as child, hx. of a-fib-no episodes of in last year, uses CPAP, left arm very weak due to neck, RLS, CTS lolis, lower legs swell History of Any Multi-Drug Resistant Organisms: None Reported Past Surgical History: Adenoidectomy, Orthopedic Surgery, Tonsillectomy Additional Past Surgical History / Comment(s): colonoscopy, c3-c7 fusion Past Anesthesia/Blood Transfusion Reactions: No Reported Reaction Past Psychological History: Anxiety Smoking Status: Never smoker Past Alcohol Use History: None Reported Past Drug Use History: None Reported - Past Family History Father Family Medical History: No Reported History Additional Family Medical History / Comment(s): Dad is 82 and healthy. Mother Family Medical History: No Reported History Additional Family Medical History / Comment(s): Mom is 82 and healthy. Medications and Allergies Home Medications Medication Instructions Recorded Confirmed Type Pravastatin Sodium 40 mg PO DAILY 11/10/15 12/07/23 History lisinopriL 40 mg PO QAM 11/10/15 12/07/23 History hydrALAZINE HCL [Apresoline] 100 mg PO BID 04/06/20 12/07/23 History Aspirin [Canadian Aspirin EC] 81 mg PO DAILY 09/30/20 12/07/23 History DULoxetine HCL [Cymbalta] 30 mg PO DAILY 09/30/20 12/07/23 History Multivitamins, Thera [Multivitamin 1 tab PO DAILY 11/22/23 12/07/23 History (formulary)] NIFEdipine [Adalat CC] 30 mg PO BID 11/22/23 12/07/23 History Omeprazole [PriLOSEC] 20 mg PO AC-BRKFST 11/22/23 12/07/23 History carvediloL [Coreg] 25 mg PO BID 11/22/23 12/07/23 History rOPINIRole HCL [Requip] 0.5 mg PO HS 11/22/23 12/07/23 History Gabapentin [Neurontin] 200 mg PO BID 10 Days #40 cap 12/01/23 12/07/23 Rx HYDROcodone/APAP 7.5-325MG [[place] 1 tab PO Q6HR PRN 12/07/23 12/07/23 History 7.5-325] Warfarin [Coumadin] 5 mg PO W/SUPPER 12/07/23 12/07/23 History Dapagliflozin Propanediol [Farxiga] 10 mg PO DAILY #30 tab 12/12/23 Rx Furosemide [Lasix] 40 mg PO BID@0900,1600 #60 tab 12/12/23 Rx Allergies Allergy/AdvReac Type Severity Reaction Status Date / Time No Known Allergies Allergy Verified 01/15/24 01:54 Physical Exam Vitals: Vital Signs Temp Pulse Resp BP Pulse Ox 01/15/24 05:48 89 16 129/77 97 01/15/24 04:00 89 18 117/88 97 01/15/24 03:36 96 01/15/24 03:27 93 01/15/24 03:00 85 15 127/83 98 01/15/24 01:49 97.8 F 74 18 105/68 95 Intake and Output 01/14/24 01/14/24 01/15/24 14:59 22:59 06:59 Other: Weight 129.274 kg GENERAL EXAM: Alert, obese 68-year-old white male, sitting up in bedside recliner, comfortable in no apparent distress. HEAD: Normocephalic and atraumatic EYES: Normal reaction of pupils, equal size. NOSE: Clear with pink turbinates. THROAT: No erythema or exudates. NECK: No masses, no JVD. CHEST: No chest wall deformity. LUNGS: Equal air entry with diminished bibasilar lung mosley; no crackles, wheeze, rhonchi or dullness. On 4 L/min nasal cannula, no conversational dyspnea or accessory muscle use.. CVS: S1 and S2 normal with no audible murmur, irregular rhythm. No extra heart sounds ABDOMEN: Obese abdomen, active bowel sounds, no hepatosplenomegaly,, no guarding or rigidity. SPINE: No scoliosis or deformity SKIN: Chronic venous stasis changes of bilateral lower extremities CENTRAL NERVOUS SYSTEM: Cranial nerves II through XII intact, notable left upper extremity weakness graded 2/5, right upper extremity strength grade 5/5, bilateral lower extremity strength graded 5/5 EXTREMITIES: There gross anasarca, no clubbing, or cyanosis. Peripheral pulses are intact. Results - Laboratory Findings CBC and BMP: 01/15/24 02:05 01/15/24 02:05 PT/INR, D-dimer PT 11.3 sec (10.0-12.5) 01/15/24 02:05 INR 1.0 (<1.2) 01/15/24 02:05 Abnormal lab findings: Abnormal Labs 01/15/24 01/15/24 01/15/24 02:05 02:05 02:15 WBC 12.7 H Neutrophils # 10.4 H VBG pH 7.47 H VBG pCO2 58 H VBG HCO3 42 H Chloride 93 L Carbon Dioxide 42 H* BUN 27 H Glucose 125 H Total Protein 6.1 L - Diagnostic Findings Chest x-ray: image reviewed Assessment and Plan Assessment: Acute on chronic hypoxemic and hypercapnic respiratory failure, possibly secondary to acute exacerbation of diastolic CHF Paroxysmal atrial fibrillation, reportedly underwent cardioversion in outside facility 2 weeks ago, most recent EKG showing atrial fibrillation with controlled ventricular response History of obstructive sleep apnea syndrome, noncompliant with home CPAP Obesity, with a BMI of 36.6 kg/m Chronic hypercapnic respiratory failure Recent history of anterior cervical discectomy and fusion, C3-C7 Persistent left upper extremity weakness Lifelong non-smoker Hypertension Hyperlipidemia Gastroesophageal reflux disease. History of anxiety Plan: Patient's medications, labs, chest x-ray reviewed Continue supplemental oxygen maintain oxygen saturation of 92% or greater Patient has a positive fluid balance, continue Lasix 40 mg twice daily Patient reportedly anticoagulated on Eliquis, will be resumed once medications verified Encouraged to keep his outpatient pulmonary appointment Educated on the importance of CPAP compliance. Will continue to follow while inpatient I have personally seen and examined the patient, performed the documentation and the assessment and plan as written. Number of minutes spent on the visit:20 Time with Patient: Greater than 30
[2024-01-15] MEDS: PANTOPRAZOLE 40 MG/10 ML VIAL IV SCH (09:07)
[2024-01-15] MEDS: IPRATROPIUM-ALBUTEROL 3 ML NEB INHALATION SCH (09:13)
--- NOTE | 2024-01-15 09:27 | US ---
EXAMINATION TYPE: US venous doppler duplex UE LT DATE OF EXAM: 01/15/2024 COMPARISON: NONE CLINICAL INDICATION: Male, 68 years old with history of rule out DVT left upper extremity; unilateral arm; Arm weakness.Limited patient unable to move arm. TECHNIQUE: Grayscale, color Doppler and spectral Doppler imaging of the upper extremity. SIDE PERFORMED: Left FINDINGS: Left Arm: Negative for DVT Grayscale, color doppler, spectral doppler imaging performed of the deep veins of the upper extremiti es. IMPRESSION: No evidence for deep vein to most of the left approximately. [facility], , 01/15/2024 9:24 AM
[2024-01-15] MEDS ORDERED: FUROSEMIDE 10 MG/ML 4 ML VIAL IV SCH (11:00)
[2024-01-15] MEDS: APIXABAN 5 MG TAB PO SCH (11:06)
[2024-01-15] MEDS: DAPAGLIFLOZIN PROPANEDIOL 10 MG TABLET PO SCH (11:06)
[2024-01-15] MEDS: carvediloL 12.5 MG TAB PO SCH (11:06)
[2024-01-15] MEDS: MULTIVITAMINS, THERA 1 EACH TAB PO SCH (11:07)
[2024-01-15] MEDS: lisinopriL 20 MG TAB PO SCH (11:07)
[2024-01-15] MEDS: NIFEdipine XL 30 MG TAB.ER.24 PO SCH (11:07)
[2024-01-15] MEDS: GABAPENTIN 300 MG CAP PO SCH (11:07)
[2024-01-15] MEDS: DULoxetine HCL 30 MG CAPSULE.DR PO SCH (11:07)
[2024-01-15] MEDS: PRAVASTATIN SODIUM 40 MG TAB PO SCH (11:08)
--- NOTE | 2024-01-15 12:18 | P.CRDCN ---
History of Present Illness History of present illness: HISTORY OF PRESENTING ILLNESS This is a pleasant 68-year-old with past medical history significant for hypertension, hyperlipidemia, obstructive sleep apnea, GERD, persistent atrial fibrillation and CHF. He follows with a doctor rather in [facility]. He states he had been doing fairly well up until approximately 6-12 months ago. He then started to develop shortness of breath as well as upper extremity weakness. He underwent extensive workup and initially there was some concern regarding possible ALS. Eventually he was seen by orthopedic surgery and underwent C3 through C7 cervical discectomy and fusion 11/28/2023. Additionally he has had multiple admissions with shortness breath. He also had been down to [facility] with admissions for heart failure. He was diagnosed with atrial fibrillation after his spinal surgery. Unfortunately his upper extremity we akness and numbness has not dramatically improved. He has been on steroids. Hospitalization at [facility] he underwent a cardioversion which was successful however fairly short-lived and back in A. fib. He takes Bumex at home however believes Lasix actually worked somewhat better for him. He presented with increasing shortness breath over the last few days and significantly in the middle the night and could not catch his breath and "had to drag himself and his he felt like he was dying. He also admits to some significant generalized weakness. Denies any recent fevers or chills. Also has 2+ lower extremity edema which is increased from prior. EKG shows atrial fibrillation with no significant ST changes. Prior echo from 11/2023 showed severe LVH with septal thickness 2.5 and posterior wall thickness 2.1 cm. He does admit to a chronic history of hypertension however has been better controlled recently. He admits he felt somewhat better after his cardioversion however this was short-lived. REVIEW OF SYSTEMS At the time of my exam: CONSTITUTIONAL: Denies fever or chills. CARDIOVASCULAR: Denies chest pain, +shortness of breath, +orthopnea, +PND no palpitations. RESPIRATORY: Denies cough. GASTROINTESTINAL: Denies abdominal pain, diarrhea, constipation, nausea or vom iting. MUSCULOSKELETAL: Denies myalgias. NEUROLOGIC: Denies numbness, tingling or weakness. ENDOCRINE: Denies fatigue, weight change, polydipsia or polyurina. GENITOURINARY: Denies burning, hematuria or urgency with micturation. HEMATOLOGIC: Denies history of anemia or bleeding. PHYSICAL EXAMINATION Vital signs reviewed. CONSTITUTIONAL: No apparent distress, obese, chronically ill appearing. HEENT: Head is normocephalic. Pupils are equal, round. Sclerae anicteric. Mucous membranes of the mouth are moist. No JVD. No carotid bruit. CHEST EXAMINATION: Decreased breath sounds at bases HEART EXAMINATION: Irregular rate and rhythm. S1, S2 heard. No murmurs, gallops or rub. ABDOMEN: Soft, nontender. Positive bowel sounds. EXTREMITIES: 2+ peripheral pulses, 2+ b/l lower extremity edema and no calf tenderness. NEUROLOGIC EXAMINATION: Patient is awake, alert and oriented x3. ASSESSMENT Acute on chronic respiratory failure Acute on chronic diastolic heart failure Severe LVH, rule out infiltrative disease Persistent atrial fibrillation with controlled ventricular rate Hypertension Upper extremity weakness, does not appear consistent with Guillain-Green or nueromuscular disease. Neuropathy with apparent EMG performed previously. Rule out component of amyloidosis Status post cervical discectomy and fusion Obstructive sleep apnea Obesity PLAN Patient with fairly rapidly progressive symptoms over last 6 months. Most of his symptoms appear related to heart failure. Continue with diuretics. Agree with addition of Farxiga. We discussed rhythm control to help keep patient out of heart failure and patient agreeable. Start amiodarone with taper. Possible cardioversion in 1-2 weeks. Additionally check workup to rule out infiltrative disease which can also be associated with neuropathy. Past Medical History Past Medical History: Atrial Fibrillation, GERD/Reflux, Hyperlipidemia, Hypertension, Sleep Apnea/CPAP/BIPAP Additional Past Medical History / Comment(s): Asthma as child, hx. of a-fib-no episodes of in last year, uses CPAP, left arm very weak due to neck, RLS, CTS lolis, lower legs swell History of Any Multi-Drug Resistant Organisms: None Reported Past Surgical History: Orthopedic Surgery, Tonsillectomy Additional Past Surgical History / Comment(s): colonoscopy, c3-c7 fusion Past Anesthesia/Blood Transfusion Reactions: No Reported Reaction Past Psychological History: Anxiety Smoking Status: Never smoker Past Alcohol Use History: None Reported Additional Past Alcohol Use History / Comment(s): used to have 1 cocktail per day and on weekends 2-3 but hasn't drank in 3 months Past Drug Use History: None Reported - Past Family History Father Family Medical History: No Reported History Additional Family Medical History / Comment(s): Dad is 82 and healthy. Mother Family Medical History: No Reported History Additional Family Medical History / Comment(s): Mom is 82 and healthy. Medications and Allergies Home Medications Medication Instructions Recorded Confirmed Type Pravastatin Sodium 40 mg PO DAILY 11/10/15 01/15/24 History lisinopriL 40 mg PO QAM 11/10/15 01/15/24 History hydrALAZINE HCL [Apresoline] 100 mg PO BID 04/06/20 01/15/24 History Aspirin [[place]undred Aspirin EC] 81 mg PO DAILY 09/30/20 01/15/24 History DULoxetine HCL [Cymbalta] 30 mg PO DAILY 09/30/20 01/15/24 History Multivitamins, Thera [Multivitamin 1 tab PO DAILY 11/22/23 01/15/24 History (formulary)] Omeprazole [PriLOSEC] 20 mg PO AC-BRKFST 11/22/23 01/15/24 History carvediloL [Coreg] 25 mg PO BID 11/22/23 01/15/24 History rOPINIRole HCL [Requip] 0.5 mg PO HS 11/22/23 01/15/24 History Dapagliflozin Propanediol [Farxiga] 10 mg PO DAILY #30 tab 12/12/23 01/15/24 Rx Apixaban [Eliquis] 5 mg PO BID 01/15/24 01/15/24 History Bumetanide [BUMEX] 0.5 mg PO DAILY 01/15/24 01/15/24 History Gabapentin [Neurontin] 300 mg PO TID 01/15/24 01/15/24 History NIFEdipine XL [Procardia Xl] 30 mg PO DAILY 01/15/24 01/15/24 History Allergies Allergy/AdvReac Type Severity Reaction Status Date / Time No Known Allergies Allergy Verified 01/15/24 07:24 Physical Exam Vitals: Vital Signs Temp Pulse Pulse Resp BP BP Pulse Ox 01/15/24 11:21 83 130/85 01/15/24 09:26 82 01/15/24 09:18 74 95 01/15/24 07:45 97.9 F 92 18 135/81 94 L 01/15/24 07:24 98 F 100 20 127/84 95 01/15/24 05:48 89 16 129/77 97 01/15/24 04:00 89 18 117/88 97 01/15/24 03:36 96 01/15/24 03:27 93 01/15/24 03:00 85 15 127/83 98 01/15/24 01:49 97.8 F 74 18 105/68 95 Intake and Output 01/14/24 01/15/24 01/15/24 22:59 06:59 14:59 Other: Voiding Method Toilet Weight 129.274 kg 129.274 kg Results 01/15/24 02:05 01/15/24 02:05 Cardiac Enzymes 01/15/24 01/15/24 Range/Units 02:05 02:05 AST 38 (17-59) U/L Troponin I <0.012 (0.000-0.034) ng/mL Coagulation 01/15/24 Range/Units 02:05 PT 11.3 (10.0-12.5) sec APTT 25.6 (22.0-30.0) sec CBC 01/15/24 Range/Units 02:05 WBC 12.7 H (3.8-10.6) k/uL RBC 4.74 (4.30-5.90) m/uL Hgb 14.4 (13.0-17.5) gm/dL Hct 46.1 (39.0-53.0) % Plt Count 222 (150-450) k/uL Comprehensive Metabolic Panel 01/15/24 Range/Units 02:05 Sodium 138 (137-145) mmol/L Potassium 3.9 (3.5-5.1) mmol/L Chloride 93 L (98-107) mmol/L Carbon Dioxide 42 H* (22-30) mmol/L BUN 27 H (9-20) mg/dL Creatinine 0.88 (0.66-1.25) mg/dL Glucose 125 H (74-99) mg/dL Calcium 8.8 (8.4-10.2) mg/dL AST 38 (17-59) U/L ALT 42 (4-49) U/L Alkaline Phosphatase 62 (38-126) U/L Total Protein 6.1 L (6.3-8.2) g/dL Albumin 3.8 (3.5-5.0) g/dL Current Medications Generic Name Dose Route Start Last Admin Trade Name Freq PRN Reason Stop Dose Admin Acetaminophen 650 mg 01/15/24 03:41 Acetaminophen Tab 325 Mg Tab PO Q6HR PRN Mild Pain or Fever > 100.5 Albuterol/Ipratropium 3 ml 01/15/24 09:00 01/15/24 09:13 Ipratropium-Albuterol 3 Ml Neb INHALATION 3 ml QID RUSTY Administration Apixaban 5 mg 01/15/24 11:00 01/15/24 11:06 Apixaban 5 Mg Tab PO 5 mg BID RUSTY Administration Protocol Aspirin 81 mg 01/16/24 09:00 Aspirin 81 Mg PO DAILY RUSTY Carvedilol 25 mg 01/15/24 11:00 01/15/24 11:06 Carvedilol 12.5 Mg Tab PO 25 mg BID RUSTY Administration Dapagliflozin 10 mg 01/15/24 11:00 01/15/24 11:06 Dapagliflozin Propanediol 10 Mg Tablet PO 10 mg DAILY RUSTY Administration Duloxetine HCl 30 mg 01/15/24 11:00 01/15/24 11:07 Duloxetine Hcl 30 Mg Capsule.Dr PO 30 mg DAILY RUSTY Administration Furosemide 40 mg 01/15/24 15:00 Furosemide 10 Mg/Ml 4 Ml Vial IV Q12H RUSTY Gabapentin 300 mg 01/15/24 11:00 01/15/24 11:07 Gabapentin 300 Mg Cap PO 300 mg TID RUSTY Administration Lisinopril 40 mg 01/15/24 11:00 01/15/24 11:07 Lisinopril 20 Mg Tab PO 40 mg QAM RUSTY Administration Morphine Sulfate 4 mg 01/15/24 03:41 Morphine Sulfate 4 Mg/Ml Syringe IV Q4HR PRN Severe Pain (Scale 7 to 10) Multivitamins 1 each 01/15/24 11:00 01/15/24 11:07 Multivitamins, Thera 1 Each Tab PO 1 each DAILY RUSTY Administration Naloxone HCl 0.2 mg 01/15/24 03:41 Naloxone 0.4 Mg/Ml 1 Ml Vial IV Q2M PRN Opioid Reversal Nifedipine 30 mg 01/15/24 11:00 01/15/24 11:07 Nifedipine Xl 30 Mg Tab.Er.24 PO 30 mg DAILY RUSTY Administration Ondansetron HCl 4 mg 01/15/24 03:41 Ondansetron 4 Mg/2 Ml Vial IVP Q8HR PRN Nausea And Vomiting Pantoprazole Sodium 40 mg 01/15/24 09:00 01/15/24 09:07 Pantoprazole 40 Mg/10 Ml Vial IV 40 mg DAILY RUSTY Administration Pravastatin Sodium 40 mg 01/15/24 11:00 01/15/24 11:08 Pravastatin Sodium 40 Mg Tab PO 40 mg DAILY RUSTY Administration Ropinirole HCl 0.5 mg 01/15/24 21:00 Ropinirole Hcl 0.25 Mg Tab PO HS RUSTY Intake and Output 01/14/24 01/15/24 01/15/24 22:59 06:59 14:59 Other: Voiding Method Toilet Weight 129.274 kg 129.274 kg Patient Weight 01/16/24 06:59 Weight 129.274 kg 01/15/24 02:05 01/15/24 02:05
[2024-01-15 12:24] LABS: ABG Oxygen Saturation 97.1 % (94-97); ABG PH 7.42 (7.35-7.45); ABG PO2 87 mmHg (83-108); ABG TCO2 48 mmol/L (19-24); Allen Test Performed? Yes
[2024-01-15 12:34] LABS: ABG PCO2 71 mmHg (35-45)
[2024-01-15 12:35] LABS: ABG HCO3 46 mmol/L (21-25)
--- NOTE | 2024-01-15 13:21 | P.HPIM ---
History of Present Illness H&P Date: 01/15/24 This is a 68-year-old male with medical history significant for atrial fibrillation, COPD, acid reflux, hyperlipidemia, hypertension, sleep apnea with CPAP use, heart failure. Patient was recently hospitalized December 06 to December 11 for dyspnea and heart failure post cervical surgery. He was disc harged home. He then had a hospitalization in the last week at [place] where he underwent cardioversion which was successful. He comes back to the hospital now with complaints of worsening shortness of breath over the last month. He also reports weakness of his bilateral upper extremities and worsening edema of the bilateral lower extremities and his hands. He is reporting orthopnea and dyspnea on exertion. He has been compliant with his diuretic at home. He states that he has not been wearing his CPAP at night because of this weakness that he has been having. Patient does wear oxygen chronically. Chest xray on admission showing no acute findings. No evidence of DVT in the left arm per doppler. White blood cell count 12.7. CO2 47 on admission. Troponin level is negative, his proBNP is not elevated. He has been started on IV Lasix 40 mg every 12 hours. He is admitted under internal medicine with a cardiology and pulmonary consultation. He is currently in atrial fibrillation. REVIEW OF SYSTEMS: CONSTITUTIONAL: No fever, no malaise, no fatigue. HEENT: No recent visual problems or hearing problems. Denied any sore throat. CARDIOVASCULAR: No chest pain, orthopnea, PND, no palpitations, no syncope. PULMONARY: No shortness of breath, no cough, no hemoptysis. GASTROINTESTINAL: No diarrhea, no nausea, no vomiting, no abdominal pain. NEUROLOGICAL: No headaches, no weakness, no numbness. HEMATOLOGICAL: Denies any bleeding or petechiae. GENITOURINARY: Denies any burning micturition, frequency, or urgency. MUSCULOSKELETAL/RHEUMATOLOGICAL: Denies any joint pain, swelling, or any muscle pain. ENDOCRINE: Denies any polyuria or polydipsia. The rest of the 14-point review of systems is negative. PHYSICAL EXAMINATION: GENERAL: The patient is alert and oriented x3, not in any acute distress. Well developed, well nourished. HEENT: Pupils are round and equally reacting to light. EOMI. No scleral icterus. No conjunctival pallor. Normocephalic, atraumatic. No pharyngeal erythema. No thyromegaly. CARDIOVASCULAR: S1 and S2 present. No murmurs, rubs, or gallops. PULMONARY: Chest is clear to auscultation, no wheezing or crackles. ABDOMEN: Soft, nontender, nondistended, normoactive bowel sounds. No palpable organomegaly. MUSCULOSKELETAL: No joint swelling or deformity. EXTREMITIES: No cyanosis, clubbing, or pedal edema. NEUROLOGICAL: Left upper extremity weakness with decreased hand grasp. mild right upper extremity weakness. SKIN: No rashes. Assessment and Plan Acute on chronic heart failure diastolic dysfunction with ejection fraction of 50 to 55% Acute on chronic hypoxic and hypercarbic respiratory failure secondary to above with noncompliance with his home CPAP Obstructive sleep apnea with CPAP use has been noncompliant Oxygen dependent COPD Paroxysmal Atrial fibrillation anticoagulant with Eliquis recently cardioverted at [facility]. Currently in atrial fibrillation with CVR. Hypertension Hyperlipidemia Recent cervical C3-C7 ACDF on November 27, 2023 Postoperative reflux disease Obesity GI prophylaxis DVT prophylaxis DNR Plan Resume appropriate home medications Check ABGs Pulmonary and cardiology following Continue cardiac telemetry Continue IV lasix 40 mg Q12 hours Obtain reports from [place] PT/OT consulted Repeat BMP tomorrow The impression and plan of care has been dictated by Delilah Vargas Nurse Practitioner as directed. Dr. Raiza MD I have performed a history and physical examination and medical decision making of this patient, discussed the same with the dictator, and agree with the dictators assessment and plan as written, documented as a scribe. Based on total visit time, I have performed more than 50% of this visit. Past Medical History Past Medical History: Atrial Fibrillation, COPD, GERD/Reflux, Hyperlipidemia, Hypertension, Sleep Apnea/CPAP/BIPAP Additional Past Medical History / Comment(s): Asthma as child, hx. of a-fib-no episodes of in last year, uses CPAP, left arm very weak due to neck, RLS, CTS lolis, lower legs swell History of Any Multi-Drug Resistant Organisms: None Reported Past Surgical History: Adenoidectomy, Orthopedic Surgery, Tonsillectomy Additional Past Surgical History / Comment(s): colonoscopy, c3-c7 fusion Past Anesthesia/Blood Transfusion Reactions: No Reported Reaction Past Psychological History: Anxiety Smoking Status: Never smoker Past Alcohol Use History: None Reported Past Drug Use History: None Reported - Past Family History Father Family Medical History: No Reported History Additional Family Medical History / Comment(s): Dad is 82 and healthy. Mother Family Medical History: No Reported History Additional Family Medical History / Comment(s): Mom is 82 and healthy. Medications and Allergies Home Medications Medication Instructions Recorded Confirmed Type Pravastatin Sodium 40 mg PO DAILY 11/10/15 01/15/24 History lisinopriL 40 mg PO QAM 11/10/15 01/15/24 History hydrALAZINE HCL [Apresoline] 100 mg PO BID 04/06/20 01/15/24 History Aspirin [[place] Aspirin EC] 81 mg PO DAILY 09/30/20 01/15/24 History DULoxetine HCL [Cymbalta] 30 mg PO DAILY 09/30/20 01/15/24 History Multivitamins, Thera [Multivitamin 1 tab PO DAILY 11/22/23 01/15/24 History (formulary)] Omeprazole [PriLOSEC] 20 mg PO AC-BRKFST 11/22/23 01/15/24 History carvediloL [Coreg] 25 mg PO BID 11/22/23 01/15/24 History rOPINIRole HCL [Requip] 0.5 mg PO HS 11/22/23 01/15/24 History Dapagliflozin Propanediol [Farxiga] 10 mg PO DAILY #30 tab 12/12/23 01/15/24 Rx Apixaban [Eliquis] 5 mg PO BID 01/15/24 01/15/24 History Bumetanide [BUMEX] 0.5 mg PO DAILY 01/15/24 01/15/24 History Gabapentin [Neurontin] 300 mg PO TID 01/15/24 01/15/24 History NIFEdipine XL [Procardia Xl] 30 mg PO DAILY 01/15/24 01/15/24 History Allergies Allergy/AdvReac Type Severity Reaction Status Date / Time No Known Allergies Allergy Verified 01/15/24 07:24 Physical Exam Vitals: Vital Signs Temp Pulse Pulse Resp BP BP Pulse Ox 01/15/24 09:26 82 01/15/24 09:18 74 95 01/15/24 07:45 97.9 F 92 18 135/81 94 L 01/15/24 07:24 98 F 100 20 127/84 95 01/15/24 05:48 89 16 129/77 97 01/15/24 04:00 89 18 117/88 97 01/15/24 03:36 96 01/15/24 03:27 93 01/15/24 03:00 85 15 127/83 98 01/15/24 01:49 97.8 F 74 18 105/68 95 Intake and Output 01/14/24 01/15/24 01/15/24 22:59 06:59 14:59 Other: Weight 129.274 kg Results CBC & Chem 7: 01/15/24 02:05 01/15/24 02:05 Labs: Abnormal Lab Results - Last 24 Hours (Table) 01/15/24 01/15/24 01/15/24 Range/Units 02:05 02:05 02:15 WBC 12.7 H (3.8-10.6) k/uL Neutrophils # 10.4 H (1.3-7.7) k/uL VBG pH 7.47 H (7.31-7.41) VBG pCO2 58 H (37-51) mmHg VBG HCO3 42 H (24-28) mmol/L Chloride 93 L (98-107) mmol/L Carbon Dioxide 42 H* (22-30) mmol/L BUN 27 H (9-20) mg/dL Glucose 125 H (74-99) mg/dL Total Protein 6.1 L (6.3-8.2) g/dL Assessment and Plan Time with Patient: Less than 30
[2024-01-15] MEDS: FUROSEMIDE 10 MG/ML 4 ML VIAL IV SCH (15:12)
[2024-01-15] MEDS: FUROSEMIDE 10 MG/ML 10 ML VIAL IV SCH (17:20)
[2024-01-15] MEDS: AMIODARONE 200 MG TAB PO SCH (20:59)
[2024-01-16 08:39] LABS: Basophils # (A) 0.02 X 10*3/uL (0.00-0.10); Basophils % (A) 0.1 %; Eosinophils # (A) 0.06 X 10*3/uL (0.04-0.35); Eosinophils % (A) 0.4 %; HCT 44.8 % (39.6-50.0); HGB 13.7 g/dL (13.0-17.0); Lymphocytes # (A) 1.31 X 10*3/uL (0.90-5.00); Lymphocytes % (A) 9.5 %; MCH 29.9 pg (27.0-32.0); MCHC 30.6 g/dL (32.0-37.0); MCV 97.8 FL (80.0-97.0); Mean Platelet Volume 10.5 FL (9.5-12.2); Monocytes % (A) 7.3 %; NRBC Per 100 WBC 0 X 10*3/uL (0.00-0.01); Neutrophils # (A) 11.26 X 10*3/uL (1.80-7.70); Neutrophils % (A) 81.8 %; Platelet Count 185 X 10*3/uL (140-440); RBC 4.58 X 10*6/uL (4.40-5.60); RDW 11.9 % (11.5-14.5); WBC 13.77 X 10*3/uL (4.50-10.00)
[2024-01-16] MEDS: ASPIRIN 81 MG PO SCH (08:42)
[2024-01-16 08:55] LABS: ALT 33 U/L (10-49); AST 26 U/L (14-35); Albumin 3.6 g/dL (3.8-4.9); Alkaline Phosphatase 44 U/L (41-126); Blood Urea Nitrogen 27.4 mg/dL (9.0-27.0); Calcium 8.8 mg/dL (8.7-10.3); Carbon Dioxide 38.1 mmol/L (21.6-31.8); Chloride 90 mmol/L (96-109); Glucose 133 mg/dL (70-110); Potassium 3.9 mmol/L (3.5-5.5); Sodium 141 mmol/L (135-145); Total Protein 5.6 g/dL (6.2-8.2)
[2024-01-16] MEDS: SODIUM CHLORIDE 0.9% 500 ML 500 ML IV ONE (09:06)
[2024-01-16] MEDS ORDERED: IPRATROPIUM-ALBUTEROL 3 ML NEB INHALATION SCH (10:00)
[2024-01-16 10:09] LABS: ABG Base Excess 18.8 mmol/L; ABG Oxygen Saturation 93.8 % (94-97); ABG PH 7.42 (7.35-7.45); ABG PO2 68 mmHg (83-108); ABG TCO2 50 mmol/L (19-24); Allen Test Performed? Yes
[2024-01-16 10:15] LABS: ABG HCO3 48 mmol/L (21-25); ABG PCO2 74 mmHg (35-45)
--- NOTE | 2024-01-16 10:52 | XR ---
EXAMINATION TYPE: XR chest 1V portable DATE OF EXAM: 01/16/2024 10:20 AM COMPARISON: Chest radiographs from 01/15/2024 CLINICAL INDICATION: Male, 68 years old with history of sob; TECHNIQUE: XR chest 1V portable Frontal view of the chest. FINDINGS: Lungs/Pleura: Small left pleural fusion. There is no evidence of right pleural effusion, focal consol idation, or pneumothorax. Pulmonary vascularity: Unremarkable. Heart/mediastinum: Cardiomediastinal silhouette is unremarkable. Musculoskeletal: No acute osseous pathology. There is fixation hardware in the lower cervical spine. IMPRESSION: No acute cardiopulmonary disease/process. Small left pleural effusion. [facility], , 01/16/2024 10:50 AM
[2024-01-16 11:39] LABS: Protein, Total 5.6 g/dL (5.7-8.2)
--- NOTE | 2024-01-16 12:22 | P.PN ---
Subjective HISTORY OF PRESENT ILLNESS: This is a pleasant 68-year-old with past medical history significant for hypertension, hyperlipidemia, obstructive sleep apnea, GERD, persistent atrial fibrillation and CHF. He follows with a doctor rather in [facility]. He states he had been doing fairly well up until approximately 6-12 months ago. He then started to develop shortness of breath as well as upper extremity weakness. He underwent extensive workup and initially there was some concern regarding possible ALS. Eventually he was seen by orthopedic surgery and underwent C3 through C7 cervical discectomy and fusion 11/28/2023. Additionally he has had multiple admissions with shortness breath. He also had been down to [facility] with admissions for heart failure. He was diagnosed with atrial fibrillation after his spinal surgery. Unfortunately his upper extremity weakness and numbness has not dramatically improved. He has been on steroids. Hospitalization at [facility] he underwent a cardioversion which was succ essful however fairly short-lived and back in A. fib. He takes Bumex at home however believes Lasix actually worked somewhat better for him. He presented with increasing shortness breath over the last few days and significantly in the middle the night and could not catch his breath and "had to drag himself and his he felt like he was dying. He also admits to some significant generalized weakness. Denies any recent fevers or chills. Also has 2+ lower extremity edema which is increased from prior. EKG shows atrial fibrillation with no significant ST changes. Prior echo from 11/2023 showed severe LVH with septal thickness 2.5 and posterior wall thickness 2.1 cm. He does admit to a chronic history of hypertension however has been better controlled recently. He admits he felt somewhat better after his cardioversion however this was short-lived. 01/16/2024 Patient examined this morning. Patient is sitting up in the chair. Patient states this morning he was seeing spots. Patient developed hypotension this morning and received a fluid bolus. BP was in the 70s according to the nurse. Blood pressure improved after fluid bolus. Most recent blood pressure 130/70. The patient currently denies any chest pain or pressure. He denies shortness of breath. He remains in atrial fibrillation with heart rate around 100. PHYSICAL EXAM: VITAL SIGNS: Reviewed. GENERAL: Well-developed in no acute distress. NECK: Supple. No JVD or thyromegaly LUNGS: Respirations even and unlabored. Lungs essentially clear to auscultation bilaterally. HEART: Irregular rate and rhythm. S1 and S2 heard. EXTREMITIES: Normal range of motion. No clubbing or cyanosis. Peripheral pulses intact. Bilateral lower extremity edema ASSESSMENT: Hypotension, resolved Acute on chronic respiratory failure Acute on chronic diastolic heart failure Severe LVH, rule out infiltrative disease Persistent atrial fibrillation with controlled ventricular rate Hypertension Upper extremity weakness, does not appear consistent with Guillain-Green or nueromuscular disease. Neuropathy with apparent EMG performed previously. Rule out component of amyloidosis Status post cervical discectomy and fusion Obstructive sleep apnea Obesity PLAN: Discontinue lisinopril, Procardia, and carvedilol Continue oral amiodarone Continue IV Lasix Monitor blood pressure Obtain troponin level Continue telemetry monitoring Obtain records from patients previous sports director, Dr. Villagomez Further recommendations pending patient course Nurse practitioner note has been reviewed by physician. Signing provider agrees with the documented findings, assessment, and plan of care documented by [employer]ACE EVIDENCE TECHNICIAN as a scribe. Objective - Vital Signs Vital signs: Vital Signs Temp 97.7 F 01/16/24 07:27 Pulse 86 01/16/24 09:37 Resp 16 01/16/24 07:27 BP 100/63 01/16/24 09:37 Pulse Ox 93 L 01/16/24 09:37 FiO2 Intake & Output 01/15/24 01/16/24 01/16/24 18:59 06:59 18:59 Output Total 1650 2500 Balance -1650 -2500 Weight 129.274 kg Output: Urine 1650 2500 Other: Voiding Method Toilet Toilet - Labs CBC & Chem 7: 01/16/24 04:59 01/16/24 04:59 Labs: Abnormal Lab Results - Last 24 Hours (Table) 01/15/24 01/16/24 01/16/24 Range/Units 12:18 04:59 04:59 WBC 13.77 H (4.50-10.00) X 10*3/uL MCV 97.8 H (80.0-97.0) FL MCHC 30.6 L (32.0-37.0) g/dL Immature Gran # 0.12 H (0.00-0.04) X 10*3/uL Neutrophils # 11.26 H (1.80-7.70) X 10*3/uL ABG pCO2 71 H* (35-45) mmHg ABG pO2 (83-108) mmHg ABG HCO3 46 H* (21-25) mmol/L ABG Total CO2 48 H (19-24) mmol/L ABG O2 Saturation 97.1 H (94-97) % Chloride 90 L (96-109) mmol/L Carbon Dioxide 38.1 H (21.6-31.8) mmol/L Anion Gap 12.90 H (4.00-12.00) mmol/L BUN 27.4 H (9.0-27.0) mg/dL BUN/Creatinine Ratio 27.40 H (12.00-20.00) Ratio Glucose 133 H (70-110) mg/dL Total Protein 5.6 L (6.2-8.2) g/dL Albumin 3.6 L (3.8-4.9) g/dL 01/16/24 Range/Units 10:03 WBC (4.50-10.00) X 10*3/uL MCV (80.0-97.0) FL MCHC (32.0-37.0) g/dL Immature Gran # (0.00-0.04) X 10*3/uL Neutrophils # (1.80-7.70) X 10*3/uL ABG pCO2 74 H* (35-45) mmHg ABG pO2 68 L (83-108) mmHg ABG HCO3 48 H* (21-25) mmol/L ABG Total CO2 50 H (19-24) mmol/L ABG O2 Saturation 93.8 L (94-97) % Chloride (96-109) mmol/L Carbon Dioxide (21.6-31.8) mmol/L Anion Gap (4.00-12.00) mmol/L BUN (9.0-27.0) mg/dL BUN/Creatinine Ratio (12.00-20.00) Ratio Glucose (70-110) mg/dL Total Protein (6.2-8.2) g/dL Albumin (3.8-4.9) g/dL
--- NOTE | 2024-01-16 12:56 | P.PN ---
Subjective Progress Note Date: 01/16/24 Patient is a 68-year-old male with past medical history significant for hypertension, hyperlipidemia, obstructive sleep apnea with home APAP, GERD, atrial fibrillation currently anticoagulated on Eliquis, and lifelong non- smoker. Recently, patient has developed bilateral upper extremity weakness, worse on the left. He has been evaluated by the orthopedic surgeon and did undergo C3-C7 cervical discectomy and fusion back on 11/28/2023. Unfortunately, the function of his left upper extremity has not returned to baseline following the procedure. States he has had follow-up MRI spine at outside facility and follows up with neurologist. Of note, following his procedure he was found to be in A-fib RVR and exacerbation of diastolic heart failure. Transthoracic echocardiogram done during this admission showing a preserved left ventricular ejection fraction of 50 to 55% with severe LVH. Patient was ultimately discharged home on December 11. More recently, patient had a hospitalization at [facility], he underwent a cardioversion, which was reportedly successful. Patient returns to the ED department last night complaining of 2 weeks of worsening acute on chronic shortness of breath.He reports associated increased swelling especially in his left upper extremity and bilateral lower extremities. Endorses orthopnea. He does take Bumex on outpatient basis. He does have a APAP machine at home, but he does not wear it due to weakness in his upper extremities. He states that he cannot put the device on. He denies history of COPD or asthma. He is a lifelong non-smoker. 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 He is scheduled to follow-up in the [facility] office this January.. Chest x-ray demonstrates cardiomegaly and possible pulmonary vascular congestion. There is left hemidiaphragm elevation. Patient states that he did follow-up outpatient for his sniff test which was unremarkable. NT proBNP only mildly elevated at 623. Troponin less than 0.012. EKG consistent with atrial fibrillation with controlled ventricular response, rate 93 bpm, no acute ischemic changes noted. CBC: WBC count 12.7, hemoglobin 14.4, hematocrit 46.1, platelets 222. CMP: Sodium 138, potassium 3.9, chloride 93, serum bicarb 42, BUN 27, creatinine 0.88, glucose 125. Lactic 1.6. LFTs unremarkable. Patient appears to have a positive fluid balance and has been started on Lasix 40 mg twice daily. He is currently alert and oriented, sitting up in the bedside recliner on 4 L/min nasal cannula, in no acute distress. He states he is tired and has not slept in about 2 weeks due to his difficulty in breathing. Current vitals: Heart rate 88 bpm, blood pressure 129/77 mmHg, respiratory rate mid teens, SpO2 97% on 4 L/min nasal cannula. The patient is seen today January 16, 2024 in follow-up on the regular medical floor. He is currently sitting up in the bedside. Awake and alert in no acute distress. Breathing better today compared to yesterday. Lung sounds have improved. Containing good O2 saturations in the 90s on 2 L/min per nasal cannula. Arterial blood gases revealed a PaO2 of 68, P CO2 of 74 and a pH of 7.42 on 36% FiO2. Afebrile. Hemodynamically stable. Chest x-ray reveals no acute pulmonary process. Continued small left pleural effusion. White count 13.7. Hemoglobin 13.7. Platelets 185. Sodium 141. Potassium 3.9. Bicarb 38. BUN 27. Creatinine 1.0. Glucose 133. He remains on DuoNeb inhalations. Cont inued on IV diuretics. Anticoagulated with Eliquis. Currently in a -1.9 L balance. Objective - Vital Signs Vital signs: Vital Signs Temp 97.7 F 01/16/24 07:27 Pulse 70 01/16/24 11:56 Resp 16 01/16/24 07:27 BP 130/70 01/16/24 11:27 Pulse Ox 93 L 01/16/24 09:37 FiO2 Intake & Output 01/15/24 01/16/24 01/16/24 18:59 06:59 18:59 Output Total 1650 2500 700 Balance -1650 -2500 -700 Weight 129.274 kg Output: Urine 1650 2500 700 Other: Voiding Method Toilet Toilet External Catheter - Exam GENERAL EXAM: Alert, obese 68-year-old male, sitting up in a chair, on 2 L nasal cannula, comfortable in no apparent distress. HEAD: Normocephalic and atraumatic EYES: Normal reaction of pupils, equal size. NOSE: Clear with pink turbinates. THROAT: No erythema or exudates. NECK: No masses, no JVD. CHEST: No chest wall deformity. LUNGS: Equal air entry with diminished bibasilar lung mosley; no crackles, wheeze, rhonchi or dullness. CVS: S1 and S2 normal with no audible murmur, irregular rhythm. No extra heart sounds ABDOMEN: Obese abdomen, active bowel sounds, no hepatosplenomegaly,, no guarding or rigidity. SPINE: No scoliosis or deformity SKIN: Chronic venous stasis changes of bilateral lower extremities CENTRAL NERVOUS SYSTEM: Cranial nerves II through XII intact, notable left upper extremity weakness graded 2/5, right upper extremity strength grade 5/5, bilateral lower extremity strength graded 5/5 EXTREMITIES: There gross anasarca, no clubbing, or cyanosis. Peripheral pulses are intact. - Labs CBC & Chem 7: 01/16/24 04:59 01/16/24 04:59 Labs: Abnormal Lab Results - Last 24 Hours (Table) 01/15/24 01/16/24 01/16/24 Range/Units 02:05 04:59 04:59 WBC 13.77 H (4.50-10.00) X 10*3/uL MCV 97.8 H (80.0-97.0) FL MCHC 30.6 L (32.0-37.0) g/dL Immature Gran # 0.12 H (0.00-0.04) X 10*3/uL Neutrophils # 11.26 H (1.80-7.70) X 10*3/uL ABG pCO2 (35-45) mmHg ABG pO2 (83-108) mmHg ABG HCO3 (21-25) mmol/L ABG Total CO2 (19-24) mmol/L ABG O2 Saturation (94-97) % Chloride 90 L (96-109) mmol/L Carbon Dioxide 38.1 H (21.6-31.8) mmol/L Anion Gap 12.90 H (4.00-12.00) mmol/L BUN 27.4 H (9.0-27.0) mg/dL BUN/Creatinine Ratio 27.40 H (12.00-20.00) Ratio Glucose 133 H (70-110) mg/dL Total Protein 5.6 L (6.2-8.2) g/dL Total Protein (PEP) 5.6 L (5.7-8.2) g/dL Albumin 3.6 L (3.8-4.9) g/dL 01/16/24 Range/Units 10:03 WBC (4.50-10.00) X 10*3/uL MCV (80.0-97.0) FL MCHC (32.0-37.0) g/dL Immature Gran # (0.00-0.04) X 10*3/uL Neutrophils # (1.80-7.70) X 10*3/uL ABG pCO2 74 H* (35-45) mmHg ABG pO2 68 L (83-108) mmHg ABG HCO3 48 H* (21-25) mmol/L ABG Total CO2 50 H (19-24) mmol/L ABG O2 Saturation 93.8 L (94-97) % Chloride (96-109) mmol/L Carbon Dioxide (21.6-31.8) mmol/L Anion Gap (4.00-12.00) mmol/L BUN (9.0-27.0) mg/dL BUN/Creatinine Ratio (12.00-20.00) Ratio Glucose (70-110) mg/dL Total Protein (6.2-8.2) g/dL Total Protein (PEP) (5.7-8.2) g/dL Albumin (3.8-4.9) g/dL Assessment and Plan Assessment: Acute on chronic hypoxemic and hypercapnic respiratory failure, possibly sec ondary to acute exacerbation of diastolic CHF Paroxysmal atrial fibrillation, reportedly underwent cardioversion in outside facility 2 weeks ago, most recent EKG showing atrial fibrillation with cont rolled ventricular response History of obstructive sleep apnea syndrome, noncompliant with home CPAP Obesity, with a BMI of 36.6 kg/m Chronic hypercapnic respiratory failure Recent history of anterior cervical discectomy and fusion, C3-C7 Persistent left upper extremity weakness Lifelong non-smoker Hypertension Hyperlipidemia Gastroesophageal reflux disease. History of anxiety Plan: The patient was seen and evaluated Chest x-ray, ABGs, labs and medications reviewed The patient has been noncompliant with CPAP in the past ABGs reflect compensation for hypercapnia Chest x-ray reveals no acute process Continue DuoNeb inhalations Continue IV diuretics Anticoagulated with Eliquis Will continue to follow I have personally seen and examined the patient, performed the documentation and the assessment and plan as written. Number of minutes spent on the visit: 10. Dictation was produced using [employer] software. Please excuse any grammatical, word or spelling errors.
--- NOTE | 2024-01-16 14:27 | CT ---
EXAMINATION TYPE: CT brain wo con DATE OF EXAM: 01/16/2024 2:14 PM COMPARISON: None. CLINICAL INDICATION: Male, 68 years old with history of left arm weakness, LT arm weakness TECHNIQUE: CT of the brain is performed utilizing 3 mm thick sections through the posterior fossa and 3 mm thick sections through the remaining calvarium. Study is performed within 24 hours of arrival to the hospital. Contrast used: mL of , (none if empty) CT DLP: 1183.4 mGycm, Automated exposure control for dose reduction was used. FINDINGS: No abnormal hyperdensity is present to suggest an acute intracranial hemorrhage. No mass lesion is evident. No acute infarcts are evident. Minimal periventricular white matter changes are present likely on the basis of chronic white matter ischemic change. Ventricles and sulci are appropriate for the patient age. Paranasal sinuses and mastoid air cells within the [id number] are clear. IMPRESSION: 1. No acute intracranial process. Follow up MRI can be performed as clinically indicated. 2. Minimal chronic appearing periventricular white matter ischemic-type changes. [facility], Workstation: [facility], 01/16/2024 2:25 PM
--- NOTE | 2024-01-16 14:47 | P.PN ---
Subjective Progress Note Date: 01/16/24 This is a 68-year-old male with medical history significant for atrial fibrillation, COPD, acid reflux, hyperlipidemia, hypertension, sleep apnea with CPAP use, heart failure. Patient was recently hospitalized December 06 to December 11 for dyspnea and heart failure post cervical surgery. He was discharged home. He then had a hospitalization in the last week at [place] where he underwent cardioversion which was successful. He comes back to the hospital now with complaints of worsening shortness of breath over the last month. He also reports weakness of his bilateral upper extremities and worsening edema of the bilateral lower extremities and his hands. He is reporting orthopnea and dyspnea on exertion. He has been compliant with his diuretic at home. He states that he has not been wearing his CPAP at night because of this weakness that he has been having. Patient does wear oxygen chronically. Chest xray on admission showing no acute findings. No evidence of DVT in the left arm per doppler. White blood cell count 12.7. CO2 47 on admission. Troponin level is negative, his proBNP is not elevated. He has been started on IV Lasix 40 mg every 12 hours. He is admitted under internal medicine with a cardiology and pulmonary consultation. He is currently in atrial fibrillation. 01/16/2024 Patient is evaluated today in follow up on the medical floor. Patient was hypotensive this AM with blood pressure into the 80s systolic was given a 500 CC bolus. He was presyncopal. He was moved to [address] [place] [address] for closer monitoring. Chest xray this AM reveals no acute cardiopulmonary disease/process. Small left pleural effusion. Brain CT completed negative for acute findings. Continues on IV lasix 80 mg Q12 hours. White blood cell count today 13.77. CO2 better at 38. BUN 27.4 creatinine 1.0. REVIEW OF SYSTEMS: CONSTITUTIONAL: No fever, no malaise, no fatigue. HEENT: No recent visual problems or hearing problems. Denied any sore throat. CARDIOVASCULAR: No chest pain, orthopnea, PND, no palpitations, no syncope. PULMONARY: No shortness of breath, no cough, no hemoptysis. GASTROINTESTINAL: No diarrhea, no nausea, no vomiting, no abdominal pain. NEUROLOGICAL: No headaches, no weakness, no numbness. PHYSICAL EXAMINATION: GENERAL: The patient is alert and oriented x3, not in any acute distress. Well developed, well nourished. HEENT: Pupils are round and equally reacting to light. EOMI. No scleral icterus. No conjunctival pallor. Normocephalic, atraumatic. No pharyngeal erythema. No thyromegaly. CARDIOVASCULAR: S1 and S2 present. No murmurs, rubs, or gallops. PULMONARY: Chest is clear to auscultation, no wheezing or crackles. ABDOMEN: Soft, nontender, nondistended, normoactive bowel sounds. No palpable organomegaly. MUSCULOSKELETAL: No joint swelling or deformity. EXTREMITIES: No cyanosis, clubbing, or pedal edema. NEUROLOGICAL: Left upper extremity weakness with decreased hand grasp. mild right upper extremity weakness. SKIN: No rashes. Assessment and Plan Acute on chronic heart failure diastolic dysfunction with ejection fraction of 50 to 55% Acute on chronic hypoxic and hypercarbic respiratory failure secondary to above with noncompliance with his home CPAP Obstructive sleep apnea with CPAP use has been noncompliant Oxygen dependent COPD Paroxysmal Atrial fibrillation anticoagulant with Eliquis recently cardioverted at [facility]. Currently in atrial fibrillation with CVR. Hypertension Hyperlipidemia Recent cervical C3-C7 ACDF on November 27, 2023 Postoperative reflux disease Obesity GI prophylaxis DVT prophylaxis DNR Plan Resume appropriate home medications Pulmonary and cardiology following Continue cardiac telemetry Continue IV lasix 80 mg Q12 hours Did receive a fluid bolus for hypotension, BP is better now Reports from Christine available in the chart. PT/OT consulted Repeat BMP tomorrow The impression and plan of care has been dictated by Delilah Vargas, Nurse Practitioner as directed. Dr. Raiza MD I have performed a history and physical examination and medical decision making of this patient, discussed the same with the dictator, and agree with the dictators assessment and plan as written, documented as a scribe. Based on total visit time, I have performed more than 50% of this visit. Objective - Vital Signs Vital signs: Vital Signs Temp 97.7 F 01/16/24 07:27 Pulse 70 01/16/24 11:56 Resp 16 01/16/24 07:27 BP 130/70 01/16/24 11:27 Pulse Ox 93 L 01/16/24 09:37 FiO2 Intake & Output 01/15/24 01/16/24 01/16/24 18:59 06:59 18:59 Output Total 1650 2500 700 Balance -1650 -2500 -700 Weight 129.274 kg Output: Urine 1650 2500 700 Other: Voiding Method Toilet Toilet External Catheter - Labs CBC & Chem 7: 01/16/24 04:59 01/16/24 04:59 Labs: Abnormal Lab Results - Last 24 Hours (Table) 01/15/24 01/16/24 01/16/24 Range/Units 02:05 04:59 04:59 WBC 13.77 H (4.50-10.00) X 10*3/uL MCV 97.8 H (80.0-97.0) FL MCHC 30.6 L (32.0-37.0) g/dL Immature Gran # 0.12 H (0.00-0.04) X 10*3/uL Neutrophils # 11.26 H (1.80-7.70) X 10*3/uL ABG pCO2 (35-45) mmHg ABG pO2 (83-108) mmHg ABG HCO3 (21-25) mmol/L ABG Total CO2 (19-24) mmol/L ABG O2 Saturation (94-97) % Chloride 90 L (96-109) mmol/L Carbon Dioxide 38.1 H (21.6-31.8) mmol/L Anion Gap 12.90 H (4.00-12.00) mmol/L BUN 27.4 H (9.0-27.0) mg/dL BUN/Creatinine Ratio 27.40 H (12.00-20.00) Ratio Glucose 133 H (70-110) mg/dL Total Protein 5.6 L (6.2-8.2) g/dL Total Protein (PEP) 5.6 L (5.7-8.2) g/dL Albumin 3.6 L (3.8-4.9) g/dL 01/16/24 Range/Units 10:03 WBC (4.50-10.00) X 10*3/uL MCV (80.0-97.0) FL MCHC (32.0-37.0) g/dL Immature Gran # (0.00-0.04) X 10*3/uL Neutrophils # (1.80-7.70) X 10*3/uL ABG pCO2 74 H* (35-45) mmHg ABG pO2 68 L (83-108) mmHg ABG HCO3 48 H* (21-25) mmol/L ABG Total CO2 50 H (19-24) mmol/L ABG O2 Saturation 93.8 L (94-97) % Chloride (96-109) mmol/L Carbon Dioxide (21.6-31.8) mmol/L Anion Gap (4.00-12.00) mmol/L BUN (9.0-27.0) mg/dL BUN/Creatinine Ratio (12.00-20.00) Ratio Glucose (70-110) mg/dL Total Protein (6.2-8.2) g/dL Total Protein (PEP) (5.7-8.2) g/dL Albumin (3.8-4.9) g/dL Assessment and Plan Time with Patient: Less than 30
--- NOTE | 2024-01-16 16:19 | P.CNNES ---
History of Present Illness Consult date: 01/16/24 Requesting physician: Surinder Eastman Reason for Consult: left arm weakness History of Present Illness: This is a 68-year-old gentleman who presented emergency department because of shortness of breath. Patient stated that she has been having weakness for the last 6-month initially his symptoms began with twitching of the left upper extremity and that started about 6-month ago and then that he started noticing left arm weakness that is progressively got worse. He was seen by neurologist, initially Dr. Lucero's team who the patient had MRI of the brain and spinal imaging and he was told it was not a neurological issue and more orthopedic issue and he was referred to orthopedic team. At orthopedic team. He had EMG locallyand there was a concern for possible ALS according to the patient. Per the patient he was referred to [facility] neurology team in [place], [place] and he had a repeat EMG of uppers and was told it was not ALS. Then patient followed up with the neurology team over [facility] and he had repeat imaging of the brain and the spinal as well as he had labs extensive locally as well as by Burke Aguirre according to the patient that he recalls and was unremarkable to explain his symptoms. He was seen by Dr. Cottrell sent and he was notified it was due to his cervical spine and he had cervical surgery in November 27, 2023. Patient had a repeat EMG of the upper extremities does not recall where it was told was unremarkable. Also about 2 months ago he noticed that he is having numbness and right fourth and fifth digits that was very noticeable. Patient denies any radicular cervical pain. Denies any weakness in the lower extremities. Denies any bladder or bowel issues. Denies any double vision. Denies any ptosis. Denies any speech difficulty or difficulty swallowing. At the [facility] he was recommended to have EMG with nerve conduction study of the lowers but he refused since he feels and strength in the lowers are normal. Stated that since neck surgery he went into A-fib and he is on Eliquis. Also since the neck surgery he has COPD. Since acknowledge that he feels some more strength in the left upper extremity in the last few days. Has significant edema and extremity predominantly in the lowers. Some of the workup during this hospital visit consisted of: I reviewed the lab workup. CT of the head is reported as no acute intracranial process. I personally reviewed the CT and I agree there is no acute or subacute process. Review of Systems As per HPI. Past Medical History Past Medical History: Atrial Fibrillation, COPD, GERD/Reflux, Hyperlipidemia, Hypertension, Sleep Apnea/CPAP/BIPAP Additional Past Medical History / Comment(s): Asthma as child, hx. of a-fib-no episodes of in last year, uses CPAP, left arm very weak due to neck, RLS, CTS lolis, lower legs swell History of Any Multi-Drug Resistant Organisms: None Reported Past Surgical History: Adenoidectomy, Orthopedic Surgery, Tonsillectomy Additional Past Surgical History / Comment(s): colonoscopy, c3-c7 fusion Past Anesthesia/Blood Transfusion Reactions: No Reported Reaction Past Psychological History: Anxiety Smoking Status: Never smoker Past Alcohol Use History: None Reported Past Drug Use History: None Reported - Past Family History Father Family Medical History: No Reported History Additional Family Medical History / Comment(s): Dad is 82 and healthy. Mother Family Medical History: No Reported History Additional Family Medical History / Comment(s): Mom is 82 and healthy. Medications and Allergies Home Medications Medication Instructions Recorded Confirmed Type Pravastatin Sodium 40 mg PO DAILY 11/10/15 01/15/24 History lisinopriL 40 mg PO QAM 11/10/15 01/15/24 History hydrALAZINE HCL [Apresoline] 100 mg PO BID 04/06/20 01/15/24 History Aspirin [Kensett Aspirin EC] 81 mg PO DAILY 09/30/20 01/15/24 History DULoxetine HCL [Cymbalta] 30 mg PO DAILY 09/30/20 01/15/24 History Multivitamins, Thera [Multivitamin 1 tab PO DAILY 11/22/23 01/15/24 History (formulary)] Omeprazole [PriLOSEC] 20 mg PO AC-BRKFST 11/22/23 01/15/24 History carvediloL [Coreg] 25 mg PO BID 11/22/23 01/15/24 History rOPINIRole HCL [Requip] 0.5 mg PO HS 11/22/23 01/15/24 History Dapagliflozin Propanediol [Farxiga] 10 mg PO DAILY #30 tab 12/12/23 01/15/24 Rx Apixaban [Eliquis] 5 mg PO BID 01/15/24 01/15/24 History Bumetanide [BUMEX] 0.5 mg PO DAILY 01/15/24 01/15/24 History Gabapentin [Neurontin] 300 mg PO TID 01/15/24 01/15/24 History NIFEdipine XL [Procardia Xl] 30 mg PO DAILY 01/15/24 01/15/24 History Allergies Allergy/AdvReac Type Severity Reaction Status Date / Time No Known Allergies Allergy Verified 01/15/24 07:24 Physical Examination - Vital Signs Vital Signs: Vital Signs Temp Pulse Pulse Pulse Resp BP BP 01/16/24 15:39 72 01/16/24 15:26 72 01/16/24 14:00 67 18 93/57 100/63 01/16/24 11:56 70 01/16/24 11:45 74 01/16/24 11:27 86 130/70 01/16/24 10:47 86 129/74 01/16/24 09:37 86 100/63 01/16/24 09:24 95 106/63 01/16/24 09:15 01/16/24 09:14 93 90/56 01/16/24 09:09 88/57 01/16/24 09:07 88/57 01/16/24 09:03 54 L 01/16/24 09:02 86/59 01/16/24 08:50 71/44 01/16/24 08:40 74 01/16/24 08:30 70 01/16/24 07:27 97.7 F 96 16 143/83 01/16/24 00:41 97.7 F 96 17 146/77 01/15/24 20:33 76 01/15/24 20:22 74 01/15/24 20:00 18 01/15/24 19:30 98.4 F 97 18 132/64 01/15/24 16:27 76 01/15/24 16:18 80 Pulse Ox 01/16/24 15:39 01/16/24 15:26 01/16/24 14:00 94 L 01/16/24 11:56 01/16/24 11:45 01/16/24 11:27 01/16/24 10:47 01/16/24 09:37 93 L 01/16/24 09:24 93 L 01/16/24 09:15 95 01/16/24 09:14 100 01/16/24 09:09 01/16/24 09:07 01/16/24 09:03 01/16/24 09:02 01/16/24 08:50 01/16/24 08:40 01/16/24 08:30 96 01/16/24 07:27 98 01/16/24 00:41 96 01/15/24 20:33 01/15/24 20:22 01/15/24 20:00 01/15/24 19:30 96 01/15/24 16:27 01/15/24 16:18 Intake and Output 01/16/24 01/16/24 01/16/24 06:59 14:59 22:59 Output Total 1900 700 Balance -1900 -700 Output: Urine 1900 700 Other: Voiding Method External Catheter GENERAL: The patient is sitting in a recliner chair and is not in acute distress. NEUROLOGICAL: Higher mental function: The patient is awake, alert, oriented to self, place and time. Patient is following commands. No aphasia and no neglect. Cranial nerves: The pupils are round, equal and reactive to light and accommodation. Visual mosley are full to confrontation throughout. Extraocular movement is intact no nystagmus is noted. Facial sensation is normal to touch throughout. The facial strength is normal throughout. Hearing is normal bilaterally to hand rub. Tongue is midline and moved [id number] without any difficulty. No dysarthria is noted. Shoulder shrug is weak over the left side and normal over the right. Motor: The strength is left forearm flexion is 1/5 while extension is 4-4+, left hand flexion/extension is 2. Right upper extremity is 4+ to 5-. Lowers are 5/5. Decrease tone over the left upper. Has atrophy over the left thenar/hypothenar region and left forearm muscle proximally. Cerebellum: Normal finger to nose over the right but some difficulty on the left because of weakness. Sensation: Sensation is normal to touch throughout. Reflexes (right/left): Biceps 0/1-2; triceps 1-2/2; brachioradialis 1/2; patellar 2/2; ankles 2/2. Plantars are mute bilaterally. Results - Laboratory Findings CBC and BMP: 01/16/24 04:59 01/16/24 04:59 Abnormal Lab Findings: Abnormal Labs 01/15/24 01/15/24 01/15/24 02:05 02:05 02:05 WBC 12.7 H MCV MCHC Immature Gran # Neutrophils # 10.4 H ABG pCO2 ABG pO2 ABG HCO3 ABG Total CO2 ABG O2 Saturation VBG pH VBG pCO2 VBG HCO3 Chloride 93 L Carbon Dioxide 42 H* Anion Gap BUN 27 H BUN/Creatinine Ratio Glucose 125 H Total Protein 6.1 L Total Protein (PEP) 5.6 L Albumin 01/15/24 01/15/24 01/16/24 02:15 12:18 04:59 WBC 13.77 H MCV 97.8 H MCHC 30.6 L Immature Gran # 0.12 H Neutrophils # 11.26 H ABG pCO2 71 H* ABG pO2 ABG HCO3 46 H* ABG Total CO2 48 H ABG O2 Saturation 97.1 H VBG pH 7.47 H VBG pCO2 58 H VBG HCO3 42 H Chloride Carbon Dioxide Anion Gap BUN BUN/Creatinine Ratio Glucose Total Protein Total Protein (PEP) Albumin 01/16/24 01/16/24 04:59 10:03 WBC MCV MCHC Immature Gran # Neutrophils # ABG pCO2 74 H* ABG pO2 68 L ABG HCO3 48 H* ABG Total CO2 50 H ABG O2 Saturation 93.8 L VBG pH VBG pCO2 VBG HCO3 Chloride 90 L Carbon Dioxide 38.1 H Anion Gap 12.90 H BUN 27.4 H BUN/Creatinine Ratio 27.40 H Glucose 133 H Total Protein 5.6 L Total Protein (PEP) Albumin 3.6 L Assessment and Plan Assessment: This is a 68-year-old gentleman who started having twitching left upper extremity then started having progressive weakness over the left upper extremity about 6 months ago, also in the last 2 months he developed numbness in the right ulnar distribution and he had a total of 3 EMG of the upper extremity and [facility] and [facility] he was notified that it was not ALS. Patient also had extensive MRI of the brain as well as the spine and he stated multiple times with extensive lab workup and unknown exact etiology. He stated in the last 3 days he felt maybe the left upper extremity was slightly better. He denies any bladder or bowel or visual disturbance or speech difficulty. He had cervical surgery in November 27, [address] Cottrell. Recently he felt shortness of breath. Progressive weakness of the left upper extremity, right upper extremity weakness and right ulnar neuropathy. He had extensive workup (labs), imaging of the brain and spine as well as multiple EMGs (3 in total) of the uppers and he was told unknown exact etiology but was not ALS. Does not have any focal radiculopathy and does not have any neck pain. Acute on chronic heart failure Acute on chronic hypoxic and hypercapnic respiratory failure History of cervical C3-C7 ACDF November 27, 2023 Edema in the lower extremity COPD Atrial fibrillation on Eliquis Plan: I notified the patient to pursue follow-up with [facility] ([facility]) and to pursue their recommendation of NCS/EMG of the lowers. Continue following up with the neuromuscular specialist over [facility]. He is also seeing Dr. Lucero's team locally. Defer the rest of the medical management the primary and other specialist Plan discussed with the patient and the primary team Thank you for the consultation There is no further neurological work-up. Will sign off. Please reconsult if needed. Time with Patient: Greater than 30
[2024-01-16] MEDS: METOPROLOL TARTRATE 25 MG TAB PO STA (16:42)
[2024-01-16 16:43] LABS: Free Kappa Lt Chain Qnt, Serum 1.32 mg/dL (0.33-1.94)
[2024-01-17] MEDS: ALPRAZolam 0.25 MG TAB PO PRN (00:06)
[2024-01-17] MEDS: PANTOPRAZOLE 40 MG TABLET PO SCH (06:36)
[2024-01-17 07:34] LABS: Basophils % (A) 0 %; Eosinophils # (A) 0.1 k/uL (0-0.7); Eosinophils % (A) 1 %; HCT 45.5 % (39.0-53.0); HGB 14.2 gm/dL (13.0-17.5); Lymphocytes # (A) 1.4 k/uL (1.0-4.8); Lymphocytes % (A) 12 %; MCHC 31.1 g/dL (31.0-37.0); MCV 96.6 fL (80.0-100.0); Mean Platelet Volume 7.4; Monocytes # (A) 0.7 k/uL (0-1.0); Monocytes % (A) 6 %; Neutrophils # (A) 9.8 k/uL (1.3-7.7); Neutrophils % (A) 81 %; Platelet Count 186 k/uL (150-450); RBC 4.71 m/uL (4.30-5.90); RDW 12.4 % (11.5-15.5); WBC 12.1 k/uL (3.8-10.6)
[2024-01-17 08:28] LABS: African American GFR (CKD) >90 (>60 ml/min/1.73 sqM); Blood Urea Nitrogen 37 mg/dL (9-20); Calcium 8.6 mg/dL (8.4-10.2); Chloride 88 mmol/L (98-107); Glucose 154 mg/dL (74-99); Non-African American GFR(CKD) 89 (>60 ml/min/1.73 sqM); Potassium 3.4 mmol/L (3.5-5.1); Sodium 136 mmol/L (137-145)
[2024-01-17 08:36] LABS: Anion Gap 9 mmol/L; Carbon Dioxide 39 mmol/L (22-30)
[2024-01-17] MEDS: POTASSIUM CHLORIDE ER 10 MEQ TAB.ER.PRT PO SCH (09:30)
--- NOTE | 2024-01-17 11:42 | P.PN ---
Subjective Progress Note Date: 01/17/24 HISTORY OF PRESENT ILLNESS: This is a pleasant 68-year-old with past medical history significant for hyp ertension, hyperlipidemia, obstructive sleep apnea, GERD, persistent atrial fibrillation and CHF. He follows with a doctor rather in [facility]. He states he had been doing fairly well up until approximately 6-12 months ago. He then started to develop shortness of breath as well as upper extremity weakness. He underwent extensive workup and initially there was some concern regarding possible ALS. Eventually he was seen by orthopedic surgery and underwent C3 through C7 cervical discectomy and fusion 11/28/2023. Additionally he has had multiple admissions with shortness breath. He also had been down to [facility] with admissions for heart failure. He was diagnosed with atrial fibrillation after his spinal surgery. Unfortunately his upper extremity weakness and numbness has not dramatically improved. He has been on steroids. Hospitalization at [facility] he underwent a cardioversion which was successful however fairly short-lived and back in A. fib. He takes Bumex at home however believes Lasix actually worked somewhat better for him. He presented with increasing shortness breath over the last few days and significantly in the middle the night and could not catch his breath and "had to drag himself and his he felt like he was dying. He also admits to some significant generalized weakness. Denies any recent fevers or chills. Also has 2+ lower extremity edema which is increased from prior. EKG shows atrial fibrillation with no significant ST changes. Prior echo from 11/2023 showed severe LVH with septal thickness 2.5 and posterior wall thickness 2.1 cm. He does admit to a chronic history of hypertension however has been better control led recently. He admits he felt somewhat better after his cardioversion however this was short-lived. 01/16/2024 Patient examined this morning. Patient is sitting up in the chair. Patient states this morning he was seeing spots. Patient developed hypotension this morning and received a fluid bolus. BP was in the 70s according to the nurse. Blood pressure improved after fluid bolus. Most recent blood pressure 130/70. The patient currently denies any chest pain or pressure. He denies shortness of breath. He remains in atrial fibrillation with heart rate around 100. 01/17/24 Patient was transferred from the [facility] and is seen today on the cardiac stepdown unit. Patient is seen and examined. He apparently had low blood pressure readings and was transferred. His blood pressures are 112/71, heart rate is in the 70s and 80s, pulse ox 95% on 2 L nasal cannula. He remains in atrial fibrillation patient denies having any chest pain. He states that his difficulty breathing comes and goes. Repeat blood work reveals WBC 12.1, hemoglobin 14. Sodium 136, potassium 3.4, CO2 is 39, BUN 37 creatinine 0.9. Troponin from yesterday was negative. Potassium has been replaced. Records from Dr. Hamilton Rather: Patient underwent FLORI and cardioversion on 12/27/2023 and he has nonobstructive CAD by CCTA and 05/2023 FLORI revealed EF 65%, mild LA/RA dilation, no thrombus, mild MR, trivial TR PHYSICAL EXAM: VITAL SIGNS: Reviewed. GENERAL: Well-developed in no acute distress. NECK: Supple. No JVD or thyromegaly LUNGS: Respirations even and unlabored. Lungs essentially clear to auscultation bilaterally. HEART: Irregular rate and rhythm. S1 and S2 heard. EXTREMITIES: Normal range of motion. No clubbing or cyanosis. Peripheral pulses intact. Bilateral lower extremity edema ASSESSMENT: Hypotension, resolved Acute on chronic respiratory failure Acute on chronic diastolic heart failure Severe LVH, rule out infiltrative disease Persistent atrial fibrillation with controlled ventricular rate Hypertension Upper extremity weakness, does not appear consistent with Guillain-Green or nueromuscular disease. Neuropathy with apparent EMG performed previously. Rule out component of amyloidosis Status post cervical discectomy and fusion Obstructive sleep apnea Obesity PLAN: Discontinue lisinopril, Procardia, and carvedilol Continue oral amiodarone Continue Eliquis 5 mg twice daily Continue IV Lasix 80 mg every 12 hours Continue telemetry monitoring Patient will be scheduled tomorrow for cardioversion with Dr. Jean N.p.o. after midnight Further recommendations pending patient course Nurse practitioner note has been reviewed by physician. Signing provider agrees with the documented findings, assessment, and plan of care documented by INFORMATION RECEPTIONIST as a scribe. Objective - Vital Signs Vital signs: Vital Signs Temp 98.0 F 01/17/24 08:40 Pulse 89 01/17/24 08:40 Resp 18 01/17/24 08:40 BP 112/71 01/17/24 08:40 Pulse Ox 95 01/17/24 08:40 FiO2 Intake & Output 01/16/24 01/17/24 01/17/24 18:59 06:59 18:59 Intake Total 120 237 898 Output Total 700 1200 800 Balance -580 -963 98 Weight 128.9 kg Intake: Oral 120 237 898 Output: Urine 700 1200 800 Other: Voiding Method External Catheter External Catheter - Labs CBC & Chem 7: 01/17/24 06:58 01/17/24 06:58 Labs: Abnormal Lab Results - Last 24 Hours (Table) 01/15/24 01/16/24 01/17/24 Range/Units 02:05 10:03 06:58 WBC (3.8-10.6) k/uL Neutrophils # (1.3-7.7) k/uL ABG pCO2 74 H* (35-45) mmHg ABG pO2 68 L (83-108) mmHg ABG HCO3 48 H* (21-25) mmol/L ABG Total CO2 50 H (19-24) mmol/L ABG O2 Saturation 93.8 L (94-97) % Sodium 136 L (137-145) mmol/L Potassium 3.4 L (3.5-5.1) mmol/L Chloride 88 L (98-107) mmol/L Carbon Dioxide 39 H (22-30) mmol/L BUN 37 H (9-20) mg/dL Glucose 154 H (74-99) mg/dL Total Protein (PEP) 5.6 L (5.7-8.2) g/dL 01/17/24 Range/Units 06:58 WBC 12.1 H (3.8-10.6) k/uL Neutrophils # 9.8 H (1.3-7.7) k/uL ABG pCO2 (35-45) mmHg ABG pO2 (83-108) mmHg ABG HCO3 (21-25) mmol/L ABG Total CO2 (19-24) mmol/L ABG O2 Saturation (94-97) % Sodium (137-145) mmol/L Potassium (3.5-5.1) mmol/L Chloride (98-107) mmol/L Carbon Dioxide (22-30) mmol/L BUN (9-20) mg/dL Glucose (74-99) mg/dL Total Protein (PEP) (5.7-8.2) g/dL
--- NOTE | 2024-01-17 15:49 | P.PN ---
Subjective Progress Note Date: 01/17/24 Principal diagnosis: Acute on chronic hypoxemic and hypercapnic respiratory failure, multifactorial Patient is a 68-year-old male with past medical history significant for hyper tension, hyperlipidemia, obstructive sleep apnea with home APAP, GERD, atrial fibrillation currently anticoagulated on Eliquis, and lifelong non-smoker. Recently, patient has developed bilateral upper extremity weakness, worse on the left. He has been evaluated by the orthopedic surgeon and did undergo C3-C7 cervical discectomy and fusion back on 11/28/2023. Unfortunately, the function of his left upper extremity has not returned to baseline following the procedure. States he has had follow-up MRI spine at outside facility and follows up with neurologist. Of note, following his procedure he was found to be in A-fib RVR and exacerbation of diastolic heart failure. Transthoracic echocardiogram done during this admission showing a preserved left ventricular ejection fraction of 50 to 55% with severe LVH. Patient was ultimately discharged home on December 11. More recently, patient had a hospitalization at [facility], he underwent a cardioversion, which was reportedly successful. Patient returns to the ED department last night complaining of 2 weeks of worsening acute on chronic shortness of breath.He reports associated increased swelling especially in his left upper extremity and bilateral lower extremities. Endorses orthopnea. He does take Bumex on outpatient basis. He does have a APAP machine at home, but he does not wear it due to weakness in his upper extremities. He states that he cannot put the device on. He denies history of COPD or asthma. He is a lifelong non-smoker. 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 He is scheduled to follow-up in the pulmonary office this January.. Chest x-ray demonstrates cardiomegaly and possible pulmonary vascular congestion. There is left hemidiaphragm elevation. Patient states that he did follow-up outpatient for his sniff test which was unremarkable. NT proBNP only mildly elevated at 623. Troponin less than 0.012. EKG consistent with atrial fibrillation with controlled ventricular response, rate 93 bpm, no acute ischemic changes noted. CBC: WBC count 12.7, hemoglobin 14.4, hematocrit 46.1, platelets 222. CMP: Sodium 138, potassium 3.9, chloride 93, serum bicarb 42, BUN 27, creatinine 0.88, glucose 125. Lactic 1.6. LFTs unremarkable. Patient appears to have a positive fluid balance and has been started on Lasix 40 mg twice daily. He is currently alert and oriented, sitting up in the bedside recliner on 4 L/min nasal cannula, in no acute distress. He states he is tired and has not slept in about 2 weeks due to his difficulty in breathing. Current vitals: Heart rate 88 bpm, blood pressure 129/77 mmHg, respiratory rate mid teens, SpO2 97% on 4 L/min nasal cannula. The patient is seen today January 16, 2024 in follow-up on the regular medical floor. He is currently sitting up in the bedside. Awake and alert in no acute distress. Breathing better today compared to yesterday. Lung sounds have improved. Containing good O2 saturations in the 90s on 2 L/min per nasal cannula. Arterial blood gases revealed a PaO2 of 68, P CO2 of 74 and a pH of 7.42 on 36% FiO2. Afebrile. Hemodynamically stable. Chest x-ray reveals no acute pulmonary process. Continued small left pleural effusion. White count 13.7. Hemoglobin 13.7. Platelets 185. Sodium 141. Potassium 3.9. Bicarb 38. BUN 27. Creatinine 1.0. Glucose 133. He remains on DuoNeb inhalations. Continued on IV diuretics. Anticoagulated with Eliquis. Currently in a -1.9 L balance. Patient was seen today on 01/17/2024, patient is basically the same. Continues to have intermittent episodes of shortness of breath, complaining of generalized weakness and he has difficulty even using his arms pulmonary mcdonnell previous workup showed weakness/paresis of the left hemidiaphragm but not paralyzed. Did not have paradoxical movement of the left hemidiaphragm. Patient had extensive workup in many other places including [facility] and [facility], and no one c ould figure out the etiology of his symptoms. He was told that he did not have ALS clearly no evidence to suggest Nuvia Gehrig's disease pulmonary mcdonnell patient remains on bronchodilators, he is also on diuretics, and he is anticoagulated with Eliquis. inspite of diuresing well, though significant improvement noted on this admission. Patient clearly has and has been diagnosed with obstructive sleep apnea with chronic hypercapnia and he is not using his home BiPAP because he has difficulty using it with his weak arms. I stressed to him the importance of getting get into the hospital, and will have respiratory therapist or nurses help him put it on every night when he sleeps Objective - Vital Signs Vital signs: Vital Signs Temp 98.0 F 01/17/24 08:40 Pulse 68 01/17/24 12:01 Resp 18 01/17/24 08:40 BP 112/71 01/17/24 08:40 Pulse Ox 95 01/17/24 08:40 FiO2 Intake & Output 01/16/24 01/17/24 01/17/24 18:59 06:59 18:59 Intake Total 330 569 7708 Output Total 700 1200 800 Balance -580 -963 860 Weight 128.9 kg Intake: Oral 082 327 5860 Output: Urine 700 1200 800 Other: Voiding Method External Catheter External Catheter External Catheter - Exam GENERAL EXAM: Alert, obese 68-year-old male, sitting up in a chair, on 2 L nasal cannula, comfortable in no apparent distress. HEAD: Normocephalic and atraumatic EYES: Normal reaction of pupils, equal size. NOSE: Clear with pink turbinates. THROAT: No erythema or exudates. NECK: No masses, no JVD. CHEST: No chest wall deformity. LUNGS: Equal air entry with diminished bibasilar lung msoley; no crackles, wheeze, rhonchi or dullness. CVS: S1 and S2 normal with no audible murmur, irregular rhythm. No extra heart sounds ABDOMEN: Obese abdomen, active bowel sounds, no hepatosplenomegaly,, no guarding or rigidity. SKIN: Chronic venous stasis changes of bilateral lower extremities CENTRAL NERVOUS SYSTEM: Cranial nerves II through XII intact, notable left upper extremity weakness graded 2/5, right upper extremity strength grade 5/5, bilateral lower extremity strength graded 5/5 EXTREMITIES: There gross anasarca, no clubbing, or cyanosis. Peripheral pulses are intact. - Labs CBC & Chem 7: 01/17/24 06:58 01/17/24 06:58 Labs: Abnormal Lab Results - Last 24 Hours (Table) 01/17/24 01/17/24 Range/Units 06:58 06:58 WBC 12.1 H (3.8-10.6) k/uL Neutrophils # 9.8 H (1.3-7.7) k/uL Sodium 136 L (137-145) mmol/L Potassium 3.4 L (3.5-5.1) mmol/L Chloride 88 L (98-107) mmol/L Carbon Dioxide 39 H (22-30) mmol/L BUN 37 H (9-20) mg/dL Glucose 154 H (74-99) mg/dL Assessment and Plan Assessment: Impression: Acute on chronic hypoxemic and hypercapnic respiratory failure, possibly secondary to acute exacerbation of diastolic CHF and underlying obstructive sleep apnea syndrome with obesity hypoventilation syndrome and the patient is noncompliant with his BiPAP at home. Paroxysmal atrial fibrillation, reportedly underwent cardioversion in outside facility 2 weeks ago, most recent EKG showing atrial fibrillation with controlled ventricular response History of obstructive sleep apnea syndrome, noncompliant with home CPAP Obesity, with a BMI of 36.6 kg/m suspect obesity hypoventilation syndrome Chronic hypercapnic respiratory failure Left diaphragm weakness but no paradoxical movement as noted on previous sniff test Recent history of anterior cervical discectomy and fusion, C3-C7 Persistent left upper extremity weakness Lifelong non-smoker Hypertension Hyperlipidemia Gastroesophageal reflux disease. History of anxiety Recommendation: Continue present supportive care measures strongly recommended that he becomes more compliant with his CPAP/BiPAP and to bring it from home Continue diuretics Continue anticoagulation with Eliquis Neurology is addressing his muscle weakness/proximal muscle weakness had extensive workup in outside institutions for his muscle weakness and ALS was ruled out. Will continue to follow Time with Patient: Less than 30
[2024-01-17] MEDS: SODIUM CHLORIDE 0.9% 1,000 ML IV SCH (18:28)
--- NOTE | 2024-01-17 18:33 | P.PN ---
Subjective Progress Note Date: 01/17/24 This is a 68-year-old male with medical history significant for atrial fibrillation, COPD, acid reflux, hyperlipidemia, hypertension, sleep apnea with CPAP use, heart failure. Patient was recently hospitalized December 06 to December 11 for dyspnea and heart failure post cervical surgery. He was discharged home. He then had a hospitalization in the last week at [facility] where he underwent cardioversion which was successful. He comes back to the hospital now with complaints of worsening shortness of breath over the last month. He also reports weakness of his bilateral upper extremities and worsening edema of the bilateral lower extremities and his hands. He is reporting orthopnea and dyspnea on exertion. He has been compliant with his diuretic at home. He states that he has not been wearing his CPAP at night because of this weakness that he has been having. Patient does wear oxygen chronically. Chest xray on admission showing no acute findings. No evidence of DVT in the left arm per doppler. White blood cell count 12.7. CO2 47 on admission. Troponin level is negative, his proBNP is not elevated. He has been started on IV Lasix 40 mg every 12 hours. He is admitted under internal medicine with a cardiology and pulmonary consultation. He is currently in atrial fibrillation. 01/16/2024 Patient is evaluated today in follow up on the medical floor. Patient was hypotensive this AM with blood pressure into the 80s systolic was given a 500 CC bolus. He was presyncopal. He was moved to [address] [place] [address] for closer monitoring. Chest xray this AM reveals no acute cardiopulmonary disease/process. Small left pleural effusion. Brain CT completed negative for acute findings. Continues on IV lasix 80 mg Q12 hours. White blood cell count today 13.77. CO2 better at 38. BUN 27.4 creatinine 1.0. 01/17/2024 Patient evaluated today in follow up on the medical floor. Patient Blood pressur e better today. Remains in atrial fibrillation with controlled ventricular rate. Neurology evaluation recommending to follow up for EMG testing of the lower extremities and continue to follow up with his neurologist and neuromuscular specialist for the upper extremity weakness. Cardiology has adjusted medications discontinued lisinopril, procardia, and carvedilol. Patient will be going for cardioversion tomorrow. REVIEW OF SYSTEMS: CONSTITUTIONAL: No fever, no malaise, no fatigue. HEENT: No recent visual problems or hearing problems. Denied any sore throat. CARDIOVASCULAR: No chest pain, orthopnea, PND, no palpitations, no syncope. PULMONARY: No shortness of breath, no cough, no hemoptysis. GASTROINTESTINAL: No diarrhea, no nausea, no vomiting, no abdominal pain. NEUROLOGICAL: No headaches, no weakness, no numbness. PHYSICAL EXAMINATION: GENERAL: The patient is alert and oriented x3, not in any acute distress. Well developed, well nourished. HEENT: Pupils are round and equally reacting to light. EOMI. No scleral icterus. No conjunctival pallor. Normocephalic, atraumatic. No pharyngeal erythema. No thyromegaly. CARDIOVASCULAR: S1 and S2 present. No murmurs, rubs, or gallops. PULMONARY: Chest is clear to auscultation, no wheezing or crackles. ABDOMEN: Soft, nontender, nondistended, normoactive bowel sounds. No palpable organomegaly. MUSCULOSKELETAL: No joint swelling or deformity. EXTREMITIES: No cyanosis, clubbing, or pedal edema. NEUROLOGICAL: Left upper extremity weakness with decreased hand grasp. mild right upper extremity weakness. SKIN: No rashes. Assessment and Plan Acute on chronic heart failure diastolic dysfunction with ejection fraction of 5 0 to 55% Acute on chronic hypoxic and hypercarbic respiratory failure secondary to above with noncompliance with his home CPAP Obstructive sleep apnea with CPAP use has been noncompliant Oxygen dependent COPD Paroxysmal Atrial fibrillation anticoagulant with Eliquis recently cardioverted at [facility]. Currently in atrial fibrillation with CVR. Hypertension Hyperlipidemia Recent cervical C3-C7 ACDF on November 27, 2023 Postoperative reflux disease Obesity GI prophylaxis DVT prophylaxis DNR Plan Lisinopril, procardia and carvedilol are discontinued. Patient will be going for cardioversion tomorrow Pulmonary and cardiology following Continue cardiac telemetry Continue IV lasix 80 mg Q12 hours Reports from [place] available in the chart. PT/OT consulted Repeat BMP tomorrow The impression and plan of care has been dictated by Delilah Vargas, Nurse Practitioner as directed. Dr. Raiza MD I have performed a history and physical examination and medical decision making of this patient, discussed the same with the dictator, and agree with the dictators assessment and plan as written, documented as a scribe. Based on total visit time, I have performed more than 50% of this visit. Objective - Vital Signs Vital signs: Vital Signs Temp 98.0 F 01/17/24 08:40 Pulse 89 01/17/24 14:00 Resp 18 01/17/24 14:00 BP 112/71 01/17/24 08:40 Pulse Ox 95 01/17/24 08:40 FiO2 Intake & Output 01/16/24 01/17/24 01/17/24 18:59 06:59 18:59 Intake Total 430 142 6295 Output Total 700 1200 1400 Balance -580 -963 260 Weight 128.9 kg Intake: Oral 676 128 6242 Output: Urine 700 1200 1400 Other: Voiding Method External Catheter External Catheter External Catheter # Voids 1 - Labs CBC & Chem 7: 01/17/24 06:58 01/17/24 06:58 Labs: Abnormal Lab Results - Last 24 Hours (Table) 01/17/24 01/17/24 Range/Units 06:58 06:58 WBC 12.1 H (3.8-10.6) k/uL Neutrophils # 9.8 H (1.3-7.7) k/uL Sodium 136 L (137-145) mmol/L Potassium 3.4 L (3.5-5.1) mmol/L Chloride 88 L (98-107) mmol/L Carbon Dioxide 39 H (22-30) mmol/L BUN 37 H (9-20) mg/dL Glucose 154 H (74-99) mg/dL Assessment and Plan Time with Patient: Less than 30
[2024-01-17] MEDS: METOPROLOL TARTRATE 50 MG TAB PO STA (21:47)
[2024-01-18] MEDS ORDERED: PROPOFOL 10 MG/ML 20 ML VIAL IV ONE (10:21)
[2024-01-18] MEDS ORDERED: LIDOCAINE 1% INJ 10MG/ML (20 ML MDV) ONE (10:21)
[2024-01-18] MEDS: SODIUM CHLORIDE 0.9% 500 ML 500 ML IV ONE (10:30)
--- NOTE | 2024-01-18 10:36 | P.PCN ---
Description of Procedure: Procedure performed: Synchronized cardioversion Moderate conscious sedation: Moderate conscious sedation was supplied by anesthesia, see separate report. Complications: none Indications: Symptomatic persistent Afib PROCEDURE: After the risks, benefits and alternatives of the above mentioned procedure was explained in detail with the patient, informed consent was obtained. Patient was brought to the lab in a fasting state. Patient was given sedation by anesthesia, see separate report. Patient had not missed any rounds of his anticoagulation for the last 30 days. Patient underwent synchronized cardioversion x 1 with 200J with resultant sinus rhythm. Patient tolerated the procedure well. Patient was transferred to the post procedure area in stable and satisfactory condition.
--- NOTE | 2024-01-18 17:09 | P.PN ---
Subjective Progress Note Date: 01/18/24 Principal diagnosis: Acute on chronic hypoxemic and hypercapnic respiratory failure, multifactorial Patient is a 68-year-old male with past medical history significant for hyper tension, hyperlipidemia, obstructive sleep apnea with home APAP, GERD, atrial fibrillation currently anticoagulated on Eliquis, and lifelong non-smoker. Recently, patient has developed bilateral upper extremity weakness, worse on the left. He has been evaluated by the orthopedic surgeon and did undergo C3-C7 cervical discectomy and fusion back on 11/28/2023. Unfortunately, the function of his left upper extremity has not returned to baseline following the procedure. States he has had follow-up MRI spine at outside facility and follows up with neurologist. Of note, following his procedure he was found to be in A-fib RVR and exacerbation of diastolic heart failure. Transthoracic echocardiogram done during this admission showing a preserved left ventricular ejection fraction of 50 to 55% with severe LVH. Patient was ultimately discharged home on December 11. More recently, patient had a hospitalization at [facility], he underwent a cardioversion, which was reportedly successful. Patient returns to the ED department last night complaining of 2 weeks of worsening acute on chronic shortness of breath.He reports associated increased swelling especially in his left upper extremity and bilateral lower extremities. Endorses orthopnea. He does take Bumex on outpatient basis. He does have a APAP machine at home, but he does not wear it due to weakness in his upper extremities. He states that he cannot put the device on. He denies history of COPD or asthma. He is a lifelong non-smoker. 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 He is scheduled to follow-up in the pulmonary office this January.. Chest x-ray demonstrates cardiomegaly and possible pulmonary vascular congestion. There is left hemidiaphragm elevation. Patient states that he did follow-up outpatient for his sniff test which was unremarkable. NT proBNP only mildly elevated at 623. Troponin less than 0.012. EKG consistent with atrial fibrillation with controlled ventricular response, rate 93 bpm, no acute ischemic changes noted. CBC: WBC count 12.7, hemoglobin 14.4, hematocrit 46.1, platelets 222. CMP: Sodium 138, potassium 3.9, chloride 93, serum bicarb 42, BUN 27, creatinine 0.88, glucose 125. Lactic 1.6. LFTs unremarkable. Patient appears to have a positive fluid balance and has been started on Lasix 40 mg twice daily. He is currently alert and oriented, sitting up in the bedside recliner on 4 L/min nasal cannula, in no acute distress. He states he is tired and has not slept in about 2 weeks due to his difficulty in breathing. Current vitals: Heart rate 88 bpm, blood pressure 129/77 mmHg, respiratory rate mid teens, SpO2 97% on 4 L/min nasal cannula. The patient is seen today January 16, 2024 in follow-up on the regular medical floor. He is currently sitting up in the bedside. Awake and alert in no acute distress. Breathing better today compared to yesterday. Lung sounds have improved. Containing good O2 saturations in the 90s on 2 L/min per nasal cannula. Arterial blood gases revealed a PaO2 of 68, P CO2 of 74 and a pH of 7.42 on 36% FiO2. Afebrile. Hemodynamically stable. Chest x-ray reveals no acute pulmonary process. Continued small left pleural effusion. White count 13.7. Hemoglobin 13.7. Platelets 185. Sodium 141. Potassium 3.9. Bicarb 38. BUN 27. Creatinine 1.0. Glucose 133. He remains on DuoNeb inhalations. Continued on IV diuretics. Anticoagulated with Eliquis. Currently in a -1.9 L balance. Patient was seen today on 01/17/2024, patient is basically the same. Continues to have intermittent episodes of shortness of breath, complaining of generalized weakness and he has difficulty even using his arms pulmonary mcdonnell previous workup showed weakness/paresis of the left hemidiaphragm but not paralyzed. Did not have paradoxical movement of the left hemidiaphragm. Patient had extensive workup in many other places including [facility] and [facility], and no one c ould figure out the etiology of his symptoms. He was told that he did not have ALS clearly no evidence to suggest Nuvia Gehrig's disease pulmonary mcdonnell patient remains on bronchodilators, he is also on diuretics, and he is anticoagulated with Eliquis. inspite of diuresing well, though significant improvement noted on this admission. Patient clearly has and has been diagnosed with obstructive sleep apnea with chronic hypercapnia and he is not using his home BiPAP because he has difficulty using it with his weak arms. I stressed to him the importance of getting get into the hospital, and will have respiratory therapist or nurses help him put it on every night when he sleeps Patient was seen today on 01/18/2024, patient is basically about the same. Continues to have intermittent episodes of shortness of breath, generalized weakness, difficulty in using his upper extremities, and again he does have symptoms of cervical myelopathy. Pulmonary mcdonnell the patient did have left diaphragm paresis but no paralysis, and I believe that is related to his cervical spine. Patient is on nasal cannula 3 L, I suggested yesterday that he brings his own CPAP, did not do it and I will try to place him on BiPAP tonight 33% when he goes to bed/sleep.Labs today were all reviewed and ABG from few days ago was also reviewed. Patient has chronic hypercapnia and adequate metabolic compensation for his respiratory acidosis Objective - Vital Signs Vital signs: Vital Signs Temp 98.3 F 01/17/24 20:00 Pulse 77 01/18/24 11:10 Resp 16 01/18/24 11:10 BP 163/90 01/18/24 11:10 Pulse Ox 95 01/18/24 11:10 FiO2 35 01/18/24 13:06 Intake & Output 01/17/24 01/18/24 01/18/24 18:59 06:59 18:59 Intake Total 1778 50 Output Total 1400 550 900 Balance 378 -550 -850 Weight 128.9 kg Intake: IV 50 Oral 1778 Output: Urine 1400 550 900 Other: Voiding Method External Catheter External Catheter External Catheter # Voids 1 - Exam GENERAL EXAM: Alert, obese 68-year-old male, sitting up in a chair, on 2 L nasal cannula, comfortable in no apparent distress. HEAD: Normocephalic and atraumatic EYES: Normal reaction of pupils, equal size. NOSE: Clear with pink turbinates. THROAT: No erythema or exudates. NECK: No masses, no JVD. CHEST: No chest wall deformity. LUNGS: Equal air entry with diminished bibasilar lung mosley; no crackles, wheeze, rhonchi or dullness. CVS: S1 and S2 normal with no audible murmur, irregular rhythm. No extra heart sounds ABDOMEN: Obese abdomen, active bowel sounds, no hepatosplenomegaly,, no guarding or rigidity. SKIN: Chronic venous stasis changes of bilateral lower extremities CENTRAL NERVOUS SYSTEM: Cranial nerves II through XII intact, notable left upper extremity weakness graded 2/5, right upper extremity strength grade 5/5, bilateral lower extremity strength graded 5/5 EXTREMITIES: There gross anasarca, no clubbing, or cyanosis. Peripheral pulses are intact. - Labs CBC & Chem 7: 01/17/24 06:58 01/17/24 06:58 Assessment and Plan Assessment: Impression: Suspect cervical myelopathy Acute on chronic hypoxemic and hypercapnic respiratory failure, possibly secondary to acute exacerbation of diastolic CHF and underlying obstructive sleep apnea syndrome with obesity hypoventilation syndrome and the patient is noncompliant with his BiPAP at home. Paroxysmal atrial fibrillation, reportedly underwent cardioversion in outside facility 2 weeks ago, most recent EKG showing atrial fibrillation with controlled ventricular response History of obstructive sleep apnea syndrome, noncompliant with home CPAP Obesity, with a BMI of 36.6 kg/m suspect obesity hypoventilation syndrome Chronic hypercapnic respiratory failure Left diaphragm weakness but no paradoxical movement as noted on previous sniff test Recent history of anterior cervical discectomy and fusion, C3-C7 Persistent left upper extremity weakness Lifelong non-smoker Hypertension Hyperlipidemia Gastroesophageal reflux disease. History of anxiety Recommendation: Continue present supportive care measures Will arrange for BiPAP to be used tonight with IPAP 12 CPAP 6 FiO2 35% strongly recommended that he becomes more compliant with his CPAP/BiPAP and to bring it from home Continue diuretics Continue anticoagulation with Eliquis Neurology is still following Will continue to follow Time with Patient: Less than 30
[2024-01-18] MEDS: DILTIAZEM 125 MG in SODIUM CHLORIDE 0.9% 100 ML IV SCH (20:20)
[2024-01-18] MEDS: DILTIAZEM DRIP BOLUS FROM BAG 1 MG SOLN IV ONE (20:21)
[2024-01-19] MEDS ORDERED: ZINC OXIDE PASTE (Z-GUARD) 1 APPLIC TOPICAL PRN (05:46)
--- NOTE | 2024-01-19 06:58 | P.PN ---
Subjective Progress Note Date: 01/18/24 This is a 68-year-old male with medical history significant for atrial fibrillation, COPD, acid reflux, hyperlipidemia, hypertension, sleep apnea with CPAP use, heart failure. Patient was recently hospitalized December 06 to December 11 for dyspnea and heart failure post cervical surgery. He was dischar ge home. He then had a hospitalization in the last week at [facility] where he underwent cardioversion which was successful. He comes back to the hospital now with complaints of worsening shortness of breath over the last month. He also reports weakness of his bilateral upper extremities and worsening edema of the bilateral lower extremities and his hands. He is reporting orthopnea and dyspnea on exertion. He has been compliant with his diuretic at home. He states that he has not been wearing his CPAP at night because of this weakness that he has been having. Patient does wear oxygen chronically. Chest xray on admission showing no acute findings. No evidence of DVT in the left arm per d kyle. White blood cell count 12.7. CO2 47 on admission. Troponin level is negative, his proBNP is not elevated. He has been started on IV Lasix 40 mg every 12 hours. He is admitted under internal medicine with a cardiology and pulmonary consultation. He is currently in atrial fibrillation. 01/16/2024 Patient is evaluated today in follow up on the medical floor. Patient was hypotensive this AM with blood pressure into the 80s systolic was given a 500 CC bolus. He was presyncopal. He was moved to [address] [place] [address] for closer monitoring. Chest xray this AM reveals no acute cardiopulmonary disease/process. Small left pleural effusion. Brain CT completed negative for acute findings. Continues on IV lasix 80 mg Q12 hours. White blood cell count today 13.77. CO2 better at 38. BUN 27.4 creatinine 1.0. 01/17/2024 Patient evaluated today in follow up on the medical floor. Patient Blood pres sure better today. Remains in atrial fibrillation with controlled ventricular rate. Neurology evaluation recommending to follow up for EMG testing of the lower extremities and continue to follow up with his neurologist and neuromuscular specialist for the upper extremity weakness. Cardiology has adj usted medications discontinued lisinopril, procardia, and carvedilol. Patient will be going for cardioversion tomorrow. 01/18/2024 Patient is seen in follow-up today status post cardioversion currently sinus rhythm with cardiology following closely. Neurology as well as pulmonary also following as patient continues to report left upper extremity flaccidity and reports his right upper extremity is becoming more weak and is noticing tingling and numbness in the right hand. Patient has undergone extensive neurological workups and most recently at [facility] ([facility] including stroke workups that have been negative. ALS per patient was ruled out. Patient continues to be dyspneic with minimal exertion and is winded during conversation taking multiple breaks. Patient is maintained on 2 to 3 L nasal cannula at this time. Recommend PT/OT therapy evaluation and working with the patient daily. REVIEW OF SYSTEMS: CONSTITUTIONAL: No fever, no malaise, no fatigue. HEENT: No recent visual problems or hearing problems. Denied any sore throat. CARDIOVASCULAR: No chest pain, orthopnea, PND, no palpitations, no syncope. PULMONARY: Reports continued shortness of breath, no cough, no hemoptysis. GASTROINTESTINAL: No diarrhea, no nausea, no vomiting, no abdominal pain. NEUROLOGICAL: No headaches, reports of generalized weakness, reports left-sided numbness and inability to move, right sided tingling and numbness starting in the hands. PHYSICAL EXAMINATION: GENERAL: The patient is alert and oriented x3, not in any acute distress. Well developed, elderly appearing, obese HEENT: Pupils are round and equally reacting to light. EOMI. No scleral icterus. No conjunctival pallor. Normocephalic, atraumatic. No pharyngeal erythema. No thyromegaly. CARDIOVASCULAR: S1 and S2 muffled, currently sinus PULMONARY: Diminished breath sounds bilaterally with some faint crackles noted at the bases. ABDOMEN: Soft, obese, nontender, nondistended, normoactive bowel sounds. No palpable organomegaly. MUSCULOSKELETAL: No joint swelling or deformity. EXTREMITIES: No cyanosis, clubbing, or pedal edema. NEUROLOGICAL: Left upper extremity weakness with decreased hand grasp. mild right upper extremity weakness. SKIN: No rashes. Assessment: Acute on chronic heart failure diastolic dysfunction with ejection fraction of 50 to 55% Acute on chronic hypoxic and hypercarbic respiratory failure secondary to above with noncompliance with his home CPAP Obstructive sleep apnea with CPAP use has been noncompliant Oxygen dependent COPD Paroxysmal Atrial fibrillation anticoagulant with Eliquis recently cardioverted at [facility]. Currently in atrial fibrillation with RVR status post cardioversion today 01/18/2024. Hypertension Hyperlipidemia Recent cervical C3-C7 ACDF on November 27, 2023 Left upper extremity weakness with right hand tingling and numbness at times, possibly secondary to recent cervical surgery Gastroesophageal reflux disease Obesity with a BMI of 36.3 GI prophylaxis DVT prophylaxis DNR Plan: Lisinopril, procardia and carvedilol are discontinued. Cardiology following patient was maintained on Cardizem underwent cardioversion for symptomatic persistent atrial fibrillation. Patient reports he had cardioversion done a few weeks ago at the other hospital that converted back into A-fib RVR Pulmonary and cardiology following and has been instructed to get his CPAP machine from home for continued use. Pulmonary discussing the use of BiPAP at night. Continue cardiac telemetry Continue IV lasix 80 mg Q12 hours Reports from [place] available in the chart. PT/OT consulted and patient reports he walked up and down the jeff and does cont inue with exertion and shortness of breath with weakness. Patient continues to elicit left upper extremity weakness and reports his left arm is nonfunctional, right hand having some occasional numbness and tingling. Neurology is following. Patient has completed extensive neurological workup including stroke workups and 3 EMGs most recently in [place] that were negative and ALS was ruled out Repeat labs tomorrow Encourage increase activity as tolerated. Will discuss with case management/social work regarding discharge planning as patient reports he lives alone and is fearful of discharging home with minimal use of his upper extremities and would be unable to perform ADLs. The impression and plan of care has been dictated by Tamie Babin, nurse Practitioner as directed. Dr. Raiza MD I have performed a history and physical examination and medical decision making of this patient, discussed the same with the dictator, and agree with the dictators assessment and plan as written, documented as a scribe. Based on total visit time, I have performed more than 50% of this visit. Objective - Vital Signs Vital signs: Vital Signs Temp 98.3 F 01/17/24 20:00 Pulse 78 01/18/24 08:02 Resp 18 01/18/24 04:37 BP 145/84 01/18/24 04:37 Pulse Ox 98 01/18/24 07:53 FiO2 Intake & Output 01/17/24 01/18/24 01/18/24 18:59 06:59 18:59 Intake Total 1778 Output Total 1400 550 300 Balance 378 -550 -300 Weight 128.9 kg Intake: Oral 1777 Output: Urine 1400 550 300 Other: Voiding Method External Catheter External Catheter # Voids 1 - Labs CBC & Chem 7: 01/17/24 06:58 01/17/24 06:58
[2024-01-19 07:18] LABS: Basophils % (A) 0 %; Eosinophils # (A) 0.1 k/uL (0-0.7); Eosinophils % (A) 1 %; HCT 43.9 % (39.0-53.0); HGB 13.8 gm/dL (13.0-17.5); Lymphocytes # (A) 0.9 k/uL (1.0-4.8); Lymphocytes % (A) 8 %; MCH 30.3 pg (25.0-35.0); MCHC 31.5 g/dL (31.0-37.0); MCV 96.1 fL (80.0-100.0); Mean Platelet Volume 7.6; Monocytes # (A) 0.6 k/uL (0-1.0); Monocytes % (A) 6 %; Neutrophils # (A) 8.9 k/uL (1.3-7.7); Neutrophils % (A) 84 %; Platelet Count 160 k/uL (150-450); RBC 4.57 m/uL (4.30-5.90); RDW 12.4 % (11.5-15.5); WBC 10.7 k/uL (3.8-10.6)
[2024-01-19 07:36] LABS: ALT 36 U/L (4-49); AST 26 U/L (17-59); African American GFR (CKD) >90 (>60 ml/min/1.73 sqM); Albumin 3.7 g/dL (3.5-5.0); Alkaline Phosphatase 66 U/L (38-126); Blood Urea Nitrogen 25 mg/dL (9-20); Calcium 8.4 mg/dL (8.4-10.2); Chloride 88 mmol/L (98-107); Glucose 161 mg/dL (74-99); Magnesium 1.7 mg/dL (1.6-2.3); Non-African American GFR(CKD) >90 (>60 ml/min/1.73 sqM); Potassium 3.3 mmol/L (3.5-5.1); Sodium 138 mmol/L (137-145); Total Bilirubin 1.1 mg/dL (0.2-1.3); Total Protein 6.1 g/dL (6.3-8.2)
[2024-01-19 07:43] LABS: Anion Gap 8 mmol/L
[2024-01-19 07:48] LABS: Carbon Dioxide 42 mmol/L (22-30)
[2024-01-19] MEDS: METOPROLOL TARTRATE 25 MG TAB PO SCH (09:21)
--- NOTE | 2024-01-19 10:44 | P.PN ---
Subjective Progress Note Date: 01/19/24 HISTORY OF PRESENT ILLNESS: This is a pleasant 68-year-old with past medical history significant for hyp ertension, hyperlipidemia, obstructive sleep apnea, GERD, persistent atrial fibrillation and CHF. He follows with a doctor rather in [facility]. He states he had been doing fairly well up until approximately 6-12 months ago. He then started to develop shortness of breath as well as upper extremity weakness. He underwent extensive workup and initially there was some concern regarding possible ALS. Eventually he was seen by orthopedic surgery and underwent C3 through C7 cervical discectomy and fusion 11/28/2023. Additionally he has had multiple admissions with shortness breath. He also had been down to [facility] with admissions for heart failure. He was diagnosed with atrial fibrillation after his spinal surgery. Unfortunately his upper extremity weakness and numbness has not dramatically improved. He has been on steroids. Hospitalization at [facility] he underwent a cardioversion which was successful however fairly short-lived and back in A. fib. He takes Bumex at home however believes Lasix actually worked somewhat better for him. He presented with increasing shortness breath over the last few days and significantly in the middle the night and could not catch his breath and "had to drag himself and his he felt like he was dying. He also admits to some significant generalized weakness. Denies any recent fevers or chills. Also has 2+ lower extremity edema which is increased from prior. EKG shows atrial fibrillation with no significant ST changes. Prior echo from 11/2023 showed severe LVH with septal thickness 2.5 and posterior wall thickness 2.1 cm. He does admit to a chronic history of hypertension however has been better control led recently. He admits he felt somewhat better after his cardioversion however this was short-lived. 01/16/2024 Patient examined this morning. Patient is sitting up in the chair. Patient states this morning he was seeing spots. Patient developed hypotension this morning and received a fluid bolus. BP was in the 70s according to the nurse. Blood pressure improved after fluid bolus. Most recent blood pressure 130/70. The patient currently denies any chest pain or pressure. He denies shortness of breath. He remains in atrial fibrillation with heart rate around 100. 01/17/24 Patient was transferred from the [facility] and is seen today on the cardiac stepdown unit. Patient is seen and examined. He apparently had low blood pressure readings and was transferred. His blood pressures are 112/71, heart rate is in the 70s and 80s, pulse ox 95% on 2 L nasal cannula. He remains in atrial fibrillation patient denies having any chest pain. He states that his difficulty breathing comes and goes. Repeat blood work reveals WBC 12.1, hemoglobin 14. Sodium 136, potassium 3.4, CO2 is 39, BUN 37 creatinine 0.9. Troponin from yesterday was negative. Potassium has been replaced. Records from Dr. Hamilton Rather: Patient underwent FLORI and cardioversion on 12/27/2023 and he has nonobstructive CAD by CCTA and 05/2023 FLORI revealed EF 65%, mild LA/RA dilation, no thrombus, mild MR, trivial TR 01/18/24 Yesterday, patient underwent cardioversion for atrial fibrillation converted only briefly to sinus rhythm. Patient had episode of RVR and was resumed back on Cardizem drip last evening. He is currently running in the 80s and atrial fibrillation. Blood pressure 136/76, pulse ox 96% on 3 L nasal cannula. Discussed option of adding consult for EP, Dr. Rodriguez. PHYSICAL EXAM: VITAL SIGNS: Reviewed. GENERAL: Well-developed in no acute distress. NECK: Supple. No JVD or thyromegaly LUNGS: Respirations even and unlabored. Lungs essentially clear to auscultation bilaterally. HEART: Irregular rate and rhythm. S1 and S2 heard. EXTREMITIES: Normal range of motion. No clubbing or cyanosis. Peripheral pulses intact. Bilateral lower extremity edema ASSESSMENT: Hypotension, resolved Acute on chronic respiratory failure Acute on chronic diastolic heart failure Severe LVH, rule out infiltrative disease Persistent atrial fibrillation with controlled ventricular rate Hypertension Upper extremity weakness, does not appear consistent with Guillain-Green or nueromuscular disease. Neuropathy with apparent EMG performed previously. Rule out component of amyloidosis Status post cervical discectomy and fusion Obstructive sleep apnea Obesity PLAN: Discontinue lisinopril, Procardia, and carvedilol Continue oral amiodarone, Eliquis 5 mg twice daily, Farxiga Stop Cardizem drip once heart rate is maintained under 88 bpm Continue IV Lasix 80 mg every 12 hours Continue telemetry monitoring Further recommendations pending patient course Nurse practitioner note has been reviewed by physician. Signing provider agrees with the documented findings, assessment, and plan of care documented by TAILER IN as a scribe. Objective - Vital Signs Vital signs: Vital Signs Temp 98.1 F 01/19/24 08:35 Pulse 76 01/19/24 08:35 Resp 18 01/19/24 08:35 BP 129/77 01/19/24 08:35 Pulse Ox 97 01/19/24 08:35 FiO2 35 01/18/24 13:06 Intake & Output 01/18/24 01/19/24 01/19/24 18:59 06:59 18:59 Intake Total 590 1620 118 Output Total 900 950 Balance -310 670 118 Weight 128.3 kg Intake: IV 50 Oral 540 1620 118 Output: Urine 900 950 Other: Voiding Method External Catheter External Catheter External Catheter # Voids 1 - Labs CBC & Chem 7: 01/19/24 06:35 01/19/24 06:35 Labs: Abnormal Lab Results - Last 24 Hours (Table) 01/19/24 01/19/24 Range/Units 06:35 06:35 WBC 10.7 H (3.8-10.6) k/uL Neutrophils # 8.9 H (1.3-7.7) k/uL Lymphocytes # 0.9 L (1.0-4.8) k/uL Potassium 3.3 L (3.5-5.1) mmol/L Chloride 88 L (98-107) mmol/L Carbon Dioxide 42 H* (22-30) mmol/L BUN 25 H (9-20) mg/dL Glucose 161 H (74-99) mg/dL Total Protein 6.1 L (6.3-8.2) g/dL
--- NOTE | 2024-01-19 11:42 | XR ---
2 view chest HISTORY: Shortness of breath. COMPARISON: 01/15/2024 TECHNIQUE: PA and lateral views chest obtained. FINDINGS: There is been interval development of a partially consolidated left lower lobe opacity with small eff usion. The findings suggest presence of an acute pneumonia in the left lung base. The right lung is clear. The heart and bony vasculature are normal. The osseous structures are intact . There is no pleural effusion, pleural thickening or pneumothorax. The heart, pulmonary vasculature, mediastinum and santhosh are within normal limits. The osseous structures and soft tissues of the thorax are intact. IMPRESSION: Interval development of acute cardiopulmonary disease involving the left lung base, likely a pneumoni c infiltrate with small effusion. Short-term follow-up to resolution is recommended. [facility], Workstation: SHANNA 01/19/2024 11:40 AM
[2024-01-19] MEDS: POTASSIUM CHLORIDE ER 20 MEQ TAB.ER PO SCH (11:49)
--- NOTE | 2024-01-19 15:30 | P.PN ---
Subjective Progress Note Date: 01/19/24 Principal diagnosis: Acute on chronic hypoxemic and hypercapnic respiratory failure, multifactorial Patient is a 68-year-old male with past medical history significant for hyper tension, hyperlipidemia, obstructive sleep apnea with home APAP, GERD, atrial fibrillation currently anticoagulated on Eliquis, and lifelong non-smoker. Recently, patient has developed bilateral upper extremity weakness, worse on the left. He has been evaluated by the orthopedic surgeon and did undergo C3-C7 cervical discectomy and fusion back on 11/28/2023. Unfortunately, the function of his left upper extremity has not returned to baseline following the procedure. States he has had follow-up MRI spine at outside facility and follows up with neurologist. Of note, following his procedure he was found to be in A-fib RVR and exacerbation of diastolic heart failure. Transthoracic echocardiogram done during this admission showing a preserved left ventricular ejection fraction of 50 to 55% with severe LVH. Patient was ultimately discharged home on December 11. More recently, patient had a hospitalization at [facility], he underwent a cardioversion, which was reportedly successful. Patient returns to the ED department last night complaining of 2 weeks of worsening acute on chronic shortness of breath.He reports associated increased swelling especially in his left upper extremity and bilateral lower extremities. Endorses orthopnea. He does take Bumex on outpatient basis. He does have a APAP machine at home, but he does not wear it due to weakness in his upper extremities. He states that he cannot put the device on. He denies history of COPD or asthma. He is a lifelong non-smoker. 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 He is scheduled to follow-up in the pulmonary office this January.. Chest x-ray demonstrates cardiomegaly and possible pulmonary vascular congestion. There is left hemidiaphragm elevation. Patient states that he did follow-up outpatient for his sniff test which was unremarkable. NT proBNP only mildly elevated at 623. Troponin less than 0.012. EKG consistent with atrial fibrillation with controlled ventricular response, rate 93 bpm, no acute ischemic changes noted. CBC: WBC count 12.7, hemoglobin 14.4, hematocrit 46.1, platelets 222. CMP: Sodium 138, potassium 3.9, chloride 93, serum bicarb 42, BUN 27, creatinine 0.88, glucose 125. Lactic 1.6. LFTs unremarkable. Patient appears to have a positive fluid balance and has been started on Lasix 40 mg twice daily. He is currently alert and oriented, sitting up in the bedside recliner on 4 L/min nasal cannula, in no acute distress. He states he is tired and has not slept in about 2 weeks due to his difficulty in breathing. Current vitals: Heart rate 88 bpm, blood pressure 129/77 mmHg, respiratory rate mid teens, SpO2 97% on 4 L/min nasal cannula. The patient is seen today January 16, 2024 in follow-up on the regular medical floor. He is currently sitting up in the bedside. Awake and alert in no acute distress. Breathing better today compared to yesterday. Lung sounds have improved. Containing good O2 saturations in the 90s on 2 L/min per nasal cannula. Arterial blood gases revealed a PaO2 of 68, P CO2 of 74 and a pH of 7.42 on 36% FiO2. Afebrile. Hemodynamically stable. Chest x-ray reveals no acute pulmonary process. Continued small left pleural effusion. White count 13.7. Hemoglobin 13.7. Platelets 185. Sodium 141. Potassium 3.9. Bicarb 38. BUN 27. Creatinine 1.0. Glucose 133. He remains on DuoNeb inhalations. Continued on IV diuretics. Anticoagulated with Eliquis. Currently in a -1.9 L balance. Patient was seen today on 01/17/2024, patient is basically the same. Continues to have intermittent episodes of shortness of breath, complaining of generalized weakness and he has difficulty even using his arms pulmonary mcdonnell previous workup showed weakness/paresis of the left hemidiaphragm but not paralyzed. Did not have paradoxical movement of the left hemidiaphragm. Patient had extensive workup in many other places including [facility] and [facility], and no one c ould figure out the etiology of his symptoms. He was told that he did not have ALS clearly no evidence to suggest Nuvia Gehrig's disease pulmonary mcdonnell patient remains on bronchodilators, he is also on diuretics, and he is anticoagulated with Eliquis. inspite of diuresing well, though significant improvement noted on this admission. Patient clearly has and has been diagnosed with obstructive sleep apnea with chronic hypercapnia and he is not using his home BiPAP because he has difficulty using it with his weak arms. I stressed to him the importance of getting get into the hospital, and will have respiratory therapist or nurses help him put it on every night when he sleeps Patient was seen today on 01/18/2024, patient is basically about the same. Continues to have intermittent episodes of shortness of breath, generalized weakness, difficulty in using his upper extremities, and again he does have symptoms of cervical myelopathy. Pulmonary mcdonnell the patient did have left diaphragm paresis but no paralysis, and I believe that is related to his cervical spine. Patient is on nasal cannula 3 L, I suggested yesterday that he brings his own CPAP, did not do it and I will try to place him on BiPAP tonight 33% when he goes to bed/sleep.Labs today were all reviewed and ABG from few days ago was also reviewed. Patient has chronic hypercapnia and adequate metabolic compensation for his respiratory acidosis Seen today on 01/19/2024, patient is basically about the same. Follow-up chest x-ray this morning showed left lower lobe atelectasis strongly doubt pneumonia, patient is known to have history of left hemidiaphragm paresis and he is an excellent set up for a left lower lobe atelectasis clinically there is no evidence of pneumonia.No fever, no leukocytosis, no symptoms to suggest pneumonia, on 3 L nasal cannula with O2 sats of 96% basic metabolic profile is basically about the same bicarb remains 42 renal profile is normal Objective - Vital Signs Vital signs: Vital Signs Temp 98.1 F 01/19/24 08:35 Pulse 79 01/19/24 13:25 Resp 17 01/19/24 11:45 BP 125/80 01/19/24 11:45 Pulse Ox 96 01/19/24 11:45 FiO2 35 01/18/24 13:06 Intake & Output 01/18/24 01/19/24 01/19/24 18:59 06:59 18:59 Intake Total 590 1620 318.583 Output Total 900 950 Balance -310 670 318.583 Weight 128.3 kg Intake: IV 50 Intake, IV Titration 82.583 Amount Diltiazem 125 mg In 82.583 Sodium Chloride 0.9% 100 ml @ 5 MG/HR 5 mls/hr IV .Q24H [facility] Rx#:[id number] Oral 540 1620 236 Output: Urine 900 950 Other: Voiding Method External Catheter External Catheter External Catheter # Voids 1 - Exam GENERAL EXAM: Alert, obese 68-year-old male, in no distress HEAD: Normocephalic and atraumatic EYES: Normal reaction of pupils, equal size. NOSE: Clear with pink turbinates. THROAT: No erythema or exudates. NECK: No masses, no JVD. CHEST: No chest wall deformity. LUNGS: Equal air entry with diminished bibasilar lung mosley; no crackles, wheeze, rhonchi or dullness. CVS: S1 and S2 normal with no audible murmur, irregular rhythm. No extra heart sounds ABDOMEN: Obese abdomen, active bowel sounds, no hepatosplenomegaly,, no guarding or rigidity. SKIN: Chronic venous stasis changes of bilateral lower extremities CENTRAL NERVOUS SYSTEM: Cranial nerves II through XII intact, notable left upper extremity weakness graded 2/5, right upper extremity strength grade 5/5, bilateral lower extremity strength graded 5/5 EXTREMITIES: 2+ bipedal edema - Labs CBC & Chem 7: 01/19/24 06:35 01/19/24 06:35 Labs: Abnormal Lab Results - Last 24 Hours (Table) 01/19/24 01/19/24 Range/Units 06:35 06:35 WBC 10.7 H (3.8-10.6) k/uL Neutrophils # 8.9 H (1.3-7.7) k/uL Lymphocytes # 0.9 L (1.0-4.8) k/uL Potassium 3.3 L (3.5-5.1) mmol/L Chloride 88 L (98-107) mmol/L Carbon Dioxide 42 H* (22-30) mmol/L BUN 25 H (9-20) mg/dL Glucose 161 H (74-99) mg/dL Total Protein 6.1 L (6.3-8.2) g/dL Assessment and Plan Assessment: Impression: Suspect cervical myelopathy Acute on chronic hypoxemic and hypercapnic respiratory failure, possibly secondary to acute exacerbation of diastolic CHF and underlying obstructive sleep apnea syndrome with obesity hypoventilation syndrome and the patient is noncompliant with his BiPAP at home. Left basilar atelectasis Again the findings are not consistent with pneumonia Paroxysmal atrial fibrillation, reportedly underwent cardioversion in outside facility 2 weeks ago, most recent EKG showing atrial fibrillation with controlled ventricular response History of obstructive sleep apnea syndrome, noncompliant with home CPAP Obesity, with a BMI of 36.6 kg/m suspect obesity hypoventilation syndrome Chronic hypercapnic respiratory failure Left diaphragm weakness but no paradoxical movement as noted on previous sniff test Recent history of anterior cervical discectomy and fusion, C3-C7 Persistent left upper extremity weakness Lifelong non-smoker Hypertension Hyperlipidemia Gastroesophageal reflux disease. History of anxiety Recommendation: Continue present supportive care measures Patient to use BiPAP at that time Patient to bring his own CPAP from home to use at night Continue diuretics Continue anticoagulation with Eliquis Neurology is still following Patient seems to be quite concerned with his ongoing symptoms of myelopathy and I suggested considering evaluation at either the [facility] or the [facility] on outpatient basis. Has been to [facility] and [facility] and he was told that he does not have ALS but no further workup was done to look into the exact etiology of his weakness. Will continue to follow Time with Patient: Less than 30
--- NOTE | 2024-01-19 15:47 | P.PN ---
Subjective Progress Note Date: 01/19/24 This is a 68-year-old male with medical history significant for atrial fibrillation, COPD, acid reflux, hyperlipidemia, hypertension, sleep apnea with CPAP use, heart failure. Patient was recently hospitalized December 06 to December 11 for dyspnea and heart failure post cervical surgery. He was discharged home. He then had a hospitalization in the last week at [facility] where he underwent cardioversion which was successful. He comes back to the hospital now with complaints of worsening shortness of breath over the last month. He also reports weakness of his bilateral upper extremities and worsening edema of the bilateral lower extremities and his hands. He is reporting orthopnea and dyspnea on exertion. He has been compliant with his diuretic at home. He states that he has not been wearing his CPAP at night because of this weakness that he has been having. Patient does wear oxygen chronically. Chest xray on admission showing no acute findings. No evidence of DVT in the left arm per doppler. White blood cell count 12.7. CO2 47 on admission. Troponin level is negative, his proBNP is not elevated. He has been started on IV Lasix 40 mg every 12 hours. He is admitted under internal medicine with a cardiology and pulmonary consultation. He is currently in atrial fibrillation. 01/16/2024 Patient is evaluated today in follow up on the medical floor. Patient was hypotensive this AM with blood pressure into the 80s systolic was given a 500 CC bolus. He was presyncopal. He was moved to [address] [place] [id number] for closer monitoring. Chest xray this AM reveals no acute cardiopulmonary disease/process. Small left pleural effusion. Brain CT completed negative for acute findings. Continues on IV lasix 80 mg Q12 hours. White blood cell count today 13.77. CO2 better at 38. BUN 27.4 creatinine 1.0. 01/17/2024 Patient evaluated today in follow up on the medical floor. Patient Blood pressu re better today. Remains in atrial fibrillation with controlled ventricular rate. Neurology evaluation recommending to follow up for EMG testing of the lower extremities and continue to follow up with his neurologist and neuromuscular specialist for the upper extremity weakness. Cardiology has adjus bozena medications discontinued lisinopril, procardia, and carvedilol. Patient will be going for cardioversion tomorrow. 01/18/2024 Patient is seen in follow-up today status post cardioversion currently sinus rhythm with cardiology following closely. Neurology as well as pulmonary also following as patient continues to report left upper extremity flaccidity and reports his right upper extremity is becoming more weak and is noticing tingling and numbness in the right hand. Patient has undergone extensive neurological workups and most recently at [facility] ([facility] including stroke workups that have been negative. ALS per patient was ruled out. Patient continues to be dyspneic with minimal exertion and is winded during conversation taking multiple breaks. Patient is maintained on 2 to 3 L nasal cannula at this time. Recommend PT/OT therapy evaluation and working with the patient daily. 01/19/2024 Patient is evaluated today in follow up on the medical floor. He is currently sitting up in the chair. He now reports that he is unable to use his left arm with his a change from admission. He also reports that he feels weakness in his diaphragm resulting in him being unable to take a deep breath. He is concerned as he feels like he has not been improving since hospitalization. He also feels that he is losing dexterity in his right fingers. He underwent synchronous cardioversion last night he was in sinus rhythm but has since converted back to atrial fibrillation is currently rate controlled and continues on IV Cardizem running at 5 mL/h. Cardiology and pulmonary following the patient closely. Neurology did see the patient in a consultation recommending a neuromuscular specialist on an outpatient basis and noted that ALS was ruled out. A repeat c hest x-ray today reveals interval development of acute pulmonary disease involving the left lung base. Likely pneumonic infiltrate with small effusion. His blood work today reveals a white blood cell count of 10.7, sodium 138, potassium 3.3, chloride of 88 CO2 of 42, BUN of 25 creatinine of 0.85. REVIEW OF SYSTEMS: CONSTITUTIONAL: No fever, no malaise, no fatigue. HEENT: No recent visual problems or hearing problems. Denied any sore throat. CARDIOVASCULAR: No chest pain, orthopnea, PND, no palpitations, no syncope. PULMONARY: Reports continued shortness of breath, no cough, no hemoptysis. GASTROINTESTINAL: No diarrhea, no nausea, no vomiting, no abdominal pain. NEUROLOGICAL: No headaches, reports of generalized weakness, reports left-sided numbness and inability to move, right sided tingling and numbness starting in the hands. PHYSICAL EXAMINATION: GENERAL: The patient is alert and oriented x3, not in any acute distress. Well developed, elderly appearing, obese HEENT: Pupils are round and equally reacting to light. EOMI. No scleral icterus. No conjunctival pallor. Normocephalic, atraumatic. No pharyngeal erythema. No thyromegaly. CARDIOVASCULAR: S1 and S2 muffled, currently sinus PULMONARY: Diminished breath sounds bilaterally with some faint crackles noted at the bases. ABDOMEN: Soft, obese, nontender, nondistended, normoactive bowel sounds. No palpable organomegaly. MUSCULOSKELETAL: No joint swelling or deformity. EXTREMITIES: No cyanosis, clubbing, or pedal edema. NEUROLOGICAL: Left upper extremity weakness with decreased hand grasp. mild right upper extremity weakness. SKIN: No rashes. Assessment: Acute on chronic heart failure diastolic dysfunction with ejection fraction of 50 to 55% Acute on chronic hypoxic and hypercarbic respiratory failure secondary to above with noncompliance with his home CPAP Obstructive sleep apnea with CPAP use has been noncompliant Oxygen dependent COPD Left lower lobe infiltrate concern for hospital acquired pneumonia as he has had multiple recent hospitalizations. Paroxysmal Atrial fibrillation anticoagulant with Eliquis recently cardioverted at [facility]. Currently in atrial fibrillation with RVR status post cardioversion today 01/18/2024. Hypertension Hyperlipidemia Recent cervical C3-C7 ACDF on November 27, 2023 Left upper extremity weakness with right hand tingling and numbness at times, po ssibly secondary to recent cervical surgery Gastroesophageal reflux disease Obesity with a BMI of 36.3 GI prophylaxis DVT prophylaxis DNR Plan: Lisinopril, procardia and carvedilol are discontinued. Cardiology following patient was maintained on Cardizem underwent cardioversion for symptomatic pe rsistent atrial fibrillation. Patient reports he had cardioversion done a few weeks ago at the other hospital that converted back into A-fib RVR Pulmonary and cardiology following and has been instructed to get his CPAP machine from home for continued use. Pulmonary discussing the use of BiPAP at night. Check procalcitonin level, incentive spirometer ordered for 10 x an hour while awake. Continue cardiac telemetry Continue IV lasix 80 mg Q12 hours Reports from [place] available in the chart. PT/OT consulted and patient reports he walked up and down the jeff and does continue with exertion and shortness of breath with weakness. Patient continues to elicit left upper extremity weakness and reports his left arm is nonfunctional, right hand having some occasional numbness and tingling. Neurology is following. Patient has completed extensive neurological workup including stroke workups and 3 EMGs most recently in [place] that were negative and ALS was ruled out Repeat labs tomorrow Encourage increase activity as tolerated. Will discuss with case management/social work regarding discharge planning as patient reports he lives alone and is fearful of discharging home with minimal use of his upper extremities and would be unable to perform ADLs. The impression and plan of care has been dictated by Delilah Vargas, nurse Practitioner as directed. Dr. Raiza MD I have performed a history and physical examination and medical decision making of this patient, discussed the same with the dictator, and agree with the dictators assessment and plan as written, documented as a scribe. Based on total visit time, I have performed more than 50% of this visit. Objective - Vital Signs Vital signs: Vital Signs Temp 98.1 F 01/19/24 08:35 Pulse 79 01/19/24 13:25 Resp 17 01/19/24 11:45 BP 125/80 01/19/24 11:45 Pulse Ox 96 01/19/24 11:45 FiO2 35 01/18/24 13:06 Intake & Output 01/18/24 01/19/24 01/19/24 18:59 06:59 18:59 Intake Total 590 1620 318.583 Output Total 900 950 Balance -310 670 318.583 Weight 128.3 kg Intake: IV 50 Intake, IV Titration 82.583 Amount Diltiazem 125 mg In 82.583 Sodium Chloride 0.9% 100 ml @ 5 MG/HR 5 mls/hr IV .Q24H [facility] Rx#:[id number] Oral 540 1620 236 Output: Urine 900 950 Other: Voiding Method External Catheter External Catheter External Catheter # Voids 1 - Labs CBC & Chem 7: 01/19/24 06:35 01/19/24 06:35 Labs: Abnormal Lab Results - Last 24 Hours (Table) 01/19/24 01/19/24 Range/Units 06:35 06:35 WBC 10.7 H (3.8-10.6) k/uL Neutrophils # 8.9 H (1.3-7.7) k/uL Lymphocytes # 0.9 L (1.0-4.8) k/uL Potassium 3.3 L (3.5-5.1) mmol/L Chloride 88 L (98-107) mmol/L Carbon Dioxide 42 H* (22-30) mmol/L BUN 25 H (9-20) mg/dL Glucose 161 H (74-99) mg/dL Total Protein 6.1 L (6.3-8.2) g/dL Assessment and Plan Time with Patient: Less than 30
[2024-01-20 08:38] LABS: African American GFR (CKD) >90 (>60 ml/min/1.73 sqM); Blood Urea Nitrogen 23 mg/dL (9-20); Calcium 7.9 mg/dL (8.4-10.2); Chloride 89 mmol/L (98-107); Glucose 165 mg/dL (74-99); Non-African American GFR(CKD) >90 (>60 ml/min/1.73 sqM); Potassium 3.2 mmol/L (3.5-5.1); Sodium 139 mmol/L (137-145)
[2024-01-20 08:44] LABS: Anion Gap 5 mmol/L
[2024-01-20 08:53] LABS: Carbon Dioxide 45 mmol/L (22-30)
[2024-01-20 10:43] LABS: Glucose,Whole Blood 124 mg/dL (70-110)
[2024-01-20] MEDS: POTASSIUM CHLORIDE ER 20 MEQ TAB.ER PO SCH ×2 (11:53→19:52)
--- NOTE | 2024-01-20 12:18 | P.PN ---
Subjective Progress Note Date: 01/20/24 HISTORY OF PRESENT ILLNESS: This is a pleasant 68-year-old with past medical history significant for hyp ertension, hyperlipidemia, obstructive sleep apnea, GERD, persistent atrial fibrillation and CHF. He follows with a doctor rather in [facility]. He states he had been doing fairly well up until approximately 6-12 months ago. He then started to develop shortness of breath as well as upper extremity weakness. He underwent extensive workup and initially there was some concern regarding possible ALS. Eventually he was seen by orthopedic surgery and underwent C3 through C7 cervical discectomy and fusion 11/28/2023. Additionally he has had multiple admissions with shortness breath. He also had been down to [facility] with admissions for heart failure. He was diagnosed with atrial fibrillation after his spinal surgery. Unfortunately his upper extremity weakness and numbness has not dramatically improved. He has been on steroids. Hospitalization at [facility] he underwent a cardioversion which was successful however fairly short-lived and back in A. fib. He takes Bumex at home however believes Lasix actually worked somewhat better for him. He presented with increasing shortness breath over the last few days and significantly in the middle the night and could not catch his breath and "had to drag himself and his he felt like he was dying. He also admits to some significant generalized weakness. Denies any recent fevers or chills. Also has 2+ lower extremity edema which is increased from prior. EKG shows atrial fibrillation with no significant ST changes. Prior echo from 11/2023 showed severe LVH with septal thickness 2.5 and posterior wall thickness 2.1 cm. He does admit to a chronic history of hypertension however has been better control led recently. He admits he felt somewhat better after his cardioversion however this was short-lived. 01/16/2024 Patient examined this morning. Patient is sitting up in the chair. Patient states this morning he was seeing spots. Patient developed hypotension this morning and received a fluid bolus. BP was in the 70s according to the nurse. Blood pressure improved after fluid bolus. Most recent blood pressure 130/70. The patient currently denies any chest pain or pressure. He denies shortness of breath. He remains in atrial fibrillation with heart rate around 100. 01/17/24 Patient was transferred from the [facility] and is seen today on the cardiac stepdown unit. Patient is seen and examined. He apparently had low blood pressure readings and was transferred. His blood pressures are 112/71, heart rate is in the 70s and 80s, pulse ox 95% on 2 L nasal cannula. He remains in atrial fibrillation patient denies having any chest pain. He states that his difficulty breathing comes and goes. Repeat blood work reveals WBC 12.1, hemoglobin 14. Sodium 136, potassium 3.4, CO2 is 39, BUN 37 creatinine 0.9. Troponin from yesterday was negative. Potassium has been replaced. Records from Dr. 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 Patient had episode of RVR and was resumed back on Cardizem drip last evening. He is currently running in the 80s and atrial fibrillation. Blood pressure 136/76, pulse ox 96% on 3 L nasal cannula. Discussed option of adding consult for EP, Dr. Rodriguez. 01/20/24 Patient seen and examined. Patient remains in atrial fibrillation with controlled rate. He is off the Cardizem drip. Heart rate is running in the 70s to 90s. He is currently on IV Lasix 80 mg every 12 hours. Yesterday, patient had a negative fluid balance, he does have documented weight loss of 1-1/2 kg. Repeat blood work reveals sodium 139, potassium 3.2, BUN 23 creatinine 0.86. Potassium has been replaced. PHYSICAL EXAM: VITAL SIGNS: Reviewed. GENERAL: Well-developed in no acute distress. NECK: Supple. No JVD or thyromegaly LUNGS: Respirations even and unlabored. Lungs essentially clear to auscultation bilaterally. HEART: Irregular rate and rhythm. S1 and S2 heard. EXTREMITIES: Normal range of motion. No clubbing or cyanosis. Peripheral pulses intact. Bilateral lower extremity edema ASSESSMENT: Hypotension, resolved Acute on chronic respiratory failure Acute on chronic diastolic heart failure Severe LVH, rule out infiltrative disease Persistent atrial fibrillation with controlled ventricular rate, failed cardioversion on 01/17 Hypertension Upper extremity weakness, does not appear consistent with Guillain-Green or nueromuscular disease. Neuropathy with apparent EMG performed previously. Rule out component of amyloidosis Status post cervical discectomy and fusion Obstructive sleep apnea Obesity PLAN: Discontinue lisinopril, Procardia, and carvedilol Continue oral amiodarone, Eliquis 5 mg twice daily, Farxiga Continue IV Lasix 80 mg every 12 hours Add scheduled potassium 20 mill equivalents twice daily Monitor NOAH, daily weights, electrolytes and renal function May consider another cardioversion at a later time. Continue telemetry monitoring Further recommendations pending patient course Nurse practitioner note has been reviewed by physician. Signing provider agrees with the documented findings, assessment, and plan of care documented by COMPOSITION BOARD PRESS OPERATOR as a scribe. Objective - Vital Signs Vital signs: Vital Signs Temp 97.7 F 01/19/24 20:00 Pulse 75 01/20/24 08:06 Resp 16 01/20/24 04:00 BP 139/76 01/20/24 04:00 Pulse Ox 97 01/20/24 04:00 FiO2 35 01/18/24 13:06 Intake & Output 01/19/24 01/20/24 01/20/24 18:59 06:59 18:59 Intake Total 318.583 540 Output Total 2200 1200 Balance -1881.417 -660 Weight 127.8 kg Intake: Intake, IV Titration 82.583 Amount Diltiazem 125 mg In 82.583 Sodium Chloride 0.9% 100 ml @ 5 MG/HR 5 mls/hr IV .Q24H [facility] Rx#:[id number] Oral 236 540 Output: Urine 2200 1200 Other: Voiding Method External Catheter External Catheter - Labs CBC & Chem 7: 01/19/24 06:35 01/20/24 08:02 Labs: Abnormal Lab Results - Last 24 Hours (Table) 01/20/24 Range/Units 08:02 Potassium 3.2 L (3.5-5.1) mmol/L Chloride 89 L (98-107) mmol/L Carbon Dioxide 45 H* (22-30) mmol/L BUN 23 H (9-20) mg/dL Glucose 165 H (74-99) mg/dL Calcium 7.9 L (8.4-10.2) mg/dL
--- NOTE | 2024-01-20 13:18 | P.PN ---
Subjective Progress Note Date: 01/20/24 This is a 68-year-old male with medical history significant for atrial fibrillation, COPD, acid reflux, hyperlipidemia, hypertension, sleep apnea with CPAP use, heart failure. Patient was recently hospitalized December 06 to December 11 for dyspnea and heart failure post cervical surgery. He was discharged home. He then had a hospitalization in the last week at [facility] where he underwent cardioversion which was successful. He comes back to the hospital now with complaints of worsening shortness of breath over the last month. He also reports weakness of his bilateral upper extremities and worsening edema of the bilateral lower extremities and his hands. He is reporting orthopnea and dyspnea on exertion. He has been compliant with his diuretic at home. He states that he has not been wearing his CPAP at night because of this weakness that he has been having. Patient does wear oxygen chronically. Chest xray on admission showing no acute findings. No evidence of DVT in the left arm per doppler. White blood cell count 12.7. CO2 47 on admission. Troponin level is negative, his proBNP is not elevated. He has been started on IV Lasix 40 mg every 12 hours. He is admitted under internal medicine with a cardiology and pulmonary consultation. He is currently in atrial fibrillation. 01/16/2024 Patient is evaluated today in follow up on the medical floor. Patient was hypotensive this AM with blood pressure into the 80s systolic was given a 500 CC bolus. He was presyncopal. He was moved to [address] [place] [address] for closer monitoring. Chest xray this AM reveals no acute cardiopulmonary disease/process. Small left pleural effusion. Brain CT completed negative for acute findings. Continues on IV lasix 80 mg Q12 hours. White blood cell count today 13.77. CO2 better at 38. BUN 27.4 creatinine 1.0. 01/17/2024 Patient evaluated today in follow up on the medical floor. Patient Blood pressu re better today. Remains in atrial fibrillation with controlled ventricular rate. Neurology evaluation recommending to follow up for EMG testing of the lower extremities and continue to follow up with his neurologist and neuromuscular specialist for the upper extremity weakness. Cardiology has adjus bozena medications discontinued lisinopril, procardia, and carvedilol. Patient will be going for cardioversion tomorrow. 01/18/2024 Patient is seen in follow-up today status post cardioversion currently sinus rhythm with cardiology following closely. Neurology as well as pulmonary also following as patient continues to report left upper extremity flaccidity and reports his right upper extremity is becoming more weak and is noticing tingling and numbness in the right hand. Patient has undergone extensive neurological workups and most recently at [facility] ([facility] including stroke workups that have been negative. ALS per patient was ruled out. Patient continues to be dyspneic with minimal exertion and is winded during conversation taking multiple breaks. Patient is maintained on 2 to 3 L nasal cannula at this time. Recommend PT/OT therapy evaluation and working with the patient daily. 01/19/2024 Patient is evaluated today in follow up on the medical floor. He is currently sitting up in the chair. He now reports that he is unable to use his left arm with his a change from admission. He also reports that he feels weakness in his diaphragm resulting in him being unable to take a deep breath. He is concerned as he feels like he has not been improving since hospitalization. He also feels that he is losing dexterity in his right fingers. He underwent synchronous cardioversion last night he was in sinus rhythm but has since converted back to atrial fibrillation is currently rate controlled and continues on IV Cardizem running at 5 mL/h. Cardiology and pulmonary following the patient closely. Neurology did see the patient in a consultation recommending a neuromuscular specialist on an outpatient basis and noted that ALS was ruled out. A repeat c hest x-ray today reveals interval development of acute pulmonary disease involving the left lung base. Likely pneumonic infiltrate with small effusion. His blood work today reveals a white blood cell count of 10.7, sodium 138, potassium 3.3, chloride of 88 CO2 of 42, BUN of 25 creatinine of 0.85. 01/20/2024 Patient evaluated in the medical floor in follow-up. Sitting up in the chair he does report improved shortness of breath as his heart rate is better controlled today down into the 60s. he remains in atrial fibrillation though. Remains on IV Lasix 80 mg every 12 hours with a BUN of 23 creatinine of 0.86 sodium level of 139. Potassium level is 3.2. REVIEW OF SYSTEMS: CONSTITUTIONAL: No fever, no malaise, no fatigue. HEENT: No recent visual problems or hearing problems. Denied any sore throat. CARDIOVASCULAR: No chest pain, orthopnea, PND, no palpitations, no syncope. PULMONARY: Reports continued shortness of breath, no cough, no hemoptysis. GASTROINTESTINAL: No diarrhea, no nausea, no vomiting, no abdominal pain. NEUROLOGICAL: No headaches, reports of generalized weakness, reports left-sided numbness and inability to move, right sided tingling and numbness starting in the hands. PHYSICAL EXAMINATION: GENERAL: The patient is alert and oriented x3, not in any acute distress. Well developed, elderly appearing, obese HEENT: Pupils are round and equally reacting to light. EOMI. No scleral icterus. No conjunctival pallor. Normocephalic, atraumatic. No pharyngeal erythema. No thyromegaly. CARDIOVASCULAR: S1 and S2 muffled, currently sinus PULMONARY: Diminished breath sounds bilaterally with some faint crackles noted at the bases. ABDOMEN: Soft, obese, nontender, nondistended, normoactive bowel sounds. No palpable organomegaly. MUSCULOSKELETAL: No joint swelling or deformity. EXTREMITIES: No cyanosis, clubbing, or pedal edema. NEUROLOGICAL: Left upper extremity weakness with decreased hand grasp. mild right upper extremity weakness. SKIN: No rashes. Assessment: Acute on chronic heart failure diastolic dysfunction with ejection fraction of 50 to 55% Acute on chronic hypoxic and hypercarbic respiratory failure secondary to above with noncompliance with his home CPAP Obstructive sleep apnea with CPAP use has been noncompliant Oxygen dependent COPD Left lower lobe infiltrate concern for hospital acquired pneumonia as he has had multiple recent hospitalizations. Paroxysmal Atrial fibrillation anticoagulant with Eliquis recently cardioverted at [facility]. Currently in atrial fibrillation with RVR status post cardioversion today 01/18/2024. Hypertension Hyperlipidemia Recent cervical C3-C7 ACDF on November 27, 2023 Left upper extremity weakness with right hand tingling and numbness at times, possibly secondary to recent cervical surgery Gastroesophageal reflux disease Obesity with a BMI of 36.3 GI prophylaxis DVT prophylaxis DNR Plan: Lisinopril, procardia and carvedilol are discontinued. Cardiology following patient was maintained on Cardizem underwent cardioversion for symptomatic persistent atrial fibrillation. Patient reports he had cardioversion done a few weeks ago at the other hospital that converted back into A-fib RVR Pulmonary and cardiology following and has been instructed to get his CPAP machine from home for continued use. Pulmonary discussing the use of BiPAP at night. Check procalcitonin level, incentive spirometer ordered for 10 x an hour while awake. Continue cardiac telemetry Continue IV lasix 80 mg Q12 hours Reports from [facility] available in the chart. PT/OT consulted and patient reports he walked up and down the jeff and does continue with exertion and shortness of breath with weakness. Patient continues to elicit left upper extremity weakness and reports his left arm is nonfunctional, right hand having some occasional numbness and tingling. Neurology is following. Patient has completed extensive neurological workup including stroke workups and 3 EMGs most recently in [place] that were negative and ALS was ruled out Repeat labs tomorrow Encourage increase activity as tolerated. Will discuss with case management/social work regarding discharge planning as patient reports he lives alone and is fearful of discharging home with minimal use of his upper extremities and would be unable to perform ADLs. The impression and plan of care has been dictated by Delilah Vargas, nurse Practitioner as directed. Dr. Raiza MD I have performed a history and physical examination and medical decision making of this patient, discussed the same with the dictator, and agree with the dictators assessment and plan as written, documented as a scribe. Based on total visit time, I have performed more than 50% of this visit. Objective - Vital Signs Vital signs: Vital Signs Temp 98.6 F 01/20/24 08:10 Pulse 68 01/20/24 11:50 Resp 18 01/20/24 11:50 BP 153/103 01/20/24 11:50 Pulse Ox 98 01/20/24 11:50 FiO2 35 01/18/24 13:06 Intake & Output 01/19/24 01/20/24 01/20/24 18:59 06:59 18:59 Intake Total 318.583 540 Output Total 2200 1200 1800 Balance -1881.417 -660 -1800 Weight 127.8 kg Intake: Intake, IV Titration 82.583 Amount Diltiazem 125 mg In 82.583 Sodium Chloride 0.9% 100 ml @ 5 MG/HR 5 mls/hr IV .Q24H [facility] Rx#:[id number] Oral 236 540 Output: Urine 2200 1200 1800 Other: Voiding Method External Catheter External Catheter External Catheter - Labs CBC & Chem 7: 01/19/24 06:35 01/20/24 08:02 Labs: Abnormal Lab Results - Last 24 Hours (Table) 12/08/24 12/08/24 Range/Units 08:02 10:31 Potassium 3.2 L (3.5-5.1) mmol/L Chloride 89 L (98-107) mmol/L Carbon Dioxide 45 H* (22-30) mmol/L BUN 23 H (9-20) mg/dL Glucose 165 H (74-99) mg/dL POC Glucose (mg/dL) 124 H (70-110) mg/dL Calcium 7.9 L (8.4-10.2) mg/dL Assessment and Plan Time with Patient: Less than 30
--- NOTE | 2024-01-20 14:46 | P.PN ---
Subjective Progress Note Date: 01/20/24 Principal diagnosis: Acute on chronic hypoxemic and hypercapnic respiratory failure, multifactorial Patient is a 68-year-old male with past medical history significant for hyper tension, hyperlipidemia, obstructive sleep apnea with home APAP, GERD, atrial fibrillation currently anticoagulated on Eliquis, and lifelong non-smoker. Recently, patient has developed bilateral upper extremity weakness, worse on the left. He has been evaluated by the orthopedic surgeon and did undergo C3-C7 cervical discectomy and fusion back on 11/28/2023. Unfortunately, the function of his left upper extremity has not returned to baseline following the procedure. States he has had follow-up MRI spine at outside facility and follows up with neurologist. Of note, following his procedure he was found to be in A-fib RVR and exacerbation of diastolic heart failure. Transthoracic echocardiogram done during this admission showing a preserved left ventricular ejection fraction of 50 to 55% with severe LVH. Patient was ultimately discharged home on December 11. More recently, patient had a hospitalization at [facility], he underwent a cardioversion, which was reportedly successful. Patient returns to the ED department last night complaining of 2 weeks of worsening acute on chronic shortness of breath.He reports associated increased swelling especially in his left upper extremity and bilateral lower extremities. Endorses orthopnea. He does take Bumex on outpatient basis. He does have a APAP machine at home, but he does not wear it due to weakness in his upper extremities. He states that he cannot put the device on. He denies history of COPD or asthma. He is a lifelong non-smoker. 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 He is scheduled to follow-up in the pulmonary office this January.. Chest x-ray demonstrates cardiomegaly and possible pulmonary vascular congestion. There is left hemidiaphragm elevation. Patient states that he did follow-up outpatient for his sniff test which was unremarkable. NT proBNP only mildly elevated at 623. Troponin less than 0.012. EKG consistent with atrial fibrillation with controlled ventricular response, rate 93 bpm, no acute ischemic changes noted. CBC: WBC count 12.7, hemoglobin 14.4, hematocrit 46.1, platelets 222. CMP: Sodium 138, potassium 3.9, chloride 93, serum bicarb 42, BUN 27, creatinine 0.88, glucose 125. Lactic 1.6. LFTs unremarkable. Patient appears to have a positive fluid balance and has been started on Lasix 40 mg twice daily. He is currently alert and oriented, sitting up in the bedside recliner on 4 L/min nasal cannula, in no acute distress. He states he is tired and has not slept in about 2 weeks due to his difficulty in breathing. Current vitals: Heart rate 88 bpm, blood pressure 129/77 mmHg, respiratory rate mid teens, SpO2 97% on 4 L/min nasal cannula. The patient is seen today January 16, 2024 in follow-up on the regular medical floor. He is currently sitting up in the bedside. Awake and alert in no acute distress. Breathing better today compared to yesterday. Lung sounds have improved. Containing good O2 saturations in the 90s on 2 L/min per nasal cannula. Arterial blood gases revealed a PaO2 of 68, P CO2 of 74 and a pH of 7.42 on 36% FiO2. Afebrile. Hemodynamically stable. Chest x-ray reveals no acute pulmonary process. Continued small left pleural effusion. White count 13.7. Hemoglobin 13.7. Platelets 185. Sodium 141. Potassium 3.9. Bicarb 38. BUN 27. Creatinine 1.0. Glucose 133. He remains on DuoNeb inhalations. Continued on IV diuretics. Anticoagulated with Eliquis. Currently in a -1.9 L balance. Patient was seen today on 01/17/2024, patient is basically the same. Continues to have intermittent episodes of shortness of breath, complaining of generalized weakness and he has difficulty even using his arms pulmonary mcdonnell previous workup showed weakness/paresis of the left hemidiaphragm but not paralyzed. Did not have paradoxical movement of the left hemidiaphragm. Patient had extensive workup in many other places including [facility] and [facility], and no one c ould figure out the etiology of his symptoms. He was told that he did not have ALS clearly no evidence to suggest Nuvia Gehrig's disease pulmonary mcdonnell patient remains on bronchodilators, he is also on diuretics, and he is anticoagulated with Eliquis. inspite of diuresing well, though significant improvement noted on this admission. Patient clearly has and has been diagnosed with obstructive sleep apnea with chronic hypercapnia and he is not using his home BiPAP because he has difficulty using it with his weak arms. I stressed to him the importance of getting get into the hospital, and will have respiratory therapist or nurses help him put it on every night when he sleeps Patient was seen today on 01/18/2024, patient is basically about the same. Continues to have intermittent episodes of shortness of breath, generalized weakness, difficulty in using his upper extremities, and again he does have symptoms of cervical myelopathy. Pulmonary mcdonnell the patient did have left diaphragm paresis but no paralysis, and I believe that is related to his cervical spine. Patient is on nasal cannula 3 L, I suggested yesterday that he brings his own CPAP, did not do it and I will try to place him on BiPAP tonight 33% when he goes to bed/sleep.Labs today were all reviewed and ABG from few days ago was also reviewed. Patient has chronic hypercapnia and adequate metabolic compensation for his respiratory acidosis Seen today on 01/19/2024, patient is basically about the same. Follow-up chest x-ray this morning showed left lower lobe atelectasis strongly doubt pneumonia, patient is known to have history of left hemidiaphragm paresis and he is an excellent set up for a left lower lobe atelectasis clinically there is no evidence of pneumonia.No fever, no leukocytosis, no symptoms to suggest pneumonia, on 3 L nasal cannula with O2 sats of 96% basic metabolic profile is basically about the same bicarb remains 42 renal profile is normal Seen today on 01/20/2024, patient is practically about the same. Patient denies any change remains in atrial fibrillation remains on diuretics continues to complain of generalized weakness especially in his upper extremities. Labs were reviewed bicarb is 45 potassium 3.2 BUN is 23 creatinine 0.86 considering his elevated bicarb may have to consider adding Diamox to his Lasix. Objective - Vital Signs Vital signs: Vital Signs Temp 98.6 F 01/20/24 08:10 Pulse 68 01/20/24 11:50 Resp 18 01/20/24 11:50 BP 153/103 01/20/24 11:50 Pulse Ox 98 01/20/24 11:50 FiO2 35 01/18/24 13:06 Intake & Output 01/19/24 01/20/24 01/20/24 18:59 06:59 18:59 Intake Total 318.583 540 Output Total 2200 1200 1800 Balance -1881.417 -660 -1800 Weight 127.8 kg Intake: Intake, IV Titration 82.583 Amount Diltiazem 125 mg In 82.583 Sodium Chloride 0.9% 100 ml @ 5 MG/HR 5 mls/hr IV .Q24H [facility] Rx#:[id number] Oral 236 540 Output: Urine 2200 1200 1800 Other: Voiding Method External Catheter External Catheter External Catheter - Exam GENERAL EXAM: Alert, obese 68-year-old male, in no distress HEAD: Normocephalic and atraumatic EYES: Normal reaction of pupils, equal size. NOSE: Clear with pink turbinates. THROAT: No erythema or exudates. NECK: No masses, no JVD. CHEST: No chest wall deformity. LUNGS: Equal air entry with diminished bibasilar lung mosley; no crackles, wheeze, rhonchi or dullness. CVS: S1 and S2 normal with no audible murmur, irregular rhythm. No extra heart sounds ABDOMEN: Obese abdomen, active bowel sounds, no hepatosplenomegaly,, no guarding or rigidity. SKIN: Chronic venous stasis changes of bilateral lower extremities CENTRAL NERVOUS SYSTEM: Cranial nerves II through XII intact, notable left upper extremity weakness graded 2/5, right upper extremity strength grade 5/5, bilateral lower extremity strength graded 5/5 EXTREMITIES: 2+ bipedal edema - Labs CBC & Chem 7: 01/19/24 06:35 01/20/24 08:02 Labs: Abnormal Lab Results - Last 24 Hours (Table) 01/20/24 01/20/24 Range/Units 08:02 10:31 Potassium 3.2 L (3.5-5.1) mmol/L Chloride 89 L (98-107) mmol/L Carbon Dioxide 45 H* (22-30) mmol/L BUN 23 H (9-20) mg/dL Glucose 165 H (74-99) mg/dL POC Glucose (mg/dL) 124 H (70-110) mg/dL Calcium 7.9 L (8.4-10.2) mg/dL Assessment and Plan Assessment: Impression: Suspect cervical myelopathy Acute on chronic hypoxemic and hypercapnic respiratory failure, possibly secondary to acute exacerbation of diastolic CHF and underlying obstructive sleep apnea syndrome with obesity hypoventilation syndrome and the patient is noncompliant with his BiPAP at home. Left basilar atelectasis Again the findings are not consistent with pneumonia Paroxysmal atrial fibrillation, reportedly underwent cardioversion in outside facility 2 weeks ago, most recent EKG showing atrial fibrillation with controlled ventricular response History of obstructive sleep apnea syndrome, noncompliant with home CPAP Obesity, with a BMI of 36.6 kg/m suspect obesity hypoventilation syndrome Chronic hypercapnic respiratory failure Left diaphragm weakness but no paradoxical movement as noted on previous sniff test Recent history of anterior cervical discectomy and fusion, C3-C7 Persistent left upper extremity weakness Lifelong non-smoker Hypertension Hyperlipidemia Gastroesophageal reflux disease. History of anxiety Recommendation: Continue present supportive care measures Patient to use BiPAP at that time Patient to bring his own CPAP from home to use at night Continue diuretics patient is now on Lasix 80 mg IV push every 12 hours could consider adding Diamox because of his elevated bicarb Continue anticoagulation with Eliquis Neurology is still following Will continue to follow Time with Patient: Less than 30
[2024-01-21] MEDS: ONDANSETRON 4 MG/2 ML VIAL IVP PRN (02:23)
[2024-01-21 08:11] LABS: African American GFR (CKD) >90 (>60 ml/min/1.73 sqM); Blood Urea Nitrogen 25 mg/dL (9-20); Calcium 8.3 mg/dL (8.4-10.2); Chloride 87 mmol/L (98-107); Glucose 166 mg/dL (74-99); Non-African American GFR(CKD) 86 (>60 ml/min/1.73 sqM); Potassium 3.8 mmol/L (3.5-5.1); Sodium 139 mmol/L (137-145)
[2024-01-21 08:20] LABS: Anion Gap 9 mmol/L
[2024-01-21 08:23] LABS: Carbon Dioxide 43 mmol/L (22-30)
[2024-01-21] MEDS: AMIODARONE 200 MG TAB PO SCH (09:09)
[2024-01-21] MEDS: METOPROLOL TARTRATE 50 MG TAB PO SCH (09:09)
[2024-01-21 13:05] LABS: Albumin 3.4 g/dL (3.80-4.90); Gamma Globulin 0.63 g/dL (0.70-1.50)
[2024-01-21] MEDS ORDERED: OXYMETAZOLINE 0.05% NASL SPRAY 1 SPRAY BOTTLE NASAL PRN (13:18)
[2024-01-21] MEDS ORDERED: TEMAZEPAM 15 MG CAP PO PRN (13:49)
--- NOTE | 2024-01-21 13:49 | P.PN ---
Subjective Progress Note Date: 01/21/24 This is a 68-year-old male with medical history significant for atrial fibrillation, COPD, acid reflux, hyperlipidemia, hypertension, sleep apnea with CPAP use, heart failure. Patient was recently hospitalized December 06 to December 11 for dyspnea and heart failure post cervical surgery. He was dischar ge home. He then had a hospitalization in the last week at [place] where he underwent cardioversion which was successful. He comes back to the hospital now with complaints of worsening shortness of breath over the last month. He also reports weakness of his bilateral upper extremities and worsening edema of the bilateral lower extremities and his hands. He is reporting orthopnea and dyspnea on exertion. He has been compliant with his diuretic at home. He states that he has not been wearing his CPAP at night because of this weakness that he has been having. Patient does wear oxygen chronically. Chest xray on admission showing no acute findings. No evidence of DVT in the left arm per d kyle. White blood cell count 12.7. CO2 47 on admission. Troponin level is negative, his proBNP is not elevated. He has been started on IV Lasix 40 mg every 12 hours. He is admitted under internal medicine with a cardiology and pulmonary consultation. He is currently in atrial fibrillation. 01/16/2024 Patient is evaluated today in follow up on the medical floor. Patient was hypotensive this AM with blood pressure into the 80s systolic was given a 500 CC bolus. He was presyncopal. He was moved to [address] [place] [address] for closer monitoring. Chest xray this AM reveals no acute cardiopulmonary disease/process. Small left pleural effusion. Brain CT completed negative for acute findings. Continues on IV lasix 80 mg Q12 hours. White blood cell count today 13.77. CO2 better at 38. BUN 27.4 creatinine 1.0. 01/17/2024 Patient evaluated today in follow up on the medical floor. Patient Blood pres sure better today. Remains in atrial fibrillation with controlled ventricular rate. Neurology evaluation recommending to follow up for EMG testing of the lower extremities and continue to follow up with his neurologist and neuromuscular specialist for the upper extremity weakness. Cardiology has adj usted medications discontinued lisinopril, procardia, and carvedilol. Patient will be going for cardioversion tomorrow. 01/18/2024 Patient is seen in follow-up today status post cardioversion currently sinus rhythm with cardiology following closely. Neurology as well as pulmonary also following as patient continues to report left upper extremity flaccidity and reports his right upper extremity is becoming more weak and is noticing tingling and numbness in the right hand. Patient has undergone extensive neurological workups and most recently at [facility] including stroke workups that have been negative. ALS per patient was ruled out. Patient continues to be dyspneic with minimal exertion and is winded during conversation taking multiple breaks. Patient is maintained on 2 to 3 L nasal cannula at this time. Recommend PT/OT therapy evaluation and working with the patient daily. 01/19/2024 Patient is evaluated today in follow up on the medical floor. He is currently sitting up in the chair. He now reports that he is unable to use his left arm with his a change from admission. He also reports that he feels weakness in his diaphragm resulting in him being unable to take a deep breath. He is concerned as he feels like he has not been improving since hospitalization. He also feels that he is losing dexterity in his right fingers. He underwent synchronous cardioversion last night he was in sinus rhythm but has since converted back to atrial fibrillation is currently rate controlled and continues on IV Cardizem running at 5 mL/h. Cardiology and pulmonary following the patient closely. Neurology did see the patient in a consultation recommending a neuromuscular specialist on an outpatient basis and noted that ALS was ruled out. A repeat chest x-ray today reveals interval development of acute pulmonary disease involving the left lung base. Likely pneumonic infiltrate with small effusion. His blood work today reveals a white blood cell count of 10.7, sodium 138, potassium 3.3, chloride of 88 CO2 of 42, BUN of 25 creatinine of 0.85. 01/20/2024 Patient evaluated in the medical floor in follow-up. Sitting up in the chair he does report improved shortness of breath as his heart rate is better controlled today down into the 60s. he remains in atrial fibrillation though. Remains on IV Lasix 80 mg every 12 hours with a BUN of 23 creatinine of 0.86 sodium level of 139. Potassium level is 3.2. 01/21/2024 Patient is seen in follow-up this morning currently sitting up in the chair report he continues to be shortness of breath with dyspnea and minimal exertion reporting he is not sleeping and feels exhausted. Patient is continued on IV Lasix twice daily and kidney functions remained stable. Potassium 3.5 today recommend potassium supplement daily. Patient continues to have left arm flaccidity and neurology has evaluated the patient. Patient has undergone extensive neurological workup including EMG and has been negative. Patient with overall weakness although is up and walking and able to work with physical therapy would not qualify for physical therapy rehab. Patient is fearful as he lives home alone and has significant comorbidities that he feels he is unable to handle and take care of himself. Patient has been instructed to bring the CPAP machine in from home. Patient is afebrile and denies chest pain or palpitations at this time. Will continue IV Lasix and current medication regimen follow-up with a chest x-ray in the a.m. Patient is currently off Cardizem and heart rate is controlled at this time. REVIEW OF SYSTEMS: CONSTITUTIONAL: No fever, no malaise, reports extreme fatigue. HEENT: No recent visual problems or hearing problems. Denied any sore throat. CARDIOVASCULAR: No chest pain, orthopnea, PND, no palpitations, no syncope. PULMONARY: Reports continued shortness of breath, no cough, no hemoptysis. GASTROINTESTINAL: No diarrhea, no nausea, no vomiting, no abdominal pain. NEUROLOGICAL: No headaches, reports of generalized weakness, reports left-sided numbness and inability to move, right sided tingling and numbness starting in the hands. PHYSICAL EXAMINATION: GENERAL: The patient is alert and oriented x3, not in any acute distress. Well developed, elderly appearing, obese HEENT: Pupils are round and equally reacting to light. EOMI. No scleral icterus. No conjunctival pallor. Normocephalic, atraumatic. No pharyngeal erythema. No thyromegaly. CARDIOVASCULAR: S1 and S2 muffled, currently sinus PULMONARY: Diminished breath sounds bilaterally with some faint crackles noted at the bases. ABDOMEN: Soft, obese, nontender, nondistended, normoactive bowel sounds. No palpable organomegaly. MUSCULOSKELETAL: No joint swelling or deformity. EXTREMITIES: No cyanosis, clubbing, or pedal edema. Bilateral lower extremity swelling is improving, nonpitting NEUROLOGICAL: Left upper extremity weakness with decreased hand grasp. mild right upper extremity weakness. SKIN: No rashes. Assessment: Acute on chronic heart failure diastolic dysfunction with ejection fraction of 50 to 55% Acute on chronic hypoxic and hypercarbic respiratory failure secondary to above with noncompliance with his home CPAP Obstructive sleep apnea with CPAP use has been noncompliant Oxygen dependent COPD Left lower lobe infiltrate concern for hospital acquired pneumonia as he has had multiple recent hospitalizations. Paroxysmal Atrial fibrillation anticoagulant with Eliquis recently cardioverted at [facility]. Currently in atrial fibrillation status post cardioversion 01/18/2024. Cardizem discontinued and currently rate controlled Hypertension Hyperlipidemia Recent cervical C3-C7 ACDF on November 27, 2023 Left upper extremity weakness with right hand tingling and numbness at times, possibly secondary to recent cervical surgery Gastroesophageal reflux disease Obesity with a BMI of 36.3 GI prophylaxis DVT prophylaxis DNR Plan: Lisinopril, procardia and carvedilol are discontinued. Cardiology following patient was maintained on Cardizem underwent cardioversion for symptomatic persistent atrial fibrillation. Patient reports he had cardioversion done a few weeks ago at the other hospital that converted back into A-fib RVR. Cardiology following and Cardizem has been stopped currently rate controlled Pulmonary and cardiology following and has been instructed to get his CPAP machine from home for continued use. Pulmonary discussing the use of BiPAP at night. Procalcitonin was normal at 0.06. Encourage incentive spirometer use at least 10 times every hour while awake Continue cardiac telemetry Continue IV lasix 80 mg Q12 hours. Follow-up on repeat labs and replace electrolytes per protocol while monitoring kidney functions. Recommend daily supplementation of potassium Reports from [place] available in the chart. PT/OT consulted and patient reports he walked up and down the jeff and does continue with exertion and shortness of breath with weakness. Patient continues to elicit left upper extremity weakness and reports his left arm is nonfunctional, right hand having some occasional numbness and tingling. Neurology is following. Patient has completed extensive neurological workup including stroke workups and 3 EMGs most recently in [place] that were negative and ALS was ruled out Encourage increase activity as tolerated. Will discuss with case management/social work regarding discharge planning as patient reports he lives alone and is fearful of discharging home with minimal use of his upper extremities and would be unable to perform ADLs. The impression and plan of care has been dictated by nurse Ninoska Pra ctitioner as directed. Dr. Raiza MD I have performed a history and physical examination and medical decision making of this patient, discussed the same with the dictator, and agree with the dictat ors assessment and plan as written, documented as a scribe. Based on total visit time, I have performed more than 50% of this visit. Objective - Vital Signs Vital signs: Vital Signs Temp 98.2 F 01/21/24 04:00 Pulse 72 01/21/24 09:04 Resp 22 01/21/24 04:00 BP 122/77 01/21/24 04:00 Pulse Ox 94 L 01/21/24 09:04 FiO2 35 01/18/24 13:06 Intake & Output 01/20/24 01/21/24 01/21/24 18:59 06:59 18:59 Output Total 3000 600 Balance -3000 -600 Output: Urine 3000 600 Other: Voiding Method External Catheter External Catheter - Labs CBC & Chem 7: 01/19/24 06:35 01/21/24 06:32 Labs: Abnormal Lab Results - Last 24 Hours (Table) 01/20/24 01/21/24 Range/Units 10:31 06:32 Chloride 87 L (98-107) mmol/L Carbon Dioxide 43 H* (22-30) mmol/L BUN 25 H (9-20) mg/dL Glucose 166 H (74-99) mg/dL POC Glucose (mg/dL) 124 H (70-110) mg/dL Calcium 8.3 L (8.4-10.2) mg/dL
--- NOTE | 2024-01-21 15:29 | P.PN ---
Subjective Progress Note Date: 01/21/24 Principal diagnosis: Respiratory failure. Patient is a 68-year-old male with past medical history significant for hypertension, hyperlipidemia, obstructive sleep apnea with home APAP, GERD, atrial fibrillation currently anticoagulated on Eliquis, and lifelong non- smoker. Recently, patient has developed bilateral upper extremity weakness, worse on the left. He has been evaluated by the orthopedic surgeon and did undergo C3-C7 cervical discectomy and fusion back on 11/28/2023. Unfortunately, the function of his left upper extremity has not returned to baseline following the procedure. States he has had follow-up MRI spine at outside facility and follows up with neurologist. Of note, following his procedure he was found to be in A-fib RVR and exacerbation of diastolic heart failure. Transthoracic echocardiogram done during this admission showing a preserved left ventricular ejection fraction of 50 to 55% with severe LVH. Patient was ultimately discharg ed home on December 11. More recently, patient had a hospitalization at [facility], he underwent a cardioversion, which was reportedly successful. Patient returns to the ED department last night complaining of 2 weeks of worsening acute on chronic shortness of breath.He reports associated increased swelling especially in his left upper extremity and bilateral lower extremities. Endorses orthopnea. He does take Bumex on outpatient basis. He does have a APAP machine at home, but he does not wear it due to weakness in his upper extremities. He states that he cannot put the device on. He denies history of COPD or asthma. He is a lifelong non-smoker. 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 He is scheduled to follow-up in the pulmonary office this January.. Chest x-ray demonstrates cardiomegaly and possible pulmonary vascular congestion. There is left hemidiaphragm elevation. Patient states that he did follow-up outpatient for his sniff test which was unremarkable. NT proBNP only mildly elevated at 623. Troponin less than 0.012. EKG consistent with atrial fibrillation with controlled ventricular response, rate 93 bpm, no acute ischemic changes noted. CBC: WBC count 12.7, hemoglobin 14.4, hematocrit 46.1, platelets 222. CMP: Sodium 138, potassium 3.9, chloride 93, serum bicarb 42, BUN 27, creatinine 0.88, glucose 125. Lactic 1.6. LFTs u nremarkable. Patient appears to have a positive fluid balance and has been started on Lasix 40 mg twice daily. He is currently alert and oriented, sitting up in the bedside recliner on 4 L/min nasal cannula, in no acute distress. He states he is tired and has not slept in about 2 weeks due to his difficulty in breathing. Current vitals: Heart rate 88 bpm, blood pressure 129/77 mmHg, respiratory rate mid teens, SpO2 97% on 4 L/min nasal cannula. The patient is seen today January 16, 2024 in follow-up on the regular medical floor. He is currently sitting up in the bedside. Awake and alert in no acute distress. Breathing better today compared to yesterday. Lung sounds have improved. Containing good O2 saturations in the 90s on 2 L/min per nasal cannula. Arterial blood gases revealed a PaO2 of 68, P CO2 of 74 and a pH of 7.42 on 36% FiO2. Afebrile. Hemodynamically stable. Chest x-ray reveals no acute pulmonary process. Continued small left pleural effusion. White count 13.7. Hemoglobin 13.7. Platelets 185. Sodium 141. Potassium 3.9. Bicarb 38. BUN 27. Creatinine 1.0. Glucose 133. He remains on DuoNeb inhalations. Continued on IV diuretics. Anticoagulated with Eliquis. Currently in a -1.9 L balance. Patient was seen today on 01/17/2024, patient is basically the same. Continues to have intermittent episodes of shortness of breath, complaining of generalized weakness and he has difficulty even using his arms pulmonary mcdonnell previous workup showed weakness/paresis of the left hemidiaphragm but not paralyzed. Did not have paradoxical movement of the left hemidiaphragm. Patient had extensive workup in many other places including [facility] and [facility], and no one could figure out the etiology of his symptoms. He was told that he did not have ALS clearly no evidence to suggest Nuvia Gehrig's disease pulmonary mcdonnell patient r emains on bronchodilators, he is also on diuretics, and he is anticoagulated with Eliquis. inspite of diuresing well, though significant improvement noted on this admission. Patient clearly has and has been diagnosed with obstructive sleep apnea with chronic hypercapnia and he is not using his home BiPAP because he has difficulty using it with his weak arms. I stressed to him the importance of getting get into the hospital, and will have respiratory therapist or nurses help him put it on every night when he sleeps Patient was seen today on 01/18/2024, patient is basically about the same. Co ntinues to have intermittent episodes of shortness of breath, generalized weakness, difficulty in using his upper extremities, and again he does have symptoms of cervical myelopathy. Pulmonary mcdonnell the patient did have left diaphragm paresis but no paralysis, and I believe that is related to his ce rvical spine. Patient is on nasal cannula 3 L, I suggested yesterday that he brings his own CPAP, did not do it and I will try to place him on BiPAP tonight 33% when he goes to bed/sleep.Labs today were all reviewed and ABG from few days ago was also reviewed. Patient has chronic hypercapnia and adequate metabolic compensation for his respiratory acidosis Seen today on 01/19/2024, patient is basically about the same. Follow-up chest x-ray this morning showed left lower lobe atelectasis strongly doubt pneumonia, patient is known to have history of left hemidiaphragm paresis and he is an excellent set up for a left lower lobe atelectasis clinically there is no evidence of pneumonia.No fever, no leukocytosis, no symptoms to suggest pneumonia, on 3 L nasal cannula with O2 sats of 96% basic metabolic profile is basically about the same bicarb remains 42 renal profile is normal Seen today on 01/20/2024, patient is practically about the same. Patient denies any change remains in atrial fibrillation remains on diuretics continues to complain of generalized weakness especially in his upper extremities. Labs were reviewed bicarb is 45 potassium 3.2 BUN is 23 creatinine 0.86 considering his elevated bicarb may have to consider adding Diamox to his Lasix. Progress note dated January 21, 2024. 68-year-old male who is seen today in room 355. The patient is currently on 3 L of oxygen. No IV fluids. He is a DO NOT RESUSCITATE patient. He has multiple complaints today, including generalized weakness, and fatigue, particular in his upper extremities. Currently, labs include a sodium 139, potassium 3.8, chlorides 87, CO2 43, BUN 25, creatinine 0.93. Glucose 166. Calcium 8.3. Objective - Vital Signs Vital signs: Vital Signs Temp 97.2 F L 01/21/24 08:00 Pulse 72 01/21/24 12:02 Resp 18 01/21/24 11:24 BP 120/85 01/21/24 11:24 Pulse Ox 94 L 01/21/24 11:24 FiO2 35 01/18/24 13:06 Intake & Output 01/20/24 01/21/24 01/21/24 18:59 06:59 18:59 Intake Total 780 Output Total 3000 600 750 Balance -3000 -600 30 Intake: Oral 780 Output: Urine 3000 600 750 Other: Voiding Method External Catheter External Catheter External Catheter - Exam No acute distress, oriented 3. The patient is currently on 3 L of oxygen. No respiratory distress. HEENT examination is grossly unremarkable. Mucous membranes are moist. No oral lesions. Neck supple. Full range of motion. No adenopathy thyromegaly or neck vein distention. Cardiovascular examination reveals an irregular rhythm and rate. S1-S2 normal. No S3 or S4. No discernible murmur noted. Lungs reveal clear breath sounds. Breath sounds are equal bilaterally. No adventitious lung sounds including wheezes rhonchi or crackles. Abdomen soft bowel sounds are heard. No masses or tenderness. Extremities are intact. No cyanosis or clubbing. 1+ edema. Skin is without rash or lesion. Neurologic examination is left upper extremity weakness. - Labs CBC & Chem 7: 01/19/24 06:35 01/21/24 06:32 Labs: Abnormal Lab Results - Last 24 Hours (Table) 01/15/24 01/21/24 Range/Units 02:05 06:32 Chloride 87 L (98-107) mmol/L Carbon Dioxide 43 H* (22-30) mmol/L BUN 25 H (9-20) mg/dL Glucose 166 H (74-99) mg/dL Calcium 8.3 L (8.4-10.2) mg/dL Albumin (PEP) 3.40 L (3.80-4.90) g/dL Gamma Globulins 0.63 L (0.70-1.50) g/dL Assessment and Plan Assessment: Acute on chronic hypoxemic and hypercapnic respiratory failure, likely secondary to CHF exacerbation, underlying obstructive sleep apnea syndrome, and obesity/hypoventilation syndrome. History of diastolic CHF. Possible cervical myelopathy. Paroxysmal atrial fibrillation. History of obstructive sleep apnea syndrome. Obesity, with a BMI of 36.6 kg/m. Chronic hypercapnic respiratory failure. Left diaphragm weakness. Recent history of anterior cervical discectomy and fusion, C3-C7. Persistent left upper extremity weakness. Lifelong non-smoker. History of hypertension. History of hyperlipidemia. History of gastroesophageal reflux disease. History of anxiety. Plan: Plan dated January 21, 2024. The patient continues with supportive care. The patient is to bring his own CPAP device from home, to use at nighttime. The patient continues on Lasix, as well as other medications including Eliquis. Neurology is following this patient. Labs, x-rays, and all medications are reviewed. The patient is a DO NOT RESUSCITATE patient. He was advised to go to a tertiary care center such as [facility], or the [facility], by my partner. Time with Patient: Less than 30
--- NOTE | 2024-01-21 18:53 | P.PN ---
Subjective Patient remains in atrial fibrillation Denies any chest discomfort But he states that he is still short of breath He denies any history of asthma Heart sounds are irregular Breath sounds are reduced bilaterally Impression Atrial fibrillation with RVR Plan Reduce amiodarone to 200 mg twice daily for 2 weeks and then cut back to 200 mg once daily Increase the dose of metoprolol to 50 mg twice daily Tomorrow try backing off on IV Cardizem and increase metoprolol further as needed May switch to metoprolol succinate while on IV Cardizem for smoother transition Objective - Vital Signs Vital signs: Vital Signs Temp 98.2 F 01/21/24 04:00 Pulse 90 01/21/24 04:00 Resp 22 01/21/24 04:00 BP 122/77 01/21/24 04:00 Pulse Ox 95 01/21/24 04:00 FiO2 35 01/18/24 13:06 Intake & Output 01/20/24 01/21/24 01/21/24 18:59 06:59 18:59 Output Total 3000 600 Balance -3000 -600 Output: Urine 3000 600 Other: Voiding Method External Catheter External Catheter - Labs CBC & Chem 7: 01/19/24 06:35 01/21/24 06:32 Labs: Abnormal Lab Results - Last 24 Hours (Table) 01/20/24 01/20/24 Range/Units 08:02 10:31 Potassium 3.2 L (3.5-5.1) mmol/L Chloride 89 L (98-107) mmol/L Carbon Dioxide 45 H* (22-30) mmol/L BUN 23 H (9-20) mg/dL Glucose 165 H (74-99) mg/dL POC Glucose (mg/dL) 124 H (70-110) mg/dL Calcium 7.9 L (8.4-10.2) mg/dL
[2024-01-21 20:30] LABS: Glucose,Whole Blood 290 mg/dL (70-110)
[2024-01-21] MEDS: TEMAZEPAM 15 MG CAP PO PRN (21:50)
[2024-01-22 08:09] LABS: African American GFR (CKD) >90 (>60 ml/min/1.73 sqM); Blood Urea Nitrogen 25 mg/dL (9-20); Calcium 8.2 mg/dL (8.4-10.2); Chloride 88 mmol/L (98-107); Glucose 147 mg/dL (74-99); Non-African American GFR(CKD) >90 (>60 ml/min/1.73 sqM); Potassium 3.4 mmol/L (3.5-5.1); Sodium 136 mmol/L (137-145)
[2024-01-22 08:16] LABS: Anion Gap 6 mmol/L
[2024-01-22 08:26] LABS: Carbon Dioxide 42 mmol/L (22-30)
[2024-01-22] MEDS: POTASSIUM CHLORIDE ER 20 MEQ TAB.ER PO STA (08:39)
--- NOTE | 2024-01-22 08:44 | XR ---
EXAMINATION TYPE: XR chest 1V portable DATE OF EXAM: 01/22/2024 7:04 AM COMPARISON: Chest radiograph from one day prior. CLINICAL INDICATION: Male, 68 years old with history of chf, sob; [facility] TECHNIQUE: XR chest 1V portable Frontal view of the chest. FINDINGS: Lungs/Pleura: There is no evidence of pleural effusion, focal consolidation, or pneumothorax. Pulmonary vascularity: Unremarkable. Heart/mediastinum: Cardiomediastinal silhouette is unremarkable. Musculoskeletal: No acute osseous pathology. There is fixation hardware in the lower cervical spine. Other findings: None Lines/Tubes: IMPRESSION: Improved aeration of the lungs. Persistent left basilar airspace opacities. [facility], , 01/22/2024 8:42 AM
[2024-01-22 09:59] VITALS: BMI 36.1
--- NOTE | 2024-01-22 11:34 | P.PN ---
Subjective HISTORY OF PRESENT ILLNESS: This is a pleasant 68-year-old with past medical history significant for hypertension, hyperlipidemia, obstructive sleep apnea, GERD, persistent atrial fibrillation and CHF. He follows with a doctor rather in [facility]. He states he had been doing fairly well up until approximately 6-12 months ago. He then started to develop shortness of breath as well as upper extremity weakness. He underwent extensive workup and initially there was some concern regarding possible ALS. Eventually he was seen by orthopedic surgery and underwent C3 through C7 cervical discectomy and fusion 11/28/2023. Additionally he has had multiple admissions with shortness breath. He also had been down to [facility] with admissions for heart failure. He was diagnosed with atrial fibrillation after his spinal surgery. Unfortunately his upper extremity weakness and numbness has not dramatically improved. He has been on steroids. Hospitalization at [facility] he underwent a cardioversion which was succ essful however fairly short-lived and back in A. fib. He takes Bumex at home however believes Lasix actually worked somewhat better for him. He presented with increasing shortness breath over the last few days and significantly in the middle the night and could not catch his breath and "had to drag himself and his he felt like he was dying. He also admits to some significant generalized weakness. Denies any recent fevers or chills. Also has 2+ lower extremity edema which is increased from prior. EKG shows atrial fibrillation with no significant ST changes. Prior echo from 11/2023 showed severe LVH with septal thickness 2.5 and posterior wall thickness 2.1 cm. He does admit to a chronic history of hypertension however has been better controlled recently. He admits he felt somewhat better after his cardioversion however this was short-lived. 01/16/2024 Patient examined this morning. Patient is sitting up in the chair. Patient states this morning he was seeing spots. Patient developed hypotension this morning and received a fluid bolus. BP was in the 70s according to the nurse. Blood pressure improved after fluid bolus. Most recent blood pressure 130/70. The patient currently denies any chest pain or pressure. He denies shortness of breath. He remains in atrial fibrillation with heart rate around 100. 01/17/24 Patient was transferred from the [facility] and is seen today on the cardiac stepdown unit. Patient is seen and examined. He apparently had low blood pre ssure readings and was transferred. His blood pressures are 112/71, heart rate is in the 70s and 80s, pulse ox 95% on 2 L nasal cannula. He remains in atrial fibrillation patient denies having any chest pain. He states that his difficulty breathing comes and goes. Repeat blood work reveals WBC 12.1, hemoglobin 14. Sodium 136, potassium 3.4, CO2 is 39, BUN 37 creatinine 0.9. Troponin from yesterday was negative. Potassium has been replaced. Records from Dr. 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 Patient had episode of RVR and was resumed back on Cardizem drip last evening. He is currently running in the 80s and atrial fibrillation. Blood pressure 136/76, pulse ox 96% on 3 L nasal cannula. Discussed option of adding consult for EP, Dr. Rodriguez. 01/20/24 Patient seen and examined. Patient remains in atrial fibrillation with controlled rate. He is off the Cardizem drip. Heart rate is running in the 70s to 90s. He is currently on IV Lasix 80 mg every 12 hours. Yesterday, patient had a negative fluid balance, he does have documented weight loss of 1-1/2 kg. Repeat blood work reveals sodium 139, potassium 3.2, BUN 23 creatinine 0.86. Potassium has been replaced. 01/22/2024 Patient examined this morning at the bedside. Patient reports mild shortness of breath. He remains on IV diuretics. He denies any chest pain or pressure. Patient converted to sinus mechanism this morning and is maintaining sinus mechanism at the time of examination. PHYSICAL EXAM: VITAL SIGNS: Reviewed. GENERAL: Well-developed in no acute distress. NECK: Supple. No JVD or thyromegaly LUNGS: Respirations even and unlabored. Lungs essentially clear to auscultation bilaterally. HEART: Regular rate and rhythm. S1 and S2 heard. EXTREMITIES: Normal range of motion. No clubbing or cyanosis. Peripheral pulses intact. Bilateral lower extremity edema ASSESSMENT: Hypotension, resolved Acute on chronic respiratory failure Acute on chronic heart failure with preserved EF Severe LVH, rule out infiltrative disease Paroxysmal atrial fibrillation with controlled ventricular rate, failed ca rdioversion on 01/18/2024, converted to sinus mechanism 01/22/2024 Hypertension Upper extremity weakness, does not appear consistent with Guillain-Green or nueromuscular disease. Neuropathy with apparent EMG performed previously. Rule out component of amyloidosis Status post cervical discectomy and fusion Obstructive sleep apnea Obesity PLAN: Discontinue IV Cardizem Continue current dose of oral amiodarone 200 mg twice a day Continue metoprolol tartrate 50 mg twice a day Continue IV Lasix 80 mg every 12 hours. Possible transition to oral diuretics tomorrow. Daily weights, accurate intake and output, monitoring of kidney function Continue telemetry monitoring Further recommendations pending patient course Nurse practitioner note has been reviewed by physician. Signing provider agrees with the documented findings, assessment, and plan of care documented by [employer] SUPERVISOR as a scribe. Objective - Vital Signs Vital signs: Vital Signs Temp 97.9 F 01/22/24 08:00 Pulse 70 01/22/24 09:35 Resp 18 01/22/24 08:00 BP 146/81 01/22/24 08:00 Pulse Ox 95 01/22/24 08:00 FiO2 35 01/18/24 13:06 Intake & Output 01/21/24 01/22/24 01/22/24 18:59 06:59 18:59 Intake Total 1542 780 358 Output Total 1400 2100 650 Balance 142 -1320 -292 Weight 127.8 kg 127.8 kg Intake: Oral 1542 780 358 Output: Urine 1400 2100 650 Other: Voiding Method External Catheter External Catheter External Catheter - Labs CBC & Chem 7: 01/19/24 06:35 01/22/24 06:38 Labs: Abnormal Lab Results - Last 24 Hours (Table) 01/15/24 01/21/24 01/22/24 Range/Units 02:05 20:28 06:38 Sodium 136 L (137-145) mmol/L Potassium 3.4 L (3.5-5.1) mmol/L Chloride 88 L (98-107) mmol/L Carbon Dioxide 42 H* (22-30) mmol/L BUN 25 H (9-20) mg/dL Glucose 147 H (74-99) mg/dL POC Glucose (mg/dL) 290 H (70-110) mg/dL Calcium 8.2 L (8.4-10.2) mg/dL Albumin (PEP) 3.40 L (3.80-4.90) g/dL Gamma Globulins 0.63 L (0.70-1.50) g/dL
--- NOTE | 2024-01-22 12:04 | P.PN ---
Subjective Progress Note Date: 01/22/24 Principal diagnosis: Respiratory failure. Patient is a 68-year-old male with past medical history significant for hypertension, hyperlipidemia, obstructive sleep apnea with home APAP, GERD, atrial fibrillation currently anticoagulated on Eliquis, and lifelong non- smoker. Recently, patient has developed bilateral upper extremity weakness, worse on the left. He has been evaluated by the orthopedic surgeon and did undergo C3-C7 cervical discectomy and fusion back on 11/28/2023. Unfortunately, the function of his left upper extremity has not returned to baseline following the procedure. States he has had follow-up MRI spine at outside facility and follows up with neurologist. Of note, following his procedure he was found to be in A-fib RVR and exacerbation of diastolic heart failure. Transthoracic echocardiogram done during this admission showing a preserved left ventricular ejection fraction of 50 to 55% with severe LVH. Patient was ultimately discharg ed home on December 11. More recently, patient had a hospitalization at [facility], he underwent a cardioversion, which was reportedly successful. Patient returns to the ED department last night complaining of 2 weeks of worsening acute on chronic shortness of breath.He reports associated increased swelling especially in his left upper extremity and bilateral lower extremities. Endorses orthopnea. He does take Bumex on outpatient basis. He does have a APAP machine at home, but he does not wear it due to weakness in his upper extremities. He states that he cannot put the device on. He denies history of COPD or asthma. He is a lifelong non-smoker. 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 He is scheduled to follow-up in the pulmonary office this January.. Chest x-ray demonstrates cardiomegaly and possible pulmonary vascular congestion. There is left hemidiaphragm elevation. Patient states that he did follow-up outpatient for his sniff test which was unremarkable. NT proBNP only mildly elevated at 623. Troponin less than 0.012. EKG consistent with atrial fibrillation with controlled ventricular response, rate 93 bpm, no acute ischemic changes noted. CBC: WBC count 12.7, hemoglobin 14.4, hematocrit 46.1, platelets 222. CMP: Sodium 138, potassium 3.9, chloride 93, serum bicarb 42, BUN 27, creatinine 0.88, glucose 125. Lactic 1.6. LFTs u nremarkable. Patient appears to have a positive fluid balance and has been started on Lasix 40 mg twice daily. He is currently alert and oriented, sitting up in the bedside recliner on 4 L/min nasal cannula, in no acute distress. He states he is tired and has not slept in about 2 weeks due to his difficulty in breathing. Current vitals: Heart rate 88 bpm, blood pressure 129/77 mmHg, respiratory rate mid teens, SpO2 97% on 4 L/min nasal cannula. The patient is seen today January 16, 2024 in follow-up on the regular medical floor. He is currently sitting up in the bedside. Awake and alert in no acute distress. Breathing better today compared to yesterday. Lung sounds have improved. Containing good O2 saturations in the 90s on 2 L/min per nasal cannula. Arterial blood gases revealed a PaO2 of 68, P CO2 of 74 and a pH of 7.42 on 36% FiO2. Afebrile. Hemodynamically stable. Chest x-ray reveals no acute pulmonary process. Continued small left pleural effusion. White count 13.7. Hemoglobin 13.7. Platelets 185. Sodium 141. Potassium 3.9. Bicarb 38. BUN 27. Creatinine 1.0. Glucose 133. He remains on DuoNeb inhalations. Continued on IV diuretics. Anticoagulated with Eliquis. Currently in a -1.9 L balance. Patient was seen today on 01/17/2024, patient is basically the same. Continues to have intermittent episodes of shortness of breath, complaining of generalized weakness and he has difficulty even using his arms pulmonary mcdonnell previous workup showed weakness/paresis of the left hemidiaphragm but not paralyzed. Did not have paradoxical movement of the left hemidiaphragm. Patient had extensive workup in many other places including [facility] [place] [facility] and no one could figure out the etiology of his symptoms. He was told that he did not have ALS clearly no evidence to suggest Nuvia Gehrig's disease pulmonary mcdonnell patient r emains on bronchodilators, he is also on diuretics, and he is anticoagulated with Eliquis. inspite of diuresing well, though significant improvement noted on this admission. Patient clearly has and has been diagnosed with obstructive sleep apnea with chronic hypercapnia and he is not using his home BiPAP because he has difficulty using it with his weak arms. I stressed to him the importance of getting get into the hospital, and will have respiratory therapist or nurses help him put it on every night when he sleeps Patient was seen today on 01/18/2024, patient is basically about the same. Co ntinues to have intermittent episodes of shortness of breath, generalized weakness, difficulty in using his upper extremities, and again he does have symptoms of cervical myelopathy. Pulmonary mcdonnell the patient did have left diaphragm paresis but no paralysis, and I believe that is related to his ce rvical spine. Patient is on nasal cannula 3 L, I suggested yesterday that he brings his own CPAP, did not do it and I will try to place him on BiPAP tonight 33% when he goes to bed/sleep.Labs today were all reviewed and ABG from few days ago was also reviewed. Patient has chronic hypercapnia and adequate metabolic compensation for his respiratory acidosis Seen today on 01/19/2024, patient is basically about the same. Follow-up chest x-ray this morning showed left lower lobe atelectasis strongly doubt pneumonia, patient is known to have history of left hemidiaphragm paresis and he is an excellent set up for a left lower lobe atelectasis clinically there is no evidence of pneumonia.No fever, no leukocytosis, no symptoms to suggest pneumonia, on 3 L nasal cannula with O2 sats of 96% basic metabolic profile is basically about the same bicarb remains 42 renal profile is normal Seen today on 01/20/2024, patient is practically about the same. Patient denies any change remains in atrial fibrillation remains on diuretics continues to complain of generalized weakness especially in his upper extremities. Labs were reviewed bicarb is 45 potassium 3.2 BUN is 23 creatinine 0.86 considering his elevated bicarb may have to consider adding Diamox to his Lasix. Progress note dated January 21, 2024. 68-year-old male who is seen today in room 355. The patient is currently on 3 L of oxygen. No IV fluids. He is a DO NOT RESUSCITATE patient. He has multiple complaints today, including generalized weakness, and fatigue, particular in his upper extremities. Currently, labs include a sodium 139, potassium 3.8, chlorides 87, CO2 43, BUN 25, creatinine 0.93. Glucose 166. Calcium 8.3. Progress note dated January 22, 2024. 68-year-old male seen today in room 355. The patient remains on oxygen, by nasal cannula 2 L. He is not receiving any IV fluids. The patient is a DO NOT RESUSCITATE patient. His primary issue is generalized weakness, and fatigue, particularly in the upper extremities. He has been seen by neurology, and evaluated. Current labs include a sodium 136, potassium 3.4, chlorides 88, CO2 42, BUN 25, creatinine 0.87. Glucose is 147. Calcium is 8.2. Chest x-ray, compared to prior x-ray, is improved. There remains some left basilar infilt rate or atelectasis. Objective - Vital Signs Vital signs: Vital Signs Temp 97.9 F 01/22/24 08:00 Pulse 67 01/22/24 11:30 Resp 16 01/22/24 11:30 BP 151/76 01/22/24 11:30 Pulse Ox 95 01/22/24 11:30 FiO2 35 01/18/24 13:06 Intake & Output 01/21/24 01/22/24 01/22/24 18:59 06:59 18:59 Intake Total 1542 780 358 Output Total 1400 2100 650 Balance 142 -1320 -292 Weight 127.8 kg 126.8 kg Intake: Oral 1542 780 358 Output: Urine 1400 2100 650 Other: Voiding Method External Catheter External Catheter External Catheter - Exam No acute distress, oriented 3. The patient is currently on 2 L of oxygen. No respiratory distress. HEENT examination is grossly unremarkable. Mucous membranes are moist. No oral lesions. Neck supple. Full range of motion. No adenopathy thyromegaly or neck vein distention. Cardiovascular examination reveals an irregular rhythm and rate. S1-S2 normal. No S3 or S4. No discernible murmur noted. Lungs reveal clear breath sounds. Breath sounds are equal bilaterally. No adventitious lung sounds including wheezes rhonchi or crackles. Abdomen soft bowel sounds are heard. No masses or tenderness. Extremities are intact. No cyanosis or clubbing. 1+ edema. Skin is without rash or lesion. Neurologic examination is left upper extremity weakness. - Labs CBC & Chem 7: 01/19/24 06:35 01/22/24 06:38 Labs: Abnormal Lab Results - Last 24 Hours (Table) 01/15/24 01/21/24 01/22/24 Range/Units 02:05 20:28 06:38 Sodium 136 L (137-145) mmol/L Potassium 3.4 L (3.5-5.1) mmol/L Chloride 88 L (98-107) mmol/L Carbon Dioxide 42 H* (22-30) mmol/L BUN 25 H (9-20) mg/dL Glucose 147 H (74-99) mg/dL POC Glucose (mg/dL) 290 H (70-110) mg/dL Calcium 8.2 L (8.4-10.2) mg/dL Albumin (PEP) 3.40 L (3.80-4.90) g/dL Gamma Globulins 0.63 L (0.70-1.50) g/dL Assessment and Plan Assessment: Acute on chronic hypoxemic and hypercapnic respiratory failure, likely secondary to CHF exacerbation, underlying obstructive sleep apnea syndrome, and obesity/hypoventilation syndrome. History of diastolic CHF. Possible cervical myelopathy. Paroxysmal atrial fibrillation. History of obstructive sleep apnea syndrome. Obesity, with a BMI of 36.6 kg/m. Chronic hypercapnic respiratory failure. Left diaphragm weakness. Recent history of anterior cervical discectomy and fusion, C3-C7. Persistent left upper extremity weakness. Lifelong non-smoker. History of hypertension. History of hyperlipidemia. History of gastroesophageal reflux disease. History of anxiety. Plan: Plan dated January 21, 2024. The patient continues with supportive care. The patient is to bring his own CPAP device from home, to use at nighttime. The patient continues on Lasix, as well as other medications including Eliquis. Neurology is following this patient. Labs, x-rays, and all medications are reviewed. The patient is a DO NOT RESUSCITATE patient. He was advised to go to a tertiary care center such as [facility], or the [facility], by my partner. Plan dated January 22, 2024. The patient is seen today in room 355. The patient is currently on 2 L of oxygen. No IV fluids. Yesterday he was on 3 L. He has no complaints of difficulty breathing, coughing, wheezing, chest tightness, or phlegm production. Labs, x-rays, and all medications are reviewed. Neurology is following the patient for his diffuse weakness. We will continue to follow. Prognosis is guarded. Time with Patient: Less than 30
--- NOTE | 2024-01-22 14:54 | P.PN ---
Subjective Progress Note Date: 01/22/24 This is a 68-year-old male with medical history significant for atrial fibrillation, COPD, acid reflux, hyperlipidemia, hypertension, sleep apnea with CPAP use, heart failure. Patient was recently hospitalized December 06 to December 11 for dyspnea and heart failure post cervical surgery. He was discharged home. He then had a hospitalization in the last week at [facility] where he underwent cardioversion which was successful. He comes back to the hospital now with complaints of worsening shortness of breath over the last month. He also reports weakness of his bilateral upper extremities and worsening edema of the bilateral lower extremities and his hands. He is reporting orthopnea and dyspnea on exertion. He has been compliant with his diuretic at home. He states that he has not been wearing his CPAP at night because of this weakness that he has been having. Patient does wear oxygen chronically. Chest xray on admission showing no acute findings. No evidence of DVT in the left arm per doppler. White blood cell count 12.7. CO2 47 on admission. Troponin level is negative, his proBNP is not elevated. He has been started on IV Lasix 40 mg every 12 hours. He is admitted under internal medicine with a cardiology and pulmonary consultation. He is currently in atrial fibrillation. 01/16/2024 Patient is evaluated today in follow up on the medical floor. Patient was hypotensive this AM with blood pressure into the 80s systolic was given a 500 CC bolus. He was presyncopal. He was moved to [address] [place] [address] for closer monitoring. Chest xray this AM reveals no acute cardiopulmonary disease/process. Small left pleural effusion. Brain CT completed negative for acute findings. Continues on IV lasix 80 mg Q12 hours. White blood cell count today 13.77. CO2 better at 38. BUN 27.4 creatinine 1.0. 01/17/2024 Patient evaluated today in follow up on the medical floor. Patient Blood pressur e better today. Remains in atrial fibrillation with controlled ventricular rate. Neurology evaluation recommending to follow up for EMG testing of the lower extremities and continue to follow up with his neurologist and neuromuscular specialist for the upper extremity weakness. Cardiology has adjusted medications discontinued lisinopril, procardia, and carvedilol. Patient will be going for cardioversion tomorrow. 01/18/2024 Patient is seen in follow-up today status post cardioversion currently sinus rhythm with cardiology following closely. Neurology as well as pulmonary also following as patient continues to report left upper extremity flaccidity and reports his right upper extremity is becoming more weak and is noticing tingling and numbness in the right hand. Patient has undergone extensive neurological workups and most recently at [facility] ([facility] including s troke workups that have been negative. ALS per patient was ruled out. Patient continues to be dyspneic with minimal exertion and is winded during conversation taking multiple breaks. Patient is maintained on 2 to 3 L nasal cannula at this time. Recommend PT/OT therapy evaluation and working with the patient daily. 01/19/2024 Patient is evaluated today in follow up on the medical floor. He is currently sitting up in the chair. He now reports that he is unable to use his left arm with his a change from admission. He also reports that he feels weakness in his diaphragm resulting in him being unable to take a deep breath. He is concerned as he feels like he has not been improving since hospitalization. He also feels that he is losing dexterity in his right fingers. He underwent synchronous cardioversion last night he was in sinus rhythm but has since converted back to atrial fibrillation is currently rate controlled and continues on IV Cardizem running at 5 mL/h. Cardiology and pulmonary following the patient closely. Neurology did see the patient in a consultation recommending a neuromuscular specialist on an outpatient basis and noted that ALS was ruled out. A repeat est x-ray today reveals interval development of acute pulmonary disease involving the left lung base. Likely pneumonic infiltrate with small effusion. His blood work today reveals a white blood cell count of 10.7, sodium 138, potassium 3.3, chloride of 88 CO2 of 42, BUN of 25 creatinine of 0.85. 01/20/2024 Patient evaluated in the medical floor in follow-up. Sitting up in the chair he does report improved shortness of breath as his heart rate is better controlled today down into the 60s. he remains in atrial fibrillation though. Remains on IV Lasix 80 mg every 12 hours with a BUN of 23 creatinine of 0.86 sodium level of 139. Potassium level is 3.2. 01/21/2024 Patient is seen in follow-up this morning currently sitting up in the chair report he continues to be shortness of breath with dyspnea and minimal exertion reporting he is not sleeping and feels exhausted. Patient is continued on IV Lasix twice daily and kidney functions remained stable. Potassium 3.5 today recommend potassium supplement daily. Patient continues to have left arm flaccidity and neurology has evaluated the patient. Patient has undergone extensive neurological workup including EMG and has been negative. Patient with overall weakness although is up and walking and able to work with physical therapy would not qualify for physical therapy rehab. Patient is fearful as he lives home alone and has significant comorbidities that he feels he is unable to handle and take care of himself. Patient has been instructed to bring the CPAP machine in from home. Patient is afebrile and denies chest pain or palpitations at this time. Will continue IV Lasix and current medication regimen follow-up with a chest x-ray in the a.m. Patient is currently off Cardizem and heart rate is controlled at this time. 01/22/2024 Patient evaluated today followed up in the medical floor. Patient does state that he foot into A-fib last night he is less short of breath today and states that he is able to take a deeper breath. His chest x-ray shows improved aeration with a persistent left basilar airspace opacity. He continues on IV Lasix 80 mg every 12 hours. his sodium is 136 today. He continues on oxygen v ia nasal cannula. REVIEW OF SYSTEMS: CONSTITUTIONAL: No fever, no malaise, reports extreme fatigue. HEENT: No recent visual problems or hearing problems. Denied any sore throat. CARDIOVASCULAR: No chest pain, orthopnea, PND, no palpitations, no syncope. PULMONARY: Reports continued shortness of breath, no cough, no hemoptysis. GASTROINTESTINAL: No diarrhea, no nausea, no vomiting, no abdominal pain. NEUROLOGICAL: No headaches, reports of generalized weakness, reports left-sided numbness and inability to move, right sided tingling and numbness starting in the hands. PHYSICAL EXAMINATION: GENERAL: The patient is alert and oriented x3, not in any acute distress. Well developed, elderly appearing, obese HEENT: Pupils are round and equally reacting to light. EOMI. No scleral icterus. No conjunctival pallor. Normocephalic, atraumatic. No pharyngeal erythema. No thyromegaly. CARDIOVASCULAR: S1 and S2 muffled, currently sinus PULMONARY: Diminished breath sounds bilaterally with some faint crackles noted at the bases. ABDOMEN: Soft, obese, nontender, nondistended, normoactive bowel sounds. No palpable organomegaly. MUSCULOSKELETAL: No joint swelling or deformity. EXTREMITIES: No cyanosis, clubbing, or pedal edema. Bilateral lower extremity swelling is improving, nonpitting NEUROLOGICAL: Left upper extremity weakness with decreased hand grasp. mild right upper extremity weakness. SKIN: No rashes. Assessment: Acute on chronic heart failure diastolic dysfunction with ejection fraction of 50 to 55% Acute on chronic hypoxic and hypercarbic respiratory failure secondary to above with noncompliance with his home CPAP Obstructive sleep apnea with CPAP use has been noncompliant Oxygen dependent COPD Left lower lobe infiltrate concern for hospital acquired pneumonia as he has had multiple recent hospitalizations. Paroxysmal Atrial fibrillation anticoagulant with Eliquis recently cardioverted at [facility]. Currently in atrial fibrillation status post card ioversion 01/18/2024. Cardizem discontinued and currently rate controlled. Patient is now maintained in sinus mechanism. Hypertension Hyperlipidemia Recent cervical C3-C7 ACDF on November 27, 2023 Left upper extremity weakness with right hand tingling and numbness at times, possibly secondary to recent cervical surgery Gastroesophageal reflux disease Obesity with a BMI of 36.3 GI prophylaxis DVT prophylaxis DNR Plan: Lisinopril, procardia and carvedilol are discontinued. Cardiology following patient was maintained on Cardizem underwent cardioversion for symptomatic persistent atrial fibrillation. Patient reports he had cardioversion done a few weeks ago at the other hospital that converted back into A-fib RVR. Cardiology following and Cardizem has been stopped. Patient did flip into normal sinus rhythm overnight. Pulmonary and cardiology following and has been instructed to get his CPAP machine from home for continued use. Pulmonary discussing the use of BiPAP at night. Procalcitonin was normal at 0.06. Encourage incentive spirometer use at least 10 times every hour while awake Continue cardiac telemetry Continue IV lasix 80 mg Q12 hours. Follow-up on repeat labs and replace electrolytes per protocol while monitoring kidney functions. Recommend daily supplementation of potassium Reports from [place] available in the chart. PT/OT consulted and patient reports he walked up and down the jeff and does continue with exertion and shortness of breath with weakness. Patient continues to elicit left upper extremity weakness and reports his left arm is nonfunctional, right hand having some occasional numbness and tingling. Neurology is following. Patient has completed extensive neurological workup including stroke workups and 3 EMGs most recently in [place] that were negative and ALS was ruled out Encourage increase activity as tolerated. Will discuss with case immanuel camarena/social work regarding discharge planning as patient reports he lives alone and is fearful of discharging home with minimal use of his upper extremities and would be unable to perform ADLs. The impression and plan of care has been dictated by Delilah Aguilar, nurse Practitioner as directed. Dr. Raiza MD I have performed a history and physical examination and medical decision making of this patient, discussed the same with the dictator, and agree with the dictators assessment and plan as written, documented as a scribe. Based on total visit time, I have performed more than 50% of this visit. Objective - Vital Signs Vital signs: Vital Signs Temp 97.9 F 01/22/24 08:00 Pulse 67 01/22/24 11:30 Resp 16 01/22/24 11:30 BP 151/76 01/22/24 11:30 Pulse Ox 95 01/22/24 11:30 FiO2 35 01/18/24 13:06 Intake & Output 01/21/24 01/22/24 01/22/24 18:59 06:59 18:59 Intake Total 1542 780 358 Output Total 1400 2100 650 Balance 142 -1320 -292 Weight 127.8 kg 126.8 kg Intake: Oral 1542 780 358 Output: Urine 1400 2100 650 Other: Voiding Method External Catheter External Catheter External Catheter - Labs CBC & Chem 7: 01/19/24 06:35 01/22/24 06:38 Labs: Abnormal Lab Results - Last 24 Hours (Table) 01/15/24 01/21/24 01/22/24 Range/Units 02:05 20:28 06:38 Sodium 136 L (137-145) mmol/L Potassium 3.4 L (3.5-5.1) mmol/L Chloride 88 L (98-107) mmol/L Carbon Dioxide 42 H* (22-30) mmol/L BUN 25 H (9-20) mg/dL Glucose 147 H (74-99) mg/dL POC Glucose (mg/dL) 290 H (70-110) mg/dL Calcium 8.2 L (8.4-10.2) mg/dL Albumin (PEP) 3.40 L (3.80-4.90) g/dL Gamma Globulins 0.63 L (0.70-1.50) g/dL Assessment and Plan Time with Patient: Less than 30
[2024-01-23 08:16] LABS: African American GFR (CKD) 88 (>60 ml/min/1.73 sqM); Blood Urea Nitrogen 26 mg/dL (9-20); Calcium 8.6 mg/dL (8.4-10.2); Chloride 87 mmol/L (98-107); Glucose 113 mg/dL (74-99); Non-African American GFR(CKD) 77 (>60 ml/min/1.73 sqM); Potassium 3.5 mmol/L (3.5-5.1); Sodium 140 mmol/L (137-145)
[2024-01-23 08:24] LABS: Anion Gap 9 mmol/L
[2024-01-23 08:47] LABS: Carbon Dioxide 44 mmol/L (22-30)
--- NOTE | 2024-01-23 11:40 | P.PN ---
Subjective HISTORY OF PRESENT ILLNESS: This is a pleasant 68-year-old with past medical history significant for hypertension, hyperlipidemia, obstructive sleep apnea, GERD, persistent atrial fibrillation and CHF. He follows with a doctor rather in [facility]. He states he had been doing fairly well up until approximately 6-12 months ago. He then started to develop shortness of breath as well as upper extremity weakness. He underwent extensive workup and initially there was some concern regarding possible ALS. Eventually he was seen by orthopedic surgery and underwent C3 through C7 cervical discectomy and fusion 11/28/2023. Additionally he has had multiple admissions with shortness breath. He also had been down to [facility] with admissions for heart failure. He was diagnosed with atrial fibrillation after his spinal surgery. Unfortunately his upper extremity weakness and numbness has not dramatically improved. He has been on steroids. Hospitalization at [facility] he underwent a cardioversion which was succ essful however fairly short-lived and back in A. fib. He takes Bumex at home however believes Lasix actually worked somewhat better for him. He presented with increasing shortness breath over the last few days and significantly in the middle the night and could not catch his breath and "had to drag himself and his he felt like he was dying. He also admits to some significant generalized weakness. Denies any recent fevers or chills. Also has 2+ lower extremity edema which is increased from prior. EKG shows atrial fibrillation with no significant ST changes. Prior echo from 11/2023 showed severe LVH with septal thickness 2.5 and posterior wall thickness 2.1 cm. He does admit to a chronic history of hypertension however has been better controlled recently. He admits he felt somewhat better after his cardioversion however this was short-lived. 01/16/2024 Patient examined this morning. Patient is sitting up in the chair. Patient states this morning he was seeing spots. Patient developed hypotension this morning and received a fluid bolus. BP was in the 70s according to the nurse. Blood pressure improved after fluid bolus. Most recent blood pressure 130/70. The patient currently denies any chest pain or pressure. He denies shortness of breath. He remains in atrial fibrillation with heart rate around 100. 01/17/24 Patient was transferred from the [facility] and is seen today on the cardiac stepdown unit. Patient is seen and examined. He apparently had low blood pre ssure readings and was transferred. His blood pressures are 112/71, heart rate is in the 70s and 80s, pulse ox 95% on 2 L nasal cannula. He remains in atrial fibrillation patient denies having any chest pain. He states that his difficulty breathing comes and goes. Repeat blood work reveals WBC 12.1, hemoglobin 14. Sodium 136, potassium 3.4, CO2 is 39, BUN 37 creatinine 0.9. Troponin from yesterday was negative. Potassium has been replaced. Records from Dr. 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 Patient had episode of RVR and was resumed back on Cardizem drip last evening. He is currently running in the 80s and atrial fibrillation. Blood pressure 136/76, pulse ox 96% on 3 L nasal cannula. Discussed option of adding consult for EP, Dr. Rodriguez. 01/20/24 Patient seen and examined. Patient remains in atrial fibrillation with controlled rate. He is off the Cardizem drip. Heart rate is running in the 70s to 90s. He is currently on IV Lasix 80 mg every 12 hours. Yesterday, patient had a negative fluid balance, he does have documented weight loss of 1-1/2 kg. Repeat blood work reveals sodium 139, potassium 3.2, BUN 23 creatinine 0.86. Potassium has been replaced. 01/22/2024 Patient examined this morning at the bedside. Patient reports mild shortness of breath. He remains on IV diuretics. He denies any chest pain or pressure. Patient converted to sinus mechanism this morning and is maintaining sinus mechanism at the time of examination. 01/23/2024 Patient examined this morning the bedside. Patient currently denies chest pain or pressure. Patient states that his breathing feels a little bit worse today compared to yesterday. He remains on IV Lasix 80 mg every 12 hours. BUN 26. Creatinine 1.02. PHYSICAL EXAM: VITAL SIGNS: Reviewed. GENERAL: Well-developed in no acute distress. NECK: Supple. No JVD or thyromegaly LUNGS: Respirations even and unlabored. Lungs essentially clear to auscultation bilaterally. HEART: Regular rate and rhythm. S1 and S2 heard. EXTREMITIES: Normal range of motion. No clubbing or cyanosis. Peripheral pulses intact. Bilateral lower extremity edema ASSESSMENT: Hypotension, resolved Acute on chronic respiratory failure Acute on chronic heart failure with preserved EF Severe LVH, rule out infiltrative disease Paroxysmal atrial fibrillation with controlled ventricular rate, failed cardioversion on 01/18/2024, converted to sinus mechanism 01/22/2024 Hypertension Upper extremity weakness, does not appear consistent with Guillain-Green or nueromuscular disease. Neuropathy with apparent EMG performed previously. Rule out component of amyloidosis Status post cervical discectomy and fusion Obstructive sleep apnea Obesity PLAN: Continue current dose of oral amiodarone 200 mg twice a day Continue metoprolol tartrate 50 mg twice a day Continue IV Lasix 80 mg every 12 hours. Daily weights, accurate intake and output, monitoring of kidney function Discontinue potassium supplementation Add Aldactone 25 mg daily Continue telemetry monitoring Further recommendations pending patient course Nurse practitioner note has been reviewed by physician. Signing provider agrees with the documented findings, assessment, and plan of care documented by [employer] as a scribe. Objective - Vital Signs Vital signs: Vital Signs Temp 97.9 F 01/23/24 08:00 Pulse 72 01/23/24 09:44 Resp 18 01/23/24 08:00 BP 164/95 01/23/24 08:00 Pulse Ox 94 L 01/23/24 09:11 FiO2 35 01/18/24 13:06 Intake & Output 01/22/24 01/23/24 01/23/24 18:59 06:59 18:59 Intake Total 1060 240 128 Output Total 1400 1600 300 Balance -340 -1360 -172 Weight 126.8 kg 128 kg Intake: IV 10 Invasive Line 2 10 Oral 1060 240 118 Output: Urine 1400 1600 300 Other: Voiding Method External Catheter External Catheter External Catheter - Labs CBC & Chem 7: 01/19/24 06:35 01/23/24 06:06 Labs: Abnormal Lab Results - Last 24 Hours (Table) 01/23/24 Range/Units 06:06 Chloride 87 L (98-107) mmol/L Carbon Dioxide 44 H* (22-30) mmol/L BUN 26 H (9-20) mg/dL Glucose 113 H (74-99) mg/dL
[2024-01-23] MEDS: SPIRONOLACTONE 25 MG TAB PO SCH (12:45)
--- NOTE | 2024-01-23 14:30 | P.PN ---
Subjective Progress Note Date: 01/23/24 Principal diagnosis: Respiratory failure. Patient is a 68-year-old male with past medical history significant for hypertension, hyperlipidemia, obstructive sleep apnea with home APAP, GERD, atrial fibrillation currently anticoagulated on Eliquis, and lifelong non- smoker. Recently, patient has developed bilateral upper extremity weakness, worse on the left. He has been evaluated by the orthopedic surgeon and did undergo C3-C7 cervical discectomy and fusion back on 11/28/2023. Unfortunately, the function of his left upper extremity has not returned to baseline following the procedure. States he has had follow-up MRI spine at outside facility and follows up with neurologist. Of note, following his procedure he was found to be in A-fib RVR and exacerbation of diastolic heart failure. Transthoracic echocardiogram done during this admission showing a preserved left ventricular ejection fraction of 50 to 55% with severe LVH. Patient was ultimately discharg ed home on December 11. More recently, patient had a hospitalization at [facility], he underwent a cardioversion, which was reportedly successful. Patient returns to the ED department last night complaining of 2 weeks of worsening acute on chronic shortness of breath.He reports associated increased swelling especially in his left upper extremity and bilateral lower extremities. Endorses orthopnea. He does take Bumex on outpatient basis. He does have a APAP machine at home, but he does not wear it due to weakness in his upper extremities. He states that he cannot put the device on. He denies history of COPD or asthma. He is a lifelong non-smoker. 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 He is scheduled to follow-up in the pulmonary office this January.. Chest x-ray demonstrates cardiomegaly and possible pulmonary vascular congestion. There is left hemidiaphragm elevation. Patient states that he did follow-up outpatient for his sniff test which was unremarkable. NT proBNP only mildly elevated at 623. Troponin less than 0.012. EKG consistent with atrial fibrillation with controlled ventricular response, rate 93 bpm, no acute ischemic changes noted. CBC: WBC count 12.7, hemoglobin 14.4, hematocrit 46.1, platelets 222. CMP: Sodium 138, potassium 3.9, chloride 93, serum bicarb 42, BUN 27, creatinine 0.88, glucose 125. Lactic 1.6. LFTs u nremarkable. Patient appears to have a positive fluid balance and has been started on Lasix 40 mg twice daily. He is currently alert and oriented, sitting up in the bedside recliner on 4 L/min nasal cannula, in no acute distress. He states he is tired and has not slept in about 2 weeks due to his difficulty in breathing. Current vitals: Heart rate 88 bpm, blood pressure 129/77 mmHg, respiratory rate mid teens, SpO2 97% on 4 L/min nasal cannula. The patient is seen today January 16, 2024 in follow-up on the regular medical floor. He is currently sitting up in the bedside. Awake and alert in no acute distress. Breathing better today compared to yesterday. Lung sounds have improved. Containing good O2 saturations in the 90s on 2 L/min per nasal cannula. Arterial blood gases revealed a PaO2 of 68, P CO2 of 74 and a pH of 7.42 on 36% FiO2. Afebrile. Hemodynamically stable. Chest x-ray reveals no acute pulmonary process. Continued small left pleural effusion. White count 13.7. Hemoglobin 13.7. Platelets 185. Sodium 141. Potassium 3.9. Bicarb 38. BUN 27. Creatinine 1.0. Glucose 133. He remains on DuoNeb inhalations. Continued on IV diuretics. Anticoagulated with Eliquis. Currently in a -1.9 L balance. Patient was seen today on 01/17/2024, patient is basically the same. Continues to have intermittent episodes of shortness of breath, complaining of generalized weakness and he has difficulty even using his arms pulmonary mcdonnell previous workup showed weakness/paresis of the left hemidiaphragm but not paralyzed. Did not have paradoxical movement of the left hemidiaphragm. Patient had extensive workup in many other places including [facility] and [facility], and no one could figure out the etiology of his symptoms. He was told that he did not have ALS clearly no evidence to suggest Nuvia Gehrig's disease pulmonary mcdonnell patient r emains on bronchodilators, he is also on diuretics, and he is anticoagulated with Eliquis. inspite of diuresing well, though significant improvement noted on this admission. Patient clearly has and has been diagnosed with obstructive sleep apnea with chronic hypercapnia and he is not using his home BiPAP because he has difficulty using it with his weak arms. I stressed to him the importance of getting get into the hospital, and will have respiratory therapist or nurses help him put it on every night when he sleeps Patient was seen today on 01/18/2024, patient is basically about the same. Co ntinues to have intermittent episodes of shortness of breath, generalized weakness, difficulty in using his upper extremities, and again he does have symptoms of cervical myelopathy. Pulmonary mcdonnell the patient did have left diaphragm paresis but no paralysis, and I believe that is related to his ce rvical spine. Patient is on nasal cannula 3 L, I suggested yesterday that he brings his own CPAP, did not do it and I will try to place him on BiPAP tonight 33% when he goes to bed/sleep.Labs today were all reviewed and ABG from few days ago was also reviewed. Patient has chronic hypercapnia and adequate metabolic compensation for his respiratory acidosis Seen today on 01/19/2024, patient is basically about the same. Follow-up chest x-ray this morning showed left lower lobe atelectasis strongly doubt pneumonia, patient is known to have history of left hemidiaphragm paresis and he is an excellent set up for a left lower lobe atelectasis clinically there is no evidence of pneumonia.No fever, no leukocytosis, no symptoms to suggest pneumonia, on 3 L nasal cannula with O2 sats of 96% basic metabolic profile is basically about the same bicarb remains 42 renal profile is normal Seen today on 01/20/2024, patient is practically about the same. Patient denies any change remains in atrial fibrillation remains on diuretics continues to complain of generalized weakness especially in his upper extremities. Labs were reviewed bicarb is 45 potassium 3.2 BUN is 23 creatinine 0.86 considering his elevated bicarb may have to consider adding Diamox to his Lasix. Progress note dated January 21, 2024. 68-year-old male who is seen today in room 355. The patient is currently on 3 L of oxygen. No IV fluids. He is a DO NOT RESUSCITATE patient. He has multiple complaints today, including generalized weakness, and fatigue, particular in his upper extremities. Currently, labs include a sodium 139, potassium 3.8, chlorides 87, CO2 43, BUN 25, creatinine 0.93. Glucose 166. Calcium 8.3. Progress note dated January 22, 2024. 68-year-old male seen today in room 355. The patient remains on oxygen, by nasal cannula 2 L. He is not receiving any IV fluids. The patient is a DO NOT RESUSCITATE patient. His primary issue is generalized weakness, and fatigue, particularly in the upper extremities. He has been seen by neurology, and evaluated. Current labs include a sodium 136, potassium 3.4, chlorides 88, CO2 42, BUN 25, creatinine 0.87. Glucose is 147. Calcium is 8.2. Chest x-ray, compared to prior x-ray, is improved. There remains some left basilar infilt rate or atelectasis. Progress note dated January 23, 2024. 68-year-old male seen today in room 355. The patient continues on oxygen at 2 L. Saturations are 94 to 96%. The patient is not receiving any antibiotics. He is on DuoNebs. Current labs include sodium 140, potassium 3.5, chlorides 87, CO2 44, BUN 26, creatinine 1.02. Glucose is 88. Calcium is 8.6. Chest x-ray from January 21, has been reviewed. Objective - Vital Signs Vital signs: Vital Signs Temp 98.1 F 01/23/24 12:00 Pulse 72 01/23/24 14:01 Resp 18 01/23/24 14:01 BP 152/92 01/23/24 12:00 Pulse Ox 95 01/23/24 12:00 FiO2 35 01/18/24 13:06 Intake & Output 01/22/24 01/23/24 01/23/24 18:59 06:59 18:59 Intake Total 1060 240 496 Output Total 1400 1600 900 Balance -340 -1360 -404 Weight 126.8 kg 128 kg Intake: IV 20 Invasive Line 2 20 Oral 1060 240 476 Output: Urine 1400 1600 900 Other: Voiding Method External Catheter External Catheter External Catheter - Exam No acute distress, oriented 3. The patient is currently on 2 L of oxygen. No respiratory distress. HEENT examination is grossly unremarkable. Mucous membranes are moist. No oral lesions. Neck supple. Full range of motion. No adenopathy thyromegaly or neck vein distention. Cardiovascular examination reveals an irregular rhythm and rate. S1-S2 normal. No S3 or S4. No discernible murmur noted. Lungs reveal clear breath sounds. Breath sounds are equal bilaterally. No adventitious lung sounds including wheezes rhonchi or crackles. Abdomen soft bowel sounds are heard. No masses or tenderness. Extremities are intact. No cyanosis or clubbing. 1+ edema. Skin is without rash or lesion. Neurologic examination is left upper extremity weakness. - Labs CBC & Chem 7: 01/19/24 06:35 01/23/24 06:06 Labs: Abnormal Lab Results - Last 24 Hours (Table) 01/23/24 Range/Units 06:06 Chloride 87 L (98-107) mmol/L Carbon Dioxide 44 H* (22-30) mmol/L BUN 26 H (9-20) mg/dL Glucose 113 H (74-99) mg/dL Assessment and Plan Assessment: Acute on chronic hypoxemic and hypercapnic respiratory failure, likely secondary to CHF exacerbation, underlying obstructive sleep apnea syndrome, and obesity/hypoventilation syndrome. History of diastolic CHF. Possible cervical myelopathy. Paroxysmal atrial fibrillation. History of obstructive sleep apnea syndrome. Obesity, with a BMI of 36.6 kg/m. Chronic hypercapnic respiratory failure. Left diaphragm weakness. Recent history of anterior cervical discectomy and fusion, C3-C7. Persistent left upper extremity weakness. Lifelong non-smoker. History of hypertension. History of hyperlipidemia. History of gastroesophageal reflux disease. History of anxiety. Plan: Plan dated January 21, 2024. The patient continues with supportive care. The patient is to bring his own CPAP device from home, to use at nighttime. The patient continues on Lasix, as well as other medications including Eliquis. Neurology is following this patient. Labs, x-rays, and all medications are reviewed. The patient is a DO NOT RESUSCITATE patient. He was advised to go to a tertiary care center such as [facility], or the [facility], by my partner. Plan dated January 22, 2024. The patient is seen today in room 355. The patient is currently on 2 L of oxygen. No IV fluids. Yesterday he was on 3 L. He has no complaints of difficulty breathing, coughing, wheezing, chest tightness, or phlegm production. Labs, x-rays, and all medications are reviewed. Neurology is following the patient for his diffuse weakness. We will continue to follow. Prognosis is guarded. Plan dated January 23, 2024. The patient is seen today in room 355. Things are essentially unchanged. He is on oxygen at 2 L by nasal cannula. He is not receiving any antibiotics. He is on breathing treatments. Saturations are between 94 and 96%. Labs, x-rays, and medications are reviewed. We will continue to follow make recommendations. He is being followed by neurology. He is a DO NOT RESUSCITATE patient. Time with Patient: Less than 30
--- NOTE | 2024-01-23 14:52 | P.PN ---
Subjective Progress Note Date: 01/23/24 This is a 68-year-old male with medical history significant for atrial fibrillation, COPD, acid reflux, hyperlipidemia, hypertension, sleep apnea with CPAP use, heart failure. Patient was recently hospitalized December 06 to December 11 for dyspnea and heart failure post cervical surgery. He was discharged home. He then had a hospitalization in the last week at [place] where he underwent cardioversion which was successful. He comes back to the hospital now with complaints of worsening shortness of breath over the last month. He also reports weakness of his bilateral upper extremities and worsening edema of the bilateral lower extremities and his hands. He is reporting orthopnea and dyspnea on exertion. He has been compliant with his diuretic at home. He states that he has not been wearing his CPAP at night because of this weakness that he has been having. Patient does wear oxygen chronically. Chest xray on admission showing no acute findings. No evidence of DVT in the left arm per doppler. White blood cell count 12.7. CO2 47 on admission. Troponin level is negative, his proBNP is not elevated. He has been started on IV Lasix 40 mg every 12 hours. He is admitted under internal medicine with a cardiology and pulmonary consultation. He is currently in atrial fibrillation. 01/16/2024 Patient is evaluated today in follow up on the medical floor. Patient was hypotensive this AM with blood pressure into the 80s systolic was given a 500 CC bolus. He was presyncopal. He was moved to [address] [place] [id number] for closer monitoring. Chest xray this AM reveals no acute cardiopulmonary disease/process. Small left pleural effusion. Brain CT completed negative for acute findings. Continues on IV lasix 80 mg Q12 hours. White blood cell count today 13.77. CO2 better at 38. BUN 27.4 creatinine 1.0. 01/17/2024 Patient evaluated today in follow up on the medical floor. Patient Blood pressur e better today. Remains in atrial fibrillation with controlled ventricular rate. Neurology evaluation recommending to follow up for EMG testing of the lower extremities and continue to follow up with his neurologist and neuromuscular specialist for the upper extremity weakness. Cardiology has adjusted medications discontinued lisinopril, procardia, and carvedilol. Patient will be going for cardioversion tomorrow. 01/18/2024 Patient is seen in follow-up today status post cardioversion currently sinus rhythm with cardiology following closely. Neurology as well as pulmonary also following as patient continues to report left upper extremity flaccidity and reports his right upper extremity is becoming more weak and is noticing tingling and numbness in the right hand. Patient has undergone extensive neurological workups and most recently at [facility] ([facility] including s troke workups that have been negative. ALS per patient was ruled out. Patient continues to be dyspneic with minimal exertion and is winded during conversation taking multiple breaks. Patient is maintained on 2 to 3 L nasal cannula at this time. Recommend PT/OT therapy evaluation and working with the patient daily. 01/19/2024 Patient is evaluated today in follow up on the medical floor. He is currently sitting up in the chair. He now reports that he is unable to use his left arm with his a change from admission. He also reports that he feels weakness in his diaphragm resulting in him being unable to take a deep breath. He is concerned as he feels like he has not been improving since hospitalization. He also feels that he is losing dexterity in his right fingers. He underwent synchronous cardioversion last night he was in sinus rhythm but has since converted back to atrial fibrillation is currently rate controlled and continues on IV Cardizem running at 5 mL/h. Cardiology and pulmonary following the patient closely. Neurology did see the patient in a consultation recommending a neuromuscular specialist on an outpatient basis and noted that ALS was ruled out. A repeat est x-ray today reveals interval development of acute pulmonary disease involving the left lung base. Likely pneumonic infiltrate with small effusion. His blood work today reveals a white blood cell count of 10.7, sodium 138, potassium 3.3, chloride of 88 CO2 of 42, BUN of 25 creatinine of 0.85. 01/20/2024 Patient evaluated in the medical floor in follow-up. Sitting up in the chair he does report improved shortness of breath as his heart rate is better controlled today down into the 60s. he remains in atrial fibrillation though. Remains on IV Lasix 80 mg every 12 hours with a BUN of 23 creatinine of 0.86 sodium level of 139. Potassium level is 3.2. 01/21/2024 Patient is seen in follow-up this morning currently sitting up in the chair report he continues to be shortness of breath with dyspnea and minimal exertion reporting he is not sleeping and feels exhausted. Patient is continued on IV Lasix twice daily and kidney functions remained stable. Potassium 3.5 today recommend potassium supplement daily. Patient continues to have left arm flaccidity and neurology has evaluated the patient. Patient has undergone extensive neurological workup including EMG and has been negative. Patient with overall weakness although is up and walking and able to work with physical therapy would not qualify for physical therapy rehab. Patient is fearful as he lives home alone and has significant comorbidities that he feels he is unable to handle and take care of himself. Patient has been instructed to bring the CPAP machine in from home. Patient is afebrile and denies chest pain or palpitations at this time. Will continue IV Lasix and current medication regimen follow-up with a chest x-ray in the a.m. Patient is currently off Cardizem and heart rate is controlled at this time. 01/22/2024 Patient evaluated today followed up in the medical floor. Patient does state that he foot into A-fib last night he is less short of breath today and states that he is able to take a deeper breath. His chest x-ray shows improved aeration with a persistent left basilar airspace opacity. He continues on IV Lasix 80 mg every 12 hours. his sodium is 136 today. He continues on oxygen v ia nasal cannula. 01/23/2024 Patient evaluated today in follow-up in the medical floor. He continues to report improved shortness of breath overall. He states that he is feeling well he remains in sinus mechanism. He continues on a combination of oral amiodarone and oral metoprolol he remains on IV Lasix 80 mg every 12 hours adequate urine output. not Quite ready for discharge. REVIEW OF SYSTEMS: CONSTITUTIONAL: No fever, no malaise, reports extreme fatigue. HEENT: No recent visual problems or hearing problems. Denied any sore throat. CARDIOVASCULAR: No chest pain, orthopnea, PND, no palpitations, no syncope. PULMONARY: Reports continued shortness of breath, no cough, no hemoptysis. GASTROINTESTINAL: No diarrhea, no nausea, no vomiting, no abdominal pain. NEUROLOGICAL: No headaches, reports of generalized weakness, reports left-sided numbness and inability to move, right sided tingling and numbness starting in the hands. PHYSICAL EXAMINATION: GENERAL: The patient is alert and oriented x3, not in any acute distress. Well developed, elderly appearing, obese HEENT: Pupils are round and equally reacting to light. EOMI. No scleral icterus. No conjunctival pallor. Normocephalic, atraumatic. No pharyngeal erythema. No thyromegaly. CARDIOVASCULAR: S1 and S2 muffled, currently sinus PULMONARY: Diminished breath sounds bilaterally with some faint crackles noted at the bases. ABDOMEN: Soft, obese, nontender, nondistended, normoactive bowel sounds. No palpable organomegaly. MUSCULOSKELETAL: No joint swelling or deformity. EXTREMITIES: No cyanosis, clubbing, or pedal edema. Bilateral lower extremity swelling is improving, nonpitting NEUROLOGICAL: Left upper extremity weakness with decreased hand grasp. mild right upper extremity weakness. SKIN: No rashes. Assessment: Acute on chronic heart failure diastolic dysfunction with ejection fraction of 50 to 55% Acute on chronic hypoxic and hypercarbic respiratory failure secondary to above with noncompliance with his home CPAP Obstructive sleep apnea with CPAP use has been noncompliant Oxygen dependent COPD Left lower lobe infiltrate concern for hospital acquired pneumonia as he has had multiple recent hospitalizations. Paroxysmal Atrial fibrillation anticoagulant with Eliquis recently cardioverted at [facility]. Currently in atrial fibrillation status post cardioversion 01/18/2024. Cardizem discontinued and currently rate controlled. Patient is now maintained in sinus mechanism. Hypertension Hyperlipidemia Recent cervical C3-C7 ACDF on November 27, 2023 Left upper extremity weakness with right hand tingling and numbness at times, possibly secondary to recent cervical surgery Gastroesophageal reflux disease Obesity with a BMI of 36.3 GI prophylaxis DVT prophylaxis DNR Plan: Lisinopril, procardia and carvedilol are discontinued. Cardiology following patient was maintained on Cardizem underwent cardioversion for symptomatic persistent atrial fibrillation. Patient reports he had cardioversion done a few weeks ago at the other hospital that converted back into A-fib RVR. Cardiology following and Cardizem has been stopped. Patient continues in normal sinus mechanism. Combination of oral amiodarone, oral metoprolol and will be started on oral Aldactone tomorrow. Pulmonary and cardiology following and has been instructed to get his CPAP machine from home for continued use. Procalcitonin was normal at 0.06. Encourage incentive spirometer use at least 10 times every hour while awake Continue cardiac telemetry Continue IV lasix 80 mg Q12 hours. Follow-up on repeat labs and replace electrolytes per protocol while monitoring kidney functions. Recommend daily supplementation of potassium Reports from [place] available in the chart. PT/OT consulted and patient reports he walked up and down the jeff and does continue with exertion and shortness of breath with weakness. Patient continues to elicit left upper extremity weakness and reports his left arm is nonfunctional, right hand having some occasional numbness and tingling. Neurology is following. Patient has completed extensive neurological workup including stroke workups and 3 EMGs most recently in [place] that were negative and ALS was ruled out Encourage increase activity as tolerated. Will discuss with case management/social work regarding discharge planning as patient reports he lives alone and is fearful of discharging home with minimal use of his upper extremities and would be unable to perform ADLs. The impression and plan of care has been dictated by Delilah Aguilar, Prac titioner as directed. Dr. Raiza MD I have performed a history and physical examination and medical decision making of this patient, discussed the same with the dictator, and agree with the dictators assessment and plan as written, documented as a scribe. Based on total visit time, I have performed more than 50% of this visit. Objective - Vital Signs Vital signs: Vital Signs Temp 98.1 F 01/23/24 12:00 Pulse 72 01/23/24 14:01 Resp 18 01/23/24 14:01 BP 152/92 01/23/24 12:00 Pulse Ox 95 01/23/24 12:00 FiO2 35 01/18/24 13:06 Intake & Output 01/22/24 01/23/24 01/23/24 18:59 06:59 18:59 Intake Total 1060 240 496 Output Total 1400 1600 900 Balance -340 -1360 -404 Weight 126.8 kg 128 kg Intake: IV 20 Invasive Line 2 20 Oral 1060 240 476 Output: Urine 1400 1600 900 Other: Voiding Method External Catheter External Catheter External Catheter - Labs CBC & Chem 7: 01/19/24 06:35 01/23/24 06:06 Labs: Abnormal Lab Results - Last 24 Hours (Table) 01/23/24 Range/Units 06:06 Chloride 87 L (98-107) mmol/L Carbon Dioxide 44 H* (22-30) mmol/L BUN 26 H (9-20) mg/dL Glucose 113 H (74-99) mg/dL Assessment and Plan Time with Patient: Less than 30
[2024-01-24 07:45] LABS: African American GFR (CKD) >90 (>60 ml/min/1.73 sqM); Blood Urea Nitrogen 25 mg/dL (9-20); Calcium 8.7 mg/dL (8.4-10.2); Chloride 88 mmol/L (98-107); Glucose 117 mg/dL (74-99); Non-African American GFR(CKD) 87 (>60 ml/min/1.73 sqM); Potassium 3.7 mmol/L (3.5-5.1); Sodium 137 mmol/L (137-145)
[2024-01-24 07:52] LABS: Anion Gap 6 mmol/L
[2024-01-24 07:57] LABS: Carbon Dioxide 43 mmol/L (22-30)
[2024-01-24] MEDS: ACETAMINOPHEN TAB 325 MG TAB PO PRN (09:09)
[2024-01-24] MEDS: lisinopriL 20 MG TAB PO SCH (09:11)
[2024-01-24] MEDS: HYDROcodone/APAP 5-325MG 1 EACH TAB PO STA (09:44)
[2024-01-24 10:01] LABS: Albumin 3.6 g/dL (3.5-5.0); Bilirubin,Unconjugated 0.6 mg/dL (0.0-1.1); Total Bilirubin 0.6 mg/dL (0.2-1.3); Total Protein 5.8 g/dL (6.3-8.2)
--- NOTE | 2024-01-24 12:16 | P.PN ---
Subjective HISTORY OF PRESENT ILLNESS: This is a pleasant 68-year-old with past medical history significant for hypertension, hyperlipidemia, obstructive sleep apnea, GERD, persistent atrial fibrillation and CHF. He follows with a doctor rather in [facility]. He states he had been doing fairly well up until approximately 6-12 months ago. He then started to develop shortness of breath as well as upper extremity weakness. He underwent extensive workup and initially there was some concern regarding possible ALS. Eventually he was seen by orthopedic surgery and underwent C3 through C7 cervical discectomy and fusion 11/28/2023. Additionally he has had multiple admissions with shortness breath. He also had been down to [facility] with admissions for heart failure. He was diagnosed with atrial fibrillation after his spinal surgery. Unfortunately his upper extremity weakness and numbness has not dramatically improved. He has been on steroids. Hospitalization at [facility] he underwent a cardioversion which was succ essful however fairly short-lived and back in A. fib. He takes Bumex at home however believes Lasix actually worked somewhat better for him. He presented with increasing shortness breath over the last few days and significantly in the middle the night and could not catch his breath and "had to drag himself and his he felt like he was dying. He also admits to some significant generalized weakness. Denies any recent fevers or chills. Also has 2+ lower extremity edema which is increased from prior. EKG shows atrial fibrillation with no significant ST changes. Prior echo from 11/2023 showed severe LVH with septal thickness 2.5 and posterior wall thickness 2.1 cm. He does admit to a chronic history of hypertension however has been better controlled recently. He admits he felt somewhat better after his cardioversion however this was short-lived. 01/16/2024 Patient examined this morning. Patient is sitting up in the chair. Patient states this morning he was seeing spots. Patient developed hypotension this morning and received a fluid bolus. BP was in the 70s according to the nurse. Blood pressure improved after fluid bolus. Most recent blood pressure 130/70. The patient currently denies any chest pain or pressure. He denies shortness of breath. He remains in atrial fibrillation with heart rate around 100. 01/17/24 Patient was transferred from the [facility] and is seen today on the cardiac stepdown unit. Patient is seen and examined. He apparently had low blood pre ssure readings and was transferred. His blood pressures are 112/71, heart rate is in the 70s and 80s, pulse ox 95% on 2 L nasal cannula. He remains in atrial fibrillation patient denies having any chest pain. He states that his difficulty breathing comes and goes. Repeat blood work reveals WBC 12.1, hemoglobin 14. Sodium 136, potassium 3.4, CO2 is 39, BUN 37 creatinine 0.9. Troponin from yesterday was negative. Potassium has been replaced. Records from Dr. 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 Patient had episode of RVR and was resumed back on Cardizem drip last evening. He is currently running in the 80s and atrial fibrillation. Blood pressure 136/76, pulse ox 96% on 3 L nasal cannula. Discussed option of adding consult for EP, Dr. Rodriguez. 01/20/24 Patient seen and examined. Patient remains in atrial fibrillation with controlled rate. He is off the Cardizem drip. Heart rate is running in the 70s to 90s. He is currently on IV Lasix 80 mg every 12 hours. Yesterday, patient had a negative fluid balance, he does have documented weight loss of 1-1/2 kg. Repeat blood work reveals sodium 139, potassium 3.2, BUN 23 creatinine 0.86. Potassium has been replaced. 01/22/2024 Patient examined this morning at the bedside. Patient reports mild shortness of breath. He remains on IV diuretics. He denies any chest pain or pressure. Patient converted to sinus mechanism this morning and is maintaining sinus mechanism at the time of examination. 01/23/2024 Patient examined this morning the bedside. Patient currently denies chest pain or pressure. Patient states that his breathing feels a little bit worse today compared to yesterday. He remains on IV Lasix 80 mg every 12 hours. BUN 26. Creatinine 1.02. 01/24/2024 Patient examined this morning. Patient is sitting up in the chair. Patient states he is unable to sleep in the bed as he is short of breath when he is laid flat. He remains on IV Lasix 80 mg every 12 hours. PHYSICAL EXAM: VITAL SIGNS: Reviewed. GENERAL: Well-developed in no acute distress. NECK: Supple. No JVD or thyromegaly LUNGS: Respirations even and unlabored. Lungs essentially clear to auscultation bilaterally. HEART: Regular rate and rhythm. S1 and S2 heard. EXTREMITIES: Normal range of motion. No clubbing or cyanosis. Peripheral pulses intact. Bilateral lower extremity edema ASSESSMENT: Hypotension, resolved Acute on chronic respiratory failure Acute on chronic heart failure with preserved EF Severe LVH, rule out infiltrative disease Paroxysmal atrial fibrillation with controlled ventricular rate, failed cardioversion on 01/18/2024, converted to sinus mechanism 01/22/2024 Hypertension Upper extremity weakness, does not appear consistent with Guillain-Green or nueromuscular disease. Neuropathy with apparent EMG performed previously. Rule out component of amyloidosis Status post cervical discectomy and fusion Obstructive sleep apnea Obesity PLAN: Continue current dose of oral amiodarone 200 mg twice a day Continue metoprolol tartrate 50 mg twice a day Continue IV Lasix 80 mg every 12 hours. Daily weights, accurate intake and output, monitoring of kidney function Add lisinopril 20 mg daily Continue telemetry monitoring Further recommendations pending patient course Nurse practitioner note has been reviewed by physician. Signing provider agrees with the documented findings, assessment, and plan of care documented by CASTING CHIPPER as a scribe. Objective - Vital Signs Vital signs: Vital Signs Temp 97.9 F 01/24/24 08:55 Pulse 76 01/24/24 11:21 Resp 16 01/24/24 08:55 BP 138/74 01/24/24 08:55 Pulse Ox 93 L 01/24/24 08:55 FiO2 35 01/18/24 13:06 Intake & Output 01/23/24 01/24/24 01/24/24 18:59 06:59 18:59 Intake Total 736 20 180 Output Total 6511 394 3837 Balance -564 -780 -1020 Weight 127.7 kg Intake: IV 20 20 Invasive Line 2 20 20 Oral 716 180 Output: Urine 0401 387 6936 Other: Voiding Method External Catheter External Catheter External Catheter # Voids 1 - Labs CBC & Chem 7: 01/19/24 06:35 01/24/24 06:38 Labs: Abnormal Lab Results - Last 24 Hours (Table) 01/24/24 01/24/24 Range/Units 06:38 06:38 Chloride 88 L (98-107) mmol/L Carbon Dioxide 43 H* (22-30) mmol/L BUN 25 H (9-20) mg/dL Glucose 117 H (74-99) mg/dL Total Protein 5.8 L (6.3-8.2) g/dL
--- NOTE | 2024-01-24 13:04 | P.PN ---
Subjective Progress Note Date: 01/24/24 Principal diagnosis: Respiratory failure. Patient is a 68-year-old male with past medical history significant for hypertension, hyperlipidemia, obstructive sleep apnea with home APAP, GERD, atrial fibrillation currently anticoagulated on Eliquis, and lifelong non- smoker. Recently, patient has developed bilateral upper extremity weakness, worse on the left. He has been evaluated by the orthopedic surgeon and did undergo C3-C7 cervical discectomy and fusion back on 11/28/2023. Unfortunately, the function of his left upper extremity has not returned to baseline following the procedure. States he has had follow-up MRI spine at outside facility and follows up with neurologist. Of note, following his procedure he was found to be in A-fib RVR and exacerbation of diastolic heart failure. Transthoracic echocardiogram done during this admission showing a preserved left ventricular ejection fraction of 50 to 55% with severe LVH. Patient was ultimately discharg ed home on December 11. More recently, patient had a hospitalization at [facility], he underwent a cardioversion, which was reportedly successful. Patient returns to the ED department last night complaining of 2 weeks of worsening acute on chronic shortness of breath.He reports associated increased swelling especially in his left upper extremity and bilateral lower extremities. Endorses orthopnea. He does take Bumex on outpatient basis. He does have a APAP machine at home, but he does not wear it due to weakness in his upper extremities. He states that he cannot put the device on. He denies history of COPD or asthma. He is a lifelong non-smoker. 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 He is scheduled to follow-up in the pulmonary office this January.. Chest x-ray demonstrates cardiomegaly and possible pulmonary vascular congestion. There is left hemidiaphragm elevation. Patient states that he did follow-up outpatient for his sniff test which was unremarkable. NT proBNP only mildly elevated at 623. Troponin less than 0.012. EKG consistent with atrial fibrillation with controlled ventricular response, rate 93 bpm, no acute ischemic changes noted. CBC: WBC count 12.7, hemoglobin 14.4, hematocrit 46.1, platelets 222. CMP: Sodium 138, potassium 3.9, chloride 93, serum bicarb 42, BUN 27, creatinine 0.88, glucose 125. Lactic 1.6. LFTs u nremarkable. Patient appears to have a positive fluid balance and has been started on Lasix 40 mg twice daily. He is currently alert and oriented, sitting up in the bedside recliner on 4 L/min nasal cannula, in no acute distress. He states he is tired and has not slept in about 2 weeks due to his difficulty in breathing. Current vitals: Heart rate 88 bpm, blood pressure 129/77 mmHg, respiratory rate mid teens, SpO2 97% on 4 L/min nasal cannula. The patient is seen today January 16, 2024 in follow-up on the regular medical floor. He is currently sitting up in the bedside. Awake and alert in no acute distress. Breathing better today compared to yesterday. Lung sounds have improved. Containing good O2 saturations in the 90s on 2 L/min per nasal cannula. Arterial blood gases revealed a PaO2 of 68, P CO2 of 74 and a pH of 7.42 on 36% FiO2. Afebrile. Hemodynamically stable. Chest x-ray reveals no acute pulmonary process. Continued small left pleural effusion. White count 13.7. Hemoglobin 13.7. Platelets 185. Sodium 141. Potassium 3.9. Bicarb 38. BUN 27. Creatinine 1.0. Glucose 133. He remains on DuoNeb inhalations. Continued on IV diuretics. Anticoagulated with Eliquis. Currently in a -1.9 L balance. Patient was seen today on 01/17/2024, patient is basically the same. Continues to have intermittent episodes of shortness of breath, complaining of generalized weakness and he has difficulty even using his arms pulmonary mcdonnell previous workup showed weakness/paresis of the left hemidiaphragm but not paralyzed. Did not have paradoxical movement of the left hemidiaphragm. Patient had extensive workup in many other places including [facility] and [facility] and no one could figure out the etiology of his symptoms. He was told that he did not have ALS clearly no evidence to suggest Nuvia Gehrig's disease pulmonary mcdonnell patient r emains on bronchodilators, he is also on diuretics, and he is anticoagulated with Eliquis. inspite of diuresing well, though significant improvement noted on this admission. Patient clearly has and has been diagnosed with obstructive sleep apnea with chronic hypercapnia and he is not using his home BiPAP because he has difficulty using it with his weak arms. I stressed to him the importance of getting get into the hospital, and will have respiratory therapist or nurses help him put it on every night when he sleeps Patient was seen today on 01/18/2024, patient is basically about the same. Co ntinues to have intermittent episodes of shortness of breath, generalized weakness, difficulty in using his upper extremities, and again he does have symptoms of cervical myelopathy. Pulmonary mcdonnell the patient did have left diaphragm paresis but no paralysis, and I believe that is related to his ce rvical spine. Patient is on nasal cannula 3 L, I suggested yesterday that he brings his own CPAP, did not do it and I will try to place him on BiPAP tonight 33% when he goes to bed/sleep.Labs today were all reviewed and ABG from few days ago was also reviewed. Patient has chronic hypercapnia and adequate metabolic compensation for his respiratory acidosis Seen today on 01/19/2024, patient is basically about the same. Follow-up chest x-ray this morning showed left lower lobe atelectasis strongly doubt pneumonia, patient is known to have history of left hemidiaphragm paresis and he is an excellent set up for a left lower lobe atelectasis clinically there is no evidence of pneumonia.No fever, no leukocytosis, no symptoms to suggest pneumonia, on 3 L nasal cannula with O2 sats of 96% basic metabolic profile is basically about the same bicarb remains 42 renal profile is normal Seen today on 01/20/2024, patient is practically about the same. Patient denies any change remains in atrial fibrillation remains on diuretics continues to complain of generalized weakness especially in his upper extremities. Labs were reviewed bicarb is 45 potassium 3.2 BUN is 23 creatinine 0.86 considering his elevated bicarb may have to consider adding Diamox to his Lasix. Progress note dated January 21, 2024. 68-year-old male who is seen today in room 355. The patient is currently on 3 L of oxygen. No IV fluids. He is a DO NOT RESUSCITATE patient. He has multiple complaints today, including generalized weakness, and fatigue, particular in his upper extremities. Currently, labs include a sodium 139, potassium 3.8, chlorides 87, CO2 43, BUN 25, creatinine 0.93. Glucose 166. Calcium 8.3. Progress note dated January 22, 2024. 68-year-old male seen today in room 355. The patient remains on oxygen, by nasal cannula 2 L. He is not receiving any IV fluids. The patient is a DO NOT RESUSCITATE patient. His primary issue is generalized weakness, and fatigue, particularly in the upper extremities. He has been seen by neurology, and evaluated. Current labs include a sodium 136, potassium 3.4, chlorides 88, CO2 42, BUN 25, creatinine 0.87. Glucose is 147. Calcium is 8.2. Chest x-ray, compared to prior x-ray, is improved. There remains some left basilar infilt rate or atelectasis. Progress note dated January 23, 2024. 68-year-old male seen today in room 355. The patient continues on oxygen at 2 L. Saturations are 94 to 96%. The patient is not receiving any antibiotics. He is on DuoNebs. Current labs include sodium 140, potassium 3.5, chlorides 87, CO2 44, BUN 26, creatinine 1.02. Glucose is 88. Calcium is 8.6. Chest x-ray from January 21, has been reviewed. Progress note dated January 24, 2024. The patient is seen today in room 355. 68-year-old male. Currently on 2 L of oxygen. No new complaints. He is not receiving any IV fluids. Sodium 137, potassium 3.7, chloride 88, CO2 43, BUN 25, and creatinine 0.92. Glucose is 117. He is resting comfortably in bed. No acute distress, and no new complaints. Objective - Vital Signs Vital signs: Vital Signs Temp 97.9 F 01/24/24 08:55 Pulse 76 01/24/24 11:21 Resp 16 01/24/24 08:55 BP 138/74 01/24/24 08:55 Pulse Ox 93 L 01/24/24 08:55 FiO2 35 01/18/24 13:06 Intake & Output 01/23/24 01/24/24 01/24/24 18:59 06:59 18:59 Intake Total 736 20 360 Output Total 4589 050 3288 Balance -564 -780 -840 Weight 127.7 kg Intake: IV 20 20 Invasive Line 2 20 20 Oral 716 360 Output: Urine 7589 501 5498 Other: Voiding Method External Catheter External Catheter External Catheter # Voids 1 - Exam No acute distress, oriented 3. The patient is currently on 2 L of oxygen. No respiratory distress. HEENT examination is grossly unremarkable. Mucous membranes are moist. No oral lesions. Neck supple. Full range of motion. No adenopathy thyromegaly or neck vein distention. Cardiovascular examination reveals an irregular rhythm and rate. S1-S2 normal. No S3 or S4. No discernible murmur noted. Lungs reveal clear breath sounds. Breath sounds are equal bilaterally. No adventitious lung sounds including wheezes rhonchi or crackles. Abdomen soft bowel sounds are heard. No masses or tenderness. Extremities are intact. No cyanosis or clubbing. 1+ edema. Skin is without rash or lesion. Neurologic examination is left upper extremity weakness. - Labs CBC & Chem 7: 01/19/24 06:35 01/24/24 06:38 Labs: Abnormal Lab Results - Last 24 Hours (Table) 01/24/24 01/24/24 Range/Units 06:38 06:38 Chloride 88 L (98-107) mmol/L Carbon Dioxide 43 H* (22-30) mmol/L BUN 25 H (9-20) mg/dL Glucose 117 H (74-99) mg/dL Total Protein 5.8 L (6.3-8.2) g/dL Assessment and Plan Assessment: Acute on chronic hypoxemic and hypercapnic respiratory failure, likely secondary to CHF exacerbation, underlying obstructive sleep apnea syndrome, and obesity/hypoventilation syndrome. History of diastolic CHF. Possible cervical myelopathy. Paroxysmal atrial fibrillation. History of obstructive sleep apnea syndrome. Obesity, with a BMI of 36.6 kg/m. Chronic hypercapnic respiratory failure. Left diaphragm weakness. Recent history of anterior cervical discectomy and fusion, C3-C7. Persistent left upper extremity weakness. Lifelong non-smoker. History of hypertension. History of hyperlipidemia. History of gastroesophageal reflux disease. History of anxiety. Plan: Plan dated January 21, 2024. The patient continues with supportive care. The patient is to bring his own CPAP device from home, to use at nighttime. The patient continues on Lasix, as well as other medications including Eliquis. Neurology is following this patient. Labs, x-rays, and all medications are reviewed. The patient is a DO NOT RESUSCITATE patient. He was advised to go to a tertiary care center such as [facility], or the [facility], by my partner. Plan dated January 22, 2024. The patient is seen today in room 355. The patient is currently on 2 L of oxygen. No IV fluids. Yesterday he was on 3 L. He has no complaints of difficulty breathing, coughing, wheezing, chest tightness, or phlegm production. Labs, x-rays, and all medications are reviewed. Neurology is following the patient for his diffuse weakness. We will continue to follow. Prognosis is guarded. Plan dated January 23, 2024. The patient is seen today in room 355. Things are essentially unchanged. He is on oxygen at 2 L by nasal cannula. He is not receiving any antibiotics. He is on breathing treatments. Saturations are between 94 and 96%. Labs, x-rays, and medications are reviewed. We will continue to follow make recommendations. He is being followed by neurology. He is a DO NOT RESUSCITATE patient. Plan dated January 24, 2024. The patient is seen today in room 355. The patient remained stable. He is on 2 L of oxygen. No IV fluids. Sodium 137, potassium 3.7, chlorides 88, CO2 43, BUN 25, creatinine 0.92. Glucose of 117. The Patient Is Stable from the Pulmonary Standpoint. He Could Be Considered for Possible Discharge. He Is Being Followed by Neurology. He is a DO NOT RESUSCITATE patient. Time with Patient: Less than 30
--- NOTE | 2024-01-24 17:18 | P.PN ---
Subjective Progress Note Date: 01/24/24 This is a 68-year-old male with medical history significant for atrial fibrillation, COPD, acid reflux, hyperlipidemia, hypertension, sleep apnea with CPAP use, heart failure. Patient was recently hospitalized December 06 to December 11 for dyspnea and heart failure post cervical surgery. He was dischar ge home. He then had a hospitalization in the last week at [facility] where he underwent cardioversion which was successful. He comes back to the hospital now with complaints of worsening shortness of breath over the last month. He also reports weakness of his bilateral upper extremities and worsening edema of the bilateral lower extremities and his hands. He is reporting orthopnea and dyspnea on exertion. He has been compliant with his diuretic at home. He states that he has not been wearing his CPAP at night because of this weakness that he has been having. Patient does wear oxygen chronically. Chest xray on admission showing no acute findings. No evidence of DVT in the left arm per d kyle. White blood cell count 12.7. CO2 47 on admission. Troponin level is negative, his proBNP is not elevated. He has been started on IV Lasix 40 mg every 12 hours. He is admitted under internal medicine with a cardiology and pulmonary consultation. He is currently in atrial fibrillation. 01/16/2024 Patient is evaluated today in follow up on the medical floor. Patient was hypotensive this AM with blood pressure into the 80s systolic was given a 500 CC bolus. He was presyncopal. He was moved to [address] [place] [address] for closer monitoring. Chest xray this AM reveals no acute cardiopulmonary disease/process. Small left pleural effusion. Brain CT completed negative for acute findings. Continues on IV lasix 80 mg Q12 hours. White blood cell count today 13.77. CO2 better at 38. BUN 27.4 creatinine 1.0. 01/17/2024 Patient evaluated today in follow up on the medical floor. Patient Blood pres sure better today. Remains in atrial fibrillation with controlled ventricular rate. Neurology evaluation recommending to follow up for EMG testing of the lower extremities and continue to follow up with his neurologist and neuromuscular specialist for the upper extremity weakness. Cardiology has adj usted medications discontinued lisinopril, procardia, and carvedilol. Patient will be going for cardioversion tomorrow. 01/18/2024 Patient is seen in follow-up today status post cardioversion currently sinus rhythm with cardiology following closely. Neurology as well as pulmonary also following as patient continues to report left upper extremity flaccidity and reports his right upper extremity is becoming more weak and is noticing tingling and numbness in the right hand. Patient has undergone extensive neurological workups and most recently at [facility] ([facility] including stroke workups that have been negative. ALS per patient was ruled out. Patient continues to be dyspneic with minimal exertion and is winded during conversation taking multiple breaks. Patient is maintained on 2 to 3 L nasal cannula at this time. Recommend PT/OT therapy evaluation and working with the patient daily. 01/19/2024 Patient is evaluated today in follow up on the medical floor. He is currently sitting up in the chair. He now reports that he is unable to use his left arm with his a change from admission. He also reports that he feels weakness in his diaphragm resulting in him being unable to take a deep breath. He is concerned as he feels like he has not been improving since hospitalization. He also feels that he is losing dexterity in his right fingers. He underwent synchronous cardioversion last night he was in sinus rhythm but has since converted back to atrial fibrillation is currently rate controlled and continues on IV Cardizem running at 5 mL/h. Cardiology and pulmonary following the patient closely. Neurology did see the patient in a consultation recommending a neuromuscular specialist on an outpatient basis and noted that ALS was ruled out. A repeat chest x-ray today reveals interval development of acute pulmonary disease involving the left lung base. Likely pneumonic infiltrate with small effusion. His blood work today reveals a white blood cell count of 10.7, sodium 138, potassium 3.3, chloride of 88 CO2 of 42, BUN of 25 creatinine of 0.85. 01/20/2024 Patient evaluated in the medical floor in follow-up. Sitting up in the chair he does report improved shortness of breath as his heart rate is better controlled today down into the 60s. he remains in atrial fibrillation though. Remains on IV Lasix 80 mg every 12 hours with a BUN of 23 creatinine of 0.86 sodium level of 139. Potassium level is 3.2. 01/21/2024 Patient is seen in follow-up this morning currently sitting up in the chair report he continues to be shortness of breath with dyspnea and minimal exertion reporting he is not sleeping and feels exhausted. Patient is continued on IV Lasix twice daily and kidney functions remained stable. Potassium 3.5 today recommend potassium supplement daily. Patient continues to have left arm flaccidity and neurology has evaluated the patient. Patient has undergone extensive neurological workup including EMG and has been negative. Patient with overall weakness although is up and walking and able to work with physical therapy would not qualify for physical therapy rehab. Patient is fearful as he lives home alone and has significant comorbidities that he feels he is unable to handle and take care of himself. Patient has been instructed to bring the CPAP machine in from home. Patient is afebrile and denies chest pain or palpitations at this time. Will continue IV Lasix and current medication regimen follow-up with a chest x-ray in the a.m. Patient is currently off Cardizem and heart rate is controlled at this time. 01/22/2024 Patient evaluated today followed up in the medical floor. Patient does state that he foot into A-fib last night he is less short of breath today and states that he is able to take a deeper breath. His chest x-ray shows improved aeration with a persistent left basilar airspace opacity. He continues on IV Lasix 80 mg every 12 hours. his sodium is 136 today. He continues on oxygen via nasal cannula. 01/23/2024 Patient evaluated today in follow-up in the medical floor. He continues to report improved shortness of breath overall. He states that he is feeling well he remains in sinus mechanism. He continues on a combination of oral amiodarone and oral metoprolol he remains on IV Lasix 80 mg every 12 hours adequate urine output. not Quite ready for discharge. 01/24/2024 Patient is seen in follow-up today with cardiology and pulmonary following. Patient continues on IV Lasix reports his breathing is improved and has been noted to be taking oxygen off. Per nursing staff patient oxygen saturations drop to 90% and chronically wears 3 L. Patient does have a CPAP in the home as well. Plan is for patient to return home and will continue with home care. Will discuss with cardiology and pulmonary regarding diuretics with possible discharge planning in the next 24 hours. REVIEW OF SYSTEMS: CONSTITUTIONAL: No fever, no malaise, reports extreme fatigue. HEENT: No recent visual problems or hearing problems. Denied any sore throat. CARDIOVASCULAR: No chest pain, orthopnea, PND, no palpitations, no syncope. PULMONARY: Reports continued shortness of breath, no cough, no hemoptysis. GASTROINTESTINAL: No diarrhea, no nausea, no vomiting, no abdominal pain. NEUROLOGICAL: No headaches, reports of generalized weakness, reports left-sided numbness and inability to move, right sided tingling and numbness starting in the hands. PHYSICAL EXAMINATION: GENERAL: The patient is alert and oriented x3, not in any acute distress. Well developed, elderly appearing, obese HEENT: Pupils are round and equally reacting to light. EOMI. No scleral icterus. No conjunctival pallor. Normocephalic, atraumatic. No pharyngeal erythema. No thyromegaly. CARDIOVASCULAR: S1 and S2 muffled, currently sinus PULMONARY: Diminished breath sounds bilaterally with some faint crackles noted at the bases. ABDOMEN: Soft, obese, nontender, nondistended, normoactive bowel sounds. No palpable organomegaly. MUSCULOSKELETAL: No joint swelling or deformity. EXTREMITIES: No cyanosis, clubbing, or pedal edema. Bilateral lower extremity swelling is improving, nonpitting NEUROLOGICAL: Left upper extremity weakness with decreased hand grasp. mild right upper extremity weakness. SKIN: No rashes. Assessment: Acute on chronic heart failure diastolic dysfunction with ejection fraction of 50 to 55% Acute on chronic hypoxic and hypercarbic respiratory failure secondary to above with noncompliance with his home CPAP Obstructive sleep apnea with CPAP use has been noncompliant Oxygen dependent COPD Left lower lobe infiltrate concern for hospital acquired pneumonia as he has had multiple recent hospitalizations. Paroxysmal Atrial fibrillation anticoagulant with Eliquis recently cardioverted at [facility]. Currently in atrial fibrillation status post cardioversion 01/18/2024. Cardizem discontinued and currently rate controlled. Patient is now maintained in sinus mechanism. Hypertension Hyperlipidemia Recent cervical C3-C7 ACDF on November 27, 2023 Left upper extremity weakness with right hand tingling and numbness at times, possibly secondary to recent cervical surgery Gastroesophageal reflux disease Obesity with a BMI of 36.3 GI prophylaxis DVT prophylaxis DNR Plan: Lisinopril, procardia and carvedilol are discontinued. Cardiology following patient was maintained on Cardizem underwent cardioversion for symptomatic persistent atrial fibrillation. Patient reports he had cardioversion done a few weeks ago at the other hospital that converted back into A-fib RVR. Cardiology following and Cardizem has been stopped. Patient continues in normal sinus mechanism. Combination of oral amiodarone, oral metoprolol and will be started on oral Aldactone. Patient continues on IV Lasix and will need to transition to oral on discharge will discuss with cardiology regarding discharge planning. Pulmonary and cardiology following and has been instructed to get his CPAP machine from home for continued use. Procalcitonin was normal at 0.06. Encourage incentive spirometer use at least 10 times every hour while awake Continue cardiac telemetry Continue IV lasix 80 mg Q12 hours. Follow-up on repeat labs and replace electrolytes per protocol while monitoring kidney functions. Recommend daily supplementation of potassium Reports from [facility] available in the chart. PT/OT consulted and patient reports he walked up and down the jeff and does continue with exertion and shortness of breath with weakness. Patient continues to elicit left upper extremity weakness and reports his left arm is nonfunctional, right hand having some occasional numbness and tingling. Neurology is following. Patient has completed extensive neurological workup including stroke workups and 3 EMGs most recently in [place] that were negative and ALS was ruled out Encourage increase activity as tolerated. Will discuss with case management/social work regarding discharge planning as patient reports he lives alone and is fearful of discharging home with minimal use of his upper extremities and would be unable to perform ADLs. Will consider possible discharge planning in the next 24 to 48 hours once cleared by consultations Overall prognosis is guarded The impression and plan of care has been dictated by Tamie Babin, nurse Practitioner as directed. Dr. Raiza MD I have performed a history and physical examination and medical decision making of this patient, discussed the same with the dictator, and agree with the dictators assessment and plan as written, documented as a scribe. Based on total visit time, I have performed more than 50% of this visit. Objective - Vital Signs Vital signs: Vital Signs Temp 98.2 F 01/24/24 04:04 Pulse 68 01/24/24 08:23 Resp 18 01/24/24 04:04 BP 148/78 01/24/24 04:04 Pulse Ox 96 01/24/24 04:04 FiO2 35 01/18/24 13:06 Intake & Output 01/23/24 01/24/24 01/24/24 18:59 06:59 18:59 Intake Total 736 20 180 Output Total 1300 800 Balance -564 -780 180 Weight 127.7 kg Intake: IV 20 20 Invasive Line 2 20 20 Oral 716 180 Output: Urine 1300 800 Other: Voiding Method External Catheter External Catheter # Voids 1 - Labs CBC & Chem 7: 01/19/24 06:35 01/24/24 06:38 Labs: Abnormal Lab Results - Last 24 Hours (Table) 01/24/24 Range/Units 06:38 Chloride 88 L (98-107) mmol/L Carbon Dioxide 43 H* (22-30) mmol/L BUN 25 H (9-20) mg/dL Glucose 117 H (74-99) mg/dL
[2024-01-24] MEDS: HYDROcodone/APAP 5-325MG 1 EACH TAB PO PRN (23:30)
[2024-01-25 06:47] LABS: African American GFR (CKD) 82 (>60 ml/min/1.73 sqM); Blood Urea Nitrogen 30 mg/dL (9-20); Calcium 8.7 mg/dL (8.4-10.2); Chloride 89 mmol/L (98-107); Glucose 140 mg/dL (74-99); Non-African American GFR(CKD) 71 (>60 ml/min/1.73 sqM); Potassium 3.9 mmol/L (3.5-5.1); Sodium 135 mmol/L (137-145)
[2024-01-25 06:53] LABS: Anion Gap 5 mmol/L
[2024-01-25 07:40] LABS: Carbon Dioxide 41 mmol/L (22-30)
[2024-01-25] MEDS: acetaZOLAMIDE 250 MG TAB PO SCH (09:12)
--- NOTE | 2024-01-25 12:24 | P.PN ---
Subjective Patient is doing well. He is able to move lie flat in his couch without seeming short of breath His lower extremity edema has reduced significantly on IV Lasix Denies any chest discomfort On examination his pulse rate in the 80s he is back in sinus rhythm on oral amiodarone Blood pressure 117/71 mmHg Breath sounds are reduced bilaterally Heart sounds S1-S2 are soft regular Lower extremity edema is improved Impression Persistent atrial fibrillation back in sinus rhythm currently on amiodarone Diastolic heart failure with preserved systolic function with severe LVH, possible infiltrative disease Paroxysmal atrial fibrillation converted to sinus rhythm on 0 History of hypertension Obesity Obstructive sleep apnea Secondary alkalosis Plan Continue amiodarone 200 mg twice daily for 1 month and then reduce to 200 mg daily thereafter Continue Eliquis 5 mg twice daily Continue baby aspirin Mild rise in BUN and creatinine on IV Lasix For heart failure management, continue spironolactone, switch to p.o. Lasix 40 mg bid, continue metoprolol, add Diamox to 50 mg twice daily Continue statins, Pravachol Continue lisinopril Patient may be discharged home over the next 24 to 48 hours and follow-up with his primary byproducts operator Objective - Vital Signs Vital signs: Vital Signs Temp 98.1 F 01/25/24 12:00 Pulse 61 01/25/24 12:00 Resp 17 01/25/24 12:00 BP 117/71 01/25/24 12:00 Pulse Ox 94 L 01/25/24 12:00 FiO2 35 01/18/24 13:06 Intake & Output 01/24/24 01/25/24 01/25/24 18:59 06:59 18:59 Intake Total 540 540 358 Output Total 2350 1350 800 Balance -1810 -810 -442 Weight 127.8 kg Intake: Oral 540 540 358 Output: Urine 2350 1350 800 Other: Voiding Method External Catheter External Catheter External Catheter - Labs CBC & Chem 7: 01/19/24 06:35 01/25/24 06:11 Labs: Abnormal Lab Results - Last 24 Hours (Table) 01/25/24 Range/Units 06:11 Sodium 135 L (137-145) mmol/L Chloride 89 L (98-107) mmol/L Carbon Dioxide 41 H* (22-30) mmol/L BUN 30 H (9-20) mg/dL Glucose 140 H (74-99) mg/dL
--- NOTE | 2024-01-25 13:19 | P.PN ---
Subjective Progress Note Date: 01/25/24 Principal diagnosis: Respiratory failure. Patient is a 68-year-old male with past medical history significant for hypertension, hyperlipidemia, obstructive sleep apnea with home APAP, GERD, atrial fibrillation currently anticoagulated on Eliquis, and lifelong non- smoker. Recently, patient has developed bilateral upper extremity weakness, worse on the left. He has been evaluated by the orthopedic surgeon and did undergo C3-C7 cervical discectomy and fusion back on 11/28/2023. Unfortunately, the function of his left upper extremity has not returned to baseline following the procedure. States he has had follow-up MRI spine at outside facility and follows up with neurologist. Of note, following his procedure he was found to be in A-fib RVR and exacerbation of diastolic heart failure. Transthoracic echocardiogram done during this admission showing a preserved left ventricular ejection fraction of 50 to 55% with severe LVH. Patient was ultimately discharg ed home on December 11. More recently, patient had a hospitalization at [facility], he underwent a cardioversion, which was reportedly successful. Patient returns to the ED department last night complaining of 2 weeks of worsening acute on chronic shortness of breath.He reports associated increased swelling especially in his left upper extremity and bilateral lower extremities. Endorses orthopnea. He does take Bumex on outpatient basis. He does have a APAP machine at home, but he does not wear it due to weakness in his upper extremities. He states that he cannot put the device on. He denies history of COPD or asthma. He is a lifelong non-smoker. 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 He is scheduled to follow-up in the pulmonary office this January.. Chest x-ray demonstrates cardiomegaly and possible pulmonary vascular congestion. There is left hemidiaphragm elevation. Patient states that he did follow-up outpatient for his sniff test which was unremarkable. NT proBNP only mildly elevated at 623. Troponin less than 0.012. EKG consistent with atrial fibrillation with controlled ventricular response, rate 93 bpm, no acute ischemic changes noted. CBC: WBC count 12.7, hemoglobin 14.4, hematocrit 46.1, platelets 222. CMP: Sodium 138, potassium 3.9, chloride 93, serum bicarb 42, BUN 27, creatinine 0.88, glucose 125. Lactic 1.6. LFTs u nremarkable. Patient appears to have a positive fluid balance and has been started on Lasix 40 mg twice daily. He is currently alert and oriented, sitting up in the bedside recliner on 4 L/min nasal cannula, in no acute distress. He states he is tired and has not slept in about 2 weeks due to his difficulty in breathing. Current vitals: Heart rate 88 bpm, blood pressure 129/77 mmHg, respiratory rate mid teens, SpO2 97% on 4 L/min nasal cannula. The patient is seen today January 16, 2024 in follow-up on the regular medical floor. He is currently sitting up in the bedside. Awake and alert in no acute distress. Breathing better today compared to yesterday. Lung sounds have improved. Containing good O2 saturations in the 90s on 2 L/min per nasal cannula. Arterial blood gases revealed a PaO2 of 68, P CO2 of 74 and a pH of 7.42 on 36% FiO2. Afebrile. Hemodynamically stable. Chest x-ray reveals no acute pulmonary process. Continued small left pleural effusion. White count 13.7. Hemoglobin 13.7. Platelets 185. Sodium 141. Potassium 3.9. Bicarb 38. BUN 27. Creatinine 1.0. Glucose 133. He remains on DuoNeb inhalations. Continued on IV diuretics. Anticoagulated with Eliquis. Currently in a -1.9 L balance. Patient was seen today on 01/17/2024, patient is basically the same. Continues to have intermittent episodes of shortness of breath, complaining of generalized weakness and he has difficulty even using his arms pulmonary mcdonnell previous workup showed weakness/paresis of the left hemidiaphragm but not paralyzed. Did not have paradoxical movement of the left hemidiaphragm. Patient had extensive workup in many other places including [facility] and [facility], and no one could figure out the etiology of his symptoms. He was told that he did not have ALS clearly no evidence to suggest Nuvia Gehrig's disease pulmonary mcdonnell patient r emains on bronchodilators, he is also on diuretics, and he is anticoagulated with Eliquis. inspite of diuresing well, though significant improvement noted on this admission. Patient clearly has and has been diagnosed with obstructive sleep apnea with chronic hypercapnia and he is not using his home BiPAP because he has difficulty using it with his weak arms. I stressed to him the importance of getting get into the hospital, and will have respiratory therapist or nurses help him put it on every night when he sleeps Patient was seen today on 01/18/2024, patient is basically about the same. Co ntinues to have intermittent episodes of shortness of breath, generalized weakness, difficulty in using his upper extremities, and again he does have symptoms of cervical myelopathy. Pulmonary mcdonnell the patient did have left diaphragm paresis but no paralysis, and I believe that is related to his ce rvical spine. Patient is on nasal cannula 3 L, I suggested yesterday that he brings his own CPAP, did not do it and I will try to place him on BiPAP tonight 33% when he goes to bed/sleep.Labs today were all reviewed and ABG from few days ago was also reviewed. Patient has chronic hypercapnia and adequate metabolic compensation for his respiratory acidosis Seen today on 01/19/2024, patient is basically about the same. Follow-up chest x-ray this morning showed left lower lobe atelectasis strongly doubt pneumonia, patient is known to have history of left hemidiaphragm paresis and he is an excellent set up for a left lower lobe atelectasis clinically there is no evidence of pneumonia.No fever, no leukocytosis, no symptoms to suggest pneumonia, on 3 L nasal cannula with O2 sats of 96% basic metabolic profile is basically about the same bicarb remains 42 renal profile is normal Seen today on 01/20/2024, patient is practically about the same. Patient denies any change remains in atrial fibrillation remains on diuretics continues to complain of generalized weakness especially in his upper extremities. Labs were reviewed bicarb is 45 potassium 3.2 BUN is 23 creatinine 0.86 considering his elevated bicarb may have to consider adding Diamox to his Lasix. Progress note dated January 21, 2024. 68-year-old male who is seen today in room 355. The patient is currently on 3 L of oxygen. No IV fluids. He is a DO NOT RESUSCITATE patient. He has multiple complaints today, including generalized weakness, and fatigue, particular in his upper extremities. Currently, labs include a sodium 139, potassium 3.8, chlorides 87, CO2 43, BUN 25, creatinine 0.93. Glucose 166. Calcium 8.3. Progress note dated January 22, 2024. 68-year-old male seen today in room 355. The patient remains on oxygen, by nasal cannula 2 L. He is not receiving any IV fluids. The patient is a DO NOT RESUSCITATE patient. His primary issue is generalized weakness, and fatigue, particularly in the upper extremities. He has been seen by neurology, and evaluated. Current labs include a sodium 136, potassium 3.4, chlorides 88, CO2 42, BUN 25, creatinine 0.87. Glucose is 147. Calcium is 8.2. Chest x-ray, compared to prior x-ray, is improved. There remains some left basilar infilt rate or atelectasis. Progress note dated January 23, 2024. 68-year-old male seen today in room 355. The patient continues on oxygen at 2 L. Saturations are 94 to 96%. The patient is not receiving any antibiotics. He is on DuoNebs. Current labs include sodium 140, potassium 3.5, chlorides 87, CO2 44, BUN 26, creatinine 1.02. Glucose is 88. Calcium is 8.6. Chest x-ray from January 21, has been reviewed. Progress note dated January 24, 2024. The patient is seen today in room 355. 68-year-old male. Currently on 2 L of oxygen. No new complaints. He is not receiving any IV fluids. Sodium 137, potassium 3.7, chloride 88, CO2 43, BUN 25, and creatinine 0.92. Glucose is 117. He is resting comfortably in bed. No acute distress, and no new complaints. Progress note dated January 25, 2024. The patient is seen today in room 355. The patient continues on nasal O2 3 L. Saturations are 94%. The patient is not requiring any IV fluids at this time. Current labs include a sodium 135, potassium 3.9, chlorides 89, CO2 41, anion gap 5, BUN 30, creatinine 1.08. The patient's glucose is 140. Calcium is 8.7. Objective - Vital Signs Vital signs: Vital Signs Temp 98.1 F 01/25/24 12:00 Pulse 61 01/25/24 12:00 Resp 17 01/25/24 12:00 BP 117/71 01/25/24 12:00 Pulse Ox 94 L 01/25/24 12:00 FiO2 35 01/18/24 13:06 Intake & Output 01/24/24 01/25/24 01/25/24 18:59 06:59 18:59 Intake Total 540 540 598 Output Total 2350 1350 1250 Balance -1810 -810 -652 Weight 127.8 kg Intake: Oral 540 540 598 Output: Urine 2350 1350 1250 Other: Voiding Method External Catheter External Catheter External Catheter - Exam No acute distress, oriented 3. The patient is currently on 3 L of oxygen. No respiratory distress. HEENT examination is grossly unremarkable. Mucous membranes are moist. No oral lesions. Neck supple. Full range of motion. No adenopathy thyromegaly or neck vein distention. Cardiovascular examination reveals an irregular rhythm and rate. S1-S2 normal. No S3 or S4. No discernible murmur noted. Lungs reveal clear breath sounds. Breath sounds are equal bilaterally. No adventitious lung sounds including wheezes rhonchi or crackles. Abdomen soft bowel sounds are heard. No masses or tenderness. Extremities are intact. No cyanosis or clubbing. 1+ edema. Skin is without rash or lesion. Neurologic examination is left upper extremity weakness. - Labs CBC & Chem 7: 01/19/24 06:35 01/25/24 06:11 Labs: Abnormal Lab Results - Last 24 Hours (Table) 01/25/24 Range/Units 06:11 Sodium 135 L (137-145) mmol/L Chloride 89 L (98-107) mmol/L Carbon Dioxide 41 H* (22-30) mmol/L BUN 30 H (9-20) mg/dL Glucose 140 H (74-99) mg/dL Assessment and Plan Assessment: Acute on chronic hypoxemic and hypercapnic respiratory failure, likely secondary to CHF exacerbation, underlying obstructive sleep apnea syndrome, and obesity/hypoventilation syndrome. History of diastolic CHF. Possible cervical myelopathy. Paroxysmal atrial fibrillation. History of obstructive sleep apnea syndrome. Obesity, with a BMI of 36.6 kg/m. Chronic hypercapnic respiratory failure. Left diaphragm weakness. Recent history of anterior cervical discectomy and fusion, C3-C7. Persistent left upper extremity weakness. Lifelong non-smoker. History of hypertension. History of hyperlipidemia. History of gastroesophageal reflux disease. History of anxiety. Plan: Plan dated January 21, 2024. The patient continues with supportive care. The patient is to bring his own CPAP device from home, to use at nighttime. The patient continues on Lasix, as well as other medications including Eliquis. Neurology is following this patient. Labs, x-rays, and all medications are reviewed. The patient is a DO NOT RESUSCITATE patient. He was advised to go to a tertiary care center such as [facility], or the [facility], by my partner. Plan dated January 22, 2024. The patient is seen today in room 355. The patient is currently on 2 L of oxygen. No IV fluids. Yesterday he was on 3 L. He has no complaints of difficulty breathing, coughing, wheezing, chest tightness, or phlegm production. Labs, x-rays, and all medications are reviewed. Neurology is following the patient for his diffuse weakness. We will continue to follow. Prognosis is guarded. Plan dated January 23, 2024. The patient is seen today in room 355. Things are essentially unchanged. He is on oxygen at 2 L by nasal cannula. He is not receiving any antibiotics. He is on breathing treatments. Saturations are between 94 and 96%. Labs, x-rays, and medications are reviewed. We will continue to follow make recommendations. He is being followed by neurology. He is a DO NOT RESUSCITATE patient. Plan dated January 24, 2024. The patient is seen today in room 355. The patient remained stable. He is on 2 L of oxygen. No IV fluids. Sodium 137, potassium 3.7, chlorides 88, CO2 43, BUN 25, creatinine 0.92. Glucose of 117. The Patient Is Stable from the Pulmonary Standpoint. He Could Be Considered for Possible Discharge. He Is Being Followed by Neurology. He is a DO NOT RESUSCITATE patient. Plan dated January 25, 2024. The patient is stable from the pulmonary standpoint. Labs, x-rays, medications are reviewed. Saturations are excellent on 3 L. No respiratory complaints at this time. We will continue to follow the patient, moving forward, only as needed. The patient is a DO NOT RESUSCITATE patient. Please do not hesitate to contact us, should he require our services in the future. Time with Patient: Less than 30
[2024-01-25] MEDS: FUROSEMIDE 40 MG TAB PO SCH (15:35)
--- NOTE | 2024-01-26 09:59 | P.PN ---
Subjective Progress Note Date: 01/25/24 This is a 68-year-old male with medical history significant for atrial fibrillation, COPD, acid reflux, hyperlipidemia, hypertension, sleep apnea with CPAP use, heart failure. Patient was recently hospitalized December 06 to December 11 for dyspnea and heart failure post cervical surgery. He was discharged home. He then had a hospitalization in the last week at [place] where he underwent cardioversion which was successful. He comes back to the hospital now with complaints of worsening shortness of breath over the last month. He also reports weakness of his bilateral upper extremities and worsening edema of the bilateral lower extremities and his hands. He is reporting orthopnea and dyspnea on exertion. He has been compliant with his diuretic at home. He states that he has not been wearing his CPAP at night because of this weakness that he has been having. Patient does wear oxygen chronically. Chest xray on admission showing no acute findings. No evidence of DVT in the left arm per doppler. White blood cell count 12.7. CO2 47 on admission. Troponin level is negative, his proBNP is not elevated. He has been started on IV Lasix 40 mg every 12 hours. He is admitted under internal medicine with a cardiology and pulmonary consultation. He is currently in atrial fibrillation. 01/16/2024 Patient is evaluated today in follow up on the medical floor. Patient was hypotensive this AM with blood pressure into the 80s systolic was given a 500 CC bolus. He was presyncopal. He was moved to [address] [place] [address] for closer monitoring. Chest xray this AM reveals no acute cardiopulmonary disease/process. Small left pleural effusion. Brain CT completed negative for acute findings. Continues on IV lasix 80 mg Q12 hours. White blood cell count today 13.77. CO2 better at 38. BUN 27.4 creatinine 1.0. 01/17/2024 Patient evaluated today in follow up on the medical floor. Patient Blood pressur e better today. Remains in atrial fibrillation with controlled ventricular rate. Neurology evaluation recommending to follow up for EMG testing of the lower extremities and continue to follow up with his neurologist and neuromuscular specialist for the upper extremity weakness. Cardiology has adjusted medications discontinued lisinopril, procardia, and carvedilol. Patient will be going for cardioversion tomorrow. 01/18/2024 Patient is seen in follow-up today status post cardioversion currently sinus rhythm with cardiology following closely. Neurology as well as pulmonary also following as patient continues to report left upper extremity flaccidity and reports his right upper extremity is becoming more weak and is noticing tingling and numbness in the right hand. Patient has undergone extensive neurological workups and most recently at [facility] ([facility] including s troke workups that have been negative. ALS per patient was ruled out. Patient continues to be dyspneic with minimal exertion and is winded during conversation taking multiple breaks. Patient is maintained on 2 to 3 L nasal cannula at this time. Recommend PT/OT therapy evaluation and working with the patient daily. 01/19/2024 Patient is evaluated today in follow up on the medical floor. He is currently sitting up in the chair. He now reports that he is unable to use his left arm with his a change from admission. He also reports that he feels weakness in his diaphragm resulting in him being unable to take a deep breath. He is concerned as he feels like he has not been improving since hospitalization. He also feels that he is losing dexterity in his right fingers. He underwent synchronous cardioversion last night he was in sinus rhythm but has since converted back to atrial fibrillation is currently rate controlled and continues on IV Cardizem running at 5 mL/h. Cardiology and pulmonary following the patient closely. Neurology did see the patient in a consultation recommending a neuromuscular specialist on an outpatient basis and noted that ALS was ruled out. A repeat est x-ray today reveals interval development of acute pulmonary disease involving the left lung base. Likely pneumonic infiltrate with small effusion. His blood work today reveals a white blood cell count of 10.7, sodium 138, potassium 3.3, chloride of 88 CO2 of 42, BUN of 25 creatinine of 0.85. 01/20/2024 Patient evaluated in the medical floor in follow-up. Sitting up in the chair he does report improved shortness of breath as his heart rate is better controlled today down into the 60s. he remains in atrial fibrillation though. Remains on IV Lasix 80 mg every 12 hours with a BUN of 23 creatinine of 0.86 sodium level of 139. Potassium level is 3.2. 01/21/2024 Patient is seen in follow-up this morning currently sitting up in the chair report he continues to be shortness of breath with dyspnea and minimal exertion reporting he is not sleeping and feels exhausted. Patient is continued on IV Lasix twice daily and kidney functions remained stable. Potassium 3.5 today recommend potassium supplement daily. Patient continues to have left arm flaccidity and neurology has evaluated the patient. Patient has undergone extensive neurological workup including EMG and has been negative. Patient with overall weakness although is up and walking and able to work with physical therapy would not qualify for physical therapy rehab. Patient is fearful as he lives home alone and has significant comorbidities that he feels he is unable to handle and take care of himself. Patient has been instructed to bring the CPAP machine in from home. Patient is afebrile and denies chest pain or palpitations at this time. Will continue IV Lasix and current medication regimen follow-up with a chest x-ray in the a.m. Patient is currently off Cardizem and heart rate is controlled at this time. 01/22/2024 Patient evaluated today followed up in the medical floor. Patient does state that he foot into A-fib last night he is less short of breath today and states that he is able to take a deeper breath. His chest x-ray shows improved aeration with a persistent left basilar airspace opacity. He continues on IV Lasix 80 mg every 12 hours. his sodium is 136 today. He continues on oxygen v ia nasal cannula. 01/23/2024 Patient evaluated today in follow-up in the medical floor. He continues to report improved shortness of breath overall. He states that he is feeling well he remains in sinus mechanism. He continues on a combination of oral amiodarone and oral metoprolol he remains on IV Lasix 80 mg every 12 hours adequate urine output. not Quite ready for discharge. 01/24/2024 Patient is seen in follow-up today with cardiology and pulmonary following. Patient continues on IV Lasix reports his breathing is improved and has been noted to be taking oxygen off. Per nursing staff patient oxygen saturations drop to 90% and chronically wears 3 L. Patient does have a CPAP in the home as well. Plan is for patient to return home and will continue with home care. Will discuss with cardiology and pulmonary regarding diuretics with possible discharge planning in the next 24 hours. 01/25/2024 Was evaluated in follow-up on the medical floor. He is sitting in the chair. He continues to report feeling less short of breath overall. He remains in normal sinus mechanism. Patient is a combination of oral amiodarone and oral metoprolol. Has been transition to oral Lasix at 40 mg twice a day. Elaina on oxygen via nasal cannula to 3 L with oxygen saturations of 96%. Patient does have a CPAP at home however he states that secondary to his extreme weakness in his right upper extremity as well as essentially nonuse of his left upper extremity he is unable to utilize the CPAP as he gets up frequently throughout the night to use the bathroom and is unable to put it back on. REVIEW OF SYSTEMS: CONSTITUTIONAL: No fever, no malaise, reports extreme fatigue. HEENT: No recent visual problems or hearing problems. Denied any sore throat. CARDIOVASCULAR: No chest pain, orthopnea, PND, no palpitations, no syncope. PULMONARY: Reports continued shortness of breath, no cough, no hemoptysis. GASTROINTESTINAL: No diarrhea, no nausea, no vomiting, no abdominal pain. NEUROLOGICAL: No headaches, reports of generalized weakness, reports left-sided numbness and inability to move, right sided tingling and numbness starting in the hands. PHYSICAL EXAMINATION: GENERAL: The patient is alert and oriented x3, not in any acute distress. Well developed, elderly appearing, obese HEENT: Pupils are round and equally reacting to light. EOMI. No scleral icterus. No conjunctival pallor. Normocephalic, atraumatic. No pharyngeal erythema. No thyromegaly. CARDIOVASCULAR: S1 and S2 muffled, currently sinus PULMONARY: Diminished breath sounds bilaterally with some faint crackles noted at the bases. ABDOMEN: Soft, obese, nontender, nondistended, normoactive bowel sounds. No p alpable organomegaly. MUSCULOSKELETAL: No joint swelling or deformity. EXTREMITIES: No cyanosis, clubbing, or pedal edema. Bilateral lower extremity swelling is improving, nonpitting NEUROLOGICAL: Left upper extremity weakness with decreased hand grasp. mild right upper extremity weakness. SKIN: No rashes. Assessment: Acute on chronic heart failure diastolic dysfunction with ejection fraction of 50 to 55% Acute on chronic hypoxic and hypercarbic respiratory failure secondary to above with noncompliance with his home CPAP Obstructive sleep apnea with CPAP use has been noncompliant Oxygen dependent COPD Left lower lobe infiltrate concern for hospital acquired pneumonia as he has had multiple recent hospitalizations. Paroxysmal Atrial fibrillation anticoagulant with Eliquis recently cardioverted at [facility]. Currently in atrial fibrillation status post cardioversion 01/18/2024. Cardizem discontinued and currently rate controlled. Patient is now maintained in sinus mechanism. Hypertension Hyperlipidemia Recent cervical C3-C7 ACDF on November 27, 2023 Left upper extremity weakness with right hand tingling and numbness at times, possibly secondary to recent cervical surgery Gastroesophageal reflux disease Obesity with a BMI of 36.3 GI prophylaxis DVT prophylaxis DNR Plan: Lisinopril, procardia and carvedilol are discontinued. Cardiology following patient was maintained on Cardizem underwent cardioversion for symptomatic persistent atrial fibrillation. Patient reports he had cardioversion done a few weeks ago at the other hospital that converted back into A-fib RVR. Cardiology following and Cardizem has been stopped. Patient continues in normal sinus mech anism. Combination of oral amiodarone, oral metoprolol and will be started on oral Aldactone. Patient has been transition to oral Lasix 40 mg twice a day Pulmonary and cardiology following and has been instructed to get his CPAP machine from home for continued use. Procalcitonin was normal at 0.06. Encourage incentive spirometer use at least 10 times every hour while awake Continue cardiac telemetry Continue IV lasix 80 mg Q12 hours. Follow-up on repeat labs and replace electrolytes per protocol while monitoring kidney functions. Recommend daily supplementation of potassium Reports from [facility] available in the chart. PT/OT consulted and patient reports he walked up and down the jeff and does continue with exertion and shortness of breath with weakness. Patient continues to elicit left upper extremity weakness and reports his left arm is nonfunctional, right hand having some occasional numbness and tingling. Neurology is following. Patient has completed extensive neurological workup including stroke workups and 3 EMGs most recently in [place] that were negative and ALS was ruled out Encourage increase activity as tolerated. Will discuss with case management/social work regarding discharge planning as patient reports he lives alone and is fearful of discharging home with minimal use of his upper extremities and would be unable to perform ADLs. OT have been reconsulted for a new evaluation for discharge planning as patient reports that he he feels that due to the prolonged hospital stay his upper extremities have become even weaker he may require some type of subacute rehab on discharge. The impression and plan of care has been dictated by Delilah Vargas, nurse Practitioner as directed. Dr. Raiza MD I have performed a history and physical examination and medical decision making of this patient, discussed the same with the dictator, and agree with the dictators assessment and plan as written, documented as a scribe. Based on total visit time, I have performed more than 50% of this visit. Objective - Vital Signs Vital signs: Vital Signs Temp 98 F 01/26/24 03:22 Pulse 76 01/26/24 09:24 Resp 20 01/26/24 03:22 BP 101/64 01/26/24 03:22 Pulse Ox 96 01/26/24 03:22 FiO2 35 01/18/24 13:06 Intake & Output 01/25/24 01/26/24 01/26/24 18:59 06:59 18:59 Intake Total 1078 Output Total 1850 1450 300 Balance -772 -1450 -300 Weight 128.7 kg Intake: Oral 1078 Output: Urine 1850 1450 300 Other: Voiding Method External Catheter External Catheter - Labs CBC & Chem 7: 01/19/24 06:35 01/25/24 06:11 Assessment and Plan Time with Patient: Less than 30
[2024-01-26 11:16] LABS: African American GFR (CKD) 78 (>60 ml/min/1.73 sqM); Anion Gap 7 mmol/L; Blood Urea Nitrogen 24 mg/dL (9-20); Chloride 89 mmol/L (98-107); Glucose 195 mg/dL (74-99); Non-African American GFR(CKD) 67 (>60 ml/min/1.73 sqM); Potassium 3.4 mmol/L (3.5-5.1); Sodium 136 mmol/L (137-145)
[2024-01-26 11:25] LABS: Carbon Dioxide 40 mmol/L (22-30)
--- NOTE | 2024-01-26 12:45 | P.PN ---
Subjective Progress Note Date: 01/26/24 The patient is a 68-year-old male who follows with a medical legal investigator in [place]. He presented to the emergency room with worsening shortness of breath. He was found to be in A-fib and was subsequently started on amiodarone. He converted back to sinus rhythm and has done well thereafter. Patient interviewed and examined resting in the recliner chair. He states he is back to his baseline. He states he "does not feel well in atrial fibrillation." No chest pain or pressure. GENERAL: Well-appearing, well-nourished and in no acute distress. NECK: Supple without JVD or thyromegaly. LUNGS: Breath sounds diminished to auscultation bilaterally. Respiration equal and unlabored. No wheezes, rales or rhonchi. HEART: Regular rate and rhythm without murmurs, rubs or gallops. S1 and S2 heard. EXTREMITIES: Normal range of motion, +2 edema. No clubbing or cyanosis. Peripheral pulses intact and strong. TELEMETRY: Sinus rhythm overnight LABS: Sodium 136, potassium 3.4, BUN 24, creatinine 1.14 IMPRESSION: Paroxysmal atrial fibrillation, currently in sinus rhythm on amiodarone Diastolic heart failure, preserved LV function with severe LVH History of hypertension Obesity, BMI 36 Obstructive sleep apnea PLAN: Continue current cardiac medication regimen Patient will continue amiodarone 200 mg twice daily for 1 week Then 200 mg once daily thereafter Follow-up with primary medical legal investigator in 1 week Patient may be discharged from the cardiac standpoint I am dictating on behalf of Dr Laith Rodriguez's history/physical and assessment/plan. Objective - Vital Signs Vital signs: Vital Signs Temp 98 F 01/26/24 03:22 Pulse 76 01/26/24 09:24 Resp 20 01/26/24 03:22 BP 101/64 01/26/24 03:22 Pulse Ox 96 01/26/24 03:22 FiO2 35 01/18/24 13:06 Intake & Output 01/25/24 01/26/24 01/26/24 18:59 06:59 18:59 Intake Total 1078 Output Total 1850 1450 300 Balance -772 -1450 -300 Weight 128.7 kg Intake: Oral 1078 Output: Urine 1850 1450 300 Other: Voiding Method External Catheter External Catheter - Labs CBC & Chem 7: 01/19/24 06:35 01/26/24 10:17 Labs: Abnormal Lab Results - Last 24 Hours (Table) 01/26/24 Range/Units 10:17 Sodium 136 L (137-145) mmol/L Potassium 3.4 L (3.5-5.1) mmol/L Chloride 89 L (98-107) mmol/L Carbon Dioxide 40 H (22-30) mmol/L BUN 24 H (9-20) mg/dL Glucose 195 H (74-99) mg/dL
[2024-01-26] MEDS: POTASSIUM CHLORIDE ER 20 MEQ TAB.ER PO STA (15:19)
--- NOTE | 2024-01-26 23:10 | P.PN ---
Subjective Progress Note Date: 01/26/24 This is a 68-year-old male with medical history significant for atrial fibrillation, COPD, acid reflux, hyperlipidemia, hypertension, sleep apnea with CPAP use, heart failure. Patient was recently hospitalized December 06 to December 11 for dyspnea and heart failure post cervical surgery. He was discharged home. He then had a hospitalization in the last week at [place] where he underwent cardioversion which was successful. He comes back to the hospital now with complaints of worsening shortness of breath over the last month. He also reports weakness of his bilateral upper extremities and worsening edema of the bilateral lower extremities and his hands. He is reporting orthopnea and dyspnea on exertion. He has been compliant with his diuretic at home. He states that he has not been wearing his CPAP at night because of this weakness that he has been having. Patient does wear oxygen chronically. Chest xray on admission showing no acute findings. No evidence of DVT in the left arm per doppler. White blood cell count 12.7. CO2 47 on admission. Troponin level is negative, his proBNP is not elevated. He has been started on IV Lasix 40 mg every 12 hours. He is admitted under internal medicine with a cardiology and pulmonary consultation. He is currently in atrial fibrillation. 01/16/2024 Patient is evaluated today in follow up on the medical floor. Patient was hypotensive this AM with blood pressure into the 80s systolic was given a 500 CC bolus. He was presyncopal. He was moved to [address] [place] [address] for closer monitoring. Chest xray this AM reveals no acute cardiopulmonary disease/process. Small left pleural effusion. Brain CT completed negative for acute findings. Continues on IV lasix 80 mg Q12 hours. White blood cell count today 13.77. CO2 better at 38. BUN 27.4 creatinine 1.0. 01/17/2024 Patient evaluated today in follow up on the medical floor. Patient Blood pressur e better today. Remains in atrial fibrillation with controlled ventricular rate. Neurology evaluation recommending to follow up for EMG testing of the lower extremities and continue to follow up with his neurologist and neuromuscular specialist for the upper extremity weakness. Cardiology has adjusted medications discontinued lisinopril, procardia, and carvedilol. Patient will be going for cardioversion tomorrow. 01/18/2024 Patient is seen in follow-up today status post cardioversion currently sinus rhythm with cardiology following closely. Neurology as well as pulmonary also following as patient continues to report left upper extremity flaccidity and reports his right upper extremity is becoming more weak and is noticing tingling and numbness in the right hand. Patient has undergone extensive neurological workups and most recently at [facility] ([facility] including s troke workups that have been negative. ALS per patient was ruled out. Patient continues to be dyspneic with minimal exertion and is winded during conversation taking multiple breaks. Patient is maintained on 2 to 3 L nasal cannula at this time. Recommend PT/OT therapy evaluation and working with the patient daily. 01/19/2024 Patient is evaluated today in follow up on the medical floor. He is currently sitting up in the chair. He now reports that he is unable to use his left arm with his a change from admission. He also reports that he feels weakness in his diaphragm resulting in him being unable to take a deep breath. He is concerned as he feels like he has not been improving since hospitalization. He also feels that he is losing dexterity in his right fingers. He underwent synchronous cardioversion last night he was in sinus rhythm but has since converted back to atrial fibrillation is currently rate controlled and continues on IV Cardizem running at 5 mL/h. Cardiology and pulmonary following the patient closely. Neurology did see the patient in a consultation recommending a neuromuscular specialist on an outpatient basis and noted that ALS was ruled out. A repeat est x-ray today reveals interval development of acute pulmonary disease involving the left lung base. Likely pneumonic infiltrate with small effusion. His blood work today reveals a white blood cell count of 10.7, sodium 138, potassium 3.3, chloride of 88 CO2 of 42, BUN of 25 creatinine of 0.85. 01/20/2024 Patient evaluated in the medical floor in follow-up. Sitting up in the chair he does report improved shortness of breath as his heart rate is better controlled today down into the 60s. he remains in atrial fibrillation though. Remains on IV Lasix 80 mg every 12 hours with a BUN of 23 creatinine of 0.86 sodium level of 139. Potassium level is 3.2. 01/21/2024 Patient is seen in follow-up this morning currently sitting up in the chair report he continues to be shortness of breath with dyspnea and minimal exertion reporting he is not sleeping and feels exhausted. Patient is continued on IV Lasix twice daily and kidney functions remained stable. Potassium 3.5 today recommend potassium supplement daily. Patient continues to have left arm flaccidity and neurology has evaluated the patient. Patient has undergone extensive neurological workup including EMG and has been negative. Patient with overall weakness although is up and walking and able to work with physical therapy would not qualify for physical therapy rehab. Patient is fearful as he lives home alone and has significant comorbidities that he feels he is unable to handle and take care of himself. Patient has been instructed to bring the CPAP machine in from home. Patient is afebrile and denies chest pain or palpitations at this time. Will continue IV Lasix and current medication regimen follow-up with a chest x-ray in the a.m. Patient is currently off Cardizem and heart rate is controlled at this time. 01/22/2024 Patient evaluated today followed up in the medical floor. Patient does state that he foot into A-fib last night he is less short of breath today and states that he is able to take a deeper breath. His chest x-ray shows improved aeration with a persistent left basilar airspace opacity. He continues on IV Lasix 80 mg every 12 hours. his sodium is 136 today. He continues on oxygen v ia nasal cannula. 01/23/2024 Patient evaluated today in follow-up in the medical floor. He continues to report improved shortness of breath overall. He states that he is feeling well he remains in sinus mechanism. He continues on a combination of oral amiodarone and oral metoprolol he remains on IV Lasix 80 mg every 12 hours adequate urine output. not Quite ready for discharge. 01/24/2024 Patient is seen in follow-up today with cardiology and pulmonary following. Patient continues on IV Lasix reports his breathing is improved and has been noted to be taking oxygen off. Per nursing staff patient oxygen saturations drop to 90% and chronically wears 3 L. Patient does have a CPAP in the home as well. Plan is for patient to return home and will continue with home care. Will discuss with cardiology and pulmonary regarding diuretics with possible discharge planning in the next 24 hours. 01/25/2024 Was evaluated in follow-up on the medical floor. He is sitting in the chair. He continues to report feeling less short of breath overall. He remains in normal sinus mechanism. Patient is a combination of oral amiodarone and oral metoprolol. Has been transition to oral Lasix at 40 mg twice a day. Elaina on oxygen via nasal cannula to 3 L with oxygen saturations of 96%. Patient does have a CPAP at home however he states that secondary to his extreme weakness in his right upper extremity as well as essentially nonuse of his left upper extremity he is unable to utilize the CPAP as he gets up frequently throughout the night to use the bathroom and is unable to put it back on. 01/26/2024 Patient evaluated today resting in the chair. Remains in normal sinus rhythm. Currently on oral lasix 40 mg po BID. He continues on oral diamox. Patient is pending re evaluation by physical therapy as he has had prolonged hospital stay with increased weakness. May benefit from ROBERT on discharge. REVIEW OF SYSTEMS: CONSTITUTIONAL: No fever, no malaise, reports extreme fatigue. HEENT: No recent visual problems or hearing problems. Denied any sore throat. CARDIOVASCULAR: No chest pain, orthopnea, PND, no palpitations, no syncope. PULMONARY: Reports continued shortness of breath, no cough, no hemoptysis. GASTROINTESTINAL: No diarrhea, no nausea, no vomiting, no abdominal pain. NEUROLOGICAL: No headaches, reports of generalized weakness, reports left-sided numbness and inability to move, right sided tingling and numbness starting in the hands. PHYSICAL EXAMINATION: GENERAL: The patient is alert and oriented x3, not in any acute distress. Well developed, elderly appearing, obese HEENT: Pupils are round and equally reacting to light. EOMI. No scleral icterus. No conjunctival pallor. Normocephalic, atraumatic. No pharyngeal erythema. No thyromegaly. CARDIOVASCULAR: S1 and S2 muffled, currently sinus PULMONARY: Diminished breath sounds bilaterally with some faint crackles noted at the bases. ABDOMEN: Soft, obese, nontender, nondistended, normoactive bowel sounds. No palpable organomegaly. MUSCULOSKELETAL: No joint swelling or deformity. EXTREMITIES: No cyanosis, clubbing, or pedal edema. Bilateral lower extremity swelling is improving, nonpitting NEUROLOGICAL: Left upper extremity weakness with decreased hand grasp. mild right upper extremity weakness. SKIN: No rashes. Assessment: Acute on chronic heart failure diastolic dysfunction with ejection fraction of 50 to 55% Acute on chronic hypoxic and hypercarbic respiratory failure secondary to above with noncompliance with his home CPAP Obstructive sleep apnea with CPAP use has been noncompliant Oxygen dependent COPD Left lower lobe infiltrate concern for hospital acquired pneumonia as he has had multiple recent hospitalizations. Paroxysmal Atrial fibrillation anticoagulant with Eliquis recently cardioverted at [facility]. Currently in atrial fibrillation status post cardioversi on 01/18/2024. Cardizem discontinued and currently rate controlled. Patient is now maintained in sinus mechanism. Hypertension Hyperlipidemia Recent cervical C3-C7 ACDF on November 27, 2023 Left upper extremity weakness with right hand tingling and numbness at times, possibly secondary to recent cervical surgery Gastroesophageal reflux disease Obesity with a BMI of 36.3 GI prophylaxis DVT prophylaxis DNR Plan: Lisinopril, procardia and carvedilol are discontinued. Cardiology following patient was maintained on Cardizem underwent cardioversion for symptomatic persistent atrial fibrillation. Patient reports he had cardioversion done a few weeks ago at the other hospital that converted back into A-fib RVR. Cardiology following and Cardizem has been stopped. Patient continues in normal sinus mechanism. Combination of oral amiodarone, oral metoprolol and will be started on oral Aldactone. Patient has been transition to oral Lasix 40 mg twice a day Pulmonary and cardiology following and has been instructed to get his CPAP machine from home for continued use. Procalcitonin was normal at 0.06. Encourage incentive spirometer use at least 10 times every hour while awake Continue cardiac telemetry Continue IV lasix 80 mg Q12 hours. Follow-up on repeat labs and replace electrolytes per protocol while monitoring kidney functions. Recommend daily supplementation of potassium Reports from [place] available in the chart. PT/OT consulted and patient reports he walked up and down the jeff and does continue with exertion and shortness of breath with weakness. Patient continues to elicit left upper extremity weakness and reports his left arm is nonfunctional, right hand having some occasional numbness and tingling. Neurology is following. Patient has completed extensive neurological workup including stroke workups and 3 EMGs most recently in [place] that were negative and ALS was ruled out Encourage increase activity as tolerated. Will discuss with case management/social work regarding discharge planning as patient reports he lives alone and is fearful of discharging home with minimal use of his upper extremities and would be unable to perform ADLs. OT have been reconsulted for a new evaluation for discharge planning as patient reports that he he feels that due to the prolonged hospital stay his upper extremities have become even weaker he may require some type of subacute rehab on discharge. The impression and plan of care has been dictated by Delilah Vargas, nurse Practitioner as directed. Dr. Raiza MD I have performed a history and physical examination and medical decision making of this patient, discussed the same with the dictator, and agree with the dictators assessment and plan as written, documented as a scribe. Based on total visit time, I have performed more than 50% of this visit. Objective - Vital Signs Vital signs: Vital Signs Temp 98 F 01/26/24 03:22 Pulse 76 01/26/24 09:24 Resp 20 01/26/24 03:22 BP 101/64 01/26/24 03:22 Pulse Ox 96 01/26/24 03:22 FiO2 35 01/18/24 13:06 Intake & Output 01/25/24 01/26/24 01/26/24 18:59 06:59 18:59 Intake Total 1078 Output Total 1850 1450 300 Balance -772 -1450 -300 Weight 128.7 kg Intake: Oral 1078 Output: Urine 1850 1450 300 Other: Voiding Method External Catheter External Catheter - Labs CBC & Chem 7: 01/19/24 06:35 01/26/24 10:17 Assessment and Plan Time with Patient: Less than 30
[2024-01-27 06:44] LABS: African American GFR (CKD) 71 (>60 ml/min/1.73 sqM); Blood Urea Nitrogen 26 mg/dL (9-20); Calcium 8.9 mg/dL (8.4-10.2); Chloride 93 mmol/L (98-107); Glucose 136 mg/dL (74-99); Non-African American GFR(CKD) 61 (>60 ml/min/1.73 sqM); Potassium 3.7 mmol/L (3.5-5.1); Sodium 137 mmol/L (137-145)
[2024-01-27 07:20] LABS: Anion Gap 11 mmol/L; Carbon Dioxide 33 mmol/L (22-30)
[2024-01-27] MEDS: FUROSEMIDE 10 MG/ML 2 ML VIAL IV ONE (17:28)
[2024-01-27] MEDS: HYDROCORTISONE 1% CREAM 30 GM TUBE TOPICAL PRN (18:12)
--- NOTE | 2024-01-27 19:03 | P.PN ---
Subjective Progress Note Date: 01/27/24 This is a 68-year-old male with medical history significant for atrial fibrillation, COPD, acid reflux, hyperlipidemia, hypertension, sleep apnea with CPAP use, heart failure. Patient was recently hospitalized December 06 to December 11 for dyspnea and heart failure post cervical surgery. He was discharged home. He then had a hospitalization in the last week at [place] where he underwent cardioversion which was successful. He comes back to the hospital now with complaints of worsening shortness of breath over the last month. He also reports weakness of his bilateral upper extremities and worsening edema of the bilateral lower extremities and his hands. He is reporting orthopnea and dyspnea on exertion. He has been compliant with his diuretic at home. He states that he has not been wearing his CPAP at night because of this weakness that he has been having. Patient does wear oxygen chronically. Chest xray on admission showing no acute findings. No evidence of DVT in the left arm per doppler. White blood cell count 12.7. CO2 47 on admission. Troponin level is negative, his proBNP is not elevated. He has been started on IV Lasix 40 mg every 12 hours. He is admitted under internal medicine with a cardiology and pulmonary consultation. He is currently in atrial fibrillation. 01/16/2024 Patient is evaluated today in follow up on the medical floor. Patient was hypotensive this AM with blood pressure into the 80s systolic was given a 500 CC bolus. He was presyncopal. He was moved to [address] [place] [address] for closer monitoring. Chest xray this AM reveals no acute cardiopulmonary disease/process. Small left pleural effusion. Brain CT completed negative for acute findings. Continues on IV lasix 80 mg Q12 hours. White blood cell count today 13.77. CO2 better at 38. BUN 27.4 creatinine 1.0. 01/17/2024 Patient evaluated today in follow up on the medical floor. Patient Blood pressur e better today. Remains in atrial fibrillation with controlled ventricular rate. Neurology evaluation recommending to follow up for EMG testing of the lower extremities and continue to follow up with his neurologist and neuromuscular specialist for the upper extremity weakness. Cardiology has adjusted medications discontinued lisinopril, procardia, and carvedilol. Patient will be going for cardioversion tomorrow. 01/18/2024 Patient is seen in follow-up today status post cardioversion currently sinus rhythm with cardiology following closely. Neurology as well as pulmonary also following as patient continues to report left upper extremity flaccidity and reports his right upper extremity is becoming more weak and is noticing tingling and numbness in the right hand. Patient has undergone extensive neurological workups and most recently at [facility] ([facility] including s troke workups that have been negative. ALS per patient was ruled out. Patient continues to be dyspneic with minimal exertion and is winded during conversation taking multiple breaks. Patient is maintained on 2 to 3 L nasal cannula at this time. Recommend PT/OT therapy evaluation and working with the patient daily. 01/19/2024 Patient is evaluated today in follow up on the medical floor. He is currently sitting up in the chair. He now reports that he is unable to use his left arm with his a change from admission. He also reports that he feels weakness in his diaphragm resulting in him being unable to take a deep breath. He is concerned as he feels like he has not been improving since hospitalization. He also feels that he is losing dexterity in his right fingers. He underwent synchronous cardioversion last night he was in sinus rhythm but has since converted back to atrial fibrillation is currently rate controlled and continues on IV Cardizem running at 5 mL/h. Cardiology and pulmonary following the patient closely. Neurology did see the patient in a consultation recommending a neuromuscular specialist on an outpatient basis and noted that ALS was ruled out. A repeat est x-ray today reveals interval development of acute pulmonary disease involving the left lung base. Likely pneumonic infiltrate with small effusion. His blood work today reveals a white blood cell count of 10.7, sodium 138, potassium 3.3, chloride of 88 CO2 of 42, BUN of 25 creatinine of 0.85. 01/20/2024 Patient evaluated in the medical floor in follow-up. Sitting up in the chair he does report improved shortness of breath as his heart rate is better controlled today down into the 60s. he remains in atrial fibrillation though. Remains on IV Lasix 80 mg every 12 hours with a BUN of 23 creatinine of 0.86 sodium level of 139. Potassium level is 3.2. 01/21/2024 Patient is seen in follow-up this morning currently sitting up in the chair report he continues to be shortness of breath with dyspnea and minimal exertion reporting he is not sleeping and feels exhausted. Patient is continued on IV Lasix twice daily and kidney functions remained stable. Potassium 3.5 today recommend potassium supplement daily. Patient continues to have left arm flaccidity and neurology has evaluated the patient. Patient has undergone extensive neurological workup including EMG and has been negative. Patient with overall weakness although is up and walking and able to work with physical therapy would not qualify for physical therapy rehab. Patient is fearful as he lives home alone and has significant comorbidities that he feels he is unable to handle and take care of himself. Patient has been instructed to bring the CPAP machine in from home. Patient is afebrile and denies chest pain or palpitations at this time. Will continue IV Lasix and current medication regimen follow-up with a chest x-ray in the a.m. Patient is currently off Cardizem and heart rate is controlled at this time. 01/22/2024 Patient evaluated today followed up in the medical floor. Patient does state that he foot into A-fib last night he is less short of breath today and states that he is able to take a deeper breath. His chest x-ray shows improved aeration with a persistent left basilar airspace opacity. He continues on IV Lasix 80 mg every 12 hours. his sodium is 136 today. He continues on oxygen v ia nasal cannula. 01/23/2024 Patient evaluated today in follow-up in the medical floor. He continues to report improved shortness of breath overall. He states that he is feeling well he remains in sinus mechanism. He continues on a combination of oral amiodarone and oral metoprolol he remains on IV Lasix 80 mg every 12 hours adequate urine output. not Quite ready for discharge. 01/24/2024 Patient is seen in follow-up today with cardiology and pulmonary following. Patient continues on IV Lasix reports his breathing is improved and has been noted to be taking oxygen off. Per nursing staff patient oxygen saturations drop to 90% and chronically wears 3 L. Patient does have a CPAP in the home as well. Plan is for patient to return home and will continue with home care. Will discuss with cardiology and pulmonary regarding diuretics with possible discharge planning in the next 24 hours. 01/25/2024 Was evaluated in follow-up on the medical floor. He is sitting in the chair. He continues to report feeling less short of breath overall. He remains in normal sinus mechanism. Patient is a combination of oral amiodarone and oral metoprolol. Has been transition to oral Lasix at 40 mg twice a day. Elaina on oxygen via nasal cannula to 3 L with oxygen saturations of 96%. Patient does have a CPAP at home however he states that secondary to his extreme weakness in his right upper extremity as well as essentially nonuse of his left upper extremity he is unable to utilize the CPAP as he gets up frequently throughout the night to use the bathroom and is unable to put it back on. 01/26/2024 Patient evaluated today resting in the chair. Remains in normal sinus rhythm. Currently on oral lasix 40 mg po BID. He continues on oral diamox. Patient is pending re evaluation by physical therapy as he has had prolonged hospital stay with increased weakness. May benefit from ROBERT on discharge. 01/27/2024 Patient is evaluated in follow-up resting in the chair. Patient does not want to go to subacute rehab but would be open to it. He will be reevaluated by physical therapy tomorrow and will make a decision for discharge planning. He continues on oral Lasix as well as oral Diamox. His blood work is improved today with a sodium level of 137, potassium 3.7, BUN of 26, creatinine 1.23. He is 96% on 3 L of oxygen via nasal cannula. REVIEW OF SYSTEMS: CONSTITUTIONAL: No fever, no malaise, reports extreme fatigue. HEENT: No recent visual problems or hearing problems. Denied any sore throat. CARDIOVASCULAR: No chest pain, orthopnea, PND, no palpitations, no syncope. PULMONARY: Reports continued shortness of breath, no cough, no hemoptysis. GASTROINTESTINAL: No diarrhea, no nausea, no vomiting, no abdominal pain. NEUROLOGICAL: No headaches, reports of generalized weakness, reports left-sided numbness and inability to move, right sided tingling and numbness starting in the hands. PHYSICAL EXAMINATION: GENERAL: The patient is alert and oriented x3, not in any acute distress. Well developed, elderly appearing, obese HEENT: Pupils are round and equally reacting to light. EOMI. No scleral icterus. No conjunctival pallor. Normocephalic, atraumatic. No pharyngeal erythema. No thyromegaly. CARDIOVASCULAR: S1 and S2 muffled, currently sinus PULMONARY: Diminished breath sounds bilaterally with some faint crackles noted at the bases. ABDOMEN: Soft, obese, nontender, nondistended, normoactive bowel sounds. No palpable organomegaly. MUSCULOSKELETAL: No joint swelling or deformity. EXTREMITIES: No cyanosis, clubbing, or pedal edema. Bilateral lower extremity swelling is improving, nonpitting NEUROLOGICAL: Left upper extremity weakness with decreased hand grasp. mild right upper extremity weakness. SKIN: No rashes. Assessment: Acute on chronic heart failure diastolic dysfunction with ejection fraction of 50 to 55% Acute on chronic hypoxic and hypercarbic respiratory failure secondary to above with noncompliance with his home CPAP Obstructive sleep apnea with CPAP use has been noncompliant Oxygen dependent COPD Left lower lobe infiltrate concern for hospital acquired pneumonia as he has had multiple recent hospitalizations. Paroxysmal Atrial fibrillation anticoagulant with Eliquis recently cardioverted at [facility]. Currently in atrial fibrillation status post cardioversion 01/18/2024. Cardizem discontinued and currently rate controlled. Patient is now maintained in sinus mechanism. Hypertension Hyperlipidemia Recent cervical C3-C7 ACDF on November 27, 2023 Left upper extremity weakness with right hand tingling and numbness at times, possibly secondary to recent cervical surgery Gastroesophageal reflux disease Obesity with a BMI of 36.3 GI prophylaxis DVT prophylaxis DNR Plan: Lisinopril, procardia and carvedilol are discontinued. Cardiology following patient was maintained on Cardizem underwent cardioversion for symptomatic persistent atrial fibrillation. Patient reports he had cardioversion done a few weeks ago at the other hospital that converted back into A-fib RVR. Cardiology following and Cardizem has been stopped. Patient continues in normal sinus mechanism. Combination of oral amiodarone, oral metoprolol and will be started on oral Aldactone. Patient has been transition to oral Lasix 40 mg twice a day Pulmonary and cardiology following and has been instructed to get his CPAP machine from home for continued use. Procalcitonin was normal at 0.06. Encourage incentive spirometer use at least 10 times every hour while awake Continue cardiac telemetry Continue IV lasix 80 mg Q12 hours. Follow-up on repeat labs and replace electrolytes per protocol while monitoring kidney functions. Recommend daily supplementation of potassium Reports from [place] available in the chart. PT/OT consulted and patient reports he walked up and down the jeff and does continue with exertion and shortness of breath with weakness. Patient continues to elicit left upper extremity weakness and reports his left arm is nonfunctional, right hand having some occasional numbness and tingling. Neurology is following. Patient has completed extensive neurological workup including stroke workups and 3 EMGs most recently in [place] that were negative and ALS was ruled out Encourage increase activity as tolerated. Will discuss with case management/social work regarding discharge planning as patient reports he lives alone and is fearful of discharging home with minimal use of his upper extremities and would be unable to perform ADLs. OT have been reconsulted for a new evaluation for discharge planning as patient reports that he he feels that due to the prolonged hospital stay his upper extremities have become even weaker he may require some type of subacute rehab on discharge. The impression and plan of care has been dictated by Delilah Vargas nurse Practitioner as directed. Dr. Raiza MD I have performed a history and physical examination and medical decision making of this patient, discussed the same with the dictator, and agree with the dictators assessment and plan as written, documented as a scribe. Based on total visit time, I have performed more than 50% of this visit. Objective - Vital Signs Vital signs: Vital Signs Temp 98.1 F 01/27/24 16:37 Pulse 66 01/27/24 16:37 Resp 20 01/27/24 16:37 BP 130/80 01/27/24 16:37 Pulse Ox 95 01/27/24 16:37 FiO2 35 01/18/24 13:06 Intake & Output 01/27/24 01/27/24 01/28/24 06:59 18:59 06:59 Intake Total 540 270 Output Total 1650 Balance 540 -1380 Weight 130 kg Intake: Intake, IV Titration 0 Amount Sodium Chloride 0.9% 500 0 ml 500 ml @ 0 mls/hr IV . [facility] Rx#: [id number] Oral 540 270 Output: Urine 1650 Other: Voiding Method External Catheter External Catheter - Labs CBC & Chem 7: 01/19/24 06:35 01/27/24 05:54 Labs: Abnormal Lab Results - Last 24 Hours (Table) 01/27/24 Range/Units 05:54 Chloride 93 L (98-107) mmol/L Carbon Dioxide 33 H (22-30) mmol/L BUN 26 H (9-20) mg/dL Glucose 136 H (74-99) mg/dL Assessment and Plan Time with Patient: Less than 30
[2024-01-27] MEDS: traZODone HCL 50 MG TAB PO SCH (20:57)
[2024-01-28 06:30] LABS: African American GFR (CKD) 71 (>60 ml/min/1.73 sqM); Blood Urea Nitrogen 26 mg/dL (9-20); Calcium 9.1 mg/dL (8.4-10.2); Chloride 94 mmol/L (98-107); Glucose 124 mg/dL (74-99); Non-African American GFR(CKD) 62 (>60 ml/min/1.73 sqM); Potassium 4.1 mmol/L (3.5-5.1); Sodium 139 mmol/L (137-145)
[2024-01-28 06:38] LABS: Anion Gap 10 mmol/L
[2024-01-28 06:43] LABS: Carbon Dioxide 35 mmol/L (22-30)
--- NOTE | 2024-01-28 10:09 | XR ---
EXAMINATION TYPE: XR chest 2V DATE OF EXAM: 01/28/2024 9:52 AM COMPARISON: Chest radiographs from 01/22/2024 CLINICAL INDICATION: Male, 68 years old with history of short of breath; TECHNIQUE: XR chest 2V Frontal and lateral views of the chest. FINDINGS: Lungs/Pleura: Prominent interstitial lung markings are seen scattered throughout the lungs. Blunting of the costophrenic angles. No evidence of focal consolidation, pneumothorax. Pulmonary vascularity: Unremarkable. Heart/mediastinum: Cardiomediastinal silhouette is enlarged and stable. Musculoskeletal: No acute osseous pathology. IMPRESSION: Chronic changes without acute pulmonary process. No significant change from prior. Small bilateral pleural effusions suggested. [facility], , 01/28/2024 10:07 AM
[2024-01-28] MEDS: FUROSEMIDE 10 MG/ML 2 ML VIAL IV ONE (12:27)
--- NOTE | 2024-01-28 22:22 | P.PN ---
Subjective Progress Note Date: 01/28/24 This is a 68-year-old male with medical history significant for atrial fibrillation, COPD, acid reflux, hyperlipidemia, hypertension, sleep apnea with CPAP use, heart failure. Patient was recently hospitalized December 06 to December 11 for dyspnea and heart failure post cervical surgery. He was discharged home. He then had a hospitalization in the last week at [facility] where he underwent cardioversion which was successful. He comes back to the hospital now with complaints of worsening shortness of breath over the last month. He also reports weakness of his bilateral upper extremities and worsening edema of the bilateral lower extremities and his hands. He is reporting orthopnea and dyspnea on exertion. He has been compliant with his diuretic at home. He states that he has not been wearing his CPAP at night because of this weakness that he has been having. Patient does wear oxygen chronically. Chest xray on admission showing no acute findings. No evidence of DVT in the left arm per doppler. White blood cell count 12.7. CO2 47 on admission. Troponin level is negative, his proBNP is not elevated. He has been started on IV Lasix 40 mg every 12 hours. He is admitted under internal medicine with a cardiology and pulmonary consultation. He is currently in atrial fibrillation. 01/16/2024 Patient is evaluated today in follow up on the medical floor. Patient was hypotensive this AM with blood pressure into the 80s systolic was given a 500 CC bolus. He was presyncopal. He was moved to [address] [id number] for closer monitoring. Chest xray this AM reveals no acute cardiopulmonary disease/process. Small left pleural effusion. Brain CT completed negative for acute findings. Continues on IV lasix 80 mg Q12 hours. White blood cell count today 13.77. CO2 better at 38. BUN 27.4 creatinine 1.0. 01/17/2024 Patient evaluated today in follow up on the medical floor. Patient Blood pressur e better today. Remains in atrial fibrillation with controlled ventricular rate. Neurology evaluation recommending to follow up for EMG testing of the lower extremities and continue to follow up with his neurologist and neuromuscular specialist for the upper extremity weakness. Cardiology has adjusted medications discontinued lisinopril, procardia, and carvedilol. Patient will be going for cardioversion tomorrow. 01/18/2024 Patient is seen in follow-up today status post cardioversion currently sinus rhythm with cardiology following closely. Neurology as well as pulmonary also following as patient continues to report left upper extremity flaccidity and reports his right upper extremity is becoming more weak and is noticing tingling and numbness in the right hand. Patient has undergone extensive neurological workups and most recently at [facility] ([facility] including s troke workups that have been negative. ALS per patient was ruled out. Patient continues to be dyspneic with minimal exertion and is winded during conversation taking multiple breaks. Patient is maintained on 2 to 3 L nasal cannula at this time. Recommend PT/OT therapy evaluation and working with the patient daily. 01/19/2024 Patient is evaluated today in follow up on the medical floor. He is currently sitting up in the chair. He now reports that he is unable to use his left arm with his a change from admission. He also reports that he feels weakness in his diaphragm resulting in him being unable to take a deep breath. He is concerned as he feels like he has not been improving since hospitalization. He also feels that he is losing dexterity in his right fingers. He underwent synchronous cardioversion last night he was in sinus rhythm but has since converted back to atrial fibrillation is currently rate controlled and continues on IV Cardizem running at 5 mL/h. Cardiology and pulmonary following the patient closely. Neurology did see the patient in a consultation recommending a neuromuscular specialist on an outpatient basis and noted that ALS was ruled out. A repeat est x-ray today reveals interval development of acute pulmonary disease involving the left lung base. Likely pneumonic infiltrate with small effusion. His blood work today reveals a white blood cell count of 10.7, sodium 138, potassium 3.3, chloride of 88 CO2 of 42, BUN of 25 creatinine of 0.85. 01/20/2024 Patient evaluated in the medical floor in follow-up. Sitting up in the chair he does report improved shortness of breath as his heart rate is better controlled today down into the 60s. he remains in atrial fibrillation though. Remains on IV Lasix 80 mg every 12 hours with a BUN of 23 creatinine of 0.86 sodium level of 139. Potassium level is 3.2. 01/21/2024 Patient is seen in follow-up this morning currently sitting up in the chair report he continues to be shortness of breath with dyspnea and minimal exertion reporting he is not sleeping and feels exhausted. Patient is continued on IV Lasix twice daily and kidney functions remained stable. Potassium 3.5 today recommend potassium supplement daily. Patient continues to have left arm flaccidity and neurology has evaluated the patient. Patient has undergone extensive neurological workup including EMG and has been negative. Patient with overall weakness although is up and walking and able to work with physical therapy would not qualify for physical therapy rehab. Patient is fearful as he lives home alone and has significant comorbidities that he feels he is unable to handle and take care of himself. Patient has been instructed to bring the CPAP machine in from home. Patient is afebrile and denies chest pain or palpitations at this time. Will continue IV Lasix and current medication regimen follow-up with a chest x-ray in the a.m. Patient is currently off Cardizem and heart rate is controlled at this time. 01/22/2024 Patient evaluated today followed up in the medical floor. Patient does state that he foot into A-fib last night he is less short of breath today and states that he is able to take a deeper breath. His chest x-ray shows improved aeration with a persistent left basilar airspace opacity. He continues on IV Lasix 80 mg every 12 hours. his sodium is 136 today. He continues on oxygen v ia nasal cannula. 01/23/2024 Patient evaluated today in follow-up in the medical floor. He continues to report improved shortness of breath overall. He states that he is feeling well he remains in sinus mechanism. He continues on a combination of oral amiodarone and oral metoprolol he remains on IV Lasix 80 mg every 12 hours adequate urine output. not Quite ready for discharge. 01/24/2024 Patient is seen in follow-up today with cardiology and pulmonary following. Patient continues on IV Lasix reports his breathing is improved and has been noted to be taking oxygen off. Per nursing staff patient oxygen saturations drop to 90% and chronically wears 3 L. Patient does have a CPAP in the home as well. Plan is for patient to return home and will continue with home care. Will discuss with cardiology and pulmonary regarding diuretics with possible discharge planning in the next 24 hours. 01/25/2024 Was evaluated in follow-up on the medical floor. He is sitting in the chair. He continues to report feeling less short of breath overall. He remains in normal sinus mechanism. Patient is a combination of oral amiodarone and oral metoprolol. Has been transition to oral Lasix at 40 mg twice a day. Elaina on oxygen via nasal cannula to 3 L with oxygen saturations of 96%. Patient does have a CPAP at home however he states that secondary to his extreme weakness in his right upper extremity as well as essentially nonuse of his left upper extremity he is unable to utilize the CPAP as he gets up frequently throughout the night to use the bathroom and is unable to put it back on. 01/26/2024 Patient evaluated today resting in the chair. Remains in normal sinus rhythm. Currently on oral lasix 40 mg po BID. He continues on oral diamox. Patient is pending re evaluation by physical therapy as he has had prolonged hospital stay with increased weakness. May benefit from ROBERT on discharge. 01/27/2024 Patient is evaluated in follow-up resting in the chair. Patient does not want to go to subacute rehab but would be open to it. He will be reevaluated by physical therapy tomorrow and will make a decision for discharge planning. He continues on oral Lasix as well as oral Diamox. His blood work is improved today with a sodium level of 137, potassium 3.7, BUN of 26, creatinine 1.23. He is 96% on 3 L of oxygen via nasal cannula. 01/28/2024 Patient is today sitting up in the chair. He was evaluated by physical therapy and the plan remains to discharge home with home care. Patient does reports increased weight has gained about 2.5 pounds since being taken off IV Lasix. He did receive a dose of IV Lasix last night and will receive a second dose of IV Lasix today. His chest x-ray does continue to show bilateral pleural effusions. He remains on Diamox. Blood work today reveals a sodium level of 139 potassium 4.1 BUN of 26 creatinine of 1.22. He is 99% on 3 L of oxygen via nasal cannula. REVIEW OF SYSTEMS: CONSTITUTIONAL: No fever, no malaise, reports extreme fatigue. HEENT: No recent visual problems or hearing problems. Denied any sore throat. CARDIOVASCULAR: No chest pain, orthopnea, PND, no palpitations, no syncope. PULMONARY: Reports continued shortness of breath, no cough, no hemoptysis. GASTROINTESTINAL: No diarrhea, no nausea, no vomiting, no abdominal pain. NEUROLOGICAL: No headaches, reports of generalized weakness, reports left-sided numbness and inability to move, right sided tingling and numbness starting in the hands. PHYSICAL EXAMINATION: GENERAL: The patient is alert and oriented x3, not in any acute distress. Well developed, elderly appearing, obese HEENT: Pupils are round and equally reacting to light. EOMI. No scleral icterus. No conjunctival pallor. Normocephalic, atraumatic. No pharyngeal erythema. No thyromegaly. CARDIOVASCULAR: S1 and S2 muffled, currently sinus PULMONARY: Diminished breath sounds bilaterally with some faint crackles noted at the bases. ABDOMEN: Soft, obese, nontender, nondistended, normoactive bowel sounds. No palpable organomegaly. MUSCULOSKELETAL: No joint swelling or deformity. EXTREMITIES: No cyanosis, clubbing, or pedal edema. Bilateral lower extremity swelling is improving, nonpitting NEUROLOGICAL: Left upper extremity weakness with decreased hand grasp. mild right upper extremity weakness. SKIN: No rashes. Assessment: Acute on chronic heart failure diastolic dysfunction with ejection fraction of 50 to 55% Acute on chronic hypoxic and hypercarbic respiratory failure secondary to above with noncompliance with his home CPAP Obstructive sleep apnea with CPAP use has been noncompliant Oxygen dependent COPD Left lower lobe infiltrate concern for hospital acquired pneumonia as he has had multiple recent hospitalizations. Paroxysmal Atrial fibrillation anticoagulant with Eliquis recently cardioverted at [facility]. Currently in atrial fibrillation status post cardioversion 01/18/2024. Cardizem discontinued and currently rate controlled. Patient is now maintained in sinus mechanism. Hypertension Hyperlipidemia Recent cervical C3-C7 ACDF on November 27, 2023 Left upper extremity weakness with right hand tingling and numbness at times, possibly secondary to recent cervical surgery Gastroesophageal reflux disease Obesity with a BMI of 36.3 GI prophylaxis DVT prophylaxis DNR Plan: Lisinopril, procardia and carvedilol are discontinued. Cardiology following patient was maintained on Cardizem underwent cardioversion for symptomatic persistent atrial fibrillation. Patient reports he had cardioversion done a few weeks ago at the other hospital that converted back into A-fib RVR. Cardiology following and Cardizem has been stopped. Patient continues in normal sinus mechanism. Combination of oral amiodarone, oral metoprolol and will be started on oral Aldactone. Patient has been transition to oral Lasix 40 mg twice a day he reports increased leg edema and shortness of breath since being taken off the IV lasix. He received a one time dose of IV lasix last night and will receive a second dose of IV lasix today. Pulmonary and cardiology following and has been instructed to get his CPAP machine from home for continued use. Procalcitonin was normal at 0.06. Encourage incentive spirometer use at least 10 times every hour while awake Continue cardiac telemetry PT/OT consulted and patient reports he walked up and down the jeff and does continue with exertion and shortness of breath with weakness. Patient continues to elicit left upper extremity weakness and reports his left arm is nonfunctional, right hand having some occasional numbness and tingling. Neurology is following. Patient has completed extensive neurological workup i ncluding stroke workups and 3 EMGs most recently in [place] that were negative and ALS was ruled out Encourage increase activity as tolerated. Plans for home with home care on discharge in the next 24 hours. The impression and plan of care has been dictated by Delilah Vargas, nurse Practitioner as directed. Dr. Raiza MD I have performed a history and physical examination and medical decision making of this patient, discussed the same with the dictator, and agree with the dic tators assessment and plan as written, documented as a scribe. Based on total visit time, I have performed more than 50% of this visit. Objective - Vital Signs Vital signs: Vital Signs Temp 97.8 F 01/28/24 21:17 Pulse 68 01/28/24 21:17 Resp 17 01/28/24 21:17 BP 164/77 01/28/24 21:17 Pulse Ox 99 01/28/24 21:17 FiO2 35 01/18/24 13:06 Intake & Output 01/28/24 01/28/24 01/29/24 06:59 18:59 06:59 Intake Total 938 480 Output Total 1100 900 Balance -1100 38 480 Weight 130.2 kg Intake: Oral 938 480 Output: Urine 1100 900 Other: Voiding Method External Catheter External Catheter External Catheter - Labs CBC & Chem 7: 01/19/24 06:35 01/28/24 05:47 Labs: Abnormal Lab Results - Last 24 Hours (Table) 01/28/24 Range/Units 05:47 Chloride 94 L (98-107) mmol/L Carbon Dioxide 35 H (22-30) mmol/L BUN 26 H (9-20) mg/dL Glucose 124 H (74-99) mg/dL Assessment and Plan Time with Patient: Less than 30
[2024-01-29 07:59] LABS: African American GFR (CKD) 76 (>60 ml/min/1.73 sqM); Blood Urea Nitrogen 23 mg/dL (9-20); Calcium 9.2 mg/dL (8.4-10.2); Chloride 92 mmol/L (98-107); Glucose 124 mg/dL (74-99); Non-African American GFR(CKD) 66 (>60 ml/min/1.73 sqM); Potassium 3.9 mmol/L (3.5-5.1); Sodium 139 mmol/L (137-145)
[2024-01-29 08:07] LABS: Anion Gap 6 mmol/L
[2024-01-29 08:33] LABS: Carbon Dioxide 41 mmol/L (22-30)
--- NOTE | 2024-01-29 13:22 | P.CNNES ---
History of Present Illness Consult date: 01/29/24 Reason for Consult: History of progressive left arm weakness, now with p rogressive right arm we Chief complaint: "I have been worked up for this with multiple studies and no one is found a History of Present Illness: Mr. Licea is a 68-year-old right-handed male with history of atrial fibrillation for which he takes Eliquis at, COPD, gastropathy reflux disease, hyperlipidemia, hypertension, and sleep apnea for which he used to use CPAP. Patient was admitted to [facility] on January 14 with some shortness of breath as well as progressive weakness of his left arm for reportedly 6 months prior to evaluation. He does note some twitching of his left arm. Dr. Giuseppe Moffett was consulted and saw him on January 15. He has had history of multiple spine MRIs as well as C3-7 surgery in November of this year which did not help. EMG studies were nonrevealing but the patient believes that he may have ALS. He has been through some rounds of steroids as well with no effect. On my exam he notes progressive weakness of his left arm for approximately 6 months which was not improved by his spine surgery in November. Following the surgery his right arm began to get weak and has been doing so for approximately 1 month. His left arm is flaccid in nature and is not able to move it however he is able to raise his right arm somewhat but he has fine finger movement if use with his wrist. Neurology was consulted for further management recommendations. Review of Systems All systems: negative Respiratory: Reports dyspnea, Reports sleep apnea Musculoskeletal: Reports neck pain, Reports neck stiffness Past Medical History Past Medical History: Atrial Fibrillation, COPD, GERD/Reflux, Hyperlipidemia, Hypertension, Sleep Apnea/CPAP/BIPAP Additional Past Medical History / Comment(s): Asthma as child, hx. of a-fib-no episodes of in last year, uses CPAP, left arm very weak due to neck, RLS, CTS lolis, lower legs swell History of Any Multi-Drug Resistant Organisms: None Reported Past Surgical History: Adenoidectomy, Orthopedic Surgery, Tonsillectomy Additional Past Surgical History / Comment(s): colonoscopy, c3-c7 fusion Past Anesthesia/Blood Transfusion Reactions: No Reported Reaction Past Psychological History: Anxiety Smoking Status: Never smoker Past Alcohol Use History: None Reported Past Drug Use History: None Reported - Past Family History Father Family Medical History: No Reported History Additional Family Medical History / Comment(s): Dad is 82 and healthy. Mother Family Medical History: No Reported History Additional Family Medical History / Comment(s): Mom is 82 and healthy. Medications and Allergies Home Medications Medication Instructions Recorded Confirmed Type Pravastatin Sodium 40 mg PO DAILY 11/10/15 01/15/24 History Aspirin [Chelan Aspirin EC] 81 mg PO DAILY 09/30/20 01/15/24 History DULoxetine HCL [Cymbalta] 30 mg PO DAILY 09/30/20 01/15/24 History Multivitamins, Thera [Multivitamin 1 tab PO DAILY 11/22/23 01/15/24 History (formulary)] Omeprazole [PriLOSEC] 20 mg PO AC-BRKFST 11/22/23 01/15/24 History rOPINIRole HCL [Requip] 0.5 mg PO HS 11/22/23 01/15/24 History Dapagliflozin Propanediol [Farxiga] 10 mg PO DAILY #30 tab 12/12/23 01/15/24 Rx Apixaban [Eliquis] 5 mg PO BID 01/15/24 01/15/24 History Gabapentin [Neurontin] 300 mg PO TID 01/15/24 01/15/24 History Amiodarone [Cordarone] 200 mg PO DIRECTED #37 tab 01/29/24 Rx Furosemide [Lasix] 40 mg PO BID@0900,1600 #60 tab 01/29/24 Rx Ipratropium-Albuterol Nebulize 3 ml INHALATION QID PRN #20 each 01/29/24 Rx [Duoneb 0.5 mg-3 mg/3 ml Soln] Metoprolol Tartrate [Lopressor] 50 mg PO BID #60 tab 01/29/24 Rx Pantoprazole [Protonix] 40 mg PO AC-BRKFST #30 tab 01/29/24 Rx Spironolactone [Aldactone] 25 mg PO DAILY #30 tab 01/29/24 Rx acetaZOLAMIDE [Diamox] 250 mg PO DAILY #30 tab 01/29/24 Rx lisinopriL [Zestril] 20 mg PO DAILY #30 tab 01/29/24 Rx Allergies Allergy/AdvReac Type Severity Reaction Status Date / Time No Known Allergies Allergy Verified 01/15/24 07:24 Physical Examination - Vital Signs Vital Signs: Vital Signs Temp Pulse Pulse Pulse Resp BP BP 01/29/24 12:00 98 F 67 20 124/70 01/29/24 09:06 72 01/29/24 08:52 70 01/29/24 08:00 97.8 F 71 20 137/69 01/29/24 03:43 61 17 161/72 01/28/24 23:10 71 17 137/68 01/28/24 21:17 97.8 F 72 68 17 164/77 01/28/24 21:06 75 01/28/24 16:04 60 01/28/24 15:52 61 01/28/24 15:50 98.1 F 61 16 146/68 01/28/24 13:26 60 67 16 Pulse Ox 01/29/24 12:00 97 01/29/24 09:06 01/29/24 08:52 01/29/24 08:00 96 01/29/24 03:43 96 01/28/24 23:10 98 01/28/24 21:17 99 01/28/24 21:06 01/28/24 16:04 01/28/24 15:52 01/28/24 15:50 97 01/28/24 13:26 Intake and Output 01/28/24 01/29/24 01/29/24 22:59 06:59 14:59 Intake Total 480 480 180 Output Total 900 450 Balance -420 480 -270 Intake: Oral 480 480 180 Output: Urine 900 450 Other: Voiding Method External Catheter External Catheter External Catheter Weight 129 kg - Constitutional General appearance: cooperative, obese - EENT EENT: PERRL, hearing intact, vision intact - Respiratory Respiratory: chest non-tender, lungs clear, normal breath sounds - Cardiovascular Cardiovascular: regular rate, no murmurs Extremities: no peripheral edema bilaterally - Gastrointestinal Gastrointestinal: normoactive bowel sounds, soft, non-tender - Integumentary Integumentary: normal - Neurologic Cranial nerve examination: PERRL, EOMI, VFF, face symmetric, tongue midline Detailed motor examination: other (The patient has roughly 5/5 strength in his lower extremities bilaterally. His left arm is completely flaccid and he cannot move even the fingers. Right arm he can raise his shoulder but with strength of only approximately 3 out of 5. His bicep strength is roughly 4+ to 5- out of 5. FA 4-/5) Detailed sensory examination: intact, other (The patient does not report any sensory deficit to light touch or pinprick over bilateral arms or legs. There is noes evidence of radiculopathic pain or numbness.) Reflex and gait examination: other (I do not see any evidence of enhanced reflexes or clonus. He does not have any evidence of spasticity at the elbows or knees. No ankle clonus is present either) - Psychiatric Psychiatric: mood/affect appropriate Results CT scan noncontrast of the brain from January 15 reveals only evidence of small vessel disease without infarct. There has been no MRI studies not performed recently. - Laboratory Findings CBC and BMP: 01/19/24 06:35 01/29/24 06:54 Abnormal Lab Findings: Abnormal Labs 01/15/24 01/15/24 01/15/24 02:05 02:05 02:05 WBC 12.7 H MCV MCHC Immature Gran # Neutrophils # 10.4 H Lymphocytes # ABG pCO2 ABG pO2 ABG HCO3 ABG Total CO2 ABG O2 Saturation VBG pH VBG pCO2 VBG HCO3 Sodium Potassium Chloride 93 L Carbon Dioxide 42 H* Anion Gap BUN 27 H BUN/Creatinine Ratio Glucose 125 H POC Glucose (mg/dL) Calcium Total Protein 6.1 L Total Protein (PEP) 5.6 L Albumin Albumin (PEP) 3.40 L Gamma Globulins 0.63 L 01/15/24 01/15/24 01/16/24 02:15 12:18 04:59 WBC 13.77 H MCV 97.8 H MCHC 30.6 L Immature Gran # 0.12 H Neutrophils # 11.26 H Lymphocytes # ABG pCO2 71 H* ABG pO2 ABG HCO3 46 H* ABG Total CO2 48 H ABG O2 Saturation 97.1 H VBG pH 7.47 H VBG pCO2 58 H VBG HCO3 42 H Sodium Potassium Chloride Carbon Dioxide Anion Gap BUN BUN/Creatinine Ratio Glucose POC Glucose (mg/dL) Calcium Total Protein Total Protein (PEP) Albumin Albumin (PEP) Gamma Globulins 01/16/24 01/16/24 01/17/24 04:59 10:03 06:58 WBC MCV MCHC Immature Gran # Neutrophils # Lymphocytes # ABG pCO2 74 H* ABG pO2 68 L ABG HCO3 48 H* ABG Total CO2 50 H ABG O2 Saturation 93.8 L VBG pH VBG pCO2 VBG HCO3 Sodium 136 L Potassium 3.4 L Chloride 90 L 88 L Carbon Dioxide 38.1 H 39 H Anion Gap 12.90 H BUN 27.4 H 37 H BUN/Creatinine Ratio 27.40 H Glucose 133 H 154 H POC Glucose (mg/dL) Calcium Total Protein 5.6 L Total Protein (PEP) Albumin 3.6 L Albumin (PEP) Gamma Globulins 01/17/24 01/19/24 01/19/24 06:58 06:35 06:35 WBC 12.1 H 10.7 H MCV MCHC Immature Gran # Neutrophils # 9.8 H 8.9 H Lymphocytes # 0.9 L ABG pCO2 ABG pO2 ABG HCO3 ABG Total CO2 ABG O2 Saturation VBG pH VBG pCO2 VBG HCO3 Sodium Potassium 3.3 L Chloride 88 L Carbon Dioxide 42 H* Anion Gap BUN 25 H BUN/Creatinine Ratio Glucose 161 H POC Glucose (mg/dL) Calcium Total Protein 6.1 L Total Protein (PEP) Albumin Albumin (PEP) Gamma Globulins 01/20/24 01/20/24 01/21/24 08:02 10:31 06:32 WBC MCV MCHC Immature Gran # Neutrophils # Lymphocytes # ABG pCO2 ABG pO2 ABG HCO3 ABG Total CO2 ABG O2 Saturation VBG pH VBG pCO2 VBG HCO3 Sodium Potassium 3.2 L Chloride 89 L 87 L Carbon Dioxide 45 H* 43 H* Anion Gap BUN 23 H 25 H BUN/Creatinine Ratio Glucose 165 H 166 H POC Glucose (mg/dL) 124 H Calcium 7.9 L 8.3 L Total Protein Total Protein (PEP) Albumin Albumin (PEP) Gamma Globulins 01/21/24 01/22/24 01/23/24 20:28 06:38 06:06 WBC MCV MCHC Immature Gran # Neutrophils # Lymphocytes # ABG pCO2 ABG pO2 ABG HCO3 ABG Total CO2 ABG O2 Saturation VBG pH VBG pCO2 VBG HCO3 Sodium 136 L Potassium 3.4 L Chloride 88 L 87 L Carbon Dioxide 42 H* 44 H* Anion Gap BUN 25 H 26 H BUN/Creatinine Ratio Glucose 147 H 113 H POC Glucose (mg/dL) 290 H Calcium 8.2 L Total Protein Total Protein (PEP) Albumin Albumin (PEP) Gamma Globulins 01/24/24 01/24/24 01/25/24 06:38 06:38 06:11 WBC MCV MCHC Immature Gran # Neutrophils # Lymphocytes # ABG pCO2 ABG pO2 ABG HCO3 ABG Total CO2 ABG O2 Saturation VBG pH VBG pCO2 VBG HCO3 Sodium 135 L Potassium Chloride 88 L 89 L Carbon Dioxide 43 H* 41 H* Anion Gap BUN 25 H 30 H BUN/Creatinine Ratio Glucose 117 H 140 H POC Glucose (mg/dL) Calcium Total Protein 5.8 L Total Protein (PEP) Albumin Albumin (PEP) Gamma Globulins 01/26/24 01/27/24 01/28/24 10:17 05:54 05:47 WBC MCV MCHC Immature Gran # Neutrophils # Lymphocytes # ABG pCO2 ABG pO2 ABG HCO3 ABG Total CO2 ABG O2 Saturation VBG pH VBG pCO2 VBG HCO3 Sodium 136 L Potassium 3.4 L Chloride 89 L 93 L 94 L Carbon Dioxide 40 H 33 H 35 H Anion Gap BUN 24 H 26 H 26 H BUN/Creatinine Ratio Glucose 195 H 136 H 124 H POC Glucose (mg/dL) Calcium Total Protein Total Protein (PEP) Albumin Albumin (PEP) Gamma Globulins 01/29/24 06:54 WBC MCV MCHC Immature Gran # Neutrophils # Lymphocytes # ABG pCO2 ABG pO2 ABG HCO3 ABG Total CO2 ABG O2 Saturation VBG pH VBG pCO2 VBG HCO3 Sodium Potassium Chloride 92 L Carbon Dioxide 41 H* Anion Gap BUN 23 H BUN/Creatinine Ratio Glucose 124 H POC Glucose (mg/dL) Calcium Total Protein Total Protein (PEP) Albumin Albumin (PEP) Gamma Globulins Assessment and Plan Assessment: Mr. Licea is a 68-year-old male with history of atrial fibrillation as well as progressive weakness of his left upper extremity for approximately 6 months. He is undergone spine surgery and had multiple MRI studies without revealing anything as had undergone multiple EMGs which showed no no evidence of amyotrophic lateral sclerosis. He has had now some progressive weakness of the right arm which started approximate 1 month ago. I do not believe the patient has evidence of ALS this he does not appear to have significant spasticity or enhance reflexes. He does report fasciculations but they are only present in the arms, and he does not have swallowing or bulbar difficulty. I am suspicious the he may have some cervical spine issues, but his history of surgery without effect and history of multiple MRI speak against this. I will look into additional diagnoses such as adult onset Pompei disease as well. Plan: 1. I have ordered an MRI of the cervical spine with and without contrast to assess for any evidence of disc disease or foraminal stenosis that could result in the patient's symptoms. 2. I will place him on prednisone 60 mg daily for now to see if there is any improvement in his symptoms with this. 3. I will also start cyclobenzaprine 5 mg 3 times daily to assist with muscle relaxation. 4. Physical therapy has been consulted and will also assist with rehabilitation needs. I suspect he will need may need transfer to a long-term facility as his arms are not sufficient to allow him to eat at this time; however, he has been refused for multiple halfway facilities at this time. Case management should be consulted to assist with proper placement. 5. Neurology will continue to see the patient in house and make further recommendations as needed. Time with Patient: Less than 30
--- NOTE | 2024-01-29 13:33 | P.PN ---
Subjective Progress Note Date: 01/29/24 This is a 68-year-old male with medical history significant for atrial fibrillation, COPD, acid reflux, hyperlipidemia, hypertension, sleep apnea with CPAP use, heart failure. Patient was recently hospitalized December 06 to December 11 for dyspnea and heart failure post cervical surgery. He was discharged home. He then had a hospitalization in the last week at [place] where he underwent cardioversion which was successful. He comes back to the hospital now with complaints of worsening shortness of breath over the last month. He also reports weakness of his bilateral upper extremities and worsening edema of the bilateral lower extremities and his hands. He is reporting orthopnea and dyspnea on exertion. He has been compliant with his diuretic at home. He states that he has not been wearing his CPAP at night because of this weakness that he has been having. Patient does wear oxygen chronically. Chest xray on admission showing no acute findings. No evidence of DVT in the left arm per doppler. White blood cell count 12.7. CO2 47 on admission. Troponin level is negative, his proBNP is not elevated. He has been started on IV Lasix 40 mg every 12 hours. He is admitted under internal medicine with a cardiology and pulmonary consultation. He is currently in atrial fibrillation. 01/16/2024 Patient is evaluated today in follow up on the medical floor. Patient was hypotensive this AM with blood pressure into the 80s systolic was given a 500 CC bolus. He was presyncopal. He was moved to [address] [place] [id number] for closer monitoring. Chest xray this AM reveals no acute cardiopulmonary disease/process. Small left pleural effusion. Brain CT completed negative for acute findings. Continues on IV lasix 80 mg Q12 hours. White blood cell count today 13.77. CO2 better at 38. BUN 27.4 creatinine 1.0. 01/17/2024 Patient evaluated today in follow up on the medical floor. Patient Blood pressur e better today. Remains in atrial fibrillation with controlled ventricular rate. Neurology evaluation recommending to follow up for EMG testing of the lower extremities and continue to follow up with his neurologist and neuromuscular specialist for the upper extremity weakness. Cardiology has adjusted medications discontinued lisinopril, procardia, and carvedilol. Patient will be going for cardioversion tomorrow. 01/18/2024 Patient is seen in follow-up today status post cardioversion currently sinus rhythm with cardiology following closely. Neurology as well as pulmonary also following as patient continues to report left upper extremity flaccidity and reports his right upper extremity is becoming more weak and is noticing tingling and numbness in the right hand. Patient has undergone extensive neurological workups and most recently at [facility] ([facility] including s troke workups that have been negative. ALS per patient was ruled out. Patient continues to be dyspneic with minimal exertion and is winded during conversation taking multiple breaks. Patient is maintained on 2 to 3 L nasal cannula at this time. Recommend PT/OT therapy evaluation and working with the patient daily. 01/19/2024 Patient is evaluated today in follow up on the medical floor. He is currently sitting up in the chair. He now reports that he is unable to use his left arm with his a change from admission. He also reports that he feels weakness in his diaphragm resulting in him being unable to take a deep breath. He is concerned as he feels like he has not been improving since hospitalization. He also feels that he is losing dexterity in his right fingers. He underwent synchronous cardioversion last night he was in sinus rhythm but has since converted back to atrial fibrillation is currently rate controlled and continues on IV Cardizem running at 5 mL/h. Cardiology and pulmonary following the patient closely. Neurology did see the patient in a consultation recommending a neuromuscular specialist on an outpatient basis and noted that ALS was ruled out. A repeat est x-ray today reveals interval development of acute pulmonary disease involving the left lung base. Likely pneumonic infiltrate with small effusion. His blood work today reveals a white blood cell count of 10.7, sodium 138, potassium 3.3, chloride of 88 CO2 of 42, BUN of 25 creatinine of 0.85. 01/20/2024 Patient evaluated in the medical floor in follow-up. Sitting up in the chair he does report improved shortness of breath as his heart rate is better controlled today down into the 60s. he remains in atrial fibrillation though. Remains on IV Lasix 80 mg every 12 hours with a BUN of 23 creatinine of 0.86 sodium level of 139. Potassium level is 3.2. 01/21/2024 Patient is seen in follow-up this morning currently sitting up in the chair report he continues to be shortness of breath with dyspnea and minimal exertion reporting he is not sleeping and feels exhausted. Patient is continued on IV Lasix twice daily and kidney functions remained stable. Potassium 3.5 today recommend potassium supplement daily. Patient continues to have left arm flaccidity and neurology has evaluated the patient. Patient has undergone extensive neurological workup including EMG and has been negative. Patient with overall weakness although is up and walking and able to work with physical therapy would not qualify for physical therapy rehab. Patient is fearful as he lives home alone and has significant comorbidities that he feels he is unable to handle and take care of himself. Patient has been instructed to bring the CPAP machine in from home. Patient is afebrile and denies chest pain or palpitations at this time. Will continue IV Lasix and current medication regimen follow-up with a chest x-ray in the a.m. Patient is currently off Cardizem and heart rate is controlled at this time. 01/22/2024 Patient evaluated today followed up in the medical floor. Patient does state that he foot into A-fib last night he is less short of breath today and states that he is able to take a deeper breath. His chest x-ray shows improved aeration with a persistent left basilar airspace opacity. He continues on IV Lasix 80 mg every 12 hours. his sodium is 136 today. He continues on oxygen v ia nasal cannula. 01/23/2024 Patient evaluated today in follow-up in the medical floor. He continues to report improved shortness of breath overall. He states that he is feeling well he remains in sinus mechanism. He continues on a combination of oral amiodarone and oral metoprolol he remains on IV Lasix 80 mg every 12 hours adequate urine output. not Quite ready for discharge. 01/24/2024 Patient is seen in follow-up today with cardiology and pulmonary following. Patient continues on IV Lasix reports his breathing is improved and has been noted to be taking oxygen off. Per nursing staff patient oxygen saturations drop to 90% and chronically wears 3 L. Patient does have a CPAP in the home as well. Plan is for patient to return home and will continue with home care. Will discuss with cardiology and pulmonary regarding diuretics with possible discharge planning in the next 24 hours. 01/25/2024 Was evaluated in follow-up on the medical floor. He is sitting in the chair. He continues to report feeling less short of breath overall. He remains in normal sinus mechanism. Patient is a combination of oral amiodarone and oral metoprolol. Has been transition to oral Lasix at 40 mg twice a day. Elaina on oxygen via nasal cannula to 3 L with oxygen saturations of 96%. Patient does have a CPAP at home however he states that secondary to his extreme weakness in his right upper extremity as well as essentially nonuse of his left upper extremity he is unable to utilize the CPAP as he gets up frequently throughout the night to use the bathroom and is unable to put it back on. 01/26/2024 Patient evaluated today resting in the chair. Remains in normal sinus rhythm. Currently on oral lasix 40 mg po BID. He continues on oral diamox. Patient is pending re evaluation by physical therapy as he has had prolonged hospital stay with increased weakness. May benefit from ROBERT on discharge. 01/27/2024 Patient is evaluated in follow-up resting in the chair. Patient does not want to go to subacute rehab but would be open to it. He will be reevaluated by physical therapy tomorrow and will make a decision for discharge planning. He continues on oral Lasix as well as oral Diamox. His blood work is improved today with a sodium level of 137, potassium 3.7, BUN of 26, creatinine 1.23. He is 96% on 3 L of oxygen via nasal cannula. 01/28/2024 Patient is today sitting up in the chair. He was evaluated by physical therapy and the plan remains to discharge home with home care. Patient does reports increased weight has gained about 2.5 pounds since being taken off IV Lasix. He did receive a dose of IV Lasix last night and will receive a second dose of IV Lasix today. His chest x-ray does continue to show bilateral pleural effusions. He remains on Diamox. Blood work today reveals a sodium level of 139 potassium 4.1 BUN of 26 creatinine of 1.22. He is 99% on 3 L of oxygen via nasal cannula. 01/29/2024 Patient reporting worsening right upper extremity weakness and concerns with discharge home. This has been increasingly weak over this hospital stay. He has been able to ambulate without difficulty. Patient does want subacute rehab was evaluated by physical therapy and the current recommendation is home with homecare. Patient remains in normal sinus rhythm and continues on oral amiodarone twice daily. Labs today reveal sodium 139, potassium 3.9, BUN 23, cre atinine 1.16, CO2 41. He is on 3L of oxygen via nasal cannula. REVIEW OF SYSTEMS: CONSTITUTIONAL: No fever, no malaise, reports extreme fatigue. HEENT: No recent visual problems or hearing problems. Denied any sore throat. CARDIOVASCULAR: No chest pain, orthopnea, PND, no palpitations, no syncope. PULMONARY: Reports continued shortness of breath, no cough, no hemoptysis. GASTROINTESTINAL: No diarrhea, no nausea, no vomiting, no abdominal pain. NEUROLOGICAL: No headaches, reports of generalized weakness, reports left-sided numbness and inability to move, right sided tingling and numbness starting in the hands and increased weakness per the patient. PHYSICAL EXAMINATION: GENERAL: The patient is alert and oriented x3, not in any acute distress. Well developed, elderly appearing, obese HEENT: Pupils are round and equally reacting to light. EOMI. No scleral icterus. No conjunctival pallor. Normocephalic, atraumatic. No pharyngeal erythema. No thyromegaly. CARDIOVASCULAR: S1 and S2 muffled, currently sinus PULMONARY: Diminished breath sounds bilaterally with some faint crackles noted at the bases. ABDOMEN: Soft, obese, nontender, nondistended, normoactive bowel sounds. No palpable organomegaly. MUSCULOSKELETAL: No joint swelling or deformity. EXTREMITIES: No cyanosis, clubbing, or pedal edema. Bilateral lower extremity swelling is improving, nonpitting NEUROLOGICAL: Left upper extremity essentially flaccid. mild right upper extremity weakness. SKIN: No rashes. Assessment: Acute on chronic heart failure diastolic dysfunction with ejection fraction of 50 to 55% Acute on chronic hypoxic and hypercarbic respiratory failure secondary to above with noncompliance with his home CPAP Obstructive sleep apnea with CPAP use has been noncompliant Oxygen dependent COPD Left lower lobe infiltrate concern for hospital acquired pneumonia as he has had multiple recent hospitalizations. Paroxysmal Atrial fibrillation anticoagulant with Eliquis recently cardioverted at [facility]. status post cardioversion 01/18/2024. Cardizem discontinued and currently rate controlled. Patient is now maintained in sinus mechanism. Hypertension Hyperlipidemia Recent cervical C3-C7 ACDF on November 27, 2023 Left upper extremity weakness with right hand tingling and numbness at times and has had progressive upper extremity weakness in the right since admission with his left arm now essentially flaccid. possibly secondary to recent cervical surgery Gastroesophageal reflux disease Obesity with a BMI of 36.3 GI prophylaxis DVT prophylaxis DNR Plan: Lisinopril, procardia and carvedilol are discontinued. Cardiology following patient was maintained on Cardizem underwent cardioversion for symptomatic persistent atrial fibrillation. Patient reports he had cardioversion done a few weeks ago at the other hospital that converted back into A-fib RVR. Cardiology following and Cardizem has been stopped. Patient continues in normal sinus mechanism. Combination of oral amiodarone, oral metoprolol and will be started on oral Aldactone. Patient has been transition to oral Lasix 40 mg twice a day Pulmonary and cardiology following and has been instructed to get his CPAP machine from home for continued use. Patient reports difficulty with using the CPAP at home due to his upper extremity weakness. Encourage incentive spirometer use at least 10 times every hour while awake Continue cardiac telemetry PT/OT consulted and patient reports he walked up and down the jeff and does continue with exertion and shortness of breath with weakness. Patient continues to elicit left upper extremity weakness and reports his left arm is nonfunctional, right hand having some occasional numbness and tingling. He now reports worsening right upper extremity weakness. Neurology initially evaluated the patient. Patient has completed extensive neurological workup including stroke workups and 3 EMGs most recently in [place] that were negative and ALS was ruled out. Now with the reports of worsening weakness in the upper extremities neurology consultation to reevaluate the patient has been placed. Further recommendations pending. Encourage increase activity as tolerated. Plans for home with home care on discharge although patient is requesting subacute rehabilitation on discharge as he feels he will be unable to care for himself at home with only 1 functioning arm. The impression and plan of care has been dictated by Delilah Vargas, nurse Practitioner as directed. Dr. Raiza MD I have performed a history and physical examination and medical decision making of this patient, discussed the same with the dictator, and agree with the dictators assessment and plan as written, documented as a scribe. Based on total visit time, I have performed more than 50% of this visit. Objective - Vital Signs Vital signs: Vital Signs Temp 98 F 01/29/24 12:00 Pulse 67 01/29/24 12:00 Resp 20 01/29/24 12:00 BP 124/70 01/29/24 12:00 Pulse Ox 97 01/29/24 12:00 FiO2 35 01/18/24 13:06 Intake & Output 01/28/24 01/29/24 01/29/24 18:59 06:59 18:59 Intake Total 938 960 180 Output Total 900 450 Balance 38 960 -270 Weight 129 kg Intake: Oral 938 960 180 Output: Urine 900 450 Other: Voiding Method External Catheter External Catheter External Catheter - Labs CBC & Chem 7: 01/19/24 06:35 01/29/24 06:54 Labs: Abnormal Lab Results - Last 24 Hours (Table) 01/29/24 Range/Units 06:54 Chloride 92 L (98-107) mmol/L Carbon Dioxide 41 H* (22-30) mmol/L BUN 23 H (9-20) mg/dL Glucose 124 H (74-99) mg/dL Assessment and Plan Time with Patient: Less than 30
[2024-01-30 03:46] VITALS: TEMP 97.4
[2024-01-30] MEDS: predniSONE 20 MG TAB PO SCH (09:17)
[2024-01-30] MEDS: CYCLOBENZAPRINE 5 MG TAB PO PRN (09:17)
--- NOTE | 2024-01-30 09:55 | P.PN ---
Subjective Progress Note Date: 01/30/24 Principal diagnosis: Progressive left greater than right arm weakness in the setting of failed cervical spine surgery. Mr. Licea is a 68-year-old right-handed male with history of atrial fibrillation for which he takes Eliquis at, COPD, gastropathy reflux disease, hyperlipidemia, hypertension, and sleep apnea for which he used to use CPAP. Patient was admitted to [facility] on January 14 with some shortness of breath as well as progressive weakness of his left arm for reportedly 6 months prior to evaluation. He does note some twitching of his left arm. Dr. Giuseppe Moffett was consulted and saw him on January 15. He has had history of multiple spine MRIs as well as C3-7 surgery in November of this year which did not help. EMG studies were nonrevealing but the patient believes that he may have ALS. He has been through some rounds of steroids as well with no effect. On my exam he notes progressive weakness of his left arm for approximately 6 months which was not improved by his spine surgery in November. Following the surgery his right arm began to get weak and has been doing so for approximately 1 month. His left arm is flaccid in nature and is not able to move it however he is able to raise his right arm somewhat but he has fine finger movement if use with his wrist. Neurology was consulted for further management recommendations. When seen January, his left arm was flaccid, and he had 4- out of 5 strength in his left shoulder with 4+ out of 5 strength in his left biceps and finger intrinsics 4- out of 5. An MRI of the cervical spine was ordered with and without contrast to assess for persistent disc disease or compression of the nerves, and he was placed on prednisone 60 mg daily in addition to the tizanidine 2 mg 3 times daily. When reassessed on January 29, he initially did not feel there was any improvement, and nursing notes that he was unable to move his left hand. However, on my assessment (with encouragement), the patient was able to move his left arm with bicep strength of roughly 3 out of 5 (gravity eliminated), though he was not able to move his left shoulder. Right arm was improved as well with shoulder strength of 4 out of 5, bicep strength 5- out of 5, and finger intrinsic strength of 4 out of 5. The patient expressed some level of amazement and encouragement, and also noted when questioned that he did not receive physical therapy following his C3-7 surgery in November. I believe the patient has likely a component of debilitation secondary to lack of physical therapy, and I believe with thorough physical therapy and arranging of his arms as well as repeated attempts at movement, he may likely recover some degree of function. Patient only noted fasciculations in his left arm a few months ago and these are absent at this time. He also does not have any evidence of fasciculations of his tongue, and has 4-5 EMGs documenting absence of characteristics of amyotrophic lateral sclerosis. I do not believe he has any component of muscular dystrophy, nor do I believe he has adult onset Pompe disease, as his legs are roughly 5 out of 5 and this disease will affect leg lower extremity strength. Assessment and Plan Assessment: Mr. Licea is a 68-year-old male with history of atrial fibrillation as well as progressive weakness of his left upper extremity for approximately 6 months. He is undergone spine surgery and had multiple MRI studies without revealing anything as had undergone multiple EMGs which showed no no evidence of amyotrophic lateral sclerosis. He has had now some progressive weakness of the right arm which started approximate 1 month ago. I do not believe the patient has evidence of ALS this he does not appear to have significant spasticity or enhance reflexes. He does report fasciculations but they are only present in the arms, and he does not have swallowing or bulbar difficulty. I am suspicious the he may have some cervical spine issues, but his history of surgery without effect and history of multiple MRI speak against this. Plan: 1. I have ordered an MRI of the cervical spine with and without contrast to assess for any evidence of disc disease or foraminal stenosis that could result in the patient's symptoms. 2. He has had some improvement in his muscle strength on both the right and left sides with prednisone 60 mg daily (this honestly had not been given prior to my assessment) as well as tizanidine 2 mg 3 times daily. I think these medication should continue at the present time and I may instruct on a weaning dose of prednisone once patient's diagnosis and clinical course appears more clear. 3. Physical therapy has been consulted on the patient and I would encourage them to be aggressive with range of motion and strengthening exercises. The patient appears significantly motivated and is excited about his possibility of improvement. 4. Neurology will continue to follow the patient in house and make further recommendations as needed. Objective - Vital Signs Vital signs: Vital Signs Temp 97.4 F L 01/30/24 03:43 Pulse 76 01/30/24 08:58 Resp 16 01/30/24 03:43 BP 141/67 01/30/24 03:43 Pulse Ox 97 01/30/24 03:43 FiO2 35 01/18/24 13:06 Intake & Output 01/29/24 01/30/24 01/30/24 18:59 06:59 18:59 Intake Total 600 180 Output Total 1050 1150 900 Balance -450 -1150 -720 Weight 139.7 kg Intake: Oral 600 180 Output: Urine 1050 1150 900 Other: Voiding Method External Catheter External Catheter - Labs CBC & Chem 7: 01/19/24 06:35 01/29/24 06:54
--- NOTE | 2024-01-30 12:21 | XR ---
EXAMINATION TYPE: XR chest 1V portable DATE OF EXAM: 01/30/2024 12:15 PM COMPARISON: Chest radiographs from 01/28/2024 CLINICAL INDICATION: Male, 68 years old with history of CHF; TECHNIQUE: XR chest 1V portable Frontal view of the chest. FINDINGS: Lungs/Pleura: There is no evidence of pleural effusion, focal consolidation, or pneumothorax. Pulmonary vascularity: Pulmonary vascular congestion. Heart/mediastinum: Cardiomediastinal silhouette is enlarged. Musculoskeletal: No acute osseous pathology. There is fixation hardware in the lower cervical spine. Other findings: None Lines/Tubes: IMPRESSION: Cardiomegaly and mild pulmonary vascular congestion. Correlate with BNP for congestive heart failure. [facility], , 01/30/2024 12:18 PM
[2024-01-30] MEDS: FUROSEMIDE 10 MG/ML 4 ML VIAL IV STA (13:22)
[2024-01-30 14:53] VITALS: RESP 18
[2024-01-30 19:34] VITALS: BP 120/74; PULSE 62
--- NOTE | 2024-01-31 08:55 | DS ---
DISCHARGE SUMMARY FINAL DIAGNOSES: 1. Congestive heart failure, acute exacerbation with acute on chronic diastolic dysfunction. 2. Obstructive sleep apnea. 3. Acute on chronic hypoxic and hypercarbic respiratory failure with noncompliance with CPAP. 4. Left lower lobe infiltrate. 5. Paroxysmal atrial fibrillation. 6. Weakness. DISCHARGE DISPOSITION: The patient will be discharged in a stable condition and guarded prognosis. HISTORY OF PRESENT ILLNESS: This is a 68-year-old gentleman with a past medical history, admitted with shortness of breath and multiple medical problems. The patient also had weakness, so Neurology recommended MRI, could not be done. Recommended close followup with neurologist in [facility] as well as [facility]. Chest x-ray improved, so the patient will be discharged in stable and guarded prognosis. DISCHARGE MEDICATIONS: The patient will be recommended a course of intensive bronchodilators, tapering steroids and order for CPAP. Continue with diuretics. Followup labs with Dr. Vandana Gallardo. Follow up with Cardiology, Neurology and Pulmonology as recommended. MMODL / IJN: [id number] /
== END 2024-01-30 17:22 | disposition home or self-care (01) | DRG 291 ==
LOC: EC 01:36 → 4SSUR 03:41 → 5NMEDONC 04:52 → 3SCARD 01-16 13:16
PROVIDERS: ADMIT Internal Medicine; ATTEND Internal Medicine
PROC: 3E033RZ Introduction of Antiarrhythmic into Peripheral Vein, Percutaneous Approach (ICD-10-PCS; 2024-01-18)
PROC: 5A2204Z Restoration of Cardiac Rhythm, Single (ICD-10-PCS; principal; 2024-01-18 13:00)
DX: I11.0 Hypertensive heart disease with heart failure (principal); I50.33 Acute on chronic diastolic (congestive) heart failure; J96.21 Acute and chronic respiratory failure with hypoxia; J96.22 Acute and chronic respiratory failure with hypercapnia; I48.19 Other persistent atrial fibrillation; J98.11 Atelectasis; E66.2 Morbid (severe) obesity with alveolar hypoventilation; E87.4 Mixed disorder of acid-base balance; G95.89 Other specified diseases of spinal cord; K21.9 Gastro-esophageal reflux disease without esophagitis; E78.5 Hyperlipidemia, unspecified; J44.9 Chronic obstructive pulmonary disease, unspecified; G62.9 Polyneuropathy, unspecified; Z66 Do not resuscitate; I95.9 Hypotension, unspecified; J98.6 Disorders of diaphragm; F41.9 Anxiety disorder, unspecified; G56.21 Lesion of ulnar nerve, right upper limb; I25.10 Atherosclerotic heart disease of native coronary artery without angina pectoris; Z91.199 Patient's noncompliance with other medical treatment and regimen due to unspecified reason; Z79.82 Long term (current) use of aspirin; Z68.39 Body mass index [BMI] 39.0-39.9, adult; Z99.81 Dependence on supplemental oxygen
CPT/HCPCS: 36415; 36600; 70450; 71045; 71046; 80048; 80053; 80076; 82803; 82805; 83605; 83735; 83880; 83883; 84145; 84165; 84484; 85025; 85610; 85730; 92960; 93005; 94640; 94760; 96374; 96375; 99285

== ENCOUNTER 2024-02-15 12:54 | Emergency (ER) | payer MEDICARE, OTHER ==
[2024-02-15 13:22] VITALS: BP 195/93; PULSE 58; RESP 20; TEMP 98.1
--- NOTE | 2024-02-15 13:22 | ED ---
SOB HPI <Melissa Power - Last Filed: 02/15/24 13:23> <Andrea Brown - Last Filed: 02/15/24 15:07> - General Stated Complaint: Congestive heart failure Time Seen by Provider: 02/15/24 13:21 - History of Present Illness Initial Comments: Quick [id number] male with history of CHF presenting for shortness of breath. States he was sent by Dr. Ross for concern for CHF exacerbation to hypertension and bilateral extremity edema. Patient has not been taking Lasix due to frequent urination and thirst. (TonoMelissa) This is a 68-year-old male with a past medical history significant for congestive heart failure. Patient states he started not taking his Lasix recently and he has noticed increased edema in his legs he went and saw his primary medical care doctor and she wanted him to come in to be evaluated for congestive heart failure. Patient is told me that he did not feel like he had congestive heart because he did not feel more short of breath. Patient states she in particular wanted him to get a BNP. Patient states he has had no chest pain or palpitations. Patient states that he does not have pulmonary edema he does not want to be in the emergency department or hospital. (Andrea Brown) - Related Data Home Medications Medication Instructions Recorded Confirmed Pravastatin Sodium 40 mg PO DAILY 11/10/15 01/15/24 Aspirin [[place] Aspirin EC] 81 mg PO DAILY 09/30/20 01/15/24 DULoxetine HCL [Cymbalta] 30 mg PO DAILY 09/30/20 01/15/24 Multivitamins, Thera [Multivitamin 1 tab PO DAILY 11/22/23 01/15/24 (formulary)] Omeprazole [PriLOSEC] 20 mg PO AC-BRKFST 11/22/23 01/15/24 rOPINIRole HCL [Requip] 0.5 mg PO HS 11/22/23 01/15/24 Apixaban [Eliquis] 5 mg PO BID 01/15/24 01/15/24 Gabapentin [Neurontin] 300 mg PO TID 01/15/24 01/15/24 Previous Rx's Medication Instructions Recorded Dapagliflozin Propanediol [Farxiga] 10 mg PO DAILY #30 tab 12/12/23 Amiodarone [Cordarone] 200 mg PO DIRECTED #37 tab 01/29/24 Furosemide [Lasix] 40 mg PO BID@0900,1600 #60 tab 01/29/24 Metoprolol Tartrate [Lopressor] 50 mg PO BID #60 tab 01/29/24 Pantoprazole [Protonix] 40 mg PO AC-BRKFST #30 tab 01/29/24 Spironolactone [Aldactone] 25 mg PO DAILY #30 tab 01/29/24 acetaZOLAMIDE [Diamox] 250 mg PO DAILY #30 tab 01/29/24 lisinopriL [Zestril] 20 mg PO DAILY #30 tab 01/29/24 Budesonide-Formot 160-4.5 Mcg 2 puff INHALATION BID #1 each 01/30/24 [Symbicort 160-4.5 Mcg Inhaler] Ipratropium-Albuterol Nebulize 3 ml INHALATION QID #120 ml 01/30/24 [Duoneb 0.5 mg-3 mg/3 ml Soln] predniSONE 10 mg PO DIRECTED #30 tab 01/30/24 Allergies Allergy/AdvReac Type Severity Reaction Status Date / Time No Known Allergies Allergy Verified 02/15/24 13:17 Review of Systems ROS Other: All systems not noted in ROS Statement are negative. <Melissa Power - Last Filed: 02/15/24 13:23> ROS Other: All systems not noted in ROS Statement are negative. <Andrea Brown - Last Filed: 02/15/24 15:07> ROS Statement: Those systems with pertinent positive or pertinent negative responses have been documented in the HPI. Past Medical History Past Medical History: Atrial Fibrillation, COPD, GERD/Reflux, Hyperlipidemia, Hypertension, Sleep Apnea/CPAP/BIPAP Additional Past Medical History / Comment(s): Asthma as child, hx. of a-fib-no episodes of in last year, uses CPAP, left arm very weak due to neck, RLS, CTS lolis, lower legs swell History of Any Multi-Drug Resistant Organisms: None Reported Past Surgical History: Adenoidectomy, Orthopedic Surgery, Tonsillectomy Additional Past Surgical History / Comment(s): colonoscopy, c3-c7 fusion Past Anesthesia/Blood Transfusion Reactions: No Reported Reaction Past Psychological History: Anxiety Smoking Status: Never smoker Past Alcohol Use History: None Reported Past Drug Use History: None Reported - Past Family History Father Family Medical History: No Reported History Additional Family Medical History / Comment(s): Dad is 82 and healthy. Mother Family Medical History: No Reported History Additional Family Medical History / Comment(s): Mom is 82 and healthy. <Melissa Power - Last Filed: 02/15/24 13:23> General Exam <Melissa Power - Last Filed: 02/15/24 13:23> <Andrea Brown - Last Filed: 02/15/24 15:07> - General Exam Comments Initial Comments: Visual Physical Exam General: Well-appearing, nontoxic, no acute distress. Head: Normocephalic, atraumatic Eyes: PERRLA, EOMI ENT: Airway patent Chest: Nonlabored breathing Skin: No visual rash, normal skin tone Neuro: Alert and oriented 3 Musculoskeletal: No gross abnormalities (Melissa Power) GENERAL: Patient is well-developed and well-nourished. Patient is nontoxic and well- hydrated and is in no acute distress. ENT: Neck is soft and supple. No significant lymphadenopathy is noted. Oropharynx is clear. Moist mucous membranes. Neck has full range of motion without eliciting any pain. EYES: The sclera were anicteric and conjunctiva were pink and moist. Extraocular movements were intact and pupils were equal round and reactive to light. Eyelids were unremarkable. PULMONARY: Unlabored respirations. Good breath sounds bilaterally. No audible rales rhonchi or wheezing was noted. CARDIOVASCULAR: There is a regular rate and rhythm without any murmurs gallops or rubs. ABDOMEN: Soft and nontender with normal bowel sounds. SKIN: Skin is clear with no lesions or rashes and otherwise unremarkable. NEUROLOGIC: Patient is alert and oriented x3. Cranial nerves II through XII are grossly intact. Motor and sensory are also intact. Normal speech, volume and content. Symmetrical smile. MUSCULOSKELETAL: Normal extremities with adequate strength and full range of motion. 2+ pedal edema bilaterally LYMPHATICS: No significant lymphadenopathy is noted PSYCHIATRIC: Normal psychiatric evaluation. (Andrea Brown) Course Vital Signs 02/15/24 13:17 Temperature 98.1 F Pulse Rate 58 L Respiratory 20 Rate Blood Pressure 195/93 O2 Sat by Pulse 95 Oximetry Medical Decision Making <Melissa Power - Last Filed: 01/03/25 13:23> - Lab Data Result diagrams: 02/15/24 13:23 02/15/24 13:23 <Andrea Brown - Last Filed: 02/15/24 15:07> - Medical Decision Making I completed the quick note portion of this chart signed Melissa Power PA-C (Melissa Power) EKG shows atrial bradycardia 57 bpm NC was 149 QRS is 85 QT interval 337 QTc is 331. Patient's EKG shows no ST segment elevation Was pt. sent in by a medical professional or institution (NATALIE Lacey, CLAY PROCESSING LABOURER, urgent care, hospital, or penitentiary...) When possible be specific @ -No Did you speak to anyone other than the patient for history (EMS, parent, family, police, friend...)? What history was obtained from this source @ -No Did you review nursing and triage notes (agree or disagree)? Why? @ -I reviewed and agree with nursing and triage notes Were old charts reviewed (outside hosp., previous admission, EMS record, old EKG, old radiological studies, urgent care reports/EKG's, penitentiary records)? Report findings @ -No old charts were reviewed Differential Diagnosis? @ -Pedal edema, acute pulmonary edema, CHF, this is not an all-inclusive list EKG interpreted by me (3pts min.). @ -As above X-rays interpreted by me (1pt min.). @ -Chest x-ray shows no acute abnormality CT interpreted by me (1pt min.). @ -None done U/S interpreted by me (1pt. min.). @ -None done What testing was considered but not performed or refused? (CT, X-rays, U/S, labs)? Why? @ -None What meds were considered but not given or refused? Why? @ -None Did you discuss the management of the patient with other professionals (professionals i.e. NATALIE Lacey, CLAY PROCESSING LABOURER, lab, RT, psych nurse, social director, vocational rehabilitation teacher, teacher, geological technical officer, bilingual case manager)? Give summary @ -No Was smoking cessation discussed for >3mins.? @ -No Was critical care preformed (if so, how long)? @ -No Were there social determinants of health that impacted care today? How? (Homelessness, low income, unemployed, alcoholism, drug addiction, transportation, low edu. Level, literacy, decrease access to med. care, care home, rehab)? @ -No Was there de-escalation of care discussed even if they declined (Discuss DNR or withdrawal of care, Hospice)? DNR status @ -No What co-morbidities impacted this encounter? (DM, HTN, Smoking, COPD, CAD, Cancer, CVA, ARF, Chemo, Hep., AIDS, mental health diagnosis, sleep apnea, morbid obesity)? @ -None Was patient admitted / discharged? Hospital course, mention meds given and route, prescriptions, significant lab abnormalities, going to OR and other per tinent info. @ -I went and spoke with the patient while he was in the waiting room because there was no beds in the emergency department and he stated that he did not feel short of breath he was here to be checked out to make sure he did not have congestive heart failure and I looked at the x-ray the BNP was normal the x-ray was normal and he did not want to stay any longer than he had 2 incidents he was feeling no different than his baseline he wanted to be sent home. Patient states he will also start taking his Lasix again get some CHASE hose and elevate his feet more often Undiagnosed new problem with uncertain prognosis? @ -No Drug Therapy requiring intensive monitoring for toxicity (Heparin, Nitro, Insulin, Cardizem)? @ -No Were any procedures done? @ -No Diagnosis/symptom? @ -Peripheral edema Acute, or Chronic, or Acute on Chronic? @ -Acute on chronic Uncomplicated (without systemic symptoms) or Complicated (systemic symptoms)? @ -Uncomplicated Side effects of treatment? @ -No Exacerbation, Progression, or Severe Exacerbation? @ -No Poses a threat to life or bodily function? How? (Chest pain, USA, [place], pneumonia, PE, COPD, DKA, ARF, appy, cholecystitis, CVA, Diverticulitis, Homicidal, Suicidal, threat to staff... and all critical care pts) @ -No (Andrea Brown) - Lab Data Lab Results 02/15/24 02/15/24 02/15/24 Range/Units 13:23 13:23 13:23 WBC 12.5 H (3.8-10.6) k/uL RBC 4.55 (4.30-5.90) m/uL Hgb 13.7 (13.0-17.5) gm/dL Hct 42.0 (39.0-53.0) % MCV 92.4 (80.0-100.0) fL MCH 30.2 (25.0-35.0) pg MCHC 32.6 (31.0-37.0) g/dL RDW 13.4 (11.5-15.5) % Plt Count 489 H D (150-450) k/uL MPV 7.2 Neutrophils % 86 % Lymphocytes % 7 % Monocytes % 5 % Eosinophils % 1 % Basophils % 0 % Neutrophils # 10.8 H (1.3-7.7) k/uL Lymphocytes # 0.8 L (1.0-4.8) k/uL Monocytes # 0.7 (0-1.0) k/uL Eosinophils # 0.1 (0-0.7) k/uL Basophils # 0.0 (0-0.2) k/uL Poikilocytosis Slight PT 12.1 (10.0-12.5) sec INR 1.1 (<1.2) APTT 27.5 (22.0-30.0) sec Sodium 138 (137-145) mmol/L Potassium 5.4 H (3.5-5.1) mmol/L Chloride 100 (98-107) mmol/L Carbon Dioxide 33 H (22-30) mmol/L Anion Gap 5 mmol/L BUN 13 (9-20) mg/dL Creatinine 0.93 (0.66-1.25) mg/dL Est GFR (CKD-EPI)AfAm >90 (>60 ml/min/1.73 sqM) Est GFR (CKD-EPI)NonAf 86 (>60 ml/min/1.73 sqM) Glucose 111 H (74-99) mg/dL Calcium 9.5 (8.4-10.2) mg/dL Magnesium 1.9 (1.6-2.3) mg/dL Total Bilirubin 1.1 (0.2-1.3) mg/dL AST 46 (17-59) U/L ALT 19 (4-49) U/L Alkaline Phosphatase 32 L (38-126) U/L Troponin I (0.000-0.034) ng/mL NT-Pro-B Natriuret Pep 225 pg/mL Total Protein 7.4 (6.3-8.2) g/dL Albumin 4.2 (3.5-5.0) g/dL Influenza Type A (PCR) (Not Detectd) Influenza Type B (PCR) (Not Detectd) RSV (PCR) (Not Detectd) SARS-CoV-2 (PCR) (Not Detectd) 02/15/24 02/15/24 Range/Units 13:23 13:23 WBC (3.8-10.6) k/uL RBC (4.30-5.90) m/uL Hgb (13.0-17.5) gm/dL Hct (39.0-53.0) % MCV (80.0-100.0) fL MCH (25.0-35.0) pg MCHC (31.0-37.0) g/dL RDW (11.5-15.5) % Plt Count (150-450) k/uL MPV Neutrophils % % Lymphocytes % % Monocytes % % Eosinophils % % Basophils % % Neutrophils # (1.3-7.7) k/uL Lymphocytes # (1.0-4.8) k/uL Monocytes # (0-1.0) k/uL Eosinophils # (0-0.7) k/uL Basophils # (0-0.2) k/uL Poikilocytosis PT (10.0-12.5) sec INR (<1.2) APTT (22.0-30.0) sec Sodium (137-145) mmol/L Potassium (3.5-5.1) mmol/L Chloride (98-107) mmol/L Carbon Dioxide (22-30) mmol/L Anion Gap mmol/L BUN (9-20) mg/dL Creatinine (0.66-1.25) mg/dL Est GFR (CKD-EPI)AfAm (>60 ml/min/1.73 sqM) Est GFR (CKD-EPI)NonAf (>60 ml/min/1.73 sqM) Glucose (74-99) mg/dL Calcium (8.4-10.2) mg/dL Magnesium (1.6-2.3) mg/dL Total Bilirubin (0.2-1.3) mg/dL AST (17-59) U/L ALT (4-49) U/L Alkaline Phosphatase (38-126) U/L Troponin I <0.012 (0.000-0.034) ng/mL NT-Pro-B Natriuret Pep pg/mL Total Protein (6.3-8.2) g/dL Albumin (3.5-5.0) g/dL Influenza Type A (PCR) Not Detected (Not Detectd) Influenza Type B (PCR) Not Detected (Not Detectd) RSV (PCR) Not Detected (Not Detectd) SARS-CoV-2 (PCR) Not Detected (Not Detectd) Disposition <Melissa Power - Last Filed: 02/15/24 13:23> Is patient prescribed a controlled substance at d/c from ED?: No Time of Disposition: 15:06 <Andrea Brown - Last Filed: 02/15/24 15:07> Clinical Impression: Peripheral edema Disposition: HOME SELF-CARE Condition: Good Instructions (If sedation given, give patient instructions): Leg Edema (ED) Additional Instructions: Patient should start taking Lasix again. Patient should return to the emergency department if there is any difficulty breathing. Referrals: Vandana Gallardo MD [Primary Care Provider] - 1-2 days
[2024-02-15 13:50] LABS: Basophils % (A) 0 %; Eosinophils # (A) 0.1 k/uL (0-0.7); Eosinophils % (A) 1 %; HGB 13.7 gm/dL (13.0-17.5); Lymphocytes # (A) 0.8 k/uL (1.0-4.8); Lymphocytes % (A) 7 %; MCH 30.2 pg (25.0-35.0); MCHC 32.6 g/dL (31.0-37.0); MCV 92.4 fL (80.0-100.0); Mean Platelet Volume 7.2; Monocytes # (A) 0.7 k/uL (0-1.0); Monocytes % (A) 5 %; Neutrophils # (A) 10.8 k/uL (1.3-7.7); Neutrophils % (A) 86 %; Poikilocytosis Slight; RBC 4.55 m/uL (4.30-5.90); RDW 13.4 % (11.5-15.5); WBC 12.5 k/uL (3.8-10.6)
[2024-02-15 13:52] LABS: ALT 19 U/L (4-49); African American GFR (CKD) >90 (>60 ml/min/1.73 sqM); Albumin 4.2 g/dL (3.5-5.0); Anion Gap 5 mmol/L; Blood Urea Nitrogen 13 mg/dL (9-20); Calcium 9.5 mg/dL (8.4-10.2); Carbon Dioxide 33 mmol/L (22-30); Chloride 100 mmol/L (98-107); Glucose 111 mg/dL (74-99); Non-African American GFR(CKD) 86 (>60 ml/min/1.73 sqM); Sodium 138 mmol/L (137-145); Total Bilirubin 1.1 mg/dL (0.2-1.3); Total Protein 7.4 g/dL (6.3-8.2)
[2024-02-15 13:56] LABS: AST 46 U/L (17-59); Magnesium 1.9 mg/dL (1.6-2.3); Potassium 5.4 mmol/L (3.5-5.1)
[2024-02-15 13:57] LABS: Alkaline Phosphatase 32 U/L (38-126)
[2024-02-15 14:00] LABS: NT-Pro-B-Type Natriuretic Pept 225 pg/mL
[2024-02-15 14:01] LABS: Platelet Count 489 k/uL (150-450)
--- NOTE | 2024-02-15 14:10 | XR ---
EXAMINATION TYPE: XR chest 2V DATE OF EXAM: 02/15/2024 1:50 PM COMPARISON: 01/30/2024 CLINICAL INDICATION: Male, 68 years old with history of shortness of breath, TECHNIQUE: XR chest 2V view(s) obtained. FINDINGS: The heart size is normal. The pulmonary vasculature is normal. The lungs are clear. IMPRESSION: 1. No acute pulmonary process. [facility], , 02/15/2024 2:08 PM
[2024-02-15 14:19] LABS: INR 1.1 (<1.2); Partial Thromboplastin Time 27.5 sec (22.0-30.0); Prothrombin Time 12.1 sec (10.0-12.5)
== END 2024-02-15 16:19 | disposition home or self-care (01) ==
LOC: EC 12:54
DX: R60.0 Localized edema (principal)
CPT/HCPCS: 36415; 71046; 80053; 83735; 83880; 84484; 85025; 85610; 85730; 87636; 93005; 99285

== ENCOUNTER 2024-02-26 13:34 | Emergency (ER) | payer MEDICARE, OTHER ==
--- NOTE | 2024-02-26 14:12 | ED ---
General Adult HPI - General Chief complaint: ENT Stated complaint: nose bleed on blood thinners Time Seen by Provider: 02/26/24 14:00 Source: patient, RN notes reviewed, old records reviewed Mode of arrival: ambulatory Limitations: no limitations - History of Present Illness Initial comments: This is a 68-year-old male who presents to the emergency department complaining of a nosebleed. Patient states that he has been put on Eliquis for atrial fibrillation. Patient states that last night he started bleeding and could go to stop he woke up again this morning it was bleeding heavily so he packed both naris with some dressing. Patient states it was bleeding around and he got to the emergency department they clamped his nose and is now stopped. Patient denies being lightheaded or dizzy. Patient shortness of breath or difficulty breathing. Patient states he has been on Eliquis for about 3 weeks. Patient states he has 2 L of O2 at home however it is not humidified he has requested that. - Related Data Home Medications Medication Instructions Recorded Confirmed Pravastatin Sodium 40 mg PO DAILY 11/10/15 02/26/24 Aspirin [[place] Aspirin EC] 81 mg PO DAILY 09/30/20 02/26/24 DULoxetine HCL [Cymbalta] 30 mg PO DAILY 09/30/20 02/26/24 Multivitamins, Thera [Multivitamin 1 tab PO DAILY 11/22/23 02/26/24 (formulary)] rOPINIRole HCL [Requip] 0.5 mg PO HS 11/22/23 02/26/24 Apixaban [Eliquis] 5 mg PO BID 01/15/24 02/26/24 Gabapentin [Neurontin] 300 mg PO TID 01/15/24 02/26/24 Amiodarone [Cordarone] 200 mg PO DAILY 02/26/24 02/26/24 Previous Rx's Medication Instructions Recorded Dapagliflozin Propanediol [Farxiga] 10 mg PO DAILY #30 tab 12/12/23 Furosemide [Lasix] 40 mg PO BID@0900,1600 #60 tab 01/29/24 Metoprolol Tartrate [Lopressor] 50 mg PO BID #60 tab 01/29/24 Pantoprazole [Protonix] 40 mg PO AC-BRKFST #30 tab 01/29/24 acetaZOLAMIDE [Diamox] 250 mg PO DAILY #30 tab 01/29/24 lisinopriL [Zestril] 20 mg PO DAILY #30 tab 01/29/24 Amoxic-Pot Clav 875-125Mg 1 tab PO BID 10 Days #10 tab 02/26/24 [Augmentin 875-125] Allergies Allergy/AdvReac Type Severity Reaction Status Date / Time No Known Allergies Allergy Verified 02/26/24 15:44 Review of Systems ROS Statement: Those systems with pertinent positive or pertinent negative responses have been documented in the HPI. ROS Other: All systems not noted in ROS Statement are negative. Past Medical History Past Medical History: Atrial Fibrillation, COPD, GERD/Reflux, Hyperlipidemia, Hypertension, Sleep Apnea/CPAP/BIPAP Additional Past Medical History / Comment(s): Asthma as child, hx. of a-fib-no episodes of in last year, uses CPAP, left arm very weak due to neck, RLS, CTS lolis, lower legs swell History of Any Multi-Drug Resistant Organisms: None Reported Past Surgical History: Adenoidectomy, Orthopedic Surgery, Tonsillectomy Additional Past Surgical History / Comment(s): colonoscopy, c3-c7 fusion Past Anesthesia/Blood Transfusion Reactions: No Reported Reaction Past Psychological History: Anxiety Smoking Status: Never smoker Past Alcohol Use History: None Reported Past Drug Use History: None Reported - Past Family History Father Family Medical History: No Reported History Additional Family Medical History / Comment(s): Dad is 82 and healthy. Mother Family Medical History: No Reported History Additional Family Medical History / Comment(s): Mom is 82 and healthy. General Exam - General Exam Comments Initial Comments: GENERAL Patient is well-developed and well-nourished. Patient is in mild distress. EYES Patient's pupils are equal and round. Extraocular motion is intact ENT Patient is currently clamped with a nose clamp and there is no active bleeding but he does have both naris filled with dressing. SKIN Unremarkable NEURO The patient is alert and oriented A&Ox3 PYSCH Patient has normal interpersonal interactions. MUSCULOSKELETAL Has full range of motion of all 4 extremities Limitations: no limitations Course Vital Signs 02/26/24 02/26/24 02/26/24 13:54 15:11 15:31 Temperature 98.0 F Pulse Rate 74 75 64 Respiratory 18 22 20 Rate Blood Pressure 180/99 181/117 151/87 O2 Sat by Pulse 93 L 95 91 L Oximetry 02/26/24 02/26/24 02/26/24 15:43 17:24 18:04 Temperature Pulse Rate 72 90 103 H Respiratory 18 17 20 Rate Blood Pressure 198/96 165/90 178/99 O2 Sat by Pulse 92 L 94 L 95 Oximetry Procedures - Procedures Initial comment: Patient needed a Rhino Rocket I soaked the Rhino Rocket and saline I placed a Rhino Rocket in his left nare. I inflated both balloons to 6 mL of air it stopped the patient's bleeding and patient we discharged home to follow-up in 2 to 3 days Medical Decision Making - Medical Decision Making Was pt. sent in by a medical professional or institution (, NATALIE, AUTOMOTIVE MACHINIST, urgent care, hospital, or correction...) When possible be specific @ -No Did you speak to anyone other than the patient for history (EMS, parent, family, police, friend...)? What history was obtained from this source @ -No Did you review nursing and triage notes (agree or disagree)? Why? @ -I reviewed and agree with nursing and triage notes Were old charts reviewed (outside hosp., previous admission, EMS record, old EKG, old radiological studies, urgent care reports/EKG's, correction records)? Report findings @ -No old charts were reviewed Differential Diagnosis? @ -Epistaxis left nare, epistaxis right nare, broken nasal bone, this is not an all-inclusive list EKG interpreted by me (3pts min.). @ -As above X-rays interpreted by me (1pt min.). @ -None done CT interpreted by me (1pt min.). @ -None done U/S interpreted by me (1pt. min.). @ -None done What testing was considered but not performed or refused? (CT, X-rays, U/S, labs)? Why? @ -None What meds were considered but not given or refused? Why? @ -None Did you discuss the management of the patient with other professionals (professionals i.e. NATALIE Lacey, AUTOMOTIVE MACHINIST, lab, RT, psych nurse, social service worker, household appliance mechanic, teacher, property disposal officer, home health care case manager)? Give summary @ -No Was smoking cessation discussed for >3mins.? @ -No Was critical care preformed (if so, how long)? @ -No Were there social determinants of health that impacted care today? How? (Homelessness, low income, unemployed, alcoholism, drug addiction, transportation, low edu. Level, literacy, decrease access to med. care, group home, rehab)? @ -No Was there de-escalation of care discussed even if they declined (Discuss DNR or withdrawal of care, Hospice)? DNR status @ -No What co-morbidities impacted this encounter? (DM, HTN, Smoking, COPD, CAD, Cancer, CVA, ARF, Chemo, Hep., AIDS, mental health diagnosis, sleep apnea, morbid obesity)? @ -None Was patient admitted / discharged? Hospital course, mention meds given and route, prescriptions, significant lab abnormalities, going to OR and other pertinent info. @ -Patient did not want a Rhino Rocket initially because of the discomfort but after multiple attempts with TXA and clamping and Afrin patient continued to bleed so patient had a Rhino Rocket placed and that stopped his bleeding. Patient also was given labetalol and hydralazine to bring his blood pressure down. Patient also received Ativan to relax and 0.5 of Dilaudid because of the pain. Undiagnosed new problem with uncertain prognosis? @ -No Drug Therapy requiring intensive monitoring for toxicity (Heparin, Nitro, Insulin, Cardizem)? @ -No Were any procedures done? @ -No Diagnosis/symptom? @ -Epistaxis Acute, or Chronic, or Acute on Chronic? @ -Acute Uncomplicated (without systemic symptoms) or Complicated (systemic symptoms)? @ -Complicated Side effects of treatment? @ -No Exacerbation, Progression, or Severe Exacerbation? @ -No Poses a threat to life or bodily function? How? (Chest pain, USA, [place], pneumonia, PE, COPD, DKA, ARF, appy, cholecystitis, CVA, Diverticulitis, Homicidal, Suicidal, threat to staff... and all critical care pts) @ -No Diagnosis/symptom? @ -Hypertension Acute, or Chronic, or Acute on Chronic? @ -Acute Uncomplicated (without systemic symptoms) or Complicated (systemic symptoms)? @ -Complicated Side effects of treatment? @ -None Exacerbation, Progression, or Severe Exacerbation] @ -No Poses a threat to life or bodily function? @ -No - Lab Data Result diagrams: 02/26/24 14:40 Lab Results 02/26/24 Range/Units 14:40 WBC 11.9 H (3.8-10.6) k/uL RBC 4.94 (4.30-5.90) m/uL Hgb 14.8 (13.0-17.5) gm/dL Hct 46.4 (39.0-53.0) % MCV 93.8 (80.0-100.0) fL MCH 29.9 (25.0-35.0) pg MCHC 31.9 (31.0-37.0) g/dL RDW 13.5 (11.5-15.5) % Plt Count 315 (150-450) k/uL MPV 7.0 Neutrophils % 84 % Lymphocytes % 8 % Monocytes % 6 % Eosinophils % 1 % Basophils % 0 % Neutrophils # 10.0 H (1.3-7.7) k/uL Lymphocytes # 1.0 (1.0-4.8) k/uL Monocytes # 0.7 (0-1.0) k/uL Eosinophils # 0.1 (0-0.7) k/uL Basophils # 0.0 (0-0.2) k/uL Hypochromasia Slight Disposition Clinical Impression: Epistaxis, Hypertensive urgency Disposition: HOME SELF-CARE Condition: Good Instructions (If sedation given, give patient instructions): Nosebleed (ED) Additional Instructions: Patient should follow-up with ENT or his primary medical care doctor to have the nasal packing removed in 2 to 3 days patient can have removed to the emergency department if he is unable to contact any of these individuals Prescriptions: Amoxic-Pot Clav 875-125Mg [Augmentin 875-125] 1 tab PO BID 10 Days #10 tab Is patient prescribed a controlled substance at d/c from ED?: No Referrals: Vandana Gallardo MD [Primary Care Provider] - 1-2 days Lincoln Chamberlain MD [STAFF PHYSICIAN] - 1-2 days Time of Disposition: 19:21
[2024-02-26] MEDS: OXYMETAZOLINE 0.05% NASL SPRAY 1 SPRAY BOTTLE NASAL STA (14:17)
[2024-02-26 14:44] LABS: Basophils % (A) 0 %; Eosinophils # (A) 0.1 k/uL (0-0.7); Eosinophils % (A) 1 %; HCT 46.4 % (39.0-53.0); HGB 14.8 gm/dL (13.0-17.5); Hypochromasia Slight; Lymphocytes % (A) 8 %; MCH 29.9 pg (25.0-35.0); MCHC 31.9 g/dL (31.0-37.0); MCV 93.8 fL (80.0-100.0); Monocytes # (A) 0.7 k/uL (0-1.0); Monocytes % (A) 6 %; Neutrophils % (A) 84 %; Platelet Count 315 k/uL (150-450); RBC 4.94 m/uL (4.30-5.90); RDW 13.5 % (11.5-15.5); WBC 11.9 k/uL (3.8-10.6)
[2024-02-26] MEDS: LABETALOL SYRINGE 5 MG/ML (4 ML SYR) IVP STA (15:22)
[2024-02-26] MEDS: TRANEXAMIC ACID 1,000 MG/10 ML VIAL MISCELLANE ONE (15:34)
[2024-02-26] MEDS: LORazepam 2 MG/ML INJ IV STA (16:24)
[2024-02-26] MEDS: hydrALAZINE HCL 20 MG/ML 1 ML VIAL IVP STA ×2 (16:35→17:20)
[2024-02-26] MEDS: HYDROmorphone 0.5 MG/0.5 ML SYRINGE IVP STA (18:02)
[2024-02-26] MEDS: AMOXIC-POT CLAV 875-125MG 1 EACH TAB PO STA (19:28)
[2024-02-26 19:33] VITALS: BP 125/97; PULSE 104; RESP 18; TEMP 98.7
== END 2024-02-26 19:38 | disposition home or self-care (01) ==
LOC: EC 13:34
DX: I16.0 Hypertensive urgency (principal); I10 Essential (primary) hypertension; Z79.899 Other long term (current) drug therapy
CPT/HCPCS: 36415; 85025; 99283; 30903; 96374; 96375 ×3; 96376; J2060; J0360; J1171; J1920

== ENCOUNTER → 2024-02-27 | Outpatient (CLI) | payer MEDICARE, OTHER | LOC: CPPFTMAIN 09:22 | PROVIDERS: ATTEND Internal Medicine Critical Care Medicine | DX: J96.90 Respiratory failure, unspecified, unspecified whether with hypoxia or hypercapnia (principal) | CPT/HCPCS: 94060; 94726; 94729 ==

== ENCOUNTER 2024-03-02 12:28 | Emergency (ER) | payer MEDICARE, OTHER ==
[2024-03-02 12:37] VITALS: RESP 18; TEMP 98.7
[2024-03-02] MEDS: HYDROmorphone 1 MG/ML 1 ML SYRINGE IM STA (12:50)
--- NOTE | 2024-03-02 13:04 | ED ---
ENT HPI - General Chief complaint: ENT Stated complaint: nose bleed Time Seen by Provider: 03/02/24 12:39 Source: patient, RN notes reviewed Mode of arrival: wheelchair Limitations: no limitations - History of Present Illness Initial comments: This is a 68-year-old male who presents to the emergency department to have his nasal packing removed. He was here 5 days ago for epistaxis and they did not get any relief with Afrin or TXA. Rhino Rocket was subsequently placed. He was unable to get in with his PCP or ENT and he was told to thus return here to have the packing removed. - Related Data Home Medications Medication Instructions Recorded Confirmed Pravastatin Sodium 40 mg PO DAILY 11/10/15 02/26/24 Aspirin [[place] Aspirin EC] 81 mg PO DAILY 09/30/20 02/26/24 DULoxetine HCL [Cymbalta] 30 mg PO DAILY 09/30/20 02/26/24 Multivitamins, Thera [Multivitamin 1 tab PO DAILY 11/22/23 02/26/24 (formulary)] rOPINIRole HCL [Requip] 0.5 mg PO HS 11/22/23 02/26/24 Apixaban [Eliquis] 5 mg PO BID 01/15/24 02/26/24 Gabapentin [Neurontin] 300 mg PO TID 01/15/24 02/26/24 Amiodarone [Cordarone] 200 mg PO DAILY 02/26/24 02/26/24 Previous Rx's Medication Instructions Recorded Dapagliflozin Propanediol [Farxiga] 10 mg PO DAILY #30 tab 12/12/23 Furosemide [Lasix] 40 mg PO BID@0900,1600 #60 tab 01/29/24 Metoprolol Tartrate [Lopressor] 50 mg PO BID #60 tab 01/29/24 Pantoprazole [Protonix] 40 mg PO AC-BRKFST #30 tab 01/29/24 acetaZOLAMIDE [Diamox] 250 mg PO DAILY #30 tab 01/29/24 lisinopriL [Zestril] 20 mg PO DAILY #30 tab 01/29/24 Amoxic-Pot Clav 875-125Mg 1 tab PO BID 10 Days #10 tab 02/26/24 [Augmentin 875-125] Allergies Allergy/AdvReac Type Severity Reaction Status Date / Time No Known Allergies Allergy Verified 03/02/24 12:37 Review of Systems ROS Statement: Those systems with pertinent positive or pertinent negative responses have been documented in the HPI. ROS Other: All systems not noted in ROS Statement are negative. Past Medical History Past Medical History: Atrial Fibrillation, COPD, GERD/Reflux, Hyperlipidemia, Hypertension, Sleep Apnea/CPAP/BIPAP Additional Past Medical History / Comment(s): Asthma as child, hx. of a-fib-no episodes of in last year, uses CPAP, left arm very weak due to neck, RLS, CTS lolis, lower legs swell History of Any Multi-Drug Resistant Organisms: None Reported Past Surgical History: Adenoidectomy, Orthopedic Surgery, Tonsillectomy Additional Past Surgical History / Comment(s): colonoscopy, c3-c7 fusion Past Anesthesia/Blood Transfusion Reactions: No Reported Reaction Past Psychological History: Anxiety Smoking Status: Never smoker Past Alcohol Use History: None Reported Past Drug Use History: None Reported - Past Family History Father Family Medical History: No Reported History Additional Family Medical History / Comment(s): Dad is 82 and healthy. Mother Family Medical History: No Reported History Additional Family Medical History / Comment(s): Mom is 82 and healthy. General Exam Limitations: no limitations General appearance: alert, in no apparent distress Head exam: Present: atraumatic, normocephalic, normal inspection Respiratory exam: Present: normal lung sounds bilaterally. Absent: respiratory distress, wheezes, rales, rhonchi, stridor Cardiovascular Exam: Present: regular rate, normal rhythm Neurological exam: Present: alert, oriented X3, CN II-XII intact Psychiatric exam: Present: normal affect, normal mood Skin exam: Present: warm, dry, intact, normal color. Absent: rash Course Vital Signs 03/02/24 03/02/24 03/02/24 12:33 12:48 14:16 Temperature 98.7 F Pulse Rate 79 88 Respiratory 18 18 Rate Blood Pressure 177/100 170/100 189/73 O2 Sat by Pulse 97 98 99 Oximetry Medical Decision Making - Medical Decision Making This is a 68 year old male who presents to the emergency department for removal of nasal packing due to epistaxis. Was pt. sent in by a medical professional or institution? @ -No Did you speak to anyone other than the patient for history? @ -No Did you review nursing and triage notes? @ -Yes, and I agree, it is accurate with regards to the patient's symptoms. Were old charts reviewed? @ -No Differential Diagnosis? @ -Dryness, injury, coagulopathy, tumor, this is not meant to be an all- inclusive list. EKG interpreted by me (3pts min.)? @ -Not obtained X-rays interpreted by me (1pt min.)? @ -Not obtained CT interpreted by me (1pt min.)? @ -Not obtained U/S interpreted by me (1pt. min.)? @ -Not obtained What testing was considered but not performed? (CT, X-rays, U/S, labs)? Why? @ -None What meds were considered but not given? Why? @ -None Did you discuss the management of the patient with other professionals? @ -No Did you reconcile home meds? @ -No Was smoking cessation discussed for >3mins.? @ -No Was critical care preformed (if so, how long)? @ -No Were there social determinants of health that impacted care today? How? (Homelessness, low income, unemployed, alcoholism, drug addiction, transportation, low edu. Level, literacy, decrease access to med. care, half-way, r ehab)? @ -No Was there de-escalation of care discussed even if they declined? (Discuss DNR or withdrawal of care, Hospice)? @ -No What co-morbidities impacted this encounter? (DM, HTN, Smoking, COPD, CAD, Cancer, CVA, Hep., AIDS, mental health diagnosis, sleep apnea, morbid obesity)? @ -A-fib Was patient admitted / discharged? @ -Discharged. The Rhino Rocket was removed without difficulty. Patient was monitored in the emergency department for a little over an hour afterwards and had no additional bleeding. Patient does wear oxygen at home. He was reminded of the need to use saline nasal spray or something else to moisturize the nasal passages, especially with the supplemental oxygen use. Patient discharged home in stable condition. Case discussed with ED attending Dr. Ramos. Return precautions reviewed in depth, the patient is instructed to return to the emergency department with any new, worsening, or concerning symptoms. Patient verbalized understanding. Undiagnosed new problem with uncertain prognosis? @ -None Drug Therapy requiring intensive monitoring for toxicity (Heparin, Nitro, Insulin, Cardizem)? @ -None Were any procedures done? @ -None Diagnosis/symptom? @ -Encounter for removal of nasal packing Acute, or Chronic, or Acute on Chronic? @ -Acute Uncomplicated (without systemic symptoms) or Complicated (systemic symptoms)? @ -Uncomplicated Side effects of treatment? @ -None Exacerbation, Progression, or Severe Exacerbation] @ -Not applicable Poses a threat to life or bodily function? @ -No Disposition Clinical Impression: Encounter for removal of nasal packing Disposition: HOME SELF-CARE Instructions (If sedation given, give patient instructions): Nosebleed (ED) Additional Instructions: Return to the emergency department with any new, worsening, or concerning symptoms. Follow up with your primary care provider in 1-2 days. Is patient prescribed a controlled substance at d/c from ED?: No Referrals: Vandana Gallardo MD [Primary Care Provider] - 1-2 days Time of Disposition: 14:13
[2024-03-02] MEDS: OXYMETAZOLINE 0.05% NASL SPRAY 1 SPRAY BOTTLE NASAL STA (13:08)
[2024-03-02 14:19] VITALS: BP 189/73; PULSE 88
== END 2024-03-02 14:28 | disposition home or self-care (01) ==
LOC: EC 12:28
DX: Z48.00 Encounter for change or removal of nonsurgical wound dressing (principal); I48.91 Unspecified atrial fibrillation; Z79.01 Long term (current) use of anticoagulants
CPT/HCPCS: 99283; 96372; J1171